=== PATIENT | male | born 1950 | race Caucasian/White ===

== ENCOUNTER → 2019-08-28 | Outpatient (CLI) | payer BC ==
[~2019-08-28] MED LIST: ACET-461 PO; ACHYD1T PO; ALBU2.5V4 IN; ALBU8.5H2 INH; AMOX-355 PO; BACL10TA PO; BCL10T PO; BUDE6HFA IH; CLCX200C PO; DEXL60CA5 PO; DIAZ10TA3 PO; Diazepam PO; FEXO180T84 PO; FLUT16SP22 NS; FURO20TA4 PO; Fentanyl TD; HYDR-2890 PO; IBUP-30 PO; MELA1TAB20 PO; POTA10CA43 PO; PREG75CA PO; ROSU10TA12 PO; SENN1TAB76 PO; SULF1TAB35 PO; TAMS0.4C9 PO; TMSL.4C PO; TRAM50TA2 PO
--- NOTE | 2019-08-28 14:27 | Diagnostic Imaging Report ---
INDICATION: Chest pain, cough, and fever. EXAMINATION: PA and lateral chest. FINDINGS: There are postop changes from a median sternotomy. The heart size and pulmonary vascularity are within normal limits. There are no infiltrates, effusions, or pneumothoraces. IMPRESSION: Post surgical changes in the chest. There are no acute abnormalities seen. Dictated by: Dictated on workstation # [id number]
== END ==
LOC: RAD FS 13:26
PROVIDERS: ATTEND Nurse Practitioner Family
DX: R07.9 Chest pain, unspecified (principal); R50.9 Fever, unspecified; R05 Cough; Z98.890 Other specified postprocedural states
CPT/HCPCS: 71046

== ENCOUNTER 2020-03-28 18:59 | Emergency (ER) | payer BC ==
[~2020-03-28] VITALS: Ht 160 cm; Wt 74.4 kg
[2020-03-28 19:34] LABS: HEMATOCRIT 38 % (40-54); HEMOGLOBIN 12.9 G/DL (13.3-17.7); MEAN CORPUSCULAR HEMOGLOBIN 31 PG (25-34); MEAN CORPUSCULAR HGB CONC 34 G/DL (32-36); MEAN CORPUSCULAR VOLUME 91 FL (80-99); PLATELET COUNT 236 10^3/uL (130-400); RED CELL DISTRIBUTION WIDTH 14.6 % (10.0-14.5); WHITE BLOOD COUNT 4.6 10^3/uL (4.3-11.0)
[2020-03-28 19:35] LABS: BASOPHILS % (AUTO) 0 % (0-10); EOSINOPHILS # (AUTO) 0.2 10^3/uL (0.0-0.3); EOSINOPHILS % (AUTO) 5 % (0-10); LYMPHOCYTES % (AUTO) 21 % (12-44); MEAN PLATELET VOLUME 9.6 FL (7.4-10.4); MONOCYTES # (AUTO) 0.8 X 10^3 (0.0-1.0); MONOCYTES % (AUTO) 17 % (0-12); NEUTROPHILS # (AUTO) 2.6 X 10^3 (1.8-7.8); NEUTROPHILS % (AUTO) 57 % (42-75)
[2020-03-28 19:42] LABS: INR 1.1 (0.8-1.4); PROTHROMBIN TIME PATIENT 14.2 SEC (12.2-14.7)
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
[2020-03-28 19:52] LABS: MAGNESIUM 2.2 MG/DL (1.6-2.4)
[2020-03-28 19:53] LABS: ALANINE AMINOTRANSFERASE 25 U/L (0-55); ALKALINE PHOSPHATASE 65 U/L (40-136); BILIRUBIN,TOTAL 0.3 MG/DL (0.1-1.0); BUN/CREATININE RATIO 24; CALCIUM 9.4 MG/DL (8.5-10.1); CARBON DIOXIDE 24 MMOL/L (21-32); CHLORIDE 106 MMOL/L (98-107); CREATININE SERUM 0.95 MG/DL (0.60-1.30); GFR ESTIMATED > 60; GLUCOSE 93 MG/DL (70-105); POTASSIUM 3.8 MMOL/L (3.6-5.0); SODIUM 139 MMOL/L (135-145)
[2020-03-28 19:54] LABS: ALBUMIN 4.2 GM/DL (3.2-4.5); TOTAL PROTEIN 6.5 GM/DL (6.4-8.2)
[2020-03-28 19:59] LABS: CLARITY,URINE CLEAR; COLOR,URINE YELLOW
[2020-03-28 20:00] LABS: BILIRUBIN,URINE NEGATIVE (NEGATIVE); GLUCOSE, URINE (UA) NEGATIVE (NEGATIVE); KETONES,URINE NEGATIVE (NEGATIVE); LEUKOCYTE ESTERASE ,URINE NEGATIVE (NEGATIVE); NITRITE,URINE NEGATIVE (NEGATIVE); PH,URINE 6.5 (5-9); PROTEIN,URINE NEGATIVE (NEGATIVE)
[2020-03-28 20:02] LABS: BACTERIA,URINE NEGATIVE /HPF; RBC,URINE RARE /HPF; SQUAMOUS EPITHELIAL CELL,UR RARE /HPF; WBC,URINE 0-2 /HPF
--- NOTE | 2020-03-28 20:21 | Diagnostic Imaging Report ---
PROCEDURE: CT head and CT cervical spine without contrast. TECHNIQUE: Multiple contiguous axial images were obtained through the brain and cervical spine without the use of intravenous contrast. Sagittal and coronal reformations through the cervical spine were then performed. Auto Exposure Controls were utilized during the CT exam to meet ALARA standards for radiation dose reduction. INDICATION: Acute altered mental status with confusion and multiple cervical surgeries. CT head: Ventricles and sulci are within normal limits for size. There is no intracranial hemorrhage identified. There is no abnormal mass effect or shift of midline structures. IMPRESSION: Unremarkable CT of the head. CT cervical spine: Extensive posterior fusion and decompression extend from C2 through T2. There is no evidence of an acute fracture or subluxation. No definite orthopedic hardware complication is identified. IMPRESSION: No CT evidence of acute cervical spinal abnormality. Dictated by: Dictated on workstation # [id number]
--- OUTSIDE RECORDS SUMMARY | 2020-03-28 20:33 | XMS REPORT | Encounter Summary ---
Author Author [facility] Organization [facility] Address Unknown Phone Unavailable Care Team Providers Care Senior Training And Development Rep Name Role Phone Jerry Brewer MD Unavailable Faviola Resendiz DO PCP Reason for Visit * Reason Comments Electrocardiogram Persistent atrial fibrillat ion, PVC's Encounter Details Care Team Description Date Type Department December [place] Electrocardiogram (Persistent atrial fib rillation, PVC's) 03/15/2020 Documentation [facility] [address] [place] [address] Social History Date Tobacco Use Types Packs/Day Years Used Never Smoker Smokeless Tobacco: Never Used Drinks/Week oz/Week Comments Alcohol Use No Sex Assigned at Date Recorded Not on file Industry Job Start Date Occupation Not on file Not on file Not on file Travel End Travel History Travel Start No recent travel history available. Date Recorded COVID-19 Exposure Response 03/15/2020 1:32 PM CDT In the last month, have you been in contact with No / Unsure someone who was confirmed or suspected to have Coronavirus / COVID-19? documented as of this encounter Functional Status Date of Assessment Functional Status Response 11/09/2019 Does the patient have a hearing impairment: No 11/09/2019 Does the patient have a visual impairment: Yes 11/09/2019 Does the patient have impaired ambulation: No 11/09/2019 Does the patient have an activity of daily living No (ADL) impairment: 11/09/2019 Does the patient have an instrumental activity of No daily living (IADL) impairment: Date of Assessment Cognitive Status Response 11/09/2019 Does the patient have a cognitive impairment: No documented as of this encounter Plan of Treatment Order Schedule Name Type Priority Associated Diag noses Ordered: 03/15/2020 ECG 12-LEAD ECG Routine Other persisten t atrial fibrillation (HCC) documented as of this encounter Visit Diagnoses Diagnosis Longstanding persistent atrial fibrilla tion (HCC) Other persistent atrial fibrillation (H CC) documented in this encounter
--- OUTSIDE RECORDS SUMMARY | 2020-03-28 20:33 | XMS REPORT | Encounter Summary ---
Author Author [facility] Organization [facility] Address Unknown Phone Unavailable Care Team Providers Care Multimedia Designer Name Role Phone Jerry Brewer MD Unavailable Faviola Resendiz DO PCP Reason for Referral * Test (Routine) Referred By Contact Referred To Contact Status Reason Specialty Diagnoses / Procedures Smita Soria APRN-NP [address] [place] [address] Cvm Cmpc3 Echo/Pv [address] [place] [address] Authorized Cardiology Diagnoses Cardiomyopathy, unspecified type (HCC) P rocedures 2D + DOPPLER ECHO VT ECHO TTHRC R-T 2D W/WOM-MODE COMPL SPEC&COLR D VT MYOCRD STRAIN IMG SPECKLE TRCK [facility]MT [facility] REND[facility] W/INTERP & POSTPROCESS SUPERVISION Reason for Visit * Test (Routine) Referred By Contact Referred To Contact Status Reason Specialty Diagnoses / Procedures Smita Soria APRN-NP [address] [place] [address] Cvm Cmpc3 Echo/Pv [address] [place] [address] Authorized Cardiology Diagnoses Cardiomyopathy, unspecified type (HCC) P rocedures 2D + DOPPLER ECHO VT ECHO TTHRC R-T 2D W/WOM-MODE COMPL SPEC&COLR D VT MYOCRD STRAIN IMG SPECKLE TRCK ASSMT MYOCRD MECH VT 3D RENDERING W/INTERP & POSTPROCESS SUPERVISION Encounter Details Care Team Description Date Type Department Smita Soria APRN-JAVA SYSTEMS ANALYST [address] [place] [address] [phone] 03/15/2020 [facility] [address] [place] [address] Social History Date Tobacco Use Types Packs/Day [...] / COVID-19? documented as of this encounter Last Filed Vital Signs Reading Time Taken Comments Vital Sign 116/70 03/15/2020 2:18 PM CDT Blood Pressure - - Pulse - - Temperature - - Respiratory Rate - - Oxygen Saturation - - Inhaled Oxygen Concentration 74.4 kg (164 lb) 03/15/2020 2:18 PM CDT Weight 160 cm (5' 3") 03/15/2020 2:18 PM CDT Height 29.05 03/15/2020 2:18 PM CDT Body Mass Index documented in this encounter Functional Status Date of Assessment [...] impairment: No documented as of this encounter Medications at Time of Discharge Start Date End Date Medication Sig Dispensed Refills acetaminophen (TYLENOL) Take 1,000 mg 0 500 mg tablet by mouth every 8 hours. Max of 4,000 mg of acetaminophen in 24 hours. albuterol 0.083% Inhale 2.5 mg 0 (PROVENTIL; VENTOLIN) 2.5 solution as mg /3 mL (0.083 %) directed nebulizer solution every 4 hours as needed for Wheezing. 11/06/2019 apixaban (ELIQUIS) 5 mg Take one 60 tablet 11 tablet tablet by mouth twice daily. May crush 5 mg or 2.5 mg tablets and suspend in 60 mL of D5W followed by immediate delivery through a nasogastric tube. No information regarding administratio n of suspension by mouth is available. budesonide/formoterol Inhale by 0 fumarate (SYMBICORT IN) mouth into the lungs as Needed. 04/25/2019 diclofenac (VOLTAREN) 1 % Apply two g 300 g 3 topical gel topically to affected area four times daily. fenofibrate(+) (TRIGLIDE) Take 160 mg 0 160 mg tablet by mouth at bedtime daily. Take with food. 11/09/2019 folic acid (FOLVITE) 1 mg Take one 90 tablet 3 tablet tablet by mouth daily. 05/16/2019 hydroxychloroquine Take one 180 tablet 3 (PLAQUENIL) 200 mg tablet tablet by mouth twice daily. Take with food. loratadine (CLARITIN) 10 Take 10 mg by 0 mg tablet mouth every morning. 11/09/2019 methotrexate sodium Take four 48 tablet 0 (RHEUMATREX) 2.5 mg tablets by tablet mouth every 7 days. 01/25/2020 metoprolol XL (TOPROL XL) Take one-half 90 tablet 3 25 mg extended release tablet by tablet mouth at bedtime daily. montelukast (SINGULAIR) Take 10 mg by 0 10 mg tablet mouth at bedtime daily. pantoprazole DR Take 40 mg by 0 (PROTONIX) 40 mg tablet mouth daily. polyethylene glycol 3350 Take 17 g by 0 (MIRALAX) 17 g packet mouth daily. 07/20/2019 traMADol (ULTRAM) 50 mg Take one 60 tablet 0 tablet tablet by mouth every 12 hours. zolpidem (AMBIEN) 5 mg Take 5 mg by 0 tablet mouth at bedtime as needed for Sleep. documented as of this encounter Plan of Treatment Not on filedocumented as of this encounter Procedures Comments Procedure Name Priority Date/Time Associated Diag nosis 2D + DOPPLER ECHO NO Routine 03/15/2020 Cardiomyo manish, CONTRAST 2:18 PM CDT unspecified type (H CC) ECG-SCAN 03/15/2020 12:00 AM CDT documented in this encounter Results * 2D + DOPPLER ECHO (03/15/2020 2:18 PM CDT) [facility] Signature BSA 1.82 m2 OTHER OUTSIDE LAB Referring Faviola Resendiz, OTHER OUTSIDE Provider LAB Cardiology Siemens [id number] OTHER OUTSIDE Ultrasound LAB Machine IVS 0.77 0.6 - 1.0 cm OTHER OUTSIDE LAB LVIDD 5.30 4.2 - 5.8 cm OTHER OUTSIDE LAB LVIDS 4.10 2.5 - 4.0 cm OTHER OUTSIDE LAB PW 0.88 0.6 - 1.0 cm OTHER OUTSIDE LAB Left Ventricle 101.50 62 - 150 mL OTHER OUTSIDE Diastolic LAB Volume Left Ventricle 55.77 34 - 74 mL OTHER OUTSIDE Diastolic LAB Volume Index Left Ventricle 50.63 21 - 61 mL OTHER OUTSIDE Systolic Volume LAB Left Ventricle 27.82 11 - 31 mL OTHER OUTSIDE Systolic Volume LAB Index TDI lateral e' 0.12 m/s OTHER OUTSIDE LAB Right 2.78 1.9 - 3.5 cm OTHER OUTSIDE Ventricular Mid LAB Diameter LA size 4.46 3.0 - 4.0 cm OTHER OUTSIDE LAB LA volume 79.08 18 - 58 mL OTHER OUTSIDE LAB Right Atrial 16.69 <18 cm2 OTHER OUTSIDE Area LAB Right Atrial 4.44 2.1 - 2.7 cm OTHER OUTSIDE Major Dimension LAB AV peak 0.97 m/s OTHER OUTSIDE velocity LAB AV 517.23 ms OTHER OUTSIDE regurgitation LAB pressure 1/2 time MV Peak A Adelfo 0.29 m/s OTHER OUTSIDE LAB MV Peak E Adelfo 0.70 m/s OTHER OUTSIDE PW LAB Right 3.85 2.5 - 4.1 cm OTHER OUTSIDE Ventricular LAB Basal Diameter Right Heart 0.07 m/s OTHER OUTSIDE Systolic TDI S' LAB Right Heart 1.44 >1.7 cm OTHER OUTSIDE Systolic Mmode LAB TAPSE Sinus 3.09 2.8 - 4.0 cm OTHER OUTSIDE LAB Ascending aorta 3.04 cm OTHER OUTSIDE LAB FS 22.64 28 - 44 % OTHER OUTSIDE LAB EF 38.49 % OTHER OUTSIDE LAB LV mass 156.04 88 - 224 g OTHER OUTSIDE LAB RWT 0.33 <=0.42 OTHER OUTSIDE LAB E/A ratio 2.41 OTHER OUTSIDE LAB Lateral E/E' 5.83 OTHER OUTSIDE ratio LAB Left Atrium 43.45 16 - 34 OTHER OUTSIDE Index LAB Left Ventricle 85.74 49 - 115 g/m2 OTHER OUTSIDE Mass Index LAB ECHO EF 45 % OTHER OUTSIDE LAB TDI Medial e' 7.400 m/s OTHER OUTSIDE LAB Medial E/E' 0.09 OTHER OUTSIDE ratio LAB Specimen Narrative Performed At OTHER OUTSIDE LAB Mildly decreased global LV contractilit y: Estimate of EF 45%. Normal left ventricular parasternal rhys g axis end-diastolic dimension and biplane volume index. Normal left ventricular mass index and relative wall thickness. Borderline right ventricular contractil ity. Moderate left atrial dilatation. Normal central venous pressure. Mild mitral regurgitation. Normal tricuspid valve motion. Trace tricuspid regurgitation. PA pressure could not be estimated on this study. Focal aortic valve thickening without a ortic stenosis. Mild aortic regurgitation. Normal pulmonic valve motion. Trace p ulmonic regurgitation. The pulmonary artery and the transverse aorta are not well visualized Performing Organization Address City/State[facility] one Number OTHER OUTSIDE LAB * ECG-SCAN (03/15/2020 12:00 AM CDT) Narrative Performed At This result has an attachment that is n ot available. Ordered by an unspecified provider. documented in this encounter Visit Diagnoses Diagnosis Cardiomyopathy, unspecified type (HCC) documented in this encounter
--- OUTSIDE RECORDS SUMMARY | 2020-03-28 20:33 | XMS REPORT | Encounter Summary ---
Author Author [facility] Organization [facility] Address Unknown Phone Unavailable Care Team Providers Care Stamp Maker Name Role Phone Jerry Brewer MD Unavailable Faviola Resendiz DO PCP Encounter Details Care Team Description Date Type Department Cornelius Russo BSN Persistent atrial fibrillation (HCC) (Pr imary Dx); PVC (premature ventricular contraction) 03/13/2020 Orders Only [facility] [address] [facility] [place], [place] [id number] Social History Date Tobacco Use Types Packs/Day Years Used Never Smoker Smokeless Tobacco: Never Used Drinks/Week oz/Week Comments Alcohol Use No Sex Assigned at Date Recorded Not on file Industry Job Start Date Occupation Not on file Not on file Not on file Travel End Travel History Travel Start No recent travel history available. documented as of this encounter Functional Status [...] Schedule Name Type Priority Associated Diag noses Expected: 03/13/2020 (Approximate), Expi res: 03/13/2021 ECG 12-LEAD ECG Routine Persistent atri al fibrillation (HCC) PVC (premature ventricular contraction) documented as of this encounter Visit Diagnoses Diagnosis Persistent atrial fibrillation (HCC) Atrial fibrillation PVC (premature ventricular contraction) Other premature beats documented in this encounter
--- OUTSIDE RECORDS SUMMARY | 2020-03-28 20:33 | XMS REPORT | Clinical Summary ---
Author Author [facility] Organization [facility] Address Unknown Phone Unavailable Care Team Providers Care Generating Plant Superintendent Name Role Phone Jerry Brewer MD Unavailable Faviola Resendiz DO PCP Source Comments Some departments are not documenting in the electronic medical record. If you d o not see the information that you expected, contact Release of Information in Critical access hospital Information Management department at [phone] for further assistan ce in locating additional records.[facility] Allergies Comments Active Allergy Reactions Severity Noted Date Allergy recorded in SMS: Morphine Has tolerated. Morphine RASH Medium 01/29/2006 Allergy recorded in SMS: OXYCONTIN Oxycodone UNKNOWN Low 01/29/2006 Allergy recorded in SMS: Percocet unknown Oxycodone-Acetaminophen SEE COMMENTS Low 2005 Medications End Date Status Medication Sig Dispensed Refills Start Date Active albuterol 0.083% Inhale 2.5 mg 0 (PROVENTIL; VENTOLIN) 2.5 solution as mg /3 mL (0.083 %) directed nebulizer solution every 4 hours as needed for Wheezing. Active montelukast (SINGULAIR) Take 10 mg by 0 10 mg tablet mouth at bedtime daily. Active loratadine (CLARITIN) 10 Take 10 mg by 0 mg tablet mouth every morning. Active fenofibrate(+) (TRIGLIDE) Take 160 mg 0 160 mg tablet by mouth at bedtime daily. Take with food. Active acetaminophen (TYLENOL) Take 1,000 mg 0 500 mg tablet by mouth every 8 hours. Max of 4,000 mg of acetaminophen in 24 hours. Active zolpidem (AMBIEN) 5 mg Take 5 mg by 0 tablet mouth at bedtime as needed for Sleep. Active budesonide/formoterol Inhale by 0 fumarate (SYMBICORT IN) mouth into the lungs as Needed. Active diclofenac (VOLTAREN) 1 % Apply two g 300 g 3 topical gel topically to 9 affected area four times daily. Additional Information Patient taking differently: 2 g Topical NEEDED, Reported on 10/13/2019 9:25 AM Active hydroxychloroquine Take one 180 tablet 3 05/16/ 01 (PLAQUENIL) 200 mg tablet tablet by 9 mouth twice daily. Take with food. Active traMADol (ULTRAM) 50 mg Take one 60 tablet 0 tablet tablet by 9 mouth every 12 hours. Active polyethylene glycol 3350 Take 17 g by 0 (MIRALAX) 17 g packet mouth daily. Active pantoprazole DR Take 40 mg by 0 (PROTONIX) 40 mg tablet mouth daily. Active apixaban (ELIQUIS) 5 mg Take one 60 tablet 11 tablet tablet by 0 mouth twice daily. May crush 5 mg or 2.5 mg tablets and suspend in 60 mL of D5W followed by immediate delivery through a nasogastric tube. No information regarding administratio n of suspension by mouth is available. Active folic acid (FOLVITE) 1 mg Take one 90 tablet 3 tablet tablet by 0 mouth daily. Active methotrexate sodium Take four 48 tablet 0 (RHEUMATREX) 2.5 mg tablets by 0 tablet mouth every 7 days. Active metoprolol XL (TOPROL XL) Take one-half 90 tablet 3 25 mg extended release tablet by 0 tablet mouth at bedtime daily. Active Problems Problem Noted Date NICM (nonischemic cardiomyopathy) 01/25/2020 PVC (premature ventricular contraction) 01/21/2020 Overview: 10/13/2019 - Zio Patch: ZIO patch ran 3 days 4 hours. 1 hour was lost to artifact. The rhythm is sinus at 54-10 6 bpm with a mean of 78 bpm. 6.8% of all beats are isolated APCs, just ov er 24,000 beats. There are 815 couplets and 60 triplets. There are 4 longer runs of atrial tachycardia. The fastest is also the longest, 8 beat s at a maximum rate of 158 bpm. The second longest run is 6 beats at 112 bp m. There is no A. fib or a flutter. 3.2% of all beats are isolated PVCs. T here are 298 couplets and 7 triplets. There are no runs longer milli n 3 beats. There is bigeminy up to 59 seconds in duration and trigeminy up to 8 seconds in duration. There is more than one PVC morphology. I am unc ertain as to whether there is a dominant morphology. AV conduction is 1:1. There is an IVCD. There are no diary entries but there are 2 patient t riggers. The first is sinus with relatively frequent isolated PVCs inclu ding quadrigeminy. The second strip is sinus with predominant ventricular q uadrigeminy. There are no pauses. Chronic diastolic heart failure, NYHA class 2 2016 Overview: 09/27/2019 - ECHO: Slightly dilated le ft ventricle. Diffuse hypokinesis. Moderately depressed function with ejec tion fraction=40-45%. Severe diastolic dysfunction with elevated felipe ling pressure. No mitral regurgitation. Unable to measure pulmo nary artery pressure. Normal right ventricular ejection fraction. Normal central venous pressure. History of repair of atrial septal defect 03/22/2017 Persistent atrial fibrillation 03/10/2017 Overview: 10/01/16-[facility]- Echo -EF 55%- LA 4.5 cm; unable to comment on diastolic funciton due to PA F; mild LA dilatation; mild MR; mild TR 11/04/16-[facility]- Successful DCCV to R wit h 200 joules 02/12/17-[facility]- successful DCCV to NSR 06/23 admit for Tikosyn with successful DCCV to NSR/SB 08/16/17 Successful Pulmonary vein isol ation with the WACA approach. Cavo-Tricuspid Isthmus Ablation with Bi directional Block. Esosure used. No inducible arrhythmias post ablation. 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 S/P cervical spinal fusion 01/07/2015 Asthma 01/07/2015 Resolved Problems Problem Noted Date Resolved Date Atrial fibrillation 06/23/2017 06/24/2017 Encounters Care Team Description Date Type Specialty Smita Soria APRN-NP 03/15/2020 Hospital Cardiology Encounter [facility] Electrocardiogram (Persistent atrial fib rillation, PVC's) 03/15/2020 Documentation Cardiology 03/15/2020 Travel Smita Soria APRN-NP PVC's (3 month follow up) 03/13/2020 Office Visit Cardiology Telehealth Cornelius Russo BSN Persistent atrial fibrillation (HCC) (Pr imary Dx); PVC (premature ventricular contraction) 03/13/2020 Orders Only Cardiology Karin Yates MA Appointment (left message re: 01/24 appt) 01/24/2020 Telephone Cardiology from Last 3 Months Family History Medical History Relation Name Comments Arthritis-rheumatoid Brother Coronary Artery Disease Brother Heart Failure Brother Arthritis-rheumatoid Brother Heart Attack Brother Pulmonary Embolism Father Cancer Maternal Aunt leukemia Heart Attack Maternal possible Grandfather Stroke Maternal possible Grandfather Sudden Cardiac Maternal Grandfather Dementia Maternal Grandmother Heart Attack Maternal Uncle Heart Attack Maternal Uncle Heart Attack Maternal Uncle Unknown to Patient Maternal Uncle Atrial Fibrillation Mother Heart Failure Mother Unknown to Patient Paternal Grandmother Heart Attack Paternal Uncle Scleroderma Sister Multiple sclerosis Neg Hx SLE Neg Hx Relation Name Status Comments Brother (Age 80) Brother (Age 80) Father (Age 62) Maternal Aunt (Age 45) Maternal Grandfather (Age 79) Maternal Grandmother (Age 92) Maternal Uncle (Age 62) Maternal Uncle (Age 42) Maternal Uncle (Age 68) Maternal Uncle (Age 88) Mother (Age 88) Paternal Aunt (Age mid 80) Paternal Grandfather from unknow n causes (Age 80s) Paternal Grandmother Paternal Uncle (Age 50s) Paternal Uncle (Age early 80s) Sister Alive fluoroderma Social History Date Tobacco Use Types Packs/Day [...] or suspected to have Coronavirus / COVID-19? Last Filed Vital Signs Reading Time Taken Comments Vital Sign 116/70 03/15/2020 2:18 PM CDT Blood Pressure 72 01/25/2020 9:50 AM CDT Pulse 36.9 C (98.4 F) 11/09/2019 4:11 PM CDT Temperature 16 11/09/2019 4:11 PM CDT Respiratory Rate 97% 11/09/2019 4:11 PM CDT Oxygen Saturation - - Inhaled Oxygen Concentration 74.4 kg (164 lb) 03/15/2020 2:18 PM CDT Weight 160 cm (5' 3") 03/15/2020 2:18 PM CDT Height 29.05 03/15/2020 2:18 PM CDT Body Mass Index Plan of Treatment Health Maintenance Due Date Last Done Comments DTAP/TDAP VACCINES (1 - 1969 Tdap) PHYSICAL (COMPREHENSIVE) 1969 EXAM SHINGLES RECOMBINANT 2001 VACCINE (1 of 2) PNEUMONIA (PPSV23) 2016 VACCINE (1 of 1 - PPSV23) INFLUENZA VACCINE 05/30/2020 COLORECTAL CANCER 10/05/2024 10/05/2019 SCREENING HEPATITIS C SCREENING Completed 03/21/2019 Procedures Comments Procedure Name Priority Date/Time Associated Diag nosis 2D + DOPPLER ECHO NO Routine 03/15/2020 Cardiomyo manish, CONTRAST 2:18 PM CDT unspecified type (H CC) ECG-SCAN 03/15/2020 12:00 AM CDT from Last 3 Months Results * 2D + DOPPLER ECHO (03/15/2020 2:18 PM CDT) BSA 1.82 m2 OTHER OUTSIDE LAB Referring Faviola Resendiz, OTHER OUTSIDE Provider LAB Cardiology Siemens [id number] OTHER OUTSIDE Ultrasound LAB Machine IVS 0.77 [...] are not well visualized Performing Organization Address City/State/Zipcode Ph one Number OTHER OUTSIDE LAB * ECG-SCAN (03/15/2020 12:00 AM CDT) Narrative Performed At This result has an attachment that is n ot available. Ordered by an unspecified provider. from Last 3 Months Insurance Type Payer Benefit Subscriber ID Effective Phone Address Plan / Dates Group PPO BCBS GAIL BCBS GAIL xxxxxxxxxxxx 2014- PREF CARE Present BLUE [phone] (Home) [place] [address] Advance Directives Patient Documentation Coordinator Explanation Type Date Recorded Advance Directive/DPOA Date Inactivated Comments Code Status Date Activated 08/17/2017 11:59 AM Full Code 08/16/2017 6:26 AM Provider has discussed Code Status Yes w/Patient or Family? 06/25/2017 1:03 PM Full Code 06/23/2017 12:56 PM Provider has discussed Code Status No, more discussi on w/Patient or Family? needed
--- OUTSIDE RECORDS SUMMARY | 2020-03-28 20:33 | XMS REPORT | Encounter Summary ---
Author Author [facility] Organization [facility] Address Unknown Phone Unavailable Care Team Providers Care Manager Of Quality Name Role Phone Jerry Brewer MD Unavailable Faviola Resendiz DO PCP Encounter Details Care Team Description Date Type Department 03/15/2020 Travel Social History Date Tobacco Use Types Packs/Day [...] Not on filedocumented as of this encounter Visit Diagnoses Not on filedocumented in this encounter
--- OUTSIDE RECORDS SUMMARY | 2020-03-28 20:34 | XMS REPORT | Encounter Summary ---
Author Author [facility] Organization [facility] Address Unknown Phone Unavailable Care Team Providers Care Pilates Instructor Name Role Phone Jerry Brewer MD Unavailable Faviola Resendiz DO PCP Reason for Visit * Reason Comments Medication Refill Encounter Details Care Team Description Date Type Department Bassam Mckinnon MD [address] [place] [address] 11/13/2019 Refill [facility] [address] [place] [address] Social History Date Tobacco Use Types Packs/Day [...]
--- OUTSIDE RECORDS SUMMARY | 2020-03-28 20:34 | XMS REPORT | Encounter Summary ---
Author Author [facility] Organization [facility] Address Unknown Phone Unavailable Care Team Providers Care Psych Therapist Name Role Phone Jerry Brewer MD Unavailable Faviola Resendiz DO PCP Reason for Visit * Reason Comments Care Coordination Encounter Details Care Team Description Date Type Department Bassam Mckinnon MD [address] [place], [place] [id number] Care Coordination 10/18/[address] [facility] [address] [place] [address] Social History Date Tobacco Use Types Packs/Day [...] Status Date of Assessment Functional Status Response 08/15/2019 Does the patient have a hearing impairment: No 08/15/2019 Does the patient have a visual impairment: Yes 08/15/2019 Does the patient have impaired ambulation: No 08/15/2019 Does the patient have an activity of daily living No (ADL) impairment: 08/15/2019 Does the patient have an instrumental activity of No daily living (IADL) impairment: Date of Assessment Cognitive Status Response 08/15/2019 Does the patient have a cognitive impairment: No documented as of this encounter Miscellaneous Notes * Telephone Encounter - eKren Leos RN - 10/18/2019 8:40 AM DIDACTIC PROGRAM IN DIETETICS DIRECTOR Faxed [facility] Path results and recommendations for repeat colonoscopy to pt's Danny Resendiz. Fax Result: Success. CTIC PROGRAM IN DIETETICS DIRECTOR * Telephone Encounter - Keren Leos RN - 10/18/2019 8:40 AM DIDACTIC PROGRAM IN DIETETICS DIRECTOR ----- Message from Bassam Mckinnon MD sent at 10/17/2019 2:38 PM DIDACTIC PROGRAM IN DIETETICS DIRECTOR ----- Can we send a letter to the PCP with this bx And recommendations to repeat colonoscopy in 5 yrs. Thx CTIC PROGRAM IN DIETETICS DIRECTOR documented in this encounter Plan of Treatment Not on filedocumented as of this encounter Visit Diagnoses Not on filedocumented in this encounter
--- OUTSIDE RECORDS SUMMARY | 2020-03-28 20:34 | XMS REPORT | Encounter Summary ---
Author Author [facility] Organization [facility] Address Unknown Phone Unavailable Care Team Providers Care Product Safety Expert Name Role Phone Jerry Brewer MD Unavailable Faviola Resendiz DO PCP Reason for Visit * Reason Comments Other Zio Cardiac Device Remote Online enrollment with iRhy thm Enrollment Encounter Details Care Team Description Date Type Department Keren Carrizales Other (Zio); Cardiac Device Remote Enrol lment (Online enrollment with iRhythm) 10/13/2019 Documentation The [address] [place] [address] Social History Date Tobacco Use Types Packs/Day [...] impairment: No documented as of this encounter Progress Notes * Chapin Syed - 10/13/2019 11:18 AM WIRE COMMUNICATIONS ENGINEER Online enrollment with iRhythm. COMMUNICATIONS ENGINEER * Keren Carrizales - 10/13/2019 11:18 AM WIRE COMMUNICATIONS ENGINEER Group Home Monitor Placement Record Ordering Physician: Albert Amanda Diagnosis: PVCs Length: 3 days Serial Number: [id number] Start Time: 1016 [place] COMMUNICATIONS ENGINEER documented in this encounter Plan of Treatment Not on filedocumented as of this encounter Visit Diagnoses Not on filedocumented in this encounter
--- OUTSIDE RECORDS SUMMARY | 2020-03-28 20:34 | XMS REPORT | Encounter Summary ---
Author Author [facility] Organization [facility] Address Unknown Phone Unavailable Care Team Providers Care Ammunition Officer Name Role Phone Jerry Brewer MD Unavailable Faviola Resendiz DO PCP Encounter Details Care Team Description Date Type Department 11/09/2019 Travel Social History Date Tobacco Use Types [...]
--- OUTSIDE RECORDS SUMMARY | 2020-03-28 20:34 | XMS REPORT | Encounter Summary ---
Author Author [facility] Organization [facility] Address Unknown Phone Unavailable Care Team Providers Care Nodulizer Name Role Phone Jerry Brewer MD Unavailable Faviola Resendiz DO PCP Reason for Visit * Reason Comments Results Ziopatch results Encounter Details Care Team Description Date Type Department Lorena Ellis RN Results (Ziopatch results) 11/06/2019 Telephone The [address] [place], [place] [id number] Social History Date Tobacco Use Types Packs/Day [...] encounter Miscellaneous Notes * Telephone Encounter - Cornelius Russo BSN - 11/06/2019 2:46 PM CDT Sent a message via [employer] to patient. * Telephone Encounter - Lorena Ellis RN - 11/06/2019 1:49 PM CDT Attempted to contact patient regarding Ziopatch results, but no answer. LMCB. Per YMR hold off on PVC ablation, and do not start AAD at this time. * Telephone Encounter - Lorena Ellis RN - 11/06/2019 1:47 PM CDT ----- Message from Gómez Amanda MD sent at 11/03/2019 1:48 PM FILLING MACHINE TENDER ----- Fortunately the PVC burden is lower than what we anticipated. There were ~7% PAC s and ~3% PVCs. We should hold off on the PVC ablation for now. documented in this encounter Plan of Treatment Not on filedocumented as of this encounter Visit Diagnoses Not on filedocumented in this encounter
--- OUTSIDE RECORDS SUMMARY | 2020-03-28 20:34 | XMS REPORT | Encounter Summary ---
Author Author [facility] Organization [facility] Address Unknown Phone Unavailable Care Team Providers Care Core Layer Machine Operator Name Role Phone Jerry Brewer MD Unavailable Faviola Resendiz DO PCP Encounter Details Care Team Description Date Type Department Bassam Mckinnon MD [address] [place], [place] [phone] 11/01/2019 Orders Only [facility] [address] [place] [address] Social History Date Tobacco Use Types Packs/Day [...] as of this encounter Progress Notes * Keren Leos RN - 11/01/2019 9:57 AM WINDOW DISPLAY DESIGNER Contacted Radiology Scheduling to cancel MRE per Dr. Mckinnon. OW DISPLAY DESIGNER documented in this encounter Plan of Treatment Not on filedocumented as of this encounter Visit Diagnoses Not on filedocumented in this encounter
--- OUTSIDE RECORDS SUMMARY | 2020-03-28 20:34 | XMS REPORT | Encounter Summary ---
Author Author [facility] Organization [facility] Address Unknown Phone Unavailable Care Team Providers Care District Administrative Assistant Name Role Phone Jerry Brewer MD Unavailable Faviola Resendiz DO PCP Encounter Details Care Team Description Date Type Department Gómez Amanda MD [address] [address] [phone] 10/13/2019 [facility] [address] [id number] Social History Date Tobacco Use Types Packs/Day [...] every 4 hours as needed for Wheezing. budesonide/formoterol Inhale by 0 fumarate (SYMBICORT IN) mouth into the lungs as Needed. 04/25/2019 diclofenac (VOLTAREN) 1 % Apply two g 300 g 3 topical gel topically to affected area four times daily. fenofibrate(+) (TRIGLIDE) Take 160 mg 0 160 mg tablet by mouth at bedtime daily. Take with food. 05/16/2019 hydroxychloroquine Take one 180 tablet 3 (PLAQUENIL) 200 mg tablet tablet by mouth twice daily. Take with food. loratadine (CLARITIN) 10 Take 10 mg by 0 mg tablet mouth every morning. montelukast (SINGULAIR) Take 10 mg by 0 [...] mouth at bedtime as needed for Sleep. 03/09/2019 11/06/2019 apixaban (ELIQUIS) 5 mg Take one 180 tablet 3 tablet tablet by mouth twice daily. 08/03/2019 01/25/2020 ergocalciferol (VITAMIN Take one 12 capsule 0 D) 50,000 unit capsule capsule by mouth every 7 days. documented as of this encounter Plan of Treatment Not on filedocumented as of this encounter Procedures Comments Procedure Name Priority Date/Time Associated Diag nosis PATIENT FROM CLINIC - Routine 10/20/2019 Frequent PVCs LONG-TERM HUMAN RESOURCES PROJECT MANAGER 2:33 PM FACTORY SUPERVISOR documented in this encounter Results * LONG-TERM HUMAN RESOURCES PROJECT MANAGER (10/20/2019 2:33 PM FACTORY SUPERVISOR) Specimen Narrative Performed At OTHER OUTSIDE LAB A DANAO patch ran 3 days 4 hours. 1 justine pham was lost to artifact. The rhythm is sinus at 54-106 bpm with a mean of 78 bpm 6.8% of all beats are isolated APCs, ju st over 24,000 beats. There are 815 couplets and 60 triplets. There a re 4 longer runs of atrial tachycardia. The fastest is also the longest, 8 beats at a maximum rate of 158 bpm. The second longest run is 6 beats at 112 bpm. There is no A. fib or a flutter 3.2% of all beats are isolated PVCs. There are 298 couplets and 7 triplets. There are no runs longer th an 3 beats. There is bigeminy up to 59 seconds in duration and trigeminy up to 8 seconds in duration. There is more than one PVC morphology. I am uncertain as to whether there is a dominant morphology AV conduction is 1:1. There is an IVCD. There are no diary entries but there ar e 2 patient triggers. The first is sinus with relatively frequent isolated PVCs including quadrigeminy. The second strip is sinus with predomin ant ventricular quadrigeminy. There are no pauses Performing Organization Address City/State/Zipcode Ph one Number OTHER OUTSIDE LAB documented in this encounter Visit Diagnoses Diagnosis Frequent PVCs Other premature beats documented in this encounter
--- OUTSIDE RECORDS SUMMARY | 2020-03-28 20:34 | XMS REPORT | Encounter Summary ---
Author Author [facility] Organization [facility] Address Unknown Phone Unavailable Care Team Providers Care Cell Room Operator Name Role Phone Jerry Brewer MD Unavailable Faviola Resendiz DO PCP Reason for Visit * Auth/Cert Referred By Contact Referred To Contact Status Reason Specialty Diagnoses / Procedures Diagnoses Change in bowel habits Change in bowel habits [R19.4] P rocedures TN COLONOSCOPY FLX DX W/COLLJ SPEC WHEN PFRMD TN EGD TRANSORAL BIOPSY SINGLE/MULTIPLE Colonoscopy ESOPHAGOGASTRODUOD ENOSCOPY WITH BIOPSY - FLEXIBLE Encounter Details Care Team Description Date Type Department Merissa Trejo MD [address] [place], [place] [phone] 10/05/2019 Anesthesia The [facility] [address] [place], [place] [phone] Anesthesia Record Responsible Anesthesiologist Anesthesia Start Time Anesthesi a Stop Time Procedure Name Merissa Trejo MD 10/05/19 1305 10/05/19 1405 Colonoscopy (N/A ) Date Time Event Comment 1241 1254 AN Equip Check 1305 Anes Start 1306 Out of Pre Procedure 1307 In Room 1308 An Start Data 1310 Start Supplemental O2 1311 Anesthesia Ready 1315 Proc Start 1320 Quick Note Rotating the bed fo r lower scope 1402 an stop data To PACU with O2 and monitor. Report to RN. VSS. 1403 Handoff to RN I completed my SBAR handoff to the receiving nurse. 1405 An Stop Meds Name Total lidocaine (2%) 200 mg/10mL Injection 120 mg syringe propofol (DIPRIVAN) 200 mg/ 20 mL 220 mg injection (VIAL) propofol (DIPRIVAN) infusion 309.26 mg phenylephrine (NAIN-SYNEPHRINE) 0.1 mg/mL 100 mcg injection (SYRINGE) lactated ringers infusion 600 mL * Name O2 N2O Inspired N2O * No blood administrations on file. Removal Type Details Placement 10/05/19 1409 by Adenike Aldana RN Peripheral 10/05/19; 1222; RN; R; Hand; 20 G; No; 10/05/19 1222 by ROSA Aldana 1; 10/05/19; 1409 NATANAEL Jeong documented in this encounter Social History Date Tobacco Use Types Packs/Day [...] impairment: No documented as of this encounter OR Notes * Anesthesia Postprocedure Evaluation - Merissa Trejo MD - 10/05/2019 2:34 PM SCHEDULING ADMINISTRATOR Post-Anesthesia Evaluation Name: Matt Fields Dr. : 1950 Age: 69 y.o. Sex: male Procedure Date: 10/05/2019 Procedure(s) (LRB): Colonoscopy ESOPHAGOGASTRODUODENOSCOPY WITH SPECIMEN COLLECTION BY BRUSHING/ WASHING COLONOSCOPY WITH BIOPSY - FLEXIBLE Surgeon: Surgeon(s): Bassam Mckinnon MD Post-Anesthesia Vitals BP: 126/85 (10/05 1420) Temp: 36.4 C (97.5 F) (10/05 1403) Pulse: 73 (10/05 1420) Respirations: 14 PER MINUTE (10/05 1420) SpO2: 99 % (10/05 1420) SpO2 Pulse: 71 (10/05 1420) Vitals Value Taken Time BP 126/85 10/05/2019 2:20 PM Temp Pulse 73 10/05/2019 2:20 PM Respirations 14 PER MINUTE 10/05/2019 2:20 PM SpO2 99 % 10/05/2019 2:20 PM Post Anesthesia Evaluation Note Evaluation location: Pre/Post Patient participation: recovered; patient participated in evaluation Level of consciousness: alert Pain score: 0 Pain management: adequate Hydration: normovolemia Temperature: 36.0C - 38.4C Airway patency: adequate Perioperative Events Post-op nausea and vomiting: no PONV Postoperative Status Cardiovascular status: hemodynamically stable Respiratory status: spontaneous ventilation Follow-up needed: none Perioperative Events Perioperative Event: No Emergency Case Activation: No DULING ADMINISTRATOR * Anesthesia Preprocedure Evaluation - Aimee Ybarra CRNA - 10/05/2019 12:06 PM SCHEDULING ADMINISTRATOR Anesthesia Pre-Procedure Evaluation Name: Matt Fields Dr. : 1950 Age: 69 y.o. Sex: male Procedure Info: Procedure Information Date/Time: 10/05/19 1300 Procedures: Colonoscopy (N/A ) ESOPHAGOGASTRODUODENOSCOPY WITH BIOPSY - FLEXIBLE (N/A ) Location: ENDO 1 / ENDO/GI Surgeon: Bassam Mckinnon MD Physical Assessment Vital Signs (last filed in past 24 hours): Height: 160 cm (63") (10/05 1157) Weight: 75.8 kg (167 lb) (10/05 1157) Patient History Allergies Allergen Reactions Morphine RASH Allergy recorded in SMS: Morphine Has tolerated. Oxycodone UNKNOWN Allergy recorded in SMS: OXYCONTIN Oxycodone-Acetaminophen SEE COMMENTS Allergy recorded in SMS: Percocet unknown Current Medications Medication Directions acetaminophen (TYLENOL) 500 mg tablet Take 1,000 mg by mouth every 8 hours. Max of 4,000 mg of acetaminophen in 24 hours. albuterol 0.083% (PROVENTIL; VENTOLIN) 2.5 mg /3 mL (0.083 %) nebulizer solution Inhale 2.5 mg solution as directed every 4 hours as needed for Wheezing. apixaban (ELIQUIS) 5 mg tablet Take one tablet by mouth twice daily. budesonide/formoterol fumarate (SYMBICORT IN) Inhale by mouth into the lungs. diclofenac (VOLTAREN) 1 % topical gel Apply two g topically to affected area fou r times daily. electrolyte GUT PEG (NULYTELY) 420 gram oral solution Mix as directed on package . Drink 240ml (8oz) every 10 minutes until gone. Refrigerate once mixed. ergocalciferol (VITAMIN D) 50,000 unit capsule Take one capsule by mouth every 7 days. fenofibrate(+) (TRIGLIDE) 160 mg tablet Take 160 mg by mouth at bedtime daily. [place] with food. fluticasone (FLONASE) 50 mcg/actuation nasal spray Apply 2 sprays to each nostri l as directed twice daily. hydroxychloroquine (PLAQUENIL) 200 mg tablet Take one tablet by mouth twice alonso y. Take with food. ibuprofen (MOTRIN) 800 mg tablet Take 800 mg by mouth every 6 hours as needed fo r Pain. Take with food. loratadine (CLARITIN) 10 mg tablet Take 10 mg by mouth every morning. MOMETASONE/FORMOTEROL (DULERA IN) Inhale 1 puff by mouth into the lungs twice da jose. montelukast (SINGULAIR) 10 mg tablet Take 10 mg by mouth at bedtime daily. polyethylene glycol 3350 (MIRALAX) 17 g packet Take 17 g by mouth daily. prednisone (DELTASONE) 5 mg tablet Take three tablets by mouth daily with breakf ast. Tapere by 2.5 mg per week down to 5 mg daily. traMADol (ULTRAM) 50 mg tablet Take one tablet by mouth every 12 hours. zolpidem (AMBIEN) 5 mg tablet Take 5 mg by mouth at bedtime as needed for Sleep. Review of Systems/Medical History Patient summary reviewed Pertinent labs reviewed PONV Screening: Non-smoker No history of anesthetic complications No family history of anesthetic complications Pulmonary Asthma (last inhaler use 2 weeks ago) Pulmonary HTN Cardiovascular Recent diagnostic studies: echocardiogram 09/27/19 ECHO 1. Slightly dilated left ventricle. Diffuse hypokinesis. Moderately depressed function with ejection fraction=40-45%. Severe diastolic dysfunction with elev ated filling pressure. 2. No mitral regurgitation. 3. Unable to measure pulmonary artery pressure. 4. Normal right ventricular ejection fraction. 5. Normal central venous pressure. 6. No recent echocardiogram for comparison. Exercise tolerance: >4 METS Dysrhythmias (took eliquis 2 days ago, s/p ablation 1 year ago); atrial fibr illation CHF; NYHA Classification: II Hyperlipidemia H/o repair PDA ASD repair GI/Hepatic/Renal GERD, well controlled Bowel prep Neuro/Psych Hx TIA (no residual) Headaches Neuropathy Musculoskeletal Cervical spinal fusion limited neck motion DJD Endocrine/Other - negative Constitution - negative Physical Exam Airway Findings Mallampati: IV TM distance: >3 FB Neck ROM: limited Mouth opening: limited Dental Findings: Negative Cardiovascular Findings: Rhythm: irregular Rate: normal Pulmonary Findings: Breath sounds clear to auscultation. Abdominal Findings: Abdominal exam deferred Neurological Findings: Alert and oriented x 3 Constitutional findings: Negative Diagnostic Tests Hematology: Lab Results Component Value Date HGB 13.9 08/15/2019 HCT 41.9 08/15/2019 PLTCT 238 08/15/2019 WBC 5.0 08/15/2019 NEUT 53 08/15/2019 ANC 2.60 08/15/2019 ALC 1.60 08/15/2019 JOSUÉ 12 08/15/2019 AMC 0.60 08/15/2019 EOSA 4 08/15/2019 ABC 0.00 08/15/2019 MCV 90.0 08/15/2019 MCH 29.8 08/15/2019 MCHC 33.1 08/15/2019 MPV 8.1 08/15/2019 RDW 13.7 08/15/2019 General Chemistry: Lab Results Component Value Date NA 141 08/15/2019 K 3.8 08/15/2019 CL 105 08/15/2019 CO2 28 08/15/2019 GAP 8 08/15/2019 BUN 17 08/15/2019 CR 1.04 08/15/2019 GLU 85 08/15/2019 GLU 92 07/31/2019 CA 9.3 08/15/2019 ALBUMIN 4.3 08/15/2019 MG 2.3 06/20/2018 TOTBILI 0.5 08/15/2019 Coagulation: Lab Results Component Value Date PT 13.6 01/28/2006 PTT 26.8 01/20/2006 INR 1.2 08/16/2017 INR 1.3 01/28/2006 Anesthesia Plan ASA score: 3 Plan: MAC Induction method: intravenous NPO status: acceptable Informed Consent Anesthetic plan and risks discussed with patient. Use of blood products discussed with patient Plan discussed with: anesthesiologist and OCEAN EXPORT COORDINATOR. DULING ADMINISTRATOR documented in this encounter Plan of Treatment Not on filedocumented as of this encounter Visit Diagnoses Not on filedocumented in this encounter Administered Medications Action Date Dose Rate Site Medication Order MAR Action 10/05/2019 1:11 PM SCHEDULING ADMINISTRATOR 120 mg lidocaine (PF) injection Given INTRA-PROCEDURE MED, Starting Joyce 2/6/2 0 at 1311, Until Joyce 2//20 at 1409, Anesthesia Intra-op 10/05/2019 1:58 PM SCHEDULING ADMINISTRATOR 50 mcg phenylephrine in NS injection syringe Given INTRA-PROCEDURE MED, Starting Joyce 2/6/2 0 at 1325, Until Joyce 2/6/20 at 1409, Anesthesia Intra-op 50 mcg Given 10/05/2019 1:25 PM SCHEDULING ADMINISTRATOR 10/05/2019 1:43 PM SCHEDULING ADMINISTRATOR propofol (DIPRIVAN) infusion Given - New 20 mL, Intravenous, INTRA-PROCEDURE Bag MED(CONT), Starting Joyce 2/6/20 at 1312, Until Joyce 2//20 at 1409, Anesthesia Intra-op 100 mcg/kg/min 45.5 mL/hr Infusion Restarted 10/05/2019 1:25 PM SCHEDULING ADMINISTRATOR 100 mcg/kg/min 45.5 mL/hr Dose/Rate Change 10/05/2019 1:17 PM SCHEDULING ADMINISTRATOR 10/05/2019 1:43 PM SCHEDULING ADMINISTRATOR 30 mg propofol (DIPRIVAN) injection Given INTRA-PROCEDURE MED, Starting Joyce 0 at 1311, Until Joyce 10/05/19 at 1409, Anesthesia Intra-op 20 mg Given 10/05/2019 1:40 PM SCHEDULING ADMINISTRATOR 20 mg Given 10/05/2019 1:29 PM SCHEDULING ADMINISTRATOR documented in this encounter
--- OUTSIDE RECORDS SUMMARY | 2020-03-28 20:34 | XMS REPORT | Encounter Summary ---
Author Author [facility] Organization [facility] Address Unknown Phone Unavailable Care Team Providers Care Risk Management Professional Name Role Phone Jerry Brewer MD Unavailable Faviola Resendiz DO PCP Encounter Details Care Team Description Date Type Department Gómez Amanda MD 4000 [facility] [place] [address] [phone] Frequent PVCs (Primary Dx) 10/13/2019 Prep for Case The [facility] 4000 [facility] [place] [address] Social History Date Tobacco Use Types Packs/Day [...] filedocumented as of this encounter Visit Diagnoses Diagnosis Frequent PVCs Other premature beats documented in this encounter
--- OUTSIDE RECORDS SUMMARY | 2020-03-28 20:34 | XMS REPORT | Encounter Summary ---
Author Author [facility] Organization [facility] Address Unknown Phone Unavailable Care Team Providers Care Incendiaries Supervisor Name Role Phone Jerry Brewer MD Unavailable Faviola Resendiz DO PCP Reason for Visit * Reason Comments Follow Up Cancel form sent to lab Encounter Details Care Team Description Date Type Department Cornelius Russo BSN Follow Up (Cancel form sent to lab) 11/07/2019 Documentation The [address] [place], [place] [phone] Social History Date Tobacco Use Types Packs/Day [...] as of this encounter Progress Notes * Cornelius Russo BSN - 11/07/2019 1:07 PM CDT Sent cancel request form to EP lab documented in this encounter Plan of Treatment Not on filedocumented as of this encounter Visit Diagnoses Not on filedocumented in this encounter
--- OUTSIDE RECORDS SUMMARY | 2020-03-28 20:34 | XMS REPORT | Encounter Summary ---
Author Author [facility] Address Unknown Phone Unavailable Care Team Providers Care Medical Assistant Instructor Name Role Phone Jerry Brewer MD Unavailable Faviola Resendiz DO PCP Reason for Referral * Test (Routine) Referred By Contact Referred To Contact Status Reason Specialty Diagnoses / Procedures Smita Soria APRN-NP [id number] [facility] [place] [address] [place] [address] Cvm [id number] Echo/Pv [address] [place] [address] Authorized Cardiology Diagnoses Cardiomyopathy, unspecified type (HCC) P rocedures 2D + DOPPLER ECHO [place] ECHO TTHRC R-T 2D W/WOM-MODE COMPL SPEC&COLR D [place] MYOCRD STRAIN IMG SPECKLE TRCK [facility]MT [facility] [place] [facility] REND[facility] W/INTERP & POSTPROCESS SUPERVISION * Consult, Test & Treat (Routine) Referred By Contact Referred To Contact Status Reason Specialty Diagnoses / Procedures Smita Soria APRN-NP [id number] [facility] [place] [address] [place] [address] New Request Procedures REQUEST FOR CARDIOLOGY APPOINTMENT Reason for Visit * Reason Comments PVC's 3 month follow up Encounter Details Care Team Description Date Type Department Smita Soria APRN-NP [address] [facility] [place] [address] [place] [address] [phone] PVC's (3 month follow up) 03/13/2020 Office Visit [facility] [address] [place] [address] Social History Date Tobacco Use Types Packs/Day Years Used Never Smoker Smokeless Tobacco: Never Used Drinks/Week oz/Week Comments Alcohol Use No Sex Assigned at Date Recorded Not on file Industry Job Start Date Occupation Not on file Not on file Not on file Travel End Travel History Travel Start No recent travel history available. documented as of this encounter Last Filed Vital Signs Reading Time Taken Comments Vital Sign 126/80 01/25/2020 9:50 AM CDT patient reported Blood Pressure 72 01/25/2020 9:50 AM CDT Pulse - - Temperature - - Respiratory Rate - - Oxygen Saturation - - Inhaled Oxygen Concentration 74.4 kg (164 lb) 01/25/2020 9:50 AM CDT patient reported Weight 160 cm (5' 3") 01/25/2020 9:50 AM CDT Height 29.05 01/25/2020 9:50 AM CDT Body Mass Index documented in this [...] impairment: No documented as of this encounter Patient Instructions * Patient Instructions* Paulette Soria APRN-NP - 01/25/2020 10:00 AM CDT Things sound like they are going well. I am going to add Toprol XL 12.5 mg daily for some added cardioprotection and PV C reduction. We will call you to arrange an echocardiogram in 1 month and follow up with Dr. Amanda. Call us sooner for new or worsening symptoms documented in this encounter Progress Notes * Paulette Soria APRN-NP - 01/25/2020 10:00 AM CDT Obtained patient's verbal consent to treat them and their agreement to [facility] policy and NPP via this telehealth visit during the Coronavirus Public He alth Emergency Date of Service: 01/25/2020 Matt Fields is a 69 y.o. male. HPI Matt Fields Dr. was seen with a remote telehealth visit as part or e lectrophysiology follow up. As you may know, he is a 69 y.o. 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 He underwent pulmonary vein isolation in July 2017 that was slightly difficu lt due to atypical anatomy and severe LA scarring. He did fairly well from a [facility] standpoint for several years, however did begin to experience an irregular heartbeat last fall and was found to be in atrial fibrillation during a GI proce dure. He follows with Dr. Martha Amanda was last evaluated in September of this yea r. At that time his ejection fraction was found to be mildly reduced, near 45%. There was a concern that this may be PVC induced. He was set up for ZIO Patch monitor to assess PVC burden and to determine whether restating with PVC ablati on would be the best course of action. He did undergo Holter monitor showing lo w PVC burden (near 3%). PVC ablation was put on hold. His visit today as part of routine follow-up. Dr. Fields reports feeling well since his last visit. He has not experien billy any symptoms of PVCs or palpitations. He denies any dyspnea on exertion wit h his routine physical activities and denies any exertional chest discomfort. H e reports some very slight bipedal edema at the end of the day with a "sock line " that is chronic and unchanged for him. He denies any dizziness or lightheaded ness. __ DISEASE PREVENTION: Lipids/Statin treatment: yes. Currently on fenofibrate for Goal LDL < 70, Triglycerides < 135 mg/dl. HTN: yes. Optimally controlled on current medical therapy. Goal Systolic < 130, diastolic < 90. Diabetes: Denies Tobacco: Denies Obesity/Nutrition/Physical Activity: BMI 29.05 __ Total time 18 minutes. Estimated counseling time 8 minutes. Additional time for documentation and coordination of care. Vitals: 01/25/20 0950 BP: 126/80 BP Source: Arm, Left Upper Pulse: 72 Weight: 74.4 kg (164 lb) Height: 1.6 m (5' 3") PainSc: Zero Body mass index is 29.05 kg/m. Past Medical History Patient Active Problem List Diagnosis Date Noted NICM (nonischemic cardiomyopathy) (HCC) 01/25/2020 PVC (premature ventricular contraction) 01/21/2020 10/13/2019 - Zio Patch: ZIO patch ran 3 days 4 hours. 1 hour was lost to ar tifact. The rhythm is sinus at 54-106 bpm with a mean of 78 bpm. 6.8% of all b eats are isolated APCs, just over 24,000 beats. There are 815 couplets and 60 t riplets. There are 4 longer runs of atrial tachycardia. The fastest is also th e longest, 8 beats at a maximum rate of 158 bpm. The second longest run is 6 be ats at 112 bpm. There is no A. fib or a flutter. 3.2% of all beats are isolated PVCs. There are 298 couplets and 7 triplets. Th ere are no runs longer than 3 beats. There is bigeminy up to 59 seconds in dura tion and trigeminy up to 8 seconds in duration. There is more than one PVC morp hology. I am uncertain as to whether there is a dominant morphology. AV conduc tion is 1:1. There is an IVCD. There are no diary entries but there are 2 patie nt triggers. The first is sinus with relatively frequent isolated PVCs includin g quadrigeminy. The second strip is sinus with predominant ventricular quadrige ángela. There are no pauses. Chronic diastolic heart failure, NYHA class 2 ([facility]) 07/08/2017 09/27/2019 - ECHO: Slightly dilated left ventricle. Diffuse hypokinesis. Mo derately depressed function with ejection fraction=40-45%. Severe diastolic dys function with elevated filling pressure. No mitral regurgitation. Unable to me asure pulmonary artery pressure. Normal right ventricular ejection fraction. N ormal central venous pressure. History of repair of atrial septal defect 03/22/2017 Persistent atrial fibrillation ([facility]) 03/10/2017 10/01/16-[facility]- Echo-EF 55%- LA 4.5 cm; unable to comment o n diastolic funciton due to PAF; mild LA dilatation; mild MR; mild TR 11/04/16-[facility]- Successful DCCV to NSR with 200 joules 02/12/17-[facility]- successful DCCV to NSR 06/23 admit for Tikosyn with successful DCCV to NSR/SB 08/16/17 Successful Pulmonary vein isolation with the [facility] approach. Cavo-Tricus pid Isthmus Ablation with Bidirectional Block. Esosure used. No inducible arrhyt hmias post ablation. (Dr. Amanda) S/P repair of patent ductus arteriosus 03/10/2017 Hyperlipidemia 03/10/2017 Pulmonary hypertension 03/10/2017 h/o Unroofed coronary sinus 03/10/2017 S/P cervical spinal fusion 01/07/2015 Asthma 01/07/2015 Review of Systems Constitution: Negative. HENT: Negative. Eyes: Negative. Cardiovascular: Negative. Respiratory: Negative. Endocrine: Negative. Hematologic/Lymphatic: Negative. Skin: Negative. Musculoskeletal: Negative. Gastrointestinal: Negative. Genitourinary: Negative. Neurological: Negative. Psychiatric/Behavioral: Negative. Allergic/Immunologic: Negative. Physical Exam Constitutional: He appears well-developed and well-nourished. HENT: Head: Normocephalic and atraumatic. Eyes: Conjunctivae are normal. Pulmonary/Chest: Effort normal. Neurological: He is alert and oriented to person, place, and time. Skin: Skin is dry. Psychiatric: He has a normal mood and affect. His behavior is normal. Cardiovascular Studies Problems Addressed Today Encounter Diagnoses Name Primary? Cardiomyopathy, unspecified type (HCC) Yes Persistent atrial fibrillation (HCC) S/P repair of patent ductus arteriosus Mixed hyperlipidemia Pulmonary hypertension h/o Unroofed coronary sinus History of repair of atrial septal defect Chronic diastolic heart failure, NYHA class 2 (HCC) PVC (premature ventricular contraction) NICM (nonischemic cardiomyopathy) (HCC) Assessment and Plan Dr. Fields appears to be doing well since his last visit. Fortunately, hi s Zio patch monitor showed a low PVC burden (near 3%) and PVC ablation was place d on hold. Dr. Amanda did have a chance to personally review his echocardiogram and believe that LV function was actually higher than what was reported. He safia pects that ejection fraction near 45% was during a PVC with reduced cardiac outp ut. Patient is scheduled to undergo repeat echocardiogram next month. I have a sked that he begin Toprol XL 12.5 mg daily at bedtime in the meantime for suppre ssion of PVCs as well as goal-directed medical therapy. He will return to see Gilmar Amanda next month after repeat echocardiogram. I have asked that he contact u s sooner for worsening of symptoms or new complaints, he verbalized good underst anding and agreement with this plan. Paulette Soria, DIRECTOR VIDEO-C Current Medications (including today's revisions) acetaminophen (TYLENOL) 500 mg tablet Take 1,000 mg by mouth every 8 hours. Max of 4,000 mg of acetaminophen in 24 hours. albuterol 0.083% (PROVENTIL; VENTOLIN) 2.5 mg /3 mL (0.083 %) nebulizer solu tion Inhale 2.5 mg solution as directed every 4 hours as needed for Wheezing. apixaban (ELIQUIS) 5 mg tablet Take one tablet by mouth twice daily. May cru sh 5 mg or 2.5 mg tablets and suspend in 60 mL of D5W followed by immediate deli very through a nasogastric tube. No information regarding administration of susp ension by mouth is available. budesonide/formoterol fumarate (SYMBICORT IN) Inhale by mouth into the lung s as Needed. diclofenac (VOLTAREN) 1 % topical gel Apply two g topically to affected area four times daily. (Patient taking differently: Apply 2 g topically to affected area as Needed.) fenofibrate(+) (TRIGLIDE) 160 mg tablet Take 160 mg by mouth at bedtime alonso y. Take with food. folic acid (FOLVITE) 1 mg tablet Take one tablet by mouth daily. hydroxychloroquine (PLAQUENIL) 200 mg tablet Take one tablet by mouth twice daily. Take with food. loratadine (CLARITIN) 10 mg tablet Take 10 mg by mouth every morning. methotrexate sodium (RHEUMATREX) 2.5 mg tablet Take four tablets by mouth ev pillo 7 days. metoprolol XL (TOPROL XL) 25 mg extended release tablet Take one-half tablet by mouth at bedtime daily. montelukast (SINGULAIR) 10 mg tablet Take 10 mg by mouth at bedtime daily. pantoprazole DR (PROTONIX) 40 mg tablet Take 40 mg by mouth daily. polyethylene glycol 3350 (MIRALAX) 17 g packet Take 17 g by mouth daily. traMADol (ULTRAM) 50 mg tablet Take one tablet by mouth every 12 hours. zolpidem (AMBIEN) 5 mg tablet Take 5 mg by mouth at bedtime as needed for Sl eep. documented in this encounter Plan of Treatment Not on filedocumented as of this encounter Results * 2D + DOPPLER ECHO (03/15/2020 2:18 PM CDT) BSA 1.82 m2 OTHER OUTSIDE LAB Referring Faviola Resendiz, OTHER OUTSIDE Provider LAB Cardiology Siemens [id number] OTHER OUTSIDE Ultrasound LAB Machine IVS 0.77 [...] Visit Diagnoses Diagnosis Cardiomyopathy, unspecified type (HCC) Persistent atrial fibrillation (HCC) Atrial fibrillation S/P repair of patent ductus arteriosus Other postprocedural status Mixed hyperlipidemia Pulmonary hypertension Other chronic pulmonary heart diseases h/o Unroofed coronary sinus Other specified congenital anomaly of h eart History of repair of atrial septal defe ct Personal history of surgery to heart an d great vessels, presenting hazards to health Chronic diastolic heart failure, NYHA c lass 2 ([facility]) Chronic diastolic heart failure PVC (premature ventricular contraction) Other premature beats documented in this encounter
--- OUTSIDE RECORDS SUMMARY | 2020-03-28 20:34 | XMS REPORT | Encounter Summary ---
Author Author [facility] Address Unknown Phone Unavailable Care Team Providers Care Optoelectronics Engineer Name Role Phone Jerry Brewer MD Unavailable Faviola Resendiz DO PCP Reason for Visit * Reason Comments Atrial fibrillation 6 month f/u; h/o ASD repair , TIA * Consult, Test & Treat (Routine) Referred By Contact Referred To Contact Status Reason Specialty Diagnoses / Procedures Gómez Amanda MD [address] [facility] [place] [address] Closed Procedures REQUEST FOR CARDIOLOGY APPOINTMENT Encounter Details Care Team Description Date Type Department Gómez Amanda MD [address] [facility] [place] [address] [phone] Atrial fibrillation (6 month f/u; h/o D repair, TIA) 10/13/2019 Office Visit The [place] [address] [facility] [place] [address] Social History Date Tobacco Use Types Packs/Day [...] Signs Reading Time Taken Comments Vital Sign 126/74 10/13/2019 9:22 AM TUBE ROOM SUPERVISOR Blood Pressure 80 10/13/2019 9:22 AM TUBE ROOM SUPERVISOR Pulse - - Temperature - - Respiratory Rate 97% 10/13/2019 9:22 AM TUBE ROOM SUPERVISOR Oxygen Saturation - - Inhaled Oxygen Concentration 79.8 kg (176 lb) 10/13/2019 9:22 AM TUBE ROOM SUPERVISOR Weight 160 cm (5' 3") 10/13/2019 9:22 AM TUBE ROOM SUPERVISOR Height 31.18 10/13/2019 9:22 AM TUBE ROOM SUPERVISOR Body Mass Index documented in this encounter [...] as of this encounter Progress Notes * Gómez Amanda MD - 10/13/2019 9:00 AM TUBE ROOM SUPERVISOR HPI I had the pleasure of seeing Dr. Matt Fields at the [facility] cardiolog y heart rhythm clinic for f/u evaluation of his electrophysiology issues. Dr. Fields has seen Dr. Renteria in the past. He has a significant past med ical history of recurrent persistent atrial fibrillation with cardioversions and prior therapy with amiodarone with recurrences, history of ASD with unroofed co ronary sinus status post ASD [facility], family history of premature coronary artery disease, heart failure w ith preserved left ventricular ejection fraction baseline right bundle branch bl ock and possible obstructive sleep apnea who has been having increasing issues w ith his atrial fibrillation. 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 He eventually underwent Afib ablation on the July2017. The procedure was slightly difficult due to atypical anatomy. He also had moderate to severe LA scarring. He did have an occluded CS OS. He underwent bilateral PVAI with WAC A approach. He also underwent CV isthmus ablation. He needed EsoSure for esophag eal deviation. He actually has done remarkably well from the AFib ablation standpoint of view. He has not had any recurrent episodes of atrial fibrillation despite being off antiarrhythmics. His ablation was in July of 2017, so it has been more than 2 years. He, however, has been mentioning that over the last 6 months he has been noting that he is having irregular rhythm and was wondering if he went back into atrial fibrillation. He also underwent GI evaluations and was told that he was in AFib because his rh ythm was irregular. EKG obtained here in the clinic shows normal sinus rhythm with frequent PVCs wit h a rate of 80 beats per minute, with a CO interval of around 160 msec, with the intrinsic QRS of right bundle branch block morphology of 170 msec, and a correc svetlana QT interval of 503 msec. The PVC morphologies are left bundle branch block, positive in 1 and aVL, negati ve in 3 and AVF and biphasic in 2 sets suggesting right-sided septal inferosepta l location. 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 Frequent monomorphic PVCs. 2. History of persistent atrial fibrillation status post AFib ablation. 3. ASD with unroofed CS, status post PFO closure and coronary ostium closure. 4. History of TIA. 5. Patent ductus arteriosus status post repair. 6. Heart failure with impaired LV ejection fraction. 7. Family history of premature coronary artery disease. I discussed with Dr. Fields in detail regarding his overall cardiovascular status. I discussed with him regarding his EKG and the likelihood of he not ji ving AFib. On the other hand, he underwent an echocardiogram as a pre-evaluation before sta rting his disease-modifying agents for his arthritis. Unfortunately, he was not ed to have an EF of about 45%. This is new to him. In the past, his ejection f raction was 60%. It is likely that his PVCs may be frequent and might have prec ipitated this. I recommended him to wear a ZIO Patch monitor for the next 3 days, and we will e valuate the burden of his PVCs. I believe he would benefit from undergoing rhythm control from the PVC standpoin t. I have discussed with him regarding rate and rhythm control. I believe he w ould benefit from undergoing the PVC ablation. I went over the indications, risks, and benefits of PVC ablation. I went over t he potential complications of the procedure including groin bleeding, pericardia l effusion, myocardial infarction, among others. We are going to await the results of the ZIO Patch monitor to confirm the plan, but for now, we will go ahead and tentatively scheduled him for a PVC ablation. Dr. Fields did express understanding of the management plan. Thank you for allowing us to participate in the care of Dr. Fields. If yo u have any questions regarding his management, please feel free to call us. (DOC:[id number]) Vitals: 10/13/19 0922 BP: 126/74 BP Source: Arm, Left Upper Pulse: 80 SpO2: 97% Weight: 79.8 kg (176 lb) Height: 1.6 m (5' 3") PainSc: Zero Body mass index is 31.18 kg/m. Past Medical History Patient Active Problem List Diagnosis Date Noted Chronic diastolic heart failure, NYHA class 2 (HCC) 07/08/2017 09/27/2019 - ECHO: Slightly dilated left ventricle. Diffuse hypokinesis. Mo derately depressed function with ejection fraction=40-45%. Severe diastolic dys function with elevated filling pressure. No mitral regurgitation. Unable to me asure pulmonary artery pressure. Normal right ventricular ejection fraction. N ormal central venous pressure. History of repair of atrial septal defect 03/22/2017 Persistent atrial fibrillation (HCC) 03/10/2017 10/01/16-[facility]- Echo-EF 55%- LA 4.5 cm; unable to comment o n diastolic funciton due to PAF; mild LA dilatation; mild MR; mild TR 11/04/16-[facility]- Successful DCCV to NSR with 200 joules 02/12/17-[facility]- successful DCCV to NSR 06/23 [...] well-nourished. HENT: Head: Normocephalic and atraumatic. Eyes: Left eye exhibits no discharge. No scleral icterus. Neck: No JVD present. Cardiovascular: Exam reveals no friction rub. S1 , S2 Normal, Regular Rhythm Pulmonary/Chest: Effort normal. No respiratory distress. He has no wheezes. He h as no rales. He exhibits no tenderness. Abdominal: Soft. Bowel sounds are normal. He exhibits no distension and no mass. There is no abdominal tenderness. There is no rebound and no guarding. Musculoskeletal: General: No tenderness or edema. Lymphadenopathy: He has no cervical adenopathy. Neurological: He is alert and oriented to person, place, and time. Skin: Skin is warm and dry. Psychiatric: He has a normal mood and affect. Current Medications (including today's revisions) acetaminophen (TYLENOL) [...] g topically to affected area as Needed.) ergocalciferol (VITAMIN D) 50,000 unit capsule Take one capsule by mouth arcelia ry 7 days. fenofibrate(+) (TRIGLIDE) 160 mg tablet Take 160 mg by mouth at bedtime alonso y. Take with food. hydroxychloroquine (PLAQUENIL) 200 mg tablet Take one tablet by mouth twice daily. Take with food. loratadine (CLARITIN) 10 mg tablet Take 10 mg by mouth every morning. montelukast (SINGULAIR) 10 mg tablet Take 10 mg by mouth at bedtime daily. pantoprazole DR (PROTONIX) 40 mg tablet Take 40 mg by mouth twice daily. polyethylene glycol 3350 (MIRALAX) 17 g packet Take 17 g by mouth daily. traMADol (ULTRAM) 50 mg tablet Take one tablet by mouth every 12 hours. zolpidem (AMBIEN) 5 mg tablet Take 5 mg by mouth at bedtime as needed for Sl eep. ROOM SUPERVISOR documented in this encounter Plan of Treatment Order Schedule Name Type Priority Associated Diag noses Ordered: 10/13/2019 ECG 12-LEAD ECG Routine Persistent atri al fibrillation (HCC) documented as of this encounter Procedures Comments Procedure Name Priority Date/Time Associated Diag nosis ECG-SCAN 10/13/2019 12:00 AM TUBE ROOM SUPERVISOR documented in this encounter Results * LONG-TERM DRIVER (10/20/2019 2:33 PM TUBE ROOM SUPERVISOR) Specimen Narrative Performed At OTHER OUTSIDE LAB A ZIO patch ran 3 days 4 hours. [...] one Number OTHER OUTSIDE LAB * ECG-SCAN (10/13/2019 12:00 AM TUBE ROOM SUPERVISOR) Narrative Performed At This result has an attachment that is n ot available. Ordered by an unspecified provider. documented in this encounter Visit Diagnoses Diagnosis Persistent atrial fibrillation (HCC) Atrial fibrillation Frequent PVCs Other premature beats Mixed hyperlipidemia Pulmonary hypertension Other chronic pulmonary heart diseases h/o Unroofed coronary sinus Other specified congenital anomaly of h eart Chronic diastolic heart failure, NYHA c lass 2 (HCC) Chronic diastolic heart failure History of repair of atrial septal defe ct Personal history of surgery to heart an d great vessels, presenting hazards to health documented in this encounter
--- OUTSIDE RECORDS SUMMARY | 2020-03-28 20:34 | XMS REPORT | Encounter Summary ---
Author Author [facility] Organization [facility] Address Unknown Phone Unavailable Care Team Providers Care Packaging Clerk Name Role Phone Jerry Brewer MD Unavailable Faviola Resendiz DO PCP Reason for Visit * Reason Comments Follow Up Encounter Details Care Team Description Date Type Department Jose Cruz Flynn MD [address] [place], [place] [id number] [place] [address] HLA-B27 spondyloarthropathy (Primary Dx) ; HLA B27 (HLA B27 positive); Inflammatory arthritis; Polyarthralgia; Chronic back pain, unspecified back location, unspecified back pain laterality; S/P cervical spinal fusion; Disorder of rotator cuff of both shoulders; Vitamin D deficiency; Elevated antinuclear antibody (RENUKA) level; Raynaud's phenomenon without gangrene; Therapeutic drug monitoring; Diarrhea, unspecified type; Chronic fatigue; PVC (premature ventricular contraction); History of repair of atrial septal defect; S/P repair of patent ductus arteriosus; Mixed hyperlipidemia; Mild asthma without complication, unspecified whether persistent; Osteopenia, unspecified location; alf current use of systemic steroids 11/09/2019 Office Visit [facility] [address] [place] [address] Social History Date Tobacco Use Types Packs/Day [...] Signs Reading Time Taken Comments Vital Sign 91/56 11/09/2019 4:11 PM CDT Blood Pressure 82 11/09/2019 4:11 PM CDT Pulse 36.9 C (98.4 F) 11/09/2019 4:11 PM CDT Temperature 16 11/09/2019 4:11 PM CDT Respiratory Rate 97% 11/09/2019 4:11 PM CDT Oxygen Saturation - - Inhaled Oxygen Concentration 79 kg (174 lb 3.2 oz) 11/09/2019 4:11 PM CDT Weight 160 cm (5' 3") 11/09/2019 4:11 PM CDT Height 30.86 11/09/2019 4:11 PM CDT Body Mass Index documented in [...] this encounter Patient Instructions * Patient Instructions* Jose Cruz Flynn MD - 11/09/2019 4:00 PM CDT Please proceed with labs and call us or contact us through [email or web address] for results. Labs July 2019 where satisfactory with normal or negative CBC, inflammatory markers ESR and CRP, CMP, double-stranded DNA, complements and RNA polymerase II I and urinalysis without proteinuria. Negative T spot TB. Normal BNP at 63 obt ained to look for any evidence of CHF in case we decide on initiating a TNF inhi bitor. MRI with STIR technique on 09/14/2019 did not show evidence of active sacroiliiti s or spondyloarthropathy but unchanged degenerative changes: 1. Degenerative changes in the thoracic and lumbar spine as above, with unchan ged moderate central spinal stenosis at L2-L3 and within the mid/lower thoracic spine. 2. Unchanged 1.7 x 1.7 x 2.0 focus of STIR hyperintense signal along the infer ior lateral aspect of the left anterior sacrum, most likely degenerative. No ero sions or sacroiliac joint effusion. 3. No evidence of active sacroiliitis or spondyloarthropathy. Bone density on 09/14/2019 was consistent with osteopenia with the lowest T score of left femur at -2.2. Based on FRAX measurement, the 10-year risk of hip fractures 3.5% Based on the FRAX measurement this indicates the ten year probability of fractur e to be 12.3% for major osteoporotic and 3.5% for hip fracture which suggests th e patient may benefit from treatment with a bisphosphonate. a) Consider FDA-approved medical therapies in the setting of 1) Hip or vertebral fracture, 2) Osteoporosis, and 3) low bone mass, referred to as osteopenia, with FRAX score of greater than or equal to 3% for hip fracture or greater than or equal to 20% for major osteoporotic fracture. Treatment may also be indicated ba sed on clinical judgement and/or patient preference. b) Interval between BMD testing should be determined according to each patient's clinical status: typically, one year after initiation or change of therapy is a ppropriate, with longer intervals once therapeutic effect is established. In con ditions with rapid bone loss, such as glucocorticoid therapy, testing more frequ ently is appropriate. The echocardiogram showed: 1. Slightly dilated left ventricle. Diffuse hypokinesis. Moderately depres sed function with ejection fraction=40-45%. Severe diastolic dysfunction with elevated filling pressure. 2. No mitral regurgitation. 3. Unable to measure pulmonary artery pressure. 4. Normal right ventricular ejection fraction. 5. Normal central venous pressure. 6. No recent echocardiogram for comparison. The echocardiogram was obtained due to a history of CHF although this may not ji ve been a persistent problem. However, he has severe diastolic dysfunction and a decreased ejection fraction of 40 to 45% with diffuse hypokinesis. He had previously seen by Dr. Amanda in cardiology clinic for history of atrial f ibrillation. He follow-up with Dr. Amanda in this regards in 09/2019 and was advis ed to wear a patch monitor and that he may benefit from undergoing PVC ablation that could have been the cause of his low ejection fraction and diffuse hypokine sis. Ever, per Dr. Amanda, the PVC burden was lower than what anticipated. There were ~7% PACs and ~3% PVCs. He is planning to hold off on the PVC ablation for now. He was seen by Dr. Mckinnon in GI clinic and he underwent EGD and colonoscopy and r andom biopsies for constipation alternating with diarrhea in 09/2019. Colonoscopy revealed diverticulosis in the sigmoid colon. One 3 mm polyp in the transverse colon, removed and pathology was consistent with tubular adenoma. Non -bleeding external and internal hemorrhoids. He was recommended to repeat the c olonoscopy in 5 years. The EGD showed non-obstructing Schatzki ring. LA Grade A reflux esophagitis. I have made a referral to physical medicine and rehabilitation clinic to see a p hysiatristfor a comprehensive physical therapy program including for his shoul ders and back.However, he was seen in spine neurosurgery clinic per his own request separately. He still would like to be seen in PM&R clinic. We can continue with plan as before including continued hydroxychloroquine thera py and additional therapy such as methotrexate and/or TNF inhibitors depending o n his response and his other comorbidities. He has tapered theprednisone from 10mg daily down to 5 mg daily. Please start tapering the prednisone by 1 mg every 3 to 4 weeks until off if loren erated. Continue with the hydroxychloroquine 200 mg 1 tablet twice daily was started in April 2019. Please see your business systems manager initially and thereafter every 12 months while o n hydroxychloroquine. We discussed therapeutic options including methotrexate and TNF inhibitors. For now we mutually agreed to start methotrexate while tapering the prednisone and if needed in the future we can consider adding a TNF inhibitor or Biologics. Start methotrexate 10 mg once weekly (4 tablets of 2.5 mg each). Check monitori ng labs in about 2 to 4 weeks and if satisfactory to increase the dose to 12.5 m g (5 tablets) once weekly and after another week or 2 if tolerated to 15 mg (6 t ablets) once weekly. Continue with methotrexate monitoring labs every 4 weeks o r so for couple times and then will this extended to 6 to 8 weeks and later on p erhaps to every 12 weeks. Avoid Bactrim while on Methotrexate. Hold Methotrexate if labs show cytopenia or abnormal liver enzymes. Recheck labs before restarting and monitoring closely. Start folic acid 1 mg daily. Continue to avoid NSAIDs (ibuprofen) due to potential side effects. You maystart diclofenac gel 1% applied to the hands up to 3-4 times daily as n eeded. Acetaminophen (Tylenol) up to 1000 mg three times daily as needed. He was found to have low vitamin D at 15 and was started on ergocalciferol 50,00 0 international units once weekly for 12 weeks and will continue thereafter with nvnx-bic-ldkyjwn vitamin D3 2000 international units daily. We also discussed initiating Actonel once monthly but he prefers to hold off on that for now and decide on that later. I advised him to check on his immunization status including Prevnar 13, Pneumova x 23 and consider Shingrix vaccines. He had his influenza vaccination in May 2019. Follow-up in3-4months with labs to be obtained prior to the office visitor sooner as needed. Methotrexate tablets Brand Names: Rheumatrex, Trexall What is this medicine? METHOTREXATE (METH oh TREX ate) is a chemotherapy drug used to treat cancer incl uding breast cancer, leukemia, and lymphoma. This medicine can also be used to t reat psoriasis and certain kinds of arthritis. How should I use this medicine? Take this medicine by mouth with a glass of water. Follow the directions on the prescription label. Take your medicine at regular intervals. Do not take it more often than directed. Do not stop taking except on your doctor's advice. Make sure you know why you are taking this medicine and how often you should keerthi e it. If this medicine is used for a condition that is not cancer, like arthriti s or psoriasis, it should be taken weekly, NOT daily. Taking this medicine more often than directed can cause serious side effects, even . Talk to your healthcare provider about safe handling and disposal of this medici ne. You may need to take special precautions. Talk to your hand candle molder regarding the use of this medicine in children. While this drug may be prescribed for selected conditions, precautions do apply. What side effects may I notice from receiving this medicine? Side effects that you should report to your doctor or health insurance healthcare consultant a s soon as possible: allergic reactions like skin rash, itching or hives, swelling of the face, li ps, or tongue breathing problems or shortness of breath diarrhea dry, nonproductive cough low blood counts - this medicine may decrease the number of white blood cells , red blood cells and platelets. You may be at increased risk for infections and bleeding. mouth sores redness, blistering, peeling or loosening of the skin, including inside the m outh signs of infection - fever or chills, cough, sore throat, pain or trouble pas sing urine signs and symptoms of bleeding such as bloody or black, tarry stools; red or dark-brown urine; spitting up blood or brown material that looks like coffee cinthia unds; red spots on the skin; unusual bruising or bleeding from the eye, gums, or nose signs and symptoms of kidney injury like trouble passing urine or change in t he amount of urine signs and symptoms of liver injury like dark yellow or brown urine; general i ll feeling or flu-like symptoms; light-colored stools; loss of appetite; nausea; right upper belly pain; unusually weak or tired; yellowing of the eyes or skin Side effects that usually do not require medical attention (report to your docto r or health insurance healthcare consultant if they continue or are bothersome): dizziness hair loss tiredness upset stomach vomiting What may interact with this medicine? This medicine may interact with the following medication: acitretin aspirin and aspirin-like medicines including salicylates azathioprine certain antibiotics like penicillins, tetracycline, and chloramphenicol cyclosporine gold hydroxychloroquine live virus vaccines NSAIDs, medicines for pain and inflammation, like ibuprofen or naproxen other cytotoxic agents penicillamine phenylbutazone phenytoin probenecid retinoids such as isotretinoin and tretinoin steroid medicines like prednisone or cortisone sulfonamides like sulfasalazine and trimethoprim/sulfamethoxazole theophylline What if I miss a dose? If you miss a dose, talk with your doctor or health insurance healthcare consultant. Do not ta ke double or extra doses. Where should I keep my medicine? Keep out of the reach of children. Store at room temperature between 20 and 25 degrees C (68 and 77 degrees F). Pro tect from light. Throw away any unused medicine after the expiration date. What should I tell my health care provider before I take this medicine? They need to know if you have any of these conditions: fluid in the stomach area or lungs if you often drink alcohol infection or immune system problems kidney disease or on hemodialysis liver disease low blood counts, like low white cell, platelet, or red cell counts lung disease radiation therapy stomach ulcers ulcerative colitis an unusual or allergic reaction to methotrexate, other medicines, foods, dyes , or preservatives or trying to get breast-feeding What should I watch for while using this medicine? Avoid alcoholic drinks. This medicine can make you more sensitive to the sun. Keep out of the sun. If yo u cannot avoid being in the sun, wear protective clothing and use sunscreen. Do not use sun lamps or tanning beds/booths. You may need blood work done while you are taking this medicine. Call your doctor or health insurance healthcare consultant for advice if you get a fever, chil ls or sore throat, or other symptoms of a cold or flu. Do not treat yourself. Th is drug decreases your body's ability to fight infections. Try to avoid being ar ound people who are sick. This medicine may increase your risk to bruise or bleed. Call your doctor or a [facility] insurance healthcare consultant if you notice any unusual bleeding. Check with your doctor or health insurance healthcare consultant if you get an attack of sever e diarrhea, nausea and vomiting, or if you sweat a lot. The loss of too much bod y fluid can make it dangerous for you to take this medicine. Talk to your doctor about your risk of cancer. You may be more at risk for certa in types of cancers if you take this medicine. Both men and women must use effective control with this medicine. Do not b ecome while taking this medicine or until at least 1 normal menstrual c ycle has occurred after stopping it. Women should inform their doctor if they wi sh to become or think they might be . Men should not father a c hild while taking this medicine and for 3 months after stopping it. There is a p otential for serious side effects to an unborn child. Talk to your health care p rofessional or pharmacist for more information. Do not breast-feed an whi le taking this medicine. NOTE:This sheet is a summary. It may not cover all possible information. If you have questions about this medicine, talk to your doctor, pharmacist, or health c are provider. Copyright 2019 Else[employer] documented in this encounter Progress Notes * Sarahi Best MA - 11/09/2019 4:00 PM CDT Orthostatic BP's Laying : 96/62 Pulse: 76 Sittin/70 Pulse: 80 Standin/62 Pulse: 81 * Jose Cruz Flynn MD - 11/09/2019 4:00 PM CDT Date of Service: 11/09/2019 Subjective: Matt Fields is a 69 y.o. male. History of Present Illness Dr. 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 His initial history is outlined in consultation note of 03/21/2019 when he was se en at the request ofDr. Amanda for chronic history of arthralgia and back pain. As per initial consultation note: "Per notes of Dr. Amanda, his cardiacpast medical historyis also significant for"recurrent persistent atrial fibrillation with cardioversions and prior the rapy with amiodarone with recurrences, history of ASD with unroofed coronary sin us status post ASD [facility] , family history of premature coronary artery disease, heart failure with preser arnel left ventricular ejection fraction baseline right bundle branch block and po ssible obstructive sleep apnea."He has associated pulmonary hypertension. He also has a history of allergies and reactive airway disease or asthma for man y years for which she remains on therapy. He has had gastroesophageal reflux d isease. He has hyperlipidemia and has remained on statins and he himself held the statins to see if it makes a difference regards to his arthralgia pain and i t did not. And thoracotomy for MRSA pneumonia. He has history of sinus disea se and deviated septum requiring surgery. He has had migraine headaches. He stated that he has had chronic low back pain and SI pain since teenage years possibly around the order. 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 He has had football injuries of the cervical spine but not lumbar spine. He continued to have chronic significant C-spine pain eventually requiring 5 different surgeries including C6-7, then C5-6 fusions and finding of C4-C5 spinal stenosis requiring surgical intervention through dorsal laminectomy and eventually 2 additional s urgeries to stabilize the cervical spine about 3 to 4 years ago. He has had li mited cervical spine range of motion due to this. He has had radicular type sy mptoms in the left upper extremity as well as left lower extremity. No report of bowel or bladder incontinence. He has had carpal tunnel syndrome and releas e including right followed by left and then another release of the left when sub sequently was diagnosed with cervical spine radiculopathy. He also had a trans position of medial nerve of the left wrist years ago. 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 He saw an orthopedist about 6 months ago and had MRI of the cervical, lumbar and thoracic spine which per patient showed severe degenerative arthritis and was told that he is not a candidate for surgery. He has had chronic discomfort in his hands and recurrent trigger fingers for ove r 20 years needing periodic injections. He had an episode of acute iritis in a bout 16 years ago which was treated with prednisone eyedrops without recurrence. He subsequently underwent bilateral cataracts surgery. He had an episode of acute abdominal pain about 3 years ago requiring different evaluations and hosp italizations including at [facility] in [place] following a fishing trip without a ny clear diagnosis. About 1 month ago while he was in [place] fishing he developed left third and fou rth digit sausage like swelling with pain which has subsided to some extent. O nce he returned home, his nurse practitioner obtain labs which showed an mildly elevated CCP antibody. He has had bilateral hand stiffness that lasts at least 30 minutes in the morning. He has general gelling phenomenon that would last about 5 to 10 minutes. He feels stiff in his back and buttock area which also painful at night. He wakes up at night frequently does not sleep well. There may be a component of alternating SI joint pain. He has been taking ibuprofen 800 mg 3 times daily which helps with his symptoms but he developed some GI side effects associated with this. He has had chronic limitation of range of motion of the shoulder especially upon abduction without any preceding trauma. Patient denies any history of seizuresor PE but had an and one episode of TIA. No history of idiopathic hearing loss. No sicca or mucositis or dysphagia, or currentabdominal pain, hematochezia, melena or diarrhea. No known sero sitis. No history of nephritis but he reports pallor and purplish discoloration of the fingers upon cold exposure. No associated rash or photosensitivity. No history of psoriasis or inflammatory bowel disease. No history of gout or kidn ey stones. No harry weaknessbut he has had a history of left-sided radiculopat hy. No history of fevers, night sweats or unintentional weight loss.He has been fatigued. He denies any tobacco or alcohol use. 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 He has tapered to prednisone from 10 mg down to 5 mg daily. The above 2 medications have helped his symptoms significantly. His arthralgia has improved significantly including of his hands as well as disc omfort in his neck and back and his stiffness has been reduced down to 5 or 10 m inutes compared to a few hours before initiating treatment. He does not take any ibuprofen or much acetaminophen anymore. The Raynaud's phenomena has remained stable without digital ulcerations No current dyspnea or chest pain or cough.No current diagnosis of CHF. N o dizziness or lightheadedness or orthostatic symptoms. He has hadchronic diarrhea and loose bowels and irregular bowel movements with constipation. He was seen in GI clinic and had studies but the MR enterography was not approved by his insurance. He was also seen in cardiology clinic by Dr. Amanda. He stated that Dr. Amanda no tified him later that the echocardiogram was not accurate and stating low ejecti on fraction of 42% but that it is above 50%. Patient denies any constitutional symptoms such as fevers, night sweats or unint entional weight loss. Review of Systems All other systems reviewed and are negative. 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 Persistent atrial fibrillation (HCC) 03/10/2017 10/01/16-[facility]- Echo-EF 55%- LA 4.5 cm; unable to comment on diastolic funciton due to PAF; mild LA dilatation; mild MR; mild TR 11/04/16-[facility]- Successful DCCV to NSR with 200 joules 02/12/17-[facility]- successful DCCV to NSR Pulmonary hypertension (HCC) 03/10/2017 S/P cervical spinal fusion 01/07/2015 S/P repair of patent ductus arteriosus 03/10/2017 TIA (transient ischemic attack) 1996 Surgical History: Procedure Laterality Date THORACOTOMY Left 2005 for MRSA pneumonia Left Atrial Antral Radiofrequency Ablation Left 08/16/2017 Performed by Gómez Amanda MD at [facility] Comprehensive EP Study N/A 08/16/2017 Performed by Gómez Amanda MD at [facility] Colonoscopy N/A 10/05/2019 Performed by Bassam Mckinnon MD at [facility] ESOPHAGOGASTRODUODENOSCOPY WITH SPECIMEN COLLECTION BY BRUSHING/ WASHING 10/05/2019 Performed by Bassam Mckinnon MD at [facility] COLONOSCOPY WITH BIOPSY - FLEXIBLE 10/05/2019 Performed by Bassam Mckinnon MD at [facility] END[facility] ASD REPAIR 1998 CARPAL TUNNEL RELEASE Bilateral CERVICAL SPINE SURGERY x5 surgeries total HX SEPTOPLASTY HX TONSILLECTOMY SINUS SURGERY multiple with revisions SURGERY medial nerve transposition Family History Problem Relation Age of Onset Atrial Fibrillation Mother Heart Failure Mother Pulmonary Embolism Father Coronary Artery Disease Brother Heart Failure Brother Arthritis-rheumatoid Brother Cancer Maternal Aunt leukemia Heart Attack Maternal Uncle Dementia Maternal Grandmother Sudden Cardiac Maternal Grandfather Stroke Maternal Grandfather possible Heart Attack Maternal Grandfather possible Unknown to Patient Paternal Grandmother Heart Attack Brother Arthritis-rheumatoid Brother Heart Attack Maternal Uncle Heart Attack Maternal Uncle Unknown to Patient Maternal Uncle Heart Attack Paternal Uncle Scleroderma Sister SLE Neg Hx Multiple sclerosis Neg Hx Social History Socioeconomic History Marital status: Spouse name: Not on file Number of children: Not on file Years of education: Not on file Highest education level: Not on file Occupational History Not on file Tobacco Use Smoking status: Never Smoker Smokeless tobacco: Never Used Substance and Sexual Activity Alcohol use: No Drug use: No Sexual activity: Not on file Other Topics Concern Not on file Social History Narrative Not on file Objective: acetaminophen (TYLENOL) 500 mg tablet Take 1,000 [...] packet Take 17 g by mouth daily. Prednisolone 5 mg tab Take by mouth. traMADol (ULTRAM) 50 mg tablet Take one tablet by mouth every 12 hours. zolpidem (AMBIEN) 5 mg tablet Take 5 mg by mouth at bedtime as needed for Sl eep. Vitals: 11/09/19 1611 BP: 91/56 BP Source: Arm, Right Upper Patient Position: Sitting Pulse: 82 Resp: 16 Temp: 36.9 C (98.4 F) TempSrc: Oral SpO2: 97% Weight: 79 kg (174 lb 3.2 oz) Height: 160 cm (63") PainSc: Zero Body mass index is 30.86 kg/m. Physical Exam Constitutional: General: He is not in acute distress. Appearance: He is not ill-appearing. HENT: Mouth/Throat: Mouth: Mucous membranes are moist. No oral lesions. Comments: No parotid enlargement or tenderness. Eyes: Conjunctiva/sclera: Conjunctivae normal. Neck: Comments: Old surgical scar cervical spine with limitation of flexion and ext ension of cervical spine. Cardiovascular: Rate and Rhythm: Normal rate and regular rhythm. Heart sounds: Normal heart sounds. Pulmonary: Effort: Pulmonary effort is normal. Breath sounds: Normal breath sounds. No wheezing, rhonchi or rales. Musculoskeletal: Comments: Resolution of the fullness/synovitis of left third and fourth PIPs withoutl tenderness or current fusiform swelling. He makes almost full fist miguel aterally. No swollen Achilles tendon. Range of motion of the shoulders are bet ter compared to last visit with intact rotator cuff muscles. Limited internal r otation of the left hip compared to right. No effusion of the knees. Lymphadenopathy: Cervical: No cervical adenopathy. Skin: Findings: No rash. Comments: No malar rash. No sclerodactyly or sclerosis elsewhere or any Nuris gisel's papules or heliotrope rash. No rheumatoid nodules or tophi or psoriatic p laques. Neurological: Mental Status: He is alert. Comments: No weakness of the proximal and distal upper and lower extremities and the cervical muscles. Psychiatric: Mood and Affect: Mood normal. Speech: Speech normal. Behavior: Behavior normal. Assessment and Plan: 1. HLA-B27 spondyloarthropathy 2. HLA B27 (HLA B27 positive) 3. Inflammatory arthritis 4. Polyarthralgia 5. Chronic back pain, unspecified back location, unspecified back pain lateralit y 6. S/P cervical spinal fusion 7. Disorder of rotator cuff of both shoulders 8. Vitamin D deficiency 9. Elevated antinuclear antibody (RENUKA) level 10. Raynaud's phenomenon without gangrene 11. Therapeutic drug monitoring 12. Diarrhea, unspecified type 13. Chronic fatigue 14. PVC (premature ventricular contraction) 15. History of repair of atrial septal defect 16. S/P repair of patent ductus arteriosus 17. Mixed hyperlipidemia 18. Mild asthma without complication, unspecified whether persistent 19. 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 In addition, he has had an elevated RENUKA and Raynaud's phenomena without other fe atures of a connective tissue disease at this time, although I wonder about poss ibility of an undifferentiated connective tissue disease, granted unusual to be present along with spondyloarthropathy. He has generalized osteoarthritis. We discussed initiating methotrexate and if needed a biologic agent such as TNF inhibitors as the prednisone is tapered. He has had GI symptoms including chronic diarrhea and elevated inflammatory rossi l disease serology for which he was evaluated in GI clinic without any clear leslie gnosis of inflammatory bowel disease. He had a prior history of possible congestive heart failure but upon further kati luation he was noted to have ejection fraction of 42% and hypokinesis and was se en in cardiology clinic by Dr. Amanda and the findings were thought to be related to PVC although the Holter monitor did not suggest significant PVCs and Dr. Santos asencio's impression was that the echocardiogram was suggestive of ejection fraction of over 50% otherwise. He has developed osteopenia. Dr. Fields has hadachronic history of lumbarspinepain and stiffnes s and possible SI joint involvement, chronic cervical spine pain and spinal sten osis and degenerative changes requiring 5 cervical spine surgeriesand fusion w ith instrumentation as well as cadaver bone fusion of the anterior cervical spin e, bilateral carpal tunnel release, chronic shoulder discomfort and diminished r teresa of motion, and by exam diminished internal rotation of the left hip. He h as hadmild synovitis of the left third and fourth PIPs and possibly dactylitis of these. He has had chronic triggering of the fingers. Symptoms have been present since age 17 andat theage 26 he was found to have apositive HLA-B2 7. He had one episode of abdominal pain 3 years priorshe will consultation t o urologyand more recently some diarrhea which resolved as well as one episode of acute iritis without recurrence 16 years ago. He may have inflammatory art hropathy and more specifically spondyloarthropathy.However, the imaging stud ies did not point to characteristics and findings of spondyloarthropathy granted a positive HLA B 27. However, the x-rays in February 2019 did not reveal evidence of syndesmophytes or sa croiliitis or erosions. HLA-B27 was positive with interestingly normal inflamm atory markers, and an RENUKA of 160. He reported history suggestive oftriphasic changes ofRaynaud's phenomena of the hands chronically without digital ulcerations. He is aware of conservative management of this. We had discussed that, he may have anHLA-B27 associated seronegative spondyloa rthropathy without axial involvement by imaging studies but symptomatic versus a connective tissue disease with features of Raynaud's phenomena and elevated RENUKA and inflammatory arthritis. It is unusual to have a connective tissue disease overlapping with a spondyloarthropathy. He has had heart disease including diastolic heart failure, and associated pulmo nary hypertension, and surgeries.He has had triphasic changes of Raynaud's phe nomena. Hehad one episode of TIA. He has had a history of reactive airway disease or asthma in the setting of ayden rgies and previous sinus history and surgery.Has a history of MRSA of th e lung requiring decortication. He has had gastroesophageal reflux disease. I advised him against taking NSAIDs chronically as he is aware of potential side effects including the setting of gastroesophageal reflux disease. Labswere significant for mild leukopenia mostly lymphopenia with mild normocyt ic anemia. Normal inflammatory markers ESR and CRP. Normal comprehensive met abolic panel. Negative hepatitis B and C serologies with immunity to hepatitis B. Normal TSH. Normal rheumatoid factor and CCP antibody. Negative MPO and IN-3. Normal serum protein electrophoresis. Positive HLA-B27 confirming the previously reported positivity. Mildlyelevated inflammatory bowel disease serologies which are not diagnostic. A mildly elevated RENUKA at160 in a speckl ed pattern. Borderline T spot TB which is not diagnostic and would wasrepeated. X-rays overall did not reveal any erosive changes of inflammatory arthritis or f indings of spondyloarthropathy or sacroiliitis. There were degenerative change s. The chest x-ray showed: Left lower lung scarring and midlung granuloma. No acu te cardiopulmonary abnormality. The joint survey x-rays showed: 1. Postoperative changes within the cervical spine. 2. Osteoarthritic degenerati ve change of the hands bilaterally. 3. Small subchondral lucencies in the medial first metatarsal head bilaterally w hich reflect subchondral cysts though erosions as seen in gout could have a hayden lar appearance. The SI joint, lumbar and thoracic spine x-rays showed: 1. SI joints: Normal bi lateral SI joints. The bilateral SI joints are well corticated without erosions changes. The sacrum and coccyx are grossly intact and unremarkable but are incom pletely evaluated. 2. Lumbar spine: Moderate L5-S1 and mild to moderate L4-L5 facet osteoarthriti s. Normal alignment. Preservation of disc spaces. No fractures or bone lesions. 3. Thoracic spine: Cannot evaluate the upper thoracicspineon lateral view due t o overlying shoulders. There is posterior instrumentation extending caudally fro m the cervical spine to the T2 level incompletely evaluated. Normal alignment of the visible thoracic spine. No fractures or bone lesions. Multilevel estimated moderate disc degeneration of the mid thoracic level. When seen 05/16/2019, we discussed at length different therapeutic options depend ing on the underlying diagnosis. Although he may have had a seronegative infla mmatory arthritis, and actually a spondyloarthropathy could not be confirmed by imaging studies despite years of symptoms although this was high on the list of differential diagnosis. We mutually decided to start on current medication for the inflammatory arthritis and to see how he responds and subsequently consider addition of medication such as methotrexate or a TNF inhibitor. We decided to not start stronger medications while plan to undergo further GI work-up to avoid masking or improving the potential findings. The labs from 04/25/2019 showed improved WBC of 4.4 which is likely lymphopenic w ithout any neutropenia. No anemia with hemoglobin of 13.8 compared to previous CBC. Normal complements. Uric acid is low and not elevated. Although the RENUKA remains mildly elevated at 160 in speckled pattern, the remaind er of the autoimmune serologies were normal or negative including thyroperoxidas e antibody, SSA and SSB, Lehman and AUTOMATIC EQUIPMENT TECHNICIAN, SCL 70, centromere, Milka 1, double-strande d DNA, histone, and anticardiolipin antibodies. Negative T spot TB and histoplasma antigen. Negative celiac serologies including tissue transglutaminase and gliadin antibod y. Negative Endomysial antibody, another celiac serology. Positive atypical p-ANCA and equivocal elevation in IgA ASCA which alone are not diagnostic of aninflammatorybowel disease. He has responded to a tapering course of prednisone and initiation of hydroxychl oroquine with significant improvement arthralgia and stiffness resolution of syn ovitis by July 2019. Although, he has had outside MRI of the pelvis and lum bar spine, these were not verticalized to look for evidence of spondyloarthropat hy or sacroiliitis. After, further discussion, he was interested in pursuing MR Jo Ann with STIR technique. In addition, it appears that he may not have had any per sistence of CHF but I proceeded to further evaluate this with a BMP and an echoc ardiogram. We also proceeded with bone density for osteoporosis screening since he had vitamin D deficiency and was on prednisone. Results and Plan: Please proceed with labs and call us or contact us through [email or web address] for results. Is planning to obtain these at his office through [facility] and I had p rinted out the orders for him. Labs July 2019 where satisfactory with normal or negative CBC, inflammatory markers ESR and CRP, CMP, double-stranded DNA, complements and RNA polymerase II I and urinalysis without proteinuria. Negative T spot TB. Normal BNP at 62 obt ained to look for any evidence of CHF in case we decide on initiating a TNF inhi bitor. MRI with STIR technique on 09/14/2019 did not show evidence of active sacroiliiti s or spondyloarthropathy but unchanged degenerative changes: 1. Degenerative changes in the thoracic and lumbar spine as above, with unchan ged moderate central spinal stenosis at L2-L3 and within the mid/lower thoracic spine. 2. Unchanged 1.7 x 1.7 x 2.0 focus of STIR hyperintense signal along the infer ior lateral aspect of the left anterior sacrum, most likely degenerative. No ero sions or sacroiliac joint effusion. 3. No evidence of active sacroiliitis or spondyloarthropathy. Bone density on 09/14/2019 was consistent with osteopenia with the lowest T score of left femur at -2.2. Based on FRAX measurement, the 10-year risk of hip fractures 3.5% Based on the FRAX measurement this indicates the ten year probability of fractur e to be 12.3% for major osteoporotic and 3.5% for hip fracture which suggests th e patient may benefit from treatment with a bisphosphonate. a) Consider FDA-approved medical therapies in the setting of 1) Hip or vertebral fracture, 2) Osteoporosis, and 3) low bone mass, referred to as osteopenia, with FRAX score of greater than or equal to 3% for hip fracture or greater than or equal to 20% for major osteoporotic fracture. Treatment may also be indicated ba sed on clinical judgement and/or patient preference. b) Interval between BMD testing should be determined according to each patient's clinical status: typically, one year after initiation or change of therapy is a ppropriate, with longer intervals once therapeutic effect is established. In con ditions with rapid bone loss, such as glucocorticoid therapy, testing more frequ ently is appropriate. The echocardiogram showed: 1. Slightly dilated left ventricle. Diffuse hypokinesis. Moderately depres sed function with ejection fraction=40-45%. Severe diastolic dysfunction with elevated filling pressure. 2. No mitral regurgitation. 3. Unable to measure pulmonary artery pressure. 4. Normal right ventricular ejection fraction. 5. Normal central venous pressure. 6. No recent echocardiogram for comparison. The echocardiogram was obtained due to a history of CHF although this may not ji ve been a persistent problem. However, he has severe diastolic dysfunction and a decreased ejection fraction of 40 to 45% with diffuse hypokinesis. He had previously seen by Dr. Amanda in cardiology clinic for history of atrial f ibrillation. He follow-up with Dr. Amanda in this regards in 09/2019 and was advis ed to wear a patch monitor and that he may benefit from undergoing PVC ablation that could have been the cause of his low ejection fraction and diffuse hypokine sis. Ever, per Dr. Amanda, the PVC burden was lower than what anticipated. There were ~7% PACs and ~3% PVCs. He is planning to hold off on the PVC ablation for now. I advised him to consider rechecking the echocardiogram through cardiology clini c within the next few months when he follows with him. He stated that he will c ommunicate with cardiology clinic. We checked orthostatics remains on him and he was not orthostatic by blood press ure and pulse or symptoms. He was seen by Dr. Mckinnon in GI clinic and he underwent EGD and colonoscopy and r andom biopsies for constipation alternating with diarrhea in 09/2019. Colonoscopy revealed diverticulosis in the sigmoid colon. One 3 mm polyp in the transverse colon, removed and pathology was consistent with tubular adenoma. Non -bleeding external and internal hemorrhoids. He was recommended to repeat the c olonoscopy in 5 years. The EGD showed non-obstructing Schatzki ring. LA Grade A reflux esophagitis. I have made a referral to physical medicine and rehabilitation clinic to see a jose hysiatristfor a comprehensive physical therapy program including for his shoul ders and back.However, he was seen in spine neurosurgery clinic per his own request separately. He still would like to be seen in PM&R clinic. He has tapered theprednisone from 10mg daily down to 5 mg daily. Please start tapering the prednisone by 1 mg every 3 to 4 weeks until off if loren erated. Continue with the hydroxychloroquine 200 mg 1 tablet twice daily was started in April 2019. Please see your business systems manager initially and thereafter every 12 months while o n hydroxychloroquine. We discussed therapeutic options including methotrexate and TNF inhibitors. For now we mutually agreed to start methotrexate while tapering the prednisone and if needed in the future we can consider adding a TNF inhibitor or Biologics. Start methotrexate 10 mg once weekly (4 tablets of 2.5 mg each). Check monitori ng labs in about 2 to 4 weeks and if satisfactory to increase the dose to 12.5 m g (5 tablets) once weekly and after another week or 2 if tolerated to 15 mg (6 t ablets) once weekly. Continue with methotrexate monitoring labs every 4 weeks o r so for couple times and then will this extended to 6 to 8 weeks and later on p erhaps to every 12 weeks. Avoid Bactrim while on Methotrexate. Hold Methotrexate if labs show cytopenia or abnormal liver enzymes. Recheck labs before restarting and monitoring closely. Start folic acid 1 mg daily. Continue to avoid NSAIDs (ibuprofen) due to potential side effects. He may use diclofenac gel 1% applied to the hands up to 3-4 times daily as neede d. Acetaminophen (Tylenol) up to 1000 mg three times daily as needed. I noted that he is not on any PPI and this is something that can be considered t o start such as omeprazole or pantoprazole once daily. He was found to have low vitamin D at 15 and was started on ergocalciferol 50,00 0 international units once weekly for 12 weeks and will continue thereafter with [id number] vitamin D3 2000 international units daily. We also discussed initiating Actonel once monthly but he prefers to hold off on that for now and decide on that later. I advised him to check on his immunization status including Prevnar 13, Pneumova x 23 and consider Shingrix vaccines. He had his influenza vaccination in May 2019. Follow-up [id number] with labs to be obtained prior to the office visitor s ooner as needed. I answered questions. Patient voiced understanding of the above discussion and a greement with plans. This is a complex case with associated complex decision making. Several issues a ddressed. Starting new DMARD. I spent over 50 minutes with patient; greater th an 30 minutes counseling and coordination of care. Jose Cruz Flynn MD documented in this encounter Plan of Treatment Order Schedule Name Type Priority Associated Diag noses Expected: 11/11/2019 (Approximate), Expi res: 08/10/2020 CBC AND DIFF Lab Routine HLA B27 (HLA B2 7 positive) Inflammatory arthritis Elevated antinuclear antibody (RENUKA) level Expected: 11/11/2019 (Approximate), Expi res: 08/10/2020 C REACTIVE PROTEIN (CRP) Lab Routine HLA B 27 (HLA B27 positive) Inflammatory arthritis Elevated antinuclear antibody (RENUKA) level Expected: 11/11/2019 (Approximate), Expi res: 08/10/2020 COMPREHENSIVE METABOLIC Lab Routine HLA B2 7 (HLA B27 PANEL positive) Inflammatory arthritis Elevated antinuclear antibody (RENUKA) level Expected: 11/11/2019 (Approximate), Expi res: 08/10/2020 SED RATE Lab Routine HLA B27 (HLA B2 7 positive) Inflammatory arthritis Elevated antinuclear antibody (RENUKA) level Expected: 11/11/2019 (Approximate), Expi res: 08/10/2020 URINALYSIS DIPSTICK Lab Routine HLA B27 (H LA B27 positive) Inflammatory arthritis Elevated antinuclear antibody (RENUKA) level Expected: 11/11/2019 (Approximate), Expi res: 08/10/2020 URINALYSIS, MICROSCOPIC Lab Routine HLA B2 7 (HLA B27 positive) Inflammatory arthritis Elevated antinuclear antibody (RENUKA) level Expected: 11/11/2019 (Approximate), Expi res: 08/10/2020 PROTEIN/CR RATIO,UR RAN Lab Routine HLA B2 7 (HLA B27 positive) Inflammatory arthritis Elevated antinuclear antibody (RENUKA) level Expected: 11/11/2019 (Approximate), Expi res: 08/10/2020 25-OH VITAMIN D (D2 + D3) Lab Routine Sheryl min D deficiency Expected: 11/11/2019 (Approximate), Expi res: 08/10/2020 C3 COMPLEMENT 3 Lab Routine HLA B27 (HLA B 27 positive) Inflammatory arthritis Elevated antinuclear antibody (RENUKA) level Expected: 11/11/2019 (Approximate), Expi res: 08/10/2020 C4 COMPLEMENT 4 Lab Routine HLA B27 (HLA B 27 positive) Inflammatory arthritis Elevated antinuclear antibody (RENUKA) level Expected: 11/11/2019 (Approximate), Expi res: 08/10/2020 ANTI-DNA DOUBLE STRAND Lab Routine HLA B27 (HLA B27 positive) Inflammatory arthritis Elevated antinuclear antibody (RENUKA) level Expected: 11/11/2019 (Approximate), Expi res: 08/10/2020 MAGNESIUM Lab Routine PVC (premature ventricular contraction) Every 4 Weeks Auto for [address] ar[address] 11/09/2019 until 08/10/2021 CBC AND DIFF Lab Routine HLA B27 (HLA B2 7 positive) Inflammatory arthritis Therapeutic drug monitoring Every 4 Weeks Auto for [address] ar[address] 11/09/2019 until 08/10/2021 ALT (SGPT) Lab Routine HLA B27 (HLA B2 7 positive) Inflammatory arthritis Therapeutic drug monitoring Every 4 Weeks Auto for [address] ar[address] 11/09/2019 until 08/10/2021 CREATININE Lab Routine HLA B27 (HLA B2 7 positive) Inflammatory arthritis Therapeutic drug monitoring Expected: 11/11/2019 (Approximate), Expi res: 08/10/2020 IMMUNOGLOBULINS-IGA,IGG,I Lab Routine Infl ammatory arthritis GM Expected: 11/11/2019 (Approximate), Expi res: 08/10/2020 ANTI-DNA DOUBLE STRAND Lab Routine HLA B27 (HLA B27 positive) Inflammatory arthritis Elevated antinuclear antibody (RENUKA) level Therapeutic drug monitoring Expected: 11/11/2019 (Approximate), Expi res: 08/10/2020 C3 COMPLEMENT 3 Lab Routine HLA B27 (HLA B 27 positive) Inflammatory arthritis Elevated antinuclear antibody (RENUKA) level Therapeutic drug monitoring Expected: 11/11/2019 (Approximate), Expi res: 08/10/2020 C4 COMPLEMENT 4 Lab Routine HLA B27 (HLA B 27 positive) Inflammatory arthritis Elevated antinuclear antibody (RENUKA) level Therapeutic drug monitoring Expected: 11/11/2019 (Approximate), Expi res: 08/10/2020 25-OH VITAMIN D (D2 + D3) Lab Routine Sheryl min D deficiency Expected: 11/11/2019 (Approximate), Expi res: 08/10/2020 C REACTIVE PROTEIN (CRP) Lab Routine HLA B 27 (HLA B27 positive) Inflammatory arthritis Elevated antinuclear antibody (RENUKA) level Therapeutic drug monitoring Expected: 11/11/2019 (Approximate), Expi res: 08/10/2020 SED RATE Lab Routine HLA B27 (HLA B2 7 positive) Inflammatory arthritis Elevated antinuclear antibody (RENUKA) level Therapeutic drug monitoring Expected: 11/11/2019 (Approximate), Expi res: 08/10/2020 COMPREHENSIVE METABOLIC Lab Routine HLA B2 7 (HLA B27 PANEL positive) Inflammatory arthritis Elevated antinuclear antibody (RENUKA) level Therapeutic drug monitoring Expected: 11/11/2019 (Approximate), Expi res: 08/10/2020 URINALYSIS DIPSTICK Lab Routine HLA B27 (H LA B27 positive) Inflammatory arthritis Elevated antinuclear antibody (RENUKA) level Therapeutic drug monitoring Expected: 11/11/2019 (Approximate), Expi res: 08/10/2020 URINALYSIS, MICROSCOPIC Lab Routine HLA B2 7 (HLA B27 positive) Inflammatory arthritis Elevated antinuclear antibody (RENUKA) level Therapeutic drug monitoring Expected: 11/11/2019 (Approximate), Expi res: 08/10/2020 PROTEIN/CR RATIO,UR RAN Lab Routine HLA B2 7 (HLA B27 positive) Inflammatory arthritis Elevated antinuclear antibody (RENUKA) level Therapeutic drug monitoring Expected: 11/11/2019 (Approximate), Expi res: 08/10/2020 CBC AND DIFF Lab Routine HLA B27 (HLA B2 7 positive) Inflammatory arthritis Elevated antinuclear antibody (RENUKA) level Therapeutic drug monitoring Expected: 11/11/2019 (Approximate), Expi res: 08/10/2020 MAGNESIUM Lab Routine PVC (premature ventricular contraction) Every 4 Weeks Auto for [address] 11/09/2019 until 12/09/2020 CBC AND DIFF Lab Routine Inflammatory ar thritis Therapeutic drug monitoring Every 4 Weeks Auto for [address] 11/09/2019 until 12/09/2020 ALT (SGPT) Lab Routine Inflammatory ar thritis Therapeutic drug monitoring Every 4 Weeks Auto for [address] 11/09/2019 until 12/09/2020 CREATININE Lab Routine Inflammatory ar thritis Therapeutic drug monitoring Expected: 03/14/2020 (Approximate), Expi res: 08/10/2020 CBC AND DIFF Lab Routine HLA-B27 spondyloarthropathy Inflammatory arthritis Elevated antinuclear antibody (RENUKA) level Therapeutic drug monitoring Expected: 03/14/2020 (Approximate), Expi res: 08/10/2020 C REACTIVE PROTEIN (CRP) Lab Routine HLA-B 27 spondyloarthropathy Inflammatory arthritis Elevated antinuclear antibody (RENUKA) level Therapeutic drug monitoring Expected: 03/14/2020 (Approximate), Expi res: 08/10/2020 SED RATE Lab Routine HLA-B27 spondyloarthropathy Inflammatory arthritis Elevated antinuclear antibody (RENUKA) level Therapeutic drug monitoring Expected: 03/14/2020 (Approximate), Expi res: 08/10/2020 COMPREHENSIVE METABOLIC Lab Routine HLA-B2 7 PANEL spondyloarthropathy Inflammatory arthritis Elevated antinuclear antibody (RENUKA) level Therapeutic drug monitoring Expected: 03/14/2020 (Approximate), Expi res: 08/10/2020 URINALYSIS DIPSTICK Lab Routine HLA-B27 spondyloarthropathy Inflammatory arthritis Elevated antinuclear antibody (RENUKA) level Therapeutic drug monitoring Expected: 03/14/2020 (Approximate), Expi res: 08/10/2020 URINALYSIS, MICROSCOPIC Lab Routine HLA-B2 7 spondyloarthropathy Inflammatory arthritis Elevated antinuclear antibody (RENUKA) level Therapeutic drug monitoring Expected: 03/14/2020 (Approximate), Expi res: 08/10/2020 PROTEIN/CR RATIO,UR RAN Lab Routine HLA-B2 7 spondyloarthropathy Inflammatory arthritis Elevated antinuclear antibody (RENUKA) level Therapeutic drug monitoring Expected: 03/14/2020 (Approximate), Expi res: 08/10/2020 C3 COMPLEMENT 3 Lab Routine HLA-B27 spondyloarthropathy Inflammatory arthritis Elevated antinuclear antibody (RENUKA) level Therapeutic drug monitoring Expected: 03/14/2020 (Approximate), Expi res: 08/10/2020 C4 COMPLEMENT 4 Lab Routine HLA-B27 spondyloarthropathy Inflammatory arthritis Elevated antinuclear antibody (RENUKA) level Therapeutic drug monitoring Expected: 03/14/2020 (Approximate), Expi res: 08/10/2020 ANTI-DNA DOUBLE STRAND Lab Routine HLA-B27 spondyloarthropathy Inflammatory arthritis Elevated antinuclear antibody (RENUKA) level Therapeutic drug monitoring Expected: 03/14/2020 (Approximate), Expi res: 08/10/2020 25-OH VITAMIN D (D2 + D3) Lab Routine Sheryl min D deficiency Therapeutic drug monitoring documented as of this encounter Visit Diagnoses Diagnosis HLA-B27 spondyloarthropathy Spondylosis of unspecified site without mention of myelopathy HLA B27 (HLA B27 positive) Genetic susceptibility to other disease Inflammatory arthritis Unspecified inflammatory polyarthropath y Polyarthralgia Pain in joint, multiple sites Chronic back pain, unspecified back loc ation, unspecified back pain laterality S/P cervical spinal fusion Arthrodesis status Disorder of rotator cuff of both should ers Disorders of bursae and tendons in shou lder region, unspecified Vitamin D deficiency Unspecified vitamin D deficiency Elevated antinuclear antibody (RENUKA) lev el Other and unspecified nonspecific immun ological findings Raynaud's phenomenon without gangrene Therapeutic drug monitoring Encounter for therapeutic drug monitori ng Diarrhea, unspecified type Chronic fatigue Other malaise and fatigue PVC (premature ventricular contraction) Other premature beats History of repair of atrial septal defe ct Personal history of surgery to heart an d great vessels, presenting hazards to health S/P repair of patent ductus arteriosus Other postprocedural status Mixed hyperlipidemia Mild asthma without complication, unspe cified whether persistent 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
--- OUTSIDE RECORDS SUMMARY | 2020-03-28 20:34 | XMS REPORT | Encounter Summary ---
Author Author [facility] Organization [facility] Address Unknown Phone Unavailable Care Team Providers Care Pet Trainer Name Role Phone Jerry Brewer MD Unavailable Faviola Resendiz DO PCP Reason for Visit * Reason Comments Medication Refill Encounter Details Care Team Description Date Type Department Gómez Amanda MD [address] [id number] Medication Refill 11/04/2019 Refill [facility] [address] [id number] Social History Date Tobacco Use Types Packs/Day [...]
--- OUTSIDE RECORDS SUMMARY | 2020-03-28 20:34 | XMS REPORT | Encounter Summary ---
Author Author [facility] Organization [facility] Address Unknown Phone Unavailable Care Team Providers Care Handicapped Teacher Name Role Phone Jerry Brewer MD Unavailable Faviola Resendiz DO PCP Reason for Visit * Reason Comments Pre-Procedure Instructions Encounter Details Care Team Description Date Type Department Bassam Mckinnon MD [address] [place] [address] Pre-Procedure Instructions 10/05/2019 Telephone [facility] [address] [place] [address] Social History Date Tobacco Use [...] encounter Miscellaneous Notes * Telephone Encounter - Keren Leos RN - 10/05/2019 1:39 PM PULP OPERATOR Received VM from pt stating he had a procedure at [address] Mckinnon and was reque sting instructions on where to go. Received VM after 1pm, as it had been left on another nurse's voicemail. Pt already in Endo at this time. Sent pt message via [employer]. OPERATOR documented in this encounter Plan of Treatment Not on filedocumented as of this encounter Visit Diagnoses Not on filedocumented in this encounter
--- OUTSIDE RECORDS SUMMARY | 2020-03-28 20:34 | XMS REPORT | Encounter Summary ---
Author Author [facility] Organization [facility] Address Unknown Phone Unavailable Care Team Providers Care Clinical Appeals Reviewer Name Role Phone Jerry Brewer MD Unavailable Faviola Resendiz DO PCP Reason for Referral * Radiology Services (Routine) Referred By Contact Referred To Contact Status Reason Specialty Diagnoses / Procedures Bassam Mckinnon MD [address] [place] [address] Mob [facility] [address] [address] Denied Needs Radiology Diagnoses Review Change in bowel habits P rocedures MRI ENTEROGRAPHY OK MRI ABDOMEN W/O & W/CONTRAST MATERIAL OK MRI PELVIS W/O & W/CONTRAST MATERIAL Reason for Visit * Reason Comments Constipation Encounter Details Care Team Description Date Type Department Bassam Mckinnon MD [address] [place] [address] [phone] Change in bowel habits (Primary Dx); Gastroesophageal reflux disease with esophagitis 10/19/2019 Office Visit [facility] [address] [place] [address] Social History Date Tobacco Use [...] Signs Reading Time Taken Comments Vital Sign - - Blood Pressure - - Pulse - - Temperature 16 10/19/2019 10:38 AM LADLE PATCHER Respiratory Rate - - Oxygen Saturation - - Inhaled Oxygen Concentration 78.5 kg (173 lb) 10/19/2019 10:38 AM LADLE PATCHER Weight 160 cm (5' 3") 10/19/2019 10:38 AM LADLE PATCHER Height 30.65 10/19/2019 10:38 AM LADLE PATCHER Body Mass Index documented in this encounter [...] this encounter Patient Instructions * Patient Instructions* Keren Leos RN - 10/19/2019 10:15 AM LADLE PATCHER 1. MRI Enterography. 2. Follow up in Gi clinic in 6 months as needed. If you have any questions or concerns please contact Dr. Mckinnon's nurse, Keren, at [phone]. If you have internet access/smart phone please contact us through [employer]. This is the most efficient way to contact your healthcare team. E PATCHER documented in this encounter Progress Notes * Bassam Mckinnon MD - 10/19/2019 10:15 AM LADLE PATCHER IMPRESSION: 69yr old f with PMHx as below has been referred to us for management of his comp lains. I again had a detailed discussion with the patient based on his recent endoscopy there is no evidence of underlying Crohn's disease/IBD. Though we can evaluate the upper small bowel with an MRE. Patient agrees with the plan RECOMMENDATIONS: #Constipation / change in bowel habits --Trial of MiraLAX. -We will do an MRE to evaluate the small bowel. -Surveillance colonoscopy in 5 years GERD - LA grade a esophagitis . No evidence of goetz's -PPI twice daily for 6 weeks and then once daily, further titrate it to symptoms . - Weight loss and life style modification. RTC in 6 months prn Reason for Visit: Follow up HPI: Patient comes back for a follow-up visit today, he is status post recent EG D and a colonoscopy. The EGD showed mild LA grade a esophagitis and a colonosco py showed normal TI, normal colonic mucosa and a small TA. The random biopsies from the colon showed no evidence of inflammation. He today reports he continue s to have irregular bowel habits, he is yet to start the MiraLAX as was recommen ded previously. He is taking PPI twice daily for the esophagitis. History of the disease: Referred here because of change in his bowel habits, he states he was regular most of his life moving his bowel every day but now approximately 6 months ago h is bowel habits changed. He now would not move his bowel for 2 days followed by a day of diarrhea and then the cycle would start again. He denies any blood in the stools, any nocturnal symptoms and there is no intentional weight loss. He states his most pressing issue is joint pains including his lower back pain / fi nger pain for which he follows with Dr Flynn and now with Dr Cruz(Neurosurgery) . Off note is the patient is HLA B27 +ve and there was a concern about though the xray shows normal SI joint. Also off note is he was started on Plaquenil and steroid taper by . 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 Persistent atrial fibrillation (HCC) 03/10/2017 10/01/16-[facility]- Echo-EF 55%- LA 4.5 cm; unable to comment on diastolic funciton due to PAF; mild LA dilatation; mild MR; mild TR 11/04/16-[facility]- Successful DCCV to NSR with 200 joules 02/12/17-[facility]- successful DCCV to NSR Pulmonary hypertension (HCC) 03/10/2017 S/P cervical spinal fusion 01/07/2015 S/P repair of patent ductus arteriosus 03/10/2017 TIA (transient ischemic attack) 1996 PSH: Surgical History: Procedure Laterality Date THORACOTOMY Left 2005 for MRSA pneumonia Left Atrial Antral Radiofrequency Ablation Left 08/16/2017 Performed by Gómez Amanda MD at [facility] Comprehensive EP Study N/A 08/16/2017 Performed by Gómez Amanda MD at [facility] Colonoscopy N/A 10/05/2019 Performed by Bassam Mckinnon MD at ENDO/GI ESOPHAGOGASTRODUODENOSCOPY WITH SPECIMEN COLLECTION BY BRUSHING/ WASHING 10/05/2019 Performed by Bassam Mckinnon MD at ENDO/GI COLONOSCOPY WITH BIOPSY - FLEXIBLE 10/05/2019 Performed by Bassam Mckinnon MD at ENDO/GI ASD REPAIR 1998 CARPAL TUNNEL RELEASE Bilateral CERVICAL SPINE SURGERY x5 surgeries total HX SEPTOPLASTY HX TONSILLECTOMY SINUS SURGERY multiple with revisions SURGERY medial nerve transposition Current Medications: Current Outpatient Medications: acetaminophen (TYLENOL) 500 mg tablet, Take 1,000 mg by mouth every 8 hours . Max of 4,000 mg of acetaminophen in 24 hours., Disp: , Rfl: albuterol 0.083% (PROVENTIL; VENTOLIN) 2.5 mg /3 mL (0.083 %) nebulizer nat ution, Inhale 2.5 mg solution as directed every 4 hours as needed for Wheezing., Disp: , Rfl: apixaban (ELIQUIS) 5 mg tablet, Take one tablet by mouth twice daily., Disp : 180 tablet, Rfl: 3 budesonide/formoterol fumarate (SYMBICORT IN), Inhale by mouth into the evda ngs as Needed., Disp: , Rfl: diclofenac (VOLTAREN) 1 % topical gel, Apply two g topically to affected ar ea four times daily. (Patient taking differently: Apply 2 g topically to affecte d area as Needed.), Disp: 300 g, Rfl: 3 ergocalciferol (VITAMIN D) 50,000 unit capsule, Take one capsule by mouth e very 7 days., Disp: 12 capsule, Rfl: 0 fenofibrate(+) (TRIGLIDE) 160 mg tablet, Take 160 mg by mouth at bedtime da jose. Take with food., Disp: , Rfl: hydroxychloroquine (PLAQUENIL) 200 mg tablet, Take one tablet by mouth twic e daily. Take with food., Disp: 180 tablet, Rfl: 3 loratadine (CLARITIN) 10 mg tablet, Take 10 mg by mouth every morning., Dis p: , Rfl: montelukast (SINGULAIR) 10 mg tablet, Take 10 mg by mouth at bedtime daily. , Disp: , Rfl: pantoprazole DR (PROTONIX) 40 mg tablet, Take 40 mg by mouth twice daily., Disp: , Rfl: polyethylene glycol 3350 (MIRALAX) 17 g packet, Take 17 g by mouth daily., Disp: , Rfl: Prednisolone 5 mg tab, Take by mouth., Disp: , Rfl: traMADol (ULTRAM) 50 mg tablet, Take one tablet by mouth every 12 hours., D isp: 60 tablet, Rfl: 0 zolpidem (AMBIEN) 5 mg tablet, Take 5 mg by mouth at bedtime as needed for Sleep., Disp: , Rfl: Allergies: Allergies Allergen Reactions Morphine RASH Allergy recorded in SMS: Morphine Has tolerated. Oxycodone UNKNOWN Allergy recorded in SMS: OXYCONTIN Oxycodone-Acetaminophen SEE COMMENTS Allergy recorded in SMS: Percocet unknown SHx: Social History Tobacco Use Smoking status: Never Smoker Smokeless tobacco: Never Used Substance Use Topics Alcohol use: No Drug use: No FHx: Family History Problem Relation Age of Onset [...] SLE Neg Hx Multiple sclerosis Neg Hx Depression Screening: Patient Scores: PHQ-2: PHQ-2 Score: 0 (08/15/2019 8:00 AM) PHQ-9: No data recorded Interventions: PHQ-2: No data recorded Depression Interventions PHQ-2/9: No data recorded ROS: Review of Systems Constitutional: Negative. HENT: Negative. Eyes: Negative. Respiratory: Negative. Cardiovascular: Negative. Gastrointestinal: Positive for constipation and diarrhea. Endocrine: Negative. Genitourinary: Negative. Musculoskeletal: Positive for arthralgias, back pain, joint swelling, myalgias, neck pain and neck stiffness. Skin: Negative. Allergic/Immunologic: Negative. Neurological: Negative. Hematological: Negative. Psychiatric/Behavioral: Negative. PE: Vitals: 10/19/19 1038 Resp: 16 78.5 kg (173 lb) Body mass index is 30.65 kg/m. Physical Exam Constitutional: Pt. is oriented to person, place, and time and in no distress. HENT: Head: Normocephalic and atraumatic. Eyes: Conjunctivae and EOM are normal. Pupils are equal, round, and reactive to light. Neck: Normal range of motion. Neck supple. Cardiovascular: Normal rate, regular rhythm and normal heart sounds. Pulmonary/Chest: Effort normal and breath sounds normal. No respiratory distress . Pt. has no wheezes. Pt. has no rales. Abdominal: Soft. Bowel sounds are normal. Pt. exhibits no distension and no mass . There is no tenderness. There is no rebound and no guarding. Musculoskeletal: Normal range of motion. There is no edema, tenderness or deform ity. Neurological: Pt. is alert and oriented to person, place, and time. Gait normal. Skin: Skin is warm and dry. No rash noted. No erythema. Psychiatric: Affect and judgment normal. Bassam Mckinnon MD [facility] E PATCHER documented in this encounter Plan of Treatment Order Schedule Name Type Priority Associated Diag noses Expected: 10/19/2019 (Approximate), Expi res: 10/19/2020 MRI ENTEROGRAPHY Imaging Routine Change in bow el habits documented as of this encounter Visit Diagnoses Diagnosis Change in bowel habits Other symptoms involving digestive syst em Gastroesophageal reflux disease with es ophagitis documented in this encounter
--- OUTSIDE RECORDS SUMMARY | 2020-03-28 20:34 | XMS REPORT | Encounter Summary ---
Author Author [facility] Organization [facility] Address Unknown Phone Unavailable Care Team Providers Care Desk Sergeant Name Role Phone Jerry Brewer MD Unavailable Faviola Resendiz DO PCP Reason for Visit * Reason Comments Appointment left message re: 01/24 appt Encounter Details Care Team Description Date Type Department Karin Yates MA Appointment (left message re: 01/24 appt) 01/24/2020 Telephone [facility] [address] [place] [address] Social History Date Tobacco Use Types Packs/Day [...] encounter Miscellaneous Notes * Telephone Encounter - Karin Yates MA - 01/24/2020 9:19 AM CDT Left a message for Matt re: follow up with Paulette. He is scheduled for a tele he alth visit on 01/24. Asked that he have his username and password available for his Archiver's account. Instructed to check blood pressure and weight prior to office visit. Karin Yates MA documented in this encounter Plan of Treatment Not on filedocumented as of this encounter Visit Diagnoses Not on filedocumented in this encounter
--- OUTSIDE RECORDS SUMMARY | 2020-03-28 20:35 | XMS REPORT ---
Author Author [employer] legal nurse consultant [employer] [facility] [employer] [facility] [place]li Address [address] [place] [address] Care Team Providers Care Glass Handler Name Role Phone MAGEN OH, CORAZON Unavailable Unavailable MAGEN DO, CORAZON Unavailable Unavailable AMBIKA MANNING DO Unavailable Unavailable BIN GARCIA, PHAM Darden Unavailable Unavailable PHAM STEWARD MD Unavailable Unavailable PATRICK MA, WILIAM Walters Unavailable Unavailable MAGEN OH, CORAZON S Unavailable Unavailable FREDDY GARCIA, HEBER Gomez Unavailable Unavailable Unavailable Unavailable Unavailable Unavailable Allergies The data below is from unstructured sources Allergy Name Reaction Description Start Date Severity Status Provider Allergies Unknown Encounters Encounter Date Encounter Type Encounter Diagnosis Care Provider Facility Start: Emergency department HEBER HAYES MD [facility] Vi a [facility] 03-28-[address] [facility] Start: Patient encounter WILIAM NGUYEN APRN [facility] Via [facility] 08-28-[address] [facility] ([id number]) Start: Patient encounter 01-03-2015 procedure Start: Patient encounter AMBIKA MANNING DO [facility] Via risti 01-03-[address] [facility] ([id number]) Start: Patient encounter 11-29-2014 procedure Start: Patient encounter CORAZON US DO [facility] 11-29-[address] [facility] ([id number]) Start: Evaluation and 11-22-2014 management of inpatient End: 11-28-2014 Start: Evaluation and CORAZON US DO [facility] 11-22-[address] [facility] inpatient ([id number]) End: 11-28-2014 Start: Evaluation and PHAM STEWARD MD [facility] Via Dane i 11-19-[address] [facility] inpatient ([id number]) End: 11-21-2014 Start: Patient encounter 11-15-2014 procedure Start: Patient encounter PHAM STEWARD MD [facility] Via [place] [facility] is 03-19-[address] [facility] ([id number]) EXAM PRE-OPERATIVE Other specified PHAM BIN GARCIA [facility] Via risall NEC pre-operative [facility] examination ([id number]) Medical Equipment No Information Goals No Information Immunizations No Information Interventions No Information Medications No Information Payers No Information Plan of Treatment No Information Problems Active Problems Problem Problem Date Last Documented Episodic/Chr Provider Classificati Recorded Date onic on Allergic Other allergy, other than to Episodic PHAM IPSEN reactions medicinal agents (5 sources) Asthma Asthma, unspecified type, Chronic BR BHARGAV IPSEN unspecified ; Translations: (15 [Extrinsic asthma, unspecif ied] sources) Diabetes Other abnormal glucose Episodic PHAM IPSEN mellitus MD without complication (5 sources) Diseases of Disturbance of salivary secretion Episodic CORAZON US mouth; DO excluding dental (5 sources) Fluid and Hypopotassemia Episodic CORAZON US electrolyte DO disorders (5 sources) Hyperplasia Hypertrophy (benign) of prostate Chronic CORAZON US of prostate without urinary obstruction and DO (5 sources) other lower urinary tract s ymptom (LUTS) Other Kyphosis, postlaminectomy Chronic BR BHARGAV IPSEN acquired MD deformities (5 sources) Other Kyphosis (acquired) (postural) Chronic CORAZON US acquired DO deformities (5 sources) Other Spasm of muscle Episodic CORAZON US connective DO tissue disease (5 sources) Other Constipation, unspecified Episodic BR BHARGAV IPSEN gastrointest MD inal disorders (5 sources) Other Dysphagia, unspecified Episodic AMBIKA KERRI gastrointest DO inal disorders (5 sources) Other lower Other respiratory abnormalities Episodic AMBIKAJARRED MANNING respiratory DO disease (5 sources) Other upper Unspecified sinusitis (chronic) Chronic PHAM IPSADELA respiratory MD infections (10 sources) Pleurisy; Pulmonary collapse Episodic AMBIKA MEHNAZ ARISTEO pneumothorax DO ; pulmonary collapse (5 sources) Residual Other postprocedural status Episodic CORAZON US codes; DO unclassified (5 sources) Spondylosis; Postlaminectomy syndrome, cervical Chronic PHAM IPSEN intervertebr region ; Translations: [Cervical al disc spondylosis with myelopathy ] disorders; other back problems (12 sources) Past or Other Problems Problem Problem Date Last Documented Episodic/Chr Provider Classificati Recorded Date onic on Fever of Fever, unspecified Episodic WILIAM LEWI S unknown [employer] origin (2 sources) Nonspecific Chest pain, unspecified Episodic WILIAM PATRICK chest pain [employer] (2 sources) Other lower Cough Episodic WILIAM PATRICK respiratory [employer] disease (2 sources) Residual Other specified postprocedural Episodic WILIAM PATRICK codes; states [employer] unclassified (2 sources) Procedures Date Procedure Procedure Detail Performing Cl inician Start: Excision of bone CORAZON MILANETIENNE OH 11-26-2014 for graft, other bones Start: FUSION/REFUS OF CORAZON US 11-26-2014 4-8 VERTEBRAE Start: OTH CERVICAL CORAZON MAGEN OH 11-26-2014 FUSION OF POSTERIOR COLUMN, Start: Other exploration CORAZON US DO 11-26-2014 and decompression of spinal canal Start: Excision of bone PHAM STEWARD MD 11-19-2014 for graft, other bones Start: Excision of PHAM STEWARD MD 11-19-2014 intervertebral disc Start: FUSION/REFUS OF PHAM STEWARD MD 11-19-2014 2-3 VERTEBRAE Start: INSERTION OF PHAM STEWARD MD 11-19-2014 INTERBODY SPINAL FUSION DEV Start: OTH CERVICAL PHAM STEWARD MD 11-19-2014 FUSION OF ANTERIOR COLUMN, Start: Other excision of PHAM STEWARD MD 11-19-2014 joint, other specified sites Excision of bone for graft, other bones Excision of intervertebral disc FUSION/REFUS OF 2-3 VERTEBRAE FUSION/REFUS OF 4-8 VERTEBRAE INSERTION OF INTERBODY SPINAL FUSION DEV OTH CERVICAL FUSION OF ANTERIOR COLUMN, OTH CERVICAL FUSION OF POSTERIOR COLUMN, Other excision of joint, other specified sites Results Test Name Value Interpreta Reference Facilit Date tion Range y Time laboratory on 2020-03-28 Albumin [Mass/Vol] 4.2 g/dL Negative 3.2-4.5 PENDING 03-01 0-2 g/dL [facility] 15:08-0 ([id number]) 400 ALP [Catalytic 65 U/L Negative 40-136 U/L PENDING 2 activity/Vol] [facility] 15:08-0 ([id number]) 400 ALT [Catalytic 25 U/L Negative 0-55 U/L PENDING 2 activity/Vol] [facility] 15:08-0 ([id number]) 400 Anion gap 9 mmol/L Negative 5-14 PENDING [Moles/Vol] mmol/L [facility] 15:08-0 ([id number]) 400 aPTT Coag (PPP) 35 s Negative 24-35 s PENDING [Time] [facility] 020 N [facility] 15:08-0 ([id number]) 400 AST [Catalytic 30 U/L Negative 5-34 U/L PENDING activity/Vol] [facility] 020 N [facility] 15:08-0 ([id number]) 400 Bacteria LM Ql Negative Invalid PENDING (Urine sed) Interpreta [facility] 020 tion Code N [facility] 15:55-0 ([id number]) 400 Basophils (Bld) 0.0 10*3/uL Negative 0.0-0.1 PENDING 03-28 [#/Vol] 10*3/uL [facility] 020 N [facility] 15:08-0 ([id number]) 400 Basophils/100 WBC 0 % Negative 0-10 % PENDING 03-28 (Bld) [facility] 020 N [facility] 15:08-0 ([id number]) 400 Bilirubin [Mass/Vol] 0.3 mg/dL Negative 0.1-1.0 PENDING mg/dL [facility] 020 N [facility] 15:08-0 ([id number]) 400 Bilirubin Ql (U) Negative Invalid NEGATIVE PENDING Interpreta [facility] 020 tion Code N [facility] 15:55-0 ([id number]) 400 Calcium [Mass/Vol] 9.4 mg/dL Negative 8.5-10.1 PENDING 07-3 0-2 mg/dL [facility] 020 N [facility] 15:08-0 ([id number]) 400 Calcium [Mass/Vol] 9.2 mg/dL Negative 8.5-10.1 PENDING 07-3 0-2 mg/dL [facility] 020 N [facility] 15:08-0 ([id number]) 400 Casts LM Ql (Urine NONE Invalid PENDING sed) Interpreta [facility] 020 tion Code N [facility] 15:55-0 ([id number]) 400 Chloride [Moles/Vol] 106 mmol/L Negative 98-107 PENDING 0 7-30-2 mmol/L [facility] 020 N [facility] 15:08-0 ([id number]) 400 Clarity (U) CLEAR Invalid PENDING 07-30-2 Interpreta [facility] 020 tion Code N [facility] 15:55-0 ([id number]) 400 CO2 [Moles/Vol] 24 mmol/L Negative 21-32 PENDING mmol/L [facility] 020 N [facility] 15:08-0 ([id number]) 400 Color (U) YELLOW Invalid PENDING Interpreta [facility] 020 tion Code N [facility] 15:55-0 ([id number]) 400 Creatinine 0.95 mg/dL Negative 0.60-1.30 PENDING [Mass/Vol] mg/dL [facility] 020 N [facility] 15:08-0 ([id number]) 400 Creatinine and > Invalid PENDING Glomerular Interpreta [facility] 020 filtration tion Code N [facility] 15:08-0 rate.predicted panel ([id number]) 400 - Serum, Plasma or Blood Crystals LM Ql NONE Invalid PENDING (Urine sed) Interpreta [facility] 020 tion Code N [facility] 15:55-0 ([id number]) 400 Eosinophils (Bld) 0.2 10*3/uL Negative 0.0-0.3 PENDING [#/Vol] 10*3/uL [facility] 020 N [facility] 15:08-0 ([id number]) 400 Eosinophils/100 WBC 5 % Negative 0-10 % PENDING (Bld) [facility] 020 N [facility] 15:08-0 ([id number]) 400 Epithelial RARE Invalid PENDING cells.squamous LM Ql Interpreta [facility] 020 (Urine sed) tion Code N [facility] 15:55-0 ([id number]) 400 Erythrocyte 14.6 % High 10.0-14.5 PENDING distribution width % [facility] 020 (RBC) [Ratio] N [facility] 15:08-0 ([id number]) 400 Glucose [Mass/Vol] 93 mg/dL Negative 70-105 PENDING 03-01 0-2 mg/dL [facility] 020 N [facility] 15:08-0 ([id number]) 400 Glucose Auto test Negative Invalid NEGATIVE PENDING 03-28 strip Ql (U) Interpreta [facility] 020 tion Code N [facility] 15:55-0 ([id number]) 400 Hematocrit (Bld) 38 % Low 40-54 % PENDING [Volume fraction] LOC[facility]IO 020 [facility] 15:08-0 ([id number]) 400 Hemoglobin (Bld) 12.9 g/dL Low 13.3-17.7 PENDING [Mass/Vol] g/dL [facility] 020 [facility] 15:08-0 ([id number]) 400 INR Coag (Platelet 1.1 Negative 0.8-1.4 PENDING 03-01 0-2 poor plasma or [facility] 020 blood) [Relative N [facility] 15:08-0 time] ([id number]) 400 Ketones Auto test Negative Invalid NEGATIVE PENDING 03-28 strip Ql (U) Interpreta [facility] 020 tion Code [facility] 15:55-0 ([id number]) 400 Leukocyte esterase Negative Invalid NEGATIVE PENDING 03-01 0- Test strip Ql (U) Interpreta [facility] 020 tion Code [facility] 15:55-0 ([id number]) 400 Lymphocytes (Bld) 1.0 10*3/uL Negative 1.0-4.0 PENDING [#/Vol] 10*3 [facility] 020 [facility] 15:08-0 ([id number]) 400 Lymphocytes/100 WBC 21 % Negative 12-44 % PENDING (Bld) [facility] 020 [facility] 15:08-0 ([id number]) 400 Magnesium [Mass/Vol] 2.2 mg/dL Negative 1.6-2.4 PENDING mg/dL [facility] 020 [facility] 15:08-0 ([id number]) 400 MCH (RBC) [Entitic 31 pg Negative 25-34 pg PENDING 03-01 0-2 mass] [facility] 020 [facility] 15:08-0 ([id number]) 400 MCHC (RBC) 34 g/dL Negative 32-36 g/dL PENDING [Mass/Vol] [facility] 020 [facility] 15:08-0 ([id number]) 400 MCV (RBC) [Entitic 91 Negative 80-99 PENDING -3 0-2 vol] [foz_us] [facility] 020 [facility] 15:08-0 ([id number]) 400 Monocytes (Bld) 0.8 10*3/uL Negative 0.0-1.0 PENDING 03-28 [#/Vol] 10*3 [facility] 020 N [facility] 15:08-0 ([id number]) 400 Monocytes/100 WBC 17 % High 0-12 % PENDING 03-28 (Bld) [facility] 020 N [facility] 15:08-0 ([id number]) 400 Mucus Ql (Urine sed) Negative Invalid PENDING 03-28 Interpreta [facility] 020 tion Code N [facility] 15:55-0 ([id number]) 400 Natriuretic peptide 200.2 pg/mL High <75.0 PENDING 0 B (Bld) [Mass/Vol] pg/mL [facility] 020 [facility] 15:08-0 ([id number]) 400 Neutrophils (Bld) 2.6 10*3/uL Negative 1.8-7.8 PENDING [#/Vol] 10*3 [facility] 020 [facility] 15:08-0 ([id number]) 400 Neutrophils/100 WBC 57 % Negative 42-75 % PENDING (Bld) [facility] 020 [facility] 15:08-0 ([id number]) 400 Nitrite Ql (U) Negative Invalid NEGATIVE PENDING Interpreta [facility] 020 tion Code [facility] 15:55-0 ([id number]) 400 pH (U) 6.5 [pH] Invalid 5-9 PENDING Interpreta [facility] 020 tion Code [facility] 15:55-0 ([id number]) 400 Platelet mean volume 9.6 Negative 7.4-10.4 PENDING (Bld) [Entitic vol] [foz_us] [facility] 020 [facility] 15:08-0 ([id number]) 400 Platelets (Bld) 236 10*3/uL Negative 130-400 PENDING 03-28 [#/Vol] 10*3/uL [facility] 020 [facility] 15:08-0 ([id number]) 400 Potassium 3.8 mmol/L Negative 3.6-5.0 PENDING [Moles/Vol] mmol/L [facility] 020 [facility] 15:08-0 ([id number]) 400 Protein [Mass/Vol] 6.5 g/dL Negative 6.4-8.2 PENDING 03-01 0-2 g/dL [facility] 020 N [facility] 15:08-0 ([id number]) 400 Protein Ql (U) Negative Invalid NEGATIVE PENDING Interpreta [facility] 020 tion Code N [facility] 15:55-0 ([id number]) 400 PT Coag (PPP) [Time] 14.2 s Negative 12.2-14.7 PENDING s [facility] 020 N [facility] 15:08-0 ([id number]) 400 RBC (Bld) [#/Vol] 4.19 10*6/uL Low 4.35-5.85 PENDING 10*6/uL [facility] 020 N [facility] 15:08-0 ([id number]) 400 RBC LM.HPF (Urine RARE Invalid PENDING sed) [#/Area] Interpreta [facility] 020 tion Code [facility] 15:55-0 ([id number]) 400 RBC Ql (U) Negative Invalid NEGATIVE PENDING Interpreta [facility] 020 tion Code [facility] 15:55-0 ([id number]) 400 Sodium [Moles/Vol] 139 mmol/L Negative 135-145 PENDING mmol/L [facility] 020 [facility] 15:08-0 ([id number]) 400 Specific gravity (U) 1.010 Low 1.016-1.02 PENDING 0 [Rel density] 2 [facility] 020 [facility] 15:55-0 ([id number]) 400 Troponin I.cardiac ng/mL Negative <0.30 PENDING 03-01 0-2 [Mass/Vol] [facility] 020 [facility] 15:08-0 ([id number]) 400 Urea nitrogen 23 mg/dL High 7-18 mg/dL PENDING [Mass/Vol] LOC[facility]IO 020 [facility] 15:08-0 ([id number]) 400 Urea 24 mg/mg Invalid PENDING nitrogen/Creatinine Interpreta [facility] 020 [Mass ratio] tion Code [facility] 15:08-0 ([id number]) 400 Urinalysis complete NO Invalid PENDING W Reflex Culture Interpreta [facility] 020 panel - Urine tion Code N [facility] 15:55-0 ([id number]) 400 Urobilinogen (U) 0.2 mg/dL Invalid < = 1.0 PENDING [Mass/Vol] Interpreta mg/dL [facility] 020 tion Code N S 15:55-0 ([id number]) 400 WBC (Bld) [#/Vol] 4.6 10*3/uL Negative 4.3-11.0 PENDING 10*3/uL [facility] 020 N [facility] 15:08-0 ([id number]) 400 WBC LM.HPF (Urine Invalid [HPF] PENDING sed) [#/Area] Interpreta [facility] 020 tion Code N S 15:55-0 ([id number]) 400 Social History No Information Vital Signs No Information Functional Status No Information Mental Status No Information Additional Source Comments This clinical document has been generated using [employer] software that has been certified by the Office of the National Coordinator for Health Information Technology (ONC 15.99.04.3023.Diam.31.00.0.896398) and the National Committee for Shop Worker (NCQA, as an eMeasure certified technology). FOR RECORDS PERTAINING TO PATIENTS WHO ARE OR HAVE BEEN ENROLLED IN A CHEMICAL D EPENDENCY/SUBSTANCE ABUSE PROGRAM, SOME INFORMATION MAY BE OMITTED. This clinica l summary was aggregated from multiple sources. Caution should be exercised in using it in the provision of clinical care. This summary normalizes information from multiple sources, and as a consequence, information in this document may ma terially change the coding, format and clinical context of patient data. In leonard tion, data may be omitted in some cases. CLINICAL DECISIONS SHOULD BE BASED ON T HE PRIMARY CLINICAL RECORDS. [employer] provides no warranty or guara ntee of the accuracy or completeness of information in this document.The followi ng information is based on time limited clinical information
--- OUTSIDE RECORDS SUMMARY | 2020-03-28 20:35 | XMS REPORT | Encounter Summary ---
Author Author [facility] Organization [facility] Address Unknown Phone Unavailable Care Team Providers Care Psychotherapist Name Role Phone Jerry Brewer MD Unavailable Faviola Resendiz DO PCP Reason for Visit * Reason Comments Cardiac Clearance hold eliquis Encounter Details Care Team Description Date Type Department Arlen Uribe RN Cardiac Clearance (hold eliquis) 10/03/2019 Telephone [facility] [address] [facility] [place], [place] [id number] Social History Date Tobacco Use Types Packs/Day [...] encounter Miscellaneous Notes * Telephone Encounter - Arlen Uribe RN - 10/03/2019 4:47 PM INJECTION MOLD TOOLING TECHNICIAN YMR- RTC. Call # [phone] and have him paged. Per KA, patient should be bridging if holding Eliquis. Patient states he actually started holding eliquis last night, which technically left him unprotected so he would have to reschedule colonscopy. I called YMR to review new information that patient already started hold. Per YMR, OK for patient to continuing holding at this time. Left VM for patient with this information. CTION MOLD TOOLING TECHNICIAN * Telephone Encounter - Arlen Uribe RN - 10/03/2019 3:41 PM INJECTION MOLD TOOLING TECHNICIAN I called the patient to discuss. Left VM to CB. Patient's CHADS is 3 for TIA, and age. CTION MOLD TOOLING TECHNICIAN * Telephone Encounter - Arlen Uribe RN - 10/03/2019 3:39 PM INJECTION MOLD TOOLING TECHNICIAN ----- Message from Mary Santo LPN sent at 10/03/2019 3:16 PM INJECTION MOLD TOOLING TECHNICIAN ----- Regarding: YMR- hold Eliquis VM from patient on triage line. Said that he is to have colonoscopy on 10-05-19 and GI would like him to hold Eliq uis. He is at # [phone]. CTION MOLD TOOLING TECHNICIAN documented in this encounter Plan of Treatment Not on filedocumented as of this encounter Visit Diagnoses Not on filedocumented in this encounter
--- OUTSIDE RECORDS SUMMARY | 2020-03-28 20:35 | XMS REPORT | Encounter Summary ---
Author Author [facility] Organization [facility] Address Unknown Phone Unavailable Care Team Providers Care Car And Yard Supervisor Name Role Phone Jerry Brewer MD Unavailable Faviola Resendiz DO PCP Reason for Visit * Auth/Cert Referred By Contact Referred To Contact Status Reason Specialty Diagnoses / Procedures Diagnoses Change in bowel habits Change in bowel habits [R19.4] P rocedures MS COLONOSCOPY FLX DX W/COLLJ SPEC WHEN PFRMD MS EGD TRANSORAL BIOPSY SINGLE/MULTIPLE Colonoscopy ESOPHAGOGASTRODUOD ENOSCOPY WITH BIOPSY - FLEXIBLE Encounter Details Care Team Description Date Type Department Verena Mckinnon MD [address] [place], [place] [id number] Change in bowel habits 10/05/2019 [facility] [address], [place] [id number] Social History Date Tobacco Use Types Packs/Day [...] Signs Reading Time Taken Comments Vital Sign 126/85 10/05/2019 2:20 PM POUND KEEPER Blood Pressure 73 10/05/2019 2:20 PM POUND KEEPER Pulse 36.4 C (97.5 F) 10/05/2019 2:03 PM POUND KEEPER Temperature - - Respiratory Rate 99% 10/05/2019 2:20 PM POUND KEEPER Oxygen Saturation - - Inhaled Oxygen Concentration 75.8 kg (167 lb) 10/05/2019 11:58 AM POUND KEEPER Weight 160 cm (5' 3") 10/05/2019 11:58 AM POUND KEEPER Height 29.58 10/05/2019 11:58 AM POUND KEEPER Body Mass Index documented in this encounter Functional Status Date of Assessment Functional Status Response 07/20/2019 Does the patient have a hearing impairment: No 07/20/2019 Does the patient have a visual impairment: Yes 07/20/2019 Does the patient have impaired ambulation: No 07/20/2019 Does the patient have an activity of daily living No (ADL) impairment: 07/20/2019 Does the patient have an instrumental activity of No daily living (IADL) impairment: Date of Assessment Cognitive Status Response 07/20/2019 Does the patient have a cognitive impairment: No documented as of this encounter Discharge Instructions * Discharge Instr - Education* Adenike Aldana RN - 10/05/2019 2:10 PM POUND KEEPER EGD/Upper EUS/ERCP/Antegrade Enteroscopy Post Upper Endoscopy Instructions --You may have a sore throat after the procedure for 2-3 days. Try sucrets or l ozenges to help ease the pain. If it continues please contact us. -If you feel feverish, have a temperature of 101 degrees or higher, persistent n ausea and vomiting, abdominal pain or dark stools; please notify your nurse or G I physician. -You may have abdominal cramping following the procedure this can be relieved by belching or passing air. -If you have redness or swelling at the IV site, place a warm, wet washcloth ove r the affected areas for 15 minutes, 3-4 times a day until the redness subsides. If symptoms continue for 2-3 days, contact your regular physician. - If you have bleeding from your mouth, over 2 tablespoons and increasing, pleas e notify your physician. A small amount of bleeding is normal if a biopsy or po lyps were taken. If you are vomiting blood you need to seek immediate medical a ttention. - You may resume all your routine medications, if medications need to be held yo ur physician and/or nurse will notify you post procedure. SPECIFIC INSTRUCTIONS INPATIENTS: Ask for help when you get up in your room, as you may still be drowsy from your sedation. OUTPATIENTS: A. Because of sedation and lack of coordination, FOR THE NEXT 24 HOURS, DO NOT: 1. Operate any motorized vehicle - this includes driving. 2. Sign any legal documents or conduct important business matters. 3. Use any dangerous machinery (chain saw, lawnmower, etc.). 4. Drink any alcoholic beverages. Should you have any questions or concerns after your procedure please call M-X 8am-5:00 pm. After 5:00 pm, holidays or weekends call [phone] a nd ask for the GI Doctor online merchandiser. Colon/Lower EUS/Retrograde Enteroscopy Post Lower Endoscopy Instructions -If you feel feverish, have a temperature of 101 degrees or higher, persistent n ausea and vomiting, abdominal pain or dark stools; please notify your nurse or G I physician. -You may have abdominal cramping following the procedure this can be relieved by belching or passing air. -If you have redness or swelling at the IV site, place a warm, wet washcloth ove r the affected areas for 15 minutes, 3-4 times a day until the redness subsides. If symptoms continue for 2-3 days, contact your regular physician. - If you have bleeding from your bowels over 2 tablespoons and increasing, pleas e notify your physician. A small amount of bleeding is normal if a biopsy or po lyps were taken. - You may resume all your routine medications, if medications need to be held yo ur physician and/or nurse will notify you post procedure. SPECIFIC INSTRUCTIONS INPATIENTS: Ask for help when you get up in your room, as you may still be drowsy from your sedation. OUTPATIENTS: B. Because of sedation and lack of coordination, FOR THE NEXT 24 HOURS, DO NOT: 5. Operate any motorized vehicle - this includes driving. 6. Sign any legal documents or conduct important business matters. 7. Use any dangerous machinery (chain saw, lawnmower, etc.). 8. Drink any alcoholic beverages. Should you have any questions or concerns after your procedure please call M-G 8am-5:00 pm. After 5:00 pm, holidays or weekends call [phone] a nd ask for the GI Doctor online merchandiser. D KEEPER documented in this encounter Medications at Time of Discharge [...] 10 mg tablet mouth at bedtime daily. polyethylene glycol 3350 Take 17 g [...] 7 days. documented as of this encounter H&P Notes * Verena Mckinnon MD - 10/05/2019 11:25 AM POUND KEEPER Pre Procedure History and Physical/Sedation Plan Name:Matt Vega Dr. :1950 Age: 69 y .o. Date of Service: 10/05/2019 Date of Procedure: 10/05/2019 Planned Procedure(s): GI: Colonoscopy and EGD Sedation/Medication Plan: MAC (Monitored Anesthesia Care) Discussion/Reviews: Physician has discussed risks and alternatives of this type of sedation and above planned procedures with patient Chief Complaint: Newly diagnosed sacroiliitis , now with change in bowel habits. History of Present Illness: Matt Vega Dr. is a 69 y.o. male with P Mhx is here for a colonoscopy to r/o underlying IBD , EGD is for chronic GERD . Off eliquis 3 days back. 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 Persistent atrial fibrillation 03/10/2017 10/01/16-[facility]- Echo-EF 55%- LA 4.5 cm; unable to comment on diastolic funciton due to PAF; mild LA dilatation; mild MR; mild TR 11/04/16-[facility] - Successful DCCV to NSR with 200 joules 02/12/17-[facility]- successful DCCV to NSR Pulmonary hypertension (HCC) 03/10/2017 S/P cervical spinal fusion 01/07/2015 S/P repair of patent ductus arteriosus 03/10/2017 TIA (transient ischemic attack) 1996 Surgical History: Procedure Laterality Date THORACOTOMY Left 2005 for MRSA pneumonia Left Atrial Antral Radiofrequency Ablation Left 08/16/2017 Performed by Gómez Amanda MD at [facility] Comprehensive EP Study N/A 08/16/2017 Performed by Gómez Amanda MD at [facility] ASD REPAIR 1998 CARPAL TUNNEL RELEASE Bilateral CERVICAL SPINE SURGERY x5 surgeries total HX SEPTOPLASTY HX TONSILLECTOMY SINUS SURGERY multiple with revisions SURGERY medial nerve transposition Pertinent medical/surgical history reviewed Pertinent family history reviewed Social History Tobacco Use Smoking status: Never Smoker Smokeless tobacco: Never Used Substance Use Topics Alcohol use: No Drug use: No Social History Substance and Sexual Activity Drug Use No Allergies: Morphine; Oxycodone; and Oxycodone-acetaminophen Medications No current facility-administered medications for this encounter. Current Outpatient Medications Medication Sig acetaminophen (TYLENOL) 500 mg tablet Take 1,000 [...] IN) Inhale by mouth into the lung s. diclofenac (VOLTAREN) 1 % topical gel Apply two g topically to affected area four times daily. electrolyte GUT PEG (NULYTELY) 420 gram oral solution Mix as directed on pac kage. Drink 240ml (8oz) every 10 minutes until gone. Refrigerate once mixed. ergocalciferol (VITAMIN D) 50,000 unit capsule Take one capsule by mouth arcelia ry 7 days. fenofibrate(+) (TRIGLIDE) 160 mg tablet Take 160 mg by mouth at bedtime alonso y. Take with food. fluticasone (FLONASE) 50 mcg/actuation nasal spray Apply 2 sprays to each no stril as directed twice daily. hydroxychloroquine (PLAQUENIL) 200 mg tablet Take one tablet by mouth twice daily. Take with food. ibuprofen (MOTRIN) 800 mg tablet Take 800 mg by mouth every 6 hours as neede d for Pain. Take with food. loratadine (CLARITIN) 10 mg tablet Take 10 mg by mouth every morning. MOMETASONE/FORMOTEROL (DULERA IN) Inhale 1 puff by mouth into the lungs twic e daily. montelukast (SINGULAIR) 10 mg tablet Take 10 mg by mouth at bedtime daily. polyethylene glycol 3350 (MIRALAX) 17 g packet Take 17 g by mouth daily. prednisone (DELTASONE) 5 mg tablet Take three tablets by mouth daily with br eakfast. Tapere by 2.5 mg per week down to 5 mg daily. traMADol (ULTRAM) 50 mg tablet Take one tablet by mouth every 12 hours. zolpidem (AMBIEN) 5 mg tablet Take 5 mg by mouth at bedtime as needed for Sl eep. Review of Systems: All other systems reviewed and are negative. Physical Exam: General appearance: alert Throat: Lips, mucosa, and tongue normal. Teeth and gums normal Lungs: clear to auscultation bilaterally Heart: S1, S2 normal Abdomen: soft, non-tender. Bowel sounds normal. No masses, no organomegaly Extremities: extremities normal, atraumatic, no cyanosis or edema @ Airway: airway assessment performed Mallampati II (soft palate, uvula, fauces visible) Anesthesia Classification: ASA III (A patient with a severe systemic disease th at limits activity, but is not incapacitating) NPO Status: Acceptable Status: N/A Lab/Radiology/Other Diagnostic Tests Labs: Relevant labs reviewed Verena Mckinnon MD Pager D KEEPER documented in this encounter Plan of Treatment Not on filedocumented as of this encounter Procedures Comments Procedure Name Priority Date/Time Associated Diag nosis HC LVL IV SRG PTH, GROSS Routine 10/05/2019 Keith e in bowel habits & MICRO 1:43 PM POUND KEEPER COLONOSCOPY 10/05/2019 1:27 PM POUND KEEPER COLONOSCOPY WITH BIOPSY - 10/05/2019 Change in b owel habits FLEXIBLE 1:07 PM POUND KEEPER Special Needs 4 day reminder call/ talk to pt 10:12 09-29-19 1st Call - Cld pt / Scheduled appt 07/21/19 @ 2:27 pm (TOMA) ESOPHAGOGASTRODUODENOSCOP 10/05/2019 Change in b owel habits Y WITH SPECIMEN 1:07 PM POUND KEEPER COLLECTION BY BRUSHING/ WASHING Special Needs 4 day reminder call/ talk to pt 10:12 09-29-19 1st Call - Cld pt / Scheduled appt 07/21/19 @ 2:27 pm () COLONOSCOPY DIAGNOSTIC 10/05/2019 Change in rossi l habits WITH SPECIMEN COLLECTION 1:07 PM POUND KEEPER BY BRUSHING/ WASHING - FLEXIBLE Special Needs 4 day reminder call/ talk to pt 10:12 09-29-19-se 1st Call - Cld pt / Scheduled appt 07/21/19 @ 2:27 pm () EGD REPORT 10/05/2019 1:03 PM POUND KEEPER EGD REPORT 10/05/2019 1:01 PM POUND KEEPER EGD REPORT 10/05/2019 1:01 PM POUND KEEPER TELEMETRY STRIPS-SCAN 10/05/2019 12:00 AM POUND KEEPER documented in this encounter Results * SURGICAL PATHOLOGY (10/05/2019 1:43 PM POUND KEEPER) PATHOLOGY [email or web address] Department of Pathology and Laboratory Medicine [address] [place] [id number] Surgical Pathology Office: [phone] SURGICAL PATHOLOGY REPORT NAME: MATT VEGA DON SURG PATH #: [id number] MR #: [id number] SPECIMEN CLASS: SR BILLING #: [id number] ALT ID #: LOCATION: [facility] DATE OF PROCEDURE: 10/05/2019 AGE: 69 SEX: M DATE RECEIVED: 10/05/2019 : 1950 TIME RECEIVED: 14:20 PHYSICIAN: VERENA MCKINNON MD DATE OF REPORT: 10/08/2019 COPY TO: DATE OF PRINTIN10/08/2019 ############################## ############################## ############ Final Diagnosis: A. Colonic mucosa, "random colon", biopsy: No diagnostic abnormalities. B. Colonic mucosa, "transverse colon polyp", biopsy: Tubular adenoma. Attestation: By this signature, I attest that I have personally formulated the final interpretation expressed in this report and that the above diagnosis is based upon my examination of the slides and/or other material indicated in this report. +++ +++ bm/10/05/2019 ############################## ############################## ############ Material Received: A: random colon B: transverse colon polyp History: 69-year-old male with the history of change in bowel habits. Gross Description: A. Received in formalin labeled "random colon" is a 0.8 x 0.4 x 0.2 cm aggregate of romo-brown soft tissue fragments. The specimen is entirely submitted in cassette A1. (cg) B. Received in formalin labeled "transverse colon polyp" is a 0.4 x 0.2 x 0.2 cm aggregate of romo-brown soft tissue fragments. The specimen is entirely submitted in cassette B1. (cg) cg/10/05/2019 Specimen Tissue - Colon Tissue - Colon Performing Organization Address [facility]/State/[facility] Ph one Number MAIN LAB [address] [place] [address] * COLONOSCOPY (10/05/2019 1:27 PM POUND KEEPER) Provation Patient Name: Diamond DELGADO OTHER Report Matt RESULTS Procedure Date: 10/05/2019 1:27 PM [facility]: [id number] Date of : 1950 Gender: Male Attending Physician: Verena Mckinnon , Procedure: Colonoscopy Indications: Change in bowel habits. NSAID use in the past r/o underlying IBD Providers: Verena Mckinnon (Doctor), Scarlett Pereira (Nurse), Binta Back Technologist (Management Consulting) Referring Physician: Faviola Resendiz Medications: Monitored Anesthesia Care Complications: No immediate complications. Procedure: Pre-Anesthesia Assessment: - Prior to the procedure, a History and Physical was performed, and patient medications and allergies were reviewed. The patient's tolerance of previous anesthesia was also reviewed. The risks and benefits of the procedure and the sedation options and risks were discussed with the patient. All questions were answered, and informed consent was obtained. Prior Anticoagulants: The patient has taken no previous anticoagulant or antiplatelet agents. ASA Grade Assessment: III - A patient with severe systemic disease. After reviewing the risks and benefits, the patient was deemed in satisfactory condition to undergo the procedure. After I obtained informed consent, the scope was passed under direct vision. Throughout the procedure, the patient's blood pressure, pulse, and oxygen saturations were monitored continuously. The Colonoscope was introduced through the anus and advanced to the terminal ileum. The colonoscopy was performed without difficulty. The patient tolerated the procedure well. The terminal ileum, ileocecal valve, appendiceal orifice, and rectum were photographed. The quality of the bowel preparation was adequate to identify polyps 6 mm and larger in size. Findings: The perianal and digital rectal examinations were normal. The terminal ileum appeared normal. Normal mucosa was found in the entire colon. Biopsies for histology were taken with a cold forceps for evaluation of microscopic colitis. Multiple small and large-mouthed diverticula were found in the sigmoid colon. A 3 mm polyp was found in the transverse colon. The polyp was sessile. The polyp was removed with a cold biopsy forceps. Resection and retrieval were complete. Non-bleeding external and internal hemorrhoids were found during retroflexion. Impression: - The examined portion of the ileum was normal. - Normal mucosa in the entire examined colon. Biopsied. - Diverticulosis in the sigmoid colon. - One 3 mm polyp in the transverse colon, removed with a cold biopsy forceps. Resected and retrieved. - Non-bleeding external and internal hemorrhoids. Estimated Blood Loss: Estimated blood loss was minimal. Recommendation: - Patient has a contact number available for emergencies. The signs and symptoms of potential delayed complications were discussed with the patient. Return to normal activities tomorrow. Written discharge instructions were provided to the patient. - Resume previous diet. - Continue present medications. - Consider doing a MRE to evaluate the small bowel - Repeat colonoscopy in 5 years for surveillance based on pathology results. Scope In: 1:28:26 PM Scope Out: 1:59:21 PM Scope Withdrawal Time 0 hours 21 minutes 49 seconds Total Procedure Duration Time 0 hours 30 minutes 55 seconds Procedure Code(s): --- Professional --- 39377, Colonoscopy, flexible; with biopsy, single or multiple Diagnosis Code(s): --- Professional --- K64.8, Other hemorrhoids D12.3, Benign neoplasm of transverse colon (hepatic flexure or splenic flexure) R19.4, Change in bowel habit K57.30, Diverticulosis of large intestine without perforation or abscess without bleeding CPT copyright 2018 [employer]. All rights reserved. The codes documented in this report are preliminary and upon inpatient coder review may be revised to meet current compliance requirements. Attending Participation: I personally performed the entire procedure. MD Verena Smith, 10/05/2019 2:05:35 PM The attending physician has electronically signed and finalized this document. Number of Addenda: 0 Note Initiated On: 10/05/2019 1:27 PM Specimen Performing Organization Address [facility]/State[facility] Marilee DELGADO OTHER RESULTS * EGD REPORT (10/05/2019 1:03 PM POUND KEEPER) Provation Patient Name: Diamond DELGADO OTHER Report Matt RESULTS Procedure Date: 10/05/2019 1:03 PM [facility]: [id number] Date of : 1950 Gender: Male Attending Physician: Verena Mckinnon , Procedure: Upper GI endoscopy Indications: Suspected esophageal reflux Providers: Verena Mckinnon (Doctor), Scarlett Pereira (Nurse), Nato Rollins (Management Consulting), Technologist Juanito (Management Consulting) Referring Physician: Faviola Resendiz Medications: Monitored Anesthesia Care Complications: No immediate complications. Estimated blood loss: Minimal. Procedure: Pre-Anesthesia Assessment: - Prior to the procedure, a History and Physical was performed, and patient medications and allergies were reviewed. The patient's tolerance of previous anesthesia was also reviewed. The risks and benefits of the procedure and the sedation options and risks were discussed with the patient. All questions were answered, and informed consent was obtained. Prior Anticoagulants: The patient has taken no previous anticoagulant or antiplatelet agents. ASA Grade Assessment: III - A patient with severe systemic disease. After reviewing the risks and benefits, the patient was deemed in satisfactory condition to undergo the procedure. After obtaining informed consent, the endoscope was passed under direct vision. Throughout the procedure, the patient's blood pressure, pulse, and oxygen saturations were monitored continuously. [Completeness]. [Sites Not Well Seen]. After obtaining informed consent, the endoscope was passed under direct vision. Throughout the procedure, the patient's blood pressure, pulse, and oxygen saturations were monitored continuously. The Endoscope [id number] was introduced through the mouth, and advanced to the second part of duodenum. The upper GI endoscopy was accomplished without difficulty. The patient tolerated the procedure well. Findings: The Z-line was regular and was found 39 cm from the incisors. A non-obstructing Schatzki ring was found in the lower third of the esophagus. LA Grade A/B (one or more mucosal breaks less than 5 mm, not extending between tops of 2 mucosal folds) esophagitis with no bleeding was found. The entire examined stomach was normal. The examined duodenum was normal. Biopsies were taken with a cold forceps for histology. Impression: - Z-line regular, 39 cm from the incisors. - Non-obstructing Schatzki ring. - LA Grade A reflux esophagitis. - Normal stomach. - Normal examined duodenum. Biopsied. Estimated Blood Loss: Estimated blood loss: none. Recommendation: - Await pathology results. - PPI BID for 6 weeks and then once daily . Which can titrated down based on the symptoms Scope In: 1:15:29 PM Scope Out: 1:19:26 PM Total Procedure Duration Time 0 hours 3 minutes 57 seconds Procedure Code(s): --- Professional --- 97593, Esophagogastroduodenoscopy, flexible, transoral; with biopsy, single or multiple Diagnosis Code(s): --- Professional --- K22.2, Esophageal obstruction K21.0, Gastro-esophageal reflux disease with esophagitis CPT copyright 2018 [employer]. All rights reserved. The codes documented in this report are preliminary and upon inpatient coder review may be revised to meet current compliance requirements. Attending Participation: I personally performed the entire procedure. MD Verena Smith, 10/05/2019 4:59:53 PM The attending physician has electronically signed and finalized this document. Number of Addenda: 0 Note Initiated On: 10/05/2019 1:03 PM Specimen Performing Organization Address City/State/Zipcode Ph one Number [facility] OTHER RESULTS * EGD REPORT (10/05/2019 1:01 PM POUND KEEPER) Provation Patient Name: Diamond DELGADO OTHER Report Matt RESULTS Procedure Date: 10/05/2019 1:01 PM CSN: [id number] Date of : 1950 Gender: Male Attending Physician: Verena Mckinnon , THIS EXAM WAS SENT IN ERROR Specimen Performing Organization Address City/State/Zipcode Ph one Marilee DELGADO OTHER RESULTS * EGD REPORT (10/05/2019 1:01 PM POUND KEEPER) Provation Patient Name: Diamond DELGADO OTHER Report Matt RESULTS Procedure Date: 10/05/2019 1:01 PM CSN: [id number] Date of : 1950 Gender: Male Attending Physician: Verena Mckinnon , Procedure: Upper GI endoscopy Indications: Exclusion of reflux esophagitis, r/o barrets esophgaus . chronic GERD Providers: Verena Mckinnon (Doctor), Scarlett Pereira (Nurse), Nato Rollins (Management Consulting), Technologist Juanito (Management Consulting) Referring Physician: Faviola Resendiz Medications: Monitored Anesthesia Care Complications: No immediate complications. Procedure: Pre-Anesthesia Assessment: - Prior to the procedure, a History and Physical was performed, and patient medications and allergies were reviewed. The patient's tolerance of previous anesthesia was also reviewed. The risks and benefits of the procedure and the sedation options and risks were discussed with the patient. All questions were answered, and informed consent was obtained. Prior Anticoagulants: The patient has taken no previous anticoagulant or antiplatelet agents. ASA Grade Assessment: III - A patient with severe systemic disease. After reviewing the risks and benefits, the patient was deemed in satisfactory condition to undergo the procedure. After obtaining informed consent, the endoscope was passed under direct vision. Throughout the procedure, the patient's blood pressure, pulse, and oxygen saturations were monitored continuously. The Endoscope [id number] was introduced through the mouth, and advanced to the second part of duodenum. The upper GI endoscopy was accomplished without difficulty. The patient tolerated the procedure well. Findings: The Z-line was regular and was found 39 cm from the incisors. Intermittent non obs- schatzki ring . LA grade A/B esophagitis The entire examined stomach was normal. The examined duodenum was normal. Impression: - As above Estimated Blood Loss: Estimated blood loss: none. Recommendation: - Patient has a contact number available for emergencies. The signs and symptoms of potential delayed complications were discussed with the patient. Return to normal activities tomorrow. Written discharge instructions were provided to the patient. - Resume previous diet. - Do PPI BID for 6 weeks and then once daily and titrate it to symptoms. - Continue present medications. Procedure Code(s): --- Professional --- 74708, Esophagogastroduodenoscopy, flexible, transoral; diagnostic, including collection of specimen(s) by brushing or washing, when performed (separate procedure) CPT copyright 2018 [employer]. All rights reserved. The codes documented in this report are preliminary and upon inpatient coder review may be revised to meet current compliance requirements. Attending Participation: I personally performed the entire procedure. MD Verena Smith, 10/05/2019 2:07:07 PM The attending physician has electronically signed and finalized this document. Number of Addenda: 0 Note Initiated On: 10/05/2019 1:01 PM Specimen Performing Organization Address City/State[facility] Ph [facility] Number [facility] OTHER RESULTS * TELEMETRY STRIPS-SCAN (10/05/2019 12:00 AM POUND KEEPER) Narrative Performed At This result has an attachment that is n ot available. Ordered by an unspecified provider. documented in this encounter Visit Diagnoses Diagnosis Change in bowel habits Other symptoms involving digestive syst em documented in this encounter Administered Medications Action Date Dose Rate Site Medication Order MAR Action 10/05/2019 12:24 PM POUND KEEPER 1,000 mL 150 mL/hr lactated ringers infusion Given - New 1,000 mL, 1,000 mL, Intravenous, at 150 Bag mL/hr, CONTINUOUS, Starting Joyce 10/05/19 at 1230, Until Joyce 10/05/19 at 1656 documented in this encounter
--- OUTSIDE RECORDS SUMMARY | 2020-03-28 20:35 | XMS REPORT | Encounter Summary ---
Author Author [facility] Organization [facility] Address Unknown Phone Unavailable Care Team Providers Care Sr. Operations Manager Name Role Phone Jerry Brewer MD Unavailable Faviola Resendiz DO PCP Reason for Visit * Auth/Cert Referred By Contact Referred To Contact Status Reason Specialty Diagnoses / Procedures Diagnoses Change in bowel habits Change in bowel habits [R19.4] P rocedures SC COLONOSCOPY FLX DX W/COLLJ SPEC WHEN PFRMD SC EGD TRANSORAL BIOPSY SINGLE/MULTIPLE Colonoscopy ESOPHAGOGASTRODUOD ENOSCOPY WITH BIOPSY - FLEXIBLE Encounter Details Care Team Description Date Type Department Verena Mckinnon MD [address] [place], [place] [id number] Colonoscopy 10/05/2019 Surgery [facility] [address] [place] [address] Social History Date Tobacco Use [...] Comments Vital Sign 126/85 10/05/2019 2:20 PM MANUFACTURING ELECTRICIAN Blood Pressure 73 10/05/2019 2:20 PM MANUFACTURING ELECTRICIAN Pulse 36.4 C (97.5 F) 10/05/2019 2:03 PM MANUFACTURING ELECTRICIAN Temperature - - Respiratory Rate 99% 10/05/2019 2:20 PM MANUFACTURING ELECTRICIAN Oxygen Saturation - - Inhaled Oxygen Concentration 75.8 kg (167 lb) 10/05/2019 11:58 AM MANUFACTURING ELECTRICIAN Weight 160 cm (5' 3") 10/05/2019 11:58 AM MANUFACTURING ELECTRICIAN Height 29.58 10/05/2019 11:58 AM MANUFACTURING ELECTRICIAN Body Mass Index documented in this encounter [...] Adenike Aldana RN - 10/05/2019 2:10 PM MANUFACTURING ELECTRICIAN EGD/Upper EUS/ERCP/Antegrade Enteroscopy Post Upper Endoscopy Instructions [...] or concerns after your procedure please call [phone] M-X 8am-5:00 pm. After 5:00 pm, holidays or weekends call [phone] a nd ask for the GI Doctor conversion developer. Colon/Lower EUS/Retrograde Enteroscopy Post Lower Endoscopy Instructions [...] or concerns after your procedure please call M-E 8am-5:00 pm. After 5:00 pm, holidays or weekends call [phone] a nd ask for the GI Doctor conversion developer. FACTURING ELECTRICIAN documented in this encounter Medications at Time [...] Verena Mckinnon MD - 10/05/2019 11:25 AM MANUFACTURING ELECTRICIAN Pre Procedure History and Physical/Sedation Plan Name:Matt [...] due to DDD Persistent atrial fibrillation 03/10/2017 10/01/16-[facility]- Echo-EF 55%- LA 4.5 cm; unable to comment on diastolic funciton due to PAF; mild LA dilatation; mild MR; mild TR 11/04/16-[facility] - Successful DCCV to NSR with 200 joules 02/12/17-[facility]- successful DCCV to NSR Pulmonary hypertension (HCC) 03/10/2017 S/P cervical spinal fusion 01/07/2015 S/P repair of patent ductus arteriosus 03/10/2017 TIA (transient ischemic attack) 1996 Surgical History: Procedure Laterality Date THORACOTOMY Left 2005 for MRSA pneumonia Left Atrial Antral Radiofrequency Ablation Left 08/16/2017 Performed by Gómez Amanda MD at NETWORK SYSTEMS ANALYST Comprehensive EP Study N/A 08/16/2017 Performed by Gómez Amanda MD at NETWORK SYSTEMS ANALYST ASD REPAIR 1998 CARPAL TUNNEL RELEASE Bilateral [...] Relevant labs reviewed Verena Mckinnon MD Pager FACTURING ELECTRICIAN documented in this encounter Plan of Treatment Not on filedocumented as of this encounter Procedures Comments Procedure Name Priority Date/Time Associated Diag nosis HC LVL IV SRG PTH, GROSS Routine 10/05/2019 Keith e in bowel habits & MICRO 1:43 PM MANUFACTURING ELECTRICIAN COLONOSCOPY 10/05/2019 1:27 PM MANUFACTURING ELECTRICIAN COLONOSCOPY WITH BIOPSY - 10/05/2019 Change in b owel habits FLEXIBLE 1:07 PM MANUFACTURING ELECTRICIAN Special Needs 4 day reminder call/ talk to pt 10:12 09-29-19 1st Call - Cld pt / Scheduled appt 07/21/19 @ 2:27 pm (KP) ESOPHAGOGASTRODUODENOSCOP 10/05/2019 Change in b owel habits Y WITH SPECIMEN 1:07 PM MANUFACTURING ELECTRICIAN COLLECTION BY BRUSHING/ WASHING Special Needs 4 day reminder call/ talk to pt 10:12 09-29-19 1st Call - Cld pt / Scheduled appt 07/21/19 @ 2:27 pm () COLONOSCOPY DIAGNOSTIC 10/05/2019 Change in rossi l habits WITH SPECIMEN COLLECTION 1:07 PM MANUFACTURING ELECTRICIAN BY BRUSHING/ WASHING - FLEXIBLE Special Needs 4 day reminder call/ talk to pt 10:12 09-29-19 1st Call - Cld pt / Scheduled appt 07/21/19 @ 2:27 pm () EGD REPORT 10/05/2019 1:03 PM MANUFACTURING ELECTRICIAN EGD REPORT 10/05/2019 1:01 PM MANUFACTURING ELECTRICIAN EGD REPORT 10/05/2019 1:01 PM MANUFACTURING ELECTRICIAN TELEMETRY STRIPS-SCAN 10/05/2019 12:00 AM MANUFACTURING ELECTRICIAN documented in this encounter Results * SURGICAL PATHOLOGY (10/05/2019 1:43 PM MANUFACTURING ELECTRICIAN) PATHOLOGY [email or web address] Department of Pathology and Laboratory Medicine [address] [place] [id number] Surgical Pathology Office: [phone] SURGICAL PATHOLOGY REPORT NAME: MATT VEGA DON SURG PATH #: [id number] MR #: [id number] SPECIMEN CLASS: SR BILLING #: [id number] ALT ID #: LOCATION: [facility] DATE OF PROCEDURE: 10/05/2019 AGE: 69 [...] Colon Tissue - Colon Performing Organization Address City/State/Zipcode Ph one Number MAIN LAB [address] [place] [address] * COLONOSCOPY (10/05/2019 1:27 PM MANUFACTURING ELECTRICIAN) Provation Patient Name: Diamond DELGADO OTHER Report Matt RESULTS Procedure Date: 10/05/2019 1:27 PM CSN: [id number] Date of : 1950 Gender: Male Attending Physician: Verena Mckinnon , Procedure: Colonoscopy Indications: Change in bowel habits. NSAID use in the past r/o underlying IBD Providers: Verena Mckinnon (Doctor), Scarlett Pereira (Nurse), Binta Back Technologist (Copywriter) Referring Physician: Faviola Resendiz Medications: Monitored Anesthesia [...] 55 seconds Procedure Code(s): --- Professional --- 98562, Colonoscopy, flexible; with biopsy, single or multiple Diagnosis Code(s): --- Professional --- K64.8, Other hemorrhoids D12.3, Benign neoplasm of transverse colon (hepatic flexure or splenic flexure) R19.4, Change in bowel habit K57.30, Diverticulosis of large intestine without perforation or abscess without bleeding CPT copyright 2018 [employer]. All rights reserved. The codes documented in this report are preliminary and upon geothermal technician review may be revised to meet current compliance requirements. Attending Participation: I personally performed the entire procedure. MD Verena Smith, 10/05/2019 2:05:35 PM The attending physician has electronically signed and finalized this document. Number of Addenda: 0 Note Initiated On: 10/05/2019 1:27 PM Specimen Performing Organization Address City/State/Zipcode one Marilee DEGLADO OTHER RESULTS * EGD REPORT (10/05/2019 1:03 PM MANUFACTURING ELECTRICIAN) Provation Patient Name: Diamond DELGADO OTHER Report Matt RESULTS Procedure Date: 10/05/2019 1:03 PM [facility]: [id number] Date of : 1950 Gender: Male Attending Physician: Verena Mckinnon , Procedure: Upper GI endoscopy Indications: Suspected esophageal reflux Providers: Verena Mckinnon (Doctor), Scarlett Pereira (Nurse), Nato Rollins (Copywriter), Technologist Juanito (Copywriter) Referring Physician: Faviola Resendiz Medications: Monitored Anesthesia [...] 57 seconds Procedure Code(s): --- Professional --- 51219, Esophagogastroduodenoscopy, flexible, transoral; with biopsy, single or multiple Diagnosis Code(s): --- Professional --- K22.2, Esophageal obstruction K21.0, Gastro-esophageal reflux disease with esophagitis CPT copyright 2018 [employer]. All rights reserved. The codes documented in this report are preliminary and upon geothermal technician review may be revised to meet current compliance requirements. Attending Participation: I personally performed the entire procedure. MD Verena Smith, 10/05/2019 4:59:53 PM The attending physician has electronically signed and finalized this document. Number of Addenda: 0 Note Initiated On: 10/05/2019 1:03 PM Specimen Performing Organization Address City/State/Zipcode Ph one Number [facility] OTHER RESULTS * EGD REPORT (10/05/2019 1:01 PM MANUFACTURING ELECTRICIAN) Provation Patient Name: Diamond DELGADO OTHER Report Matt RESULTS Procedure Date: 10/05/2019 1:01 PM CSN: [id number] Date of : 1950 Gender: Male Attending Physician: Verena Mckinnon , THIS EXAM WAS SENT IN ERROR Specimen Performing Organization Address City/State/Zipcode Ph [place] OTHER RESULTS * EGD REPORT (10/05/2019 1:01 PM MANUFACTURING ELECTRICIAN) Provation Patient Name: Diamond DELGADO OTHER Report Matt RESULTS Procedure Date: 10/05/2019 1:01 PM CSN: [id number] Date of : 1950 Gender: Male Attending Physician: Verena Mckinnon , Procedure: Upper GI endoscopy Indications: Exclusion of reflux esophagitis, r/o barrets esophgaus . chronic GERD Providers: Verena Mckinnon (Doctor), Scarlett Pereira (Nurse), Nato Rollins (Copywriter), Technologist Juanito (Copywriter) Referring Physician: Faviola Resendiz Medications: Monitored Anesthesia [...] present medications. Procedure Code(s): --- Professional --- 74426, Esophagogastroduodenoscopy, flexible, transoral; diagnostic, including collection of specimen(s) by brushing or washing, when performed (separate procedure) CPT copyright 2018 [employer]. All rights reserved. The codes documented in this report are preliminary and upon geothermal technician review may be revised to meet current compliance requirements. Attending Participation: I personally performed the entire procedure. MD Verena Smith, 10/05/2019 2:07:07 PM The attending physician has electronically signed and finalized this document. Number of Addenda: 0 Note Initiated On: 10/05/2019 1:01 PM Specimen Performing Organization Address [facility] Ph one Number [facility] OTHER RESULTS * TELEMETRY STRIPS-SCAN (10/05/2019 12:00 AM MANUFACTURING ELECTRICIAN) Narrative Performed At This result has an attachment that is n ot available. Ordered by an unspecified provider. documented in this encounter Visit Diagnoses Diagnosis Change in bowel habits Other symptoms involving digestive syst em documented in this encounter Administered Medications Action Date Dose Rate Site Medication Order MAR Action 10/05/2019 12:24 PM MANUFACTURING ELECTRICIAN 1,000 mL 150 mL/hr lactated ringers infusion Given - New 1,000 mL, 1,000 mL, Intravenous, at 150 Bag mL/hr, CONTINUOUS, Starting Joyce 10/05/19 at 1230, Until Joyce 10/05/19 at 1656 documented in this encounter
--- OUTSIDE RECORDS SUMMARY | 2020-03-28 20:35 | XMS REPORT | Encounter Summary ---
Author Author [facility] Organization [facility] Address Unknown Phone Unavailable Care Team Providers Care Train Operator Name Role Phone Jerry Brewer MD Unavailable Faviola Resendiz DO PCP Reason for Visit * Reason Comments Pre-Procedure Instructions Encounter Details Care Team Description Date Type Department Bassam Mckinnon MD [address] [place] [address] Pre-Procedure Instructions 10/03/2019 Telephone [facility] [address] [place] [address] Social History Date Tobacco Use [...] Telephone Encounter - Keren Leos RN - 10/03/2019 1:55 PM LAMP SHADE MAKER Received VM of pt again asking about Eliqius instructions for procedure, etc. Returned call and spoke to pt directly. Pt stated he had not gotten previous voi cemail. Pt instructed to reach out to Dr. Amanda to see if he is okay with him ho lding the Eliqius. Pt states he has been holding it since yesterday. Pt stated h e was on the Eliquis to prevent a stroke and acknowledged that his heart was mor e important than some of the other concerns and that he would contact Dr. Amanda shortly to get advice. Pt denied any other questions or concerns at this time. SHADE MAKER documented in this encounter Plan of Treatment Not on filedocumented as of this encounter Visit Diagnoses Not on filedocumented in this encounter
--- OUTSIDE RECORDS SUMMARY | 2020-03-28 20:36 | XMS REPORT | Continuity of Care Document ---
Author Author MATT MELISSA Organization [facility] Address Unknown Phone Unavailable Care Team Providers Care Nylon Mender Name Role Phone [facility] Unavailable Unavailable Problems Problem Status Onset Date Classification Date Reported Comments Source NICM (nonischemic cardiomyopathy) Active 01/25/2020 03/29/2020 [facility], PVC (premature ventricular contraction) Active 01/21/2020 03/29/2020 [facility], Chronic diastolic heart failure, NYHA class 2 Active 07/08/2017 03/29/2020 [facility], History of repair of atrial septal defect Active 03/22/2017 03/29/2020 [facility], Persistent atrial fibrillation Active 03/10/2017 03/29/2020 [facility], S/P repair of patent ductus arteriosus Active 03/10/2017 03/29/2020 [facility], Hyperlipidemia Active 03/10/2017 03/29/2020 [facility], Pulmonary hypertension Active 03/10/2017 03/29/2020 [facility], Unroofed coronary sinus Active 03/10/2017 03/29/2020 [facility], S/P cervical spinal fusion Act ewa 01/07/2015 03/29/2020 [facility], Asthma Active 01/07/2015 03/29/2020 [facility] , Persistent atrial fibrillation (HCC) Active Diagnosis 0 03/29/2020 [facility], PVC (premature ventricular contraction) Active Diagnosis 03/29/2020 [facility], Longstanding persistent atrial fibrillation (HCC) Active Diagnosis 03/29/2020 [facility], Other persistent atrial fibrillation (HCC) Active Diagnosis 03/29/2020 [facility], Cardiomyopathy, unspecified type (HCC) Active Diagnosis 03/29/2020 [facility], S/P repair of patent ductus arteriosus Active Diagnosis 03/29/2020 [facility], Mixed hyperlipidemia Active Diagnosis 03/29/2020 [facility], Pulmonary hypertension (HCC) A ctive Diagnosis 0 03/29/2020 [facility], Unroofed coronary sinus Active Diagnosis 03/29/2020 [facility], History of repair of atrial septal defect Active Diagnosis 03/29/2020 [facility], Chronic diastolic heart failure, NYHA class 2 (HCC) Active Diagnosis 03/29/2020 [facility], HLA-B27 spondyloarthropathy Ac tive Diagnosis 0 03/29/2020 [facility], HLA B27 (HLA B27 positive) Act ewa Diagnosis 0 03/29/2020 [facility], Inflammatory arthritis Active Diagnosis 03/29/2020 [facility], Polyarthralgia Active Diagnosis 03/29/2020 [facility], Chronic back pain, unspecified back loca tion, unspecified back pain laterality Active Diagnosis 03/29/2020 [facility] , S/P cervical spinal fusion Act ewa Diagnosis 0 03/29/2020 [facility], Disorder of rotator cuff of both shoulders Active Diagnosis 03/29/2020 [facility], Vitamin D deficiency Active Diagnosis 03/29/2020 [facility], Elevated antinuclear antibody (RENUKA) level Active Diagnosis 03/29/2020 [facility], Raynaud's phenomenon without gangrene Active Diagnosis 03/29/2020 [facility], Therapeutic drug monitoring Ac tive Diagnosis 0 03/29/2020 [facility], Diarrhea, unspecified type Act ewa Diagnosis 0 03/29/2020 [facility], Chronic fatigue Active Diagnosis 03/29/2020 [facility], Mild asthma without complication, unspec ified whether persistent Active Diag nosis 03/29/2020 [facility], Osteopenia, unspecified location Active Diagnosis 0 03/29/2020 [facility], [facility] current use of systemic steroids Active Diagnosis 03/29/2020 [facility], Change in bowel habits Active Diagnosis 03/29/2020 [facility], Gastroesophageal reflux disease with esophagitis Active Diagnosis 03/29/2020 [facility], Frequent PVCs Active Diagnosis 03/29/2020 [facility], Medications Medication Details Route Status Patient Instructions Ordering Provider Order Date Source acetaminophen (TYLENOL) 500 mg tablet Take 1,000 mg by mouth every 8 hours. Max of 4,000 mg of acetaminophen in 24 hours. Active [facility], albuterol 0.083% (PROVENTIL; VENTOLIN) 2 .5 mg /3 mL (0.083 %) nebulizer solution Inhale 2.5 mg solution as directed every 4 hours as needed for Wheezing. Active [facility] , apixaban (ELIQUIS) 5 mg tablet Take one tablet by mouth twice daily. May crush 5 mg or 2.5 mg tablets and suspend in 60 mL of D5W followed by immediate delivery through a nasogastric tube. No information regarding administration of suspension by mouth is available. Active [facility], budesonide/formoterol fumarate (SYMBICORT IN) Inhale by mouth into the lungs as Needed. Active [facility], diclofenac (VOLTAREN) 1 % topical gel Apply two g topically to affected area four times daily. Active [facility], fenofibrate(+) (TRIGLIDE) 160 mg tablet Take 160 mg by mouth at bedtime daily. Take with food. Active [facility], folic acid (FOLVITE) 1 mg tablet Take one tablet by mouth daily. Active [facility] , hydroxychloroquine (PLAQUENIL) 200 mg tablet Take one tablet by mouth twice daily. Take with food. Active [facility], loratadine (CLARITIN) 10 mg tablet Take 10 mg by mouth every morning. Active [facility] , methotrexate sodium (RHEUMATREX) 2.5 mg tablet Take four tablets by mouth every 7 days. Active [facility], metoprolol XL (TOPROL XL) 25 mg extended release table t Take one-half tablet by mouth at bedtime daily. Active [facility], montelukast (SINGULAIR) 10 mg tablet Take 10 mg by mouth at bedtime daily. Active [facility] , pantoprazole DR (PROTONIX) 40 mg tablet Take 40 mg by mouth daily. Active [facility] , polyethylene glycol 3350 (MIRALAX) 17 g packet Take 17 g by mouth daily. Active [facility] , traMADol (ULTRAM) 50 mg tablet Take one tablet by mouth every 12 hours. Active [facility] , zolpidem (AMBIEN) 5 mg tablet Take 5 mg by mouth at bedtime as needed for Sleep. Active [facility], ergocalciferol (VITAMIN D) 50,000 unit capsule Take one capsule by mouth every 7 days. Active [facility], Allergies, Adverse Reactions, Alerts Substance Category Reaction Severity Reaction type Status Date Reported Comments Source MORPHINE RA SH Drug Intolerance Active 01/29/2006 [facility], OXYCODONE U NKNOWN Drug Intolerance Active 01/29/2006 [facility] , OXYCODONE-ACETAMINOPHEN SEE COMMENTS Drug Intolerance Active 01/29/2006 [facility], Immunizations No Data Provided for This Section Results No Data Provided for This Section Pathology Reports No Data Provided for This Section Diagnostic Reports Report Value Date Source COLONOSCOPY Provation ReportPa tient Name: Diamond Paradarocedsav Date: 10/05/2019 1:27 PMMRN: [id number]: [id number] ID: [id number] Date of : 1950Gender: MaleAttending Physician: Melinda Smith ocedure: ColonoscopyIndications: Change in bowel habits. NSAID use in the past r/o underlying IBDProviders: Bassam Mckinnon (Doctor), Scarlett Pereira (Nurse), Binta Back Technologist (Refueling Ramp Supervisor)Referring Physician: Faviola Quarlesedications: Monitored Anes thesia CareComplications: No immediate complications.Procedure: Pre-Anesthesia Assessment: - Prior to the procedure, [...] identify polyps 6 mm and larger in size.Findings: The perianal and digital rectal examinations were [...] external and internal hemorrhoids were found during retroflexion.Impression: - The examined portion of the ileum was normal. - Normal mucosa in the entire examined colon. Biopsied. - Diverticulosis in the sigmoid colon. - One 3 mm polyp in the transverse colon, removed with a cold biopsy forceps. Resected and retrieved. - Non-bleeding external and internal hemorrhoids.Estimated Blood Loss: Estimated blood loss was minimal.Recommendation: - Patient has a contact number available [...] 5 years for surveillance based on pathology results.Scope In: 1:28:26 PMScope Out: 1:59:21 PMScope Withdrawal Time 0 hours 21 minutes 49 seconds Total Procedure Duration Time 0 hours 30 minutes 55 seconds Procedure Code(s): --- Professional --- 88326, Colonoscopy, flexible; with biopsy, single or multipleDiagnosis Code(s): --- Professional --- K64.8, Other hemorrhoids D12.3, Benign neoplasm of transverse colon (hepatic flexure or splenic flexure) R19.4, Change in bowel habit K57.30, Diverticulosis of large intestine without perforation or abscess without bleedingCPT copyright 2018 [employer]. All rights reserved.The codes documented in this report are preliminary and upon rn iv therapy review may be revised to meet current compliance requirements.Attending Participation: I personally performed the entire procedure.Juliette Smith, 10/05/2019 2:05:35 PMThe attending physician has electronically signed and finalized this document.Number of Addenda: 0Note Initiated On: 10/05/2019 1:27 PMKU OTHER RESULTS [facility], Consultation Notes Results Value Date Source [facility]. Note Telephone Encounter - Karin Yates MA - 01/24/2020 9:19 AM CDTLeft a message for Matt re: follow up with Paulette. He is scheduled for a tele health visit on 01/24.Asked that he have his username and p assword available for his [employer] account.Instructed to check blood pressure and weight prior to office visit. Karin Yates MA 01/24/2020 [facility] , Progress Note Sarahi Best MA - 11/09/2019 4:00 PM CDTOrthostatic BP'sLaying : 96/62 Pulse: 76Sittin/70 Pulse: 80Standin/62 Pulse: 81 11/09/2019 [facility], Misc. Note Telephone Encounter - Cornelius Russo BSN - 11/06/2019 2:46 PM CDTSent a message via mii to patient. 11/07/2019 [facility] , [facility] [place]. Note Telephone Encounter - Lorena Ellis RN - 11/06/2019 1:49 PM CDTAttempted to contact patient regarding Ziopatch results, but no answer. LMCB.Per R hold off on PVC ablation, and do not start AAD at this time. 11/07/2019 [facility], [facility] [place]. Note Telephone Encounter - Lorena Ellis RN - 11/06/2019 1:47 PM CDT----- Message from Gómez Mccurdy MD sent at 11/03/2019 1:48 PM SCHOOL OPERATIONS MANAGER -----Fortunately the PVC burden is lower than what we anticipated. There were ~7% PACs and ~3% PVCs. We should hold off on the PVC ablation for now. 11/07/2019 [facility], Progress Note Cornelius Russo B SN - 11/07/2019 1:07 PM CDTSent cancel request form to EP lab 11/07/2019 [facility] , Progress Note Keren Leos R N - 11/01/2019 9:57 AM CSTContacted Radiology Scheduling to cancel MRE per Dr. Mckinnon. OL OPERATIONS MANAGER 11/01/2019 [facility] , [facility]. Note Telephone Encounter - Keren Leos RN - 10/18/2019 8:40 AM CSTFaxed Surigcal Path results and recommendations for repeat colonoscopy to pt's PCP Faviola Resendiz. Fax Result: Success. Electronicall y signed by Keren Leos RN at 10/18/2019 8:42 AM SCHOOL OPERATIONS MANAGER 10/18/2019 [facility], [facility]. 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 Dr. Fields has seen Dr. Renteria in the past. He has a significant past medical history of recurrent persistent atrial fibrillation with cardioversions and prior therapy with amiodarone with recurrences, history of ASD with unroofed coronary sinus status post ASD closure and coronary sinus Os closure at [facility] in 1998, family history of premature coronary artery disease, heart failure with preserved left ventricular ejection fraction baseline right bundle branch block and possible obstructive sleep apnea who has been having increasing issues with his atrial fibrillation. 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 He eventually underwent Afib ablation on the July. The procedure was slightly difficult due to atypical anatomy. He also had moderate to severe LA scarring. He did have an occluded CS OS. He underwent bilateral PVAI with WACA approach. He also underwent CV isthmus ablation. He needed EsoSure for esophageal deviation. He actually has done remarkably well [...] that he was in AFib because his rhythm was irregular. EKG obtained here in the clinic shows normal sinus rhythm with frequent PVCs with a rate of 80 beats per minute, with a MA interval of around 160 msec, with the intrinsic QRS of right bundle branch block morphology of 170 msec, and a corrected QT interval of 503 msec. The PVC morphologies are left bundle branch block, positive in 1 and aVL, negative in 3 and AVF and biphasic in 2 sets suggesting right-sided septal inferoseptal location. 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 Frequent monomorphic PVCs.2. History of persistent atrial fibrillation status post AFib ablation.3. ASD with unroofed CS, status post PFO closure and coronary ostium closure.4. History of TIA.5. Patent ductus arteriosus status post repair.6. Heart failure with impaired LV ejection fraction.7. Family history of premature coronary artery disease. I discussed with Dr. Fields in detail regarding his overall cardiovascular status. I discussed with him regarding his EKG and the likelihood of he not having AFib. On the other hand, he underwent an echocardiogram as a pre-evaluation before starting his disease-modifying agents for his arthritis. Unfortunately, he was noted to have an EF of about 45%. This is new to him. In the past, his ejection fraction was 60%. It is likely that his PVCs may be frequent and might have precipitated this. I recommended him to wear a ZIO Patch monitor for the next 3 days, and we will evaluate the burden of his PVCs. I believe he would benefit from undergoing rhythm control from the PVC standpoint. I have discussed with him regarding rate and rhythm control. I believe he would benefit from undergoing the PVC ablation. I went over the indications, risks, and benefits of PVC ablation. I went over the potential complications of the procedure including groin bleeding, pericardial effusion, myocardial infarction, among others. We are going to await the results of the ZIO Patch monitor to confirm the plan, but for now, we will go ahead and tentatively scheduled him for a PVC ablation. Dr. Fields did express understanding of the management plan. Thank you for allowing us to participate in the care of Dr. Fields. If you have any questions regarding his management, please feel free to call us.(DOC:[phone]) Vitals: 10/13/19 0922 BP: 126/74 BP Source: Arm, Left Upper Pulse: 80 SpO2: 97% Weight: 79.8 kg (176 lb) Height: 1.6 m (5' 3") PainSc: Zero Body mass index is 31.18 kg/m . Past Medical HistoryPatient Active Problem List Diagnosis Date Noted Chronic diastolic heart failure, NYHA class 2 (HCC) 07/08/2017 09/27/2019 - ECHO: Slightly dilated left ventricle. Diffuse hypokinesis. Moderately depressed function with ejection fraction=40-45%. Severe diastolic dysfunction with elevated filling pressure. No mitral regurgitation. Unable to measure pulmonary artery pressure. Normal right ventricular ejection fraction. Normal central venous pressure. History of repair of atrial septal defect 03/22/2017 Persistent atrial fibrillation (HCC) 03/10/2017 10/01/16-[facility]- Echo-EF 55%- LA 4.5 cm; unable to comment on diastolic funciton due to PAF; mild LA dilatation; mild MR; mild TR3/04/15-[facility]- Successful DCCV to NSR with 200 joules02/12/17-[facility]- successful DCCV to NSR 06/23 admit for Tikosyn with successful DCCV to NSR/SB 08/16/17 Successful Pulmonary vein isolation with the WACA approach. Cavo-Tricuspid Isthmus Ablation with Bidirectional Block. Esosure used. No inducible arrhythmias post ablation. (Dr. Mccurdy) S/P repair of patent ductus arteriosus 03/10/2017 Hyperlipidemia 03/10/2017 • Pulmonary hypertension 03/10/2017 h/o Unroofed coronary sinus [...] respiratory distress. He has no wheezes. He has no rales. He exhibits no tenderness. Abdominal: [...] (SYMBICORT IN) Inhale by mouth into the lungs as Needed. diclofenac (VOLTAREN) 1 % topical gel Apply two g topically to affected area four times daily. (Patient taking differently: Apply 2 g topically to affected area as Needed.) ergocalciferol (VITAMIN D) 50,000 unit capsule Take one capsule by mouth every 7 days. fenofibrate(+) (TRIGLIDE) 160 mg tablet Take 160 mg by mouth at bedtime daily. Take with food. hydroxychloroquine (PLAQUENIL) 200 mg [...] mouth at bedtime as needed for Sleep. OL OPERATIONS MANAGER 10/16/2019 [facility], Progress Note Chapin Syed - 10/13/2019 11:18 AM CSTOnline enrollment with iRhythm. OL OPERATIONS MANAGER 10/13/2019 [facility] , Progress Note Hubert Carrizales - 10/13/2019 11:18 AM CSTLong Term Monitor Placement RecordOrdering Physician: Albert MccurdyDiagnosis: PVCsLength: 3 daysSerial Number: [id number] Time: 1016HK OL OPERATIONS MANAGER 10/13/2019 [facility], OR Note Anesthesia Postprocedu re Evaluation - Merissa Trejo MD - 10/05/2019 2:34 PM CST Post-Anesthesia EvaluationName: Matt Fields Dr. : 1950 Age: 69 y.o. Sex: male Procedure Date: 10/05/2019Procedure(s) (LRB):ColonoscopyESOPHAGOGASTRODUODENOSCOPY WITH SPECIMEN COLLECTION BY BRUSHING/ WASHINGCOLONOSCOPY WITH BIOPSY - FLEXIBLE Surgeon: Surgeon(s):Bassam Mckinnon, SHUBHAMost-Anesthesia VitalsBP: 126/85 (10/05 1420)Temp: 36.4 C (97.5 F) (10/05 1403)Pulse: 73 (10/05 1420)Respirations: 14 PER MINUTE (10/05 1420)SpO2: 99 % (10/05 1420)SpO2 Pulse: 71 (10/05 1420) Vitals Value Taken Time BP 126/85 10/05/2019 2:20 PM Temp Pulse 73 10/05/2019 2:20 PM Respirations 14 PER MINUTE 10/05/2019 2:20 PM SpO2 99 % 10/05/2019 2:20 PM Post Anesthesia Evaluation NoteEvaluation location: Pre/PostPatient participation: recovered; patient participated in evaluationLevel of consciousness: alertPain score: 0Pain management: adequateHydration: normovolemiaTemperature: 36.0 C - 38.4 CAirway patency: adequatePerioperative Events Post-op nausea and vomiting: no PONVPostoperative StatusCardiovascular status: hemodynamically stableRespiratory status: spontaneous ventilationFollow-up needed: nonePerioperative EventsPerioperative Event: NoEmergency Case Activation: No OL OPERATIONS MANAGER 10/05/2019 [facility], OR Note Anesthesia Preprocedur e Evaluation - Aimee Ybarra CRNA - 10/05/2019 12:06 PM CST Anesthesia Pre-Procedure EvaluationName: Matt marie Dr. : 1950 Age: 69 y.o. Sex: male Procedure Info: Procedure Information Date/Time: 10/05/19 1300 Procedures: Colonoscopy (N/A ) ESOPHAGOGASTRODUODENOSCOPY WITH BIOPSY - FLEXIBLE (N/A ) Location: ENDO 1 / ENDO/GI Surgeon: Bassam Mckinnon MD Physical AssessmentVital Signs (last filed in past 24 hours):Height: 160 cm (63") (10/05 1157)Weight: 75.8 kg (167 lb) (10/05 1157) Patient History Allergies Allergen Reactions Morphine RASH Allergy recorded in SMS: MorphineHas tolerated. Oxycodone UNKNOWN Allergy recorded in SMS: OXYCONTIN Oxycodone-Acetaminophen SEE COMMENTS Allergy recorded in SMS: Blairocetrynenolorenza Current Medications Medication Directions acetaminophen (TYLENOL) 500 [...] gram oral solution Mix as directed on package. Drink 240ml (8oz) every 10 minutes until gone. Refrigerate once mixed. ergocalciferol (VITAMIN D) 50,000 unit capsule Take one capsule by mouth every 7 days. fenofibrate(+) (TRIGLIDE) 160 mg tablet Take 160 mg by mouth at bedtime daily. Take with food. fluticasone (FLONASE) 50 mcg/actuation nasal spray Apply 2 sprays to each nostril as directed twice daily. hydroxychloroquine (PLAQUENIL) 200 mg tablet Take one tablet by mouth twice daily. Take with food. ibuprofen (MOTRIN) 800 mg tablet Take 800 mg by mouth every 6 hours as needed for Pain. Take with food. loratadine (CLARITIN) 10 mg tablet Take 10 mg by mouth every morning. MOMETASONE/FORMOTEROL (DULERA IN) Inhale 1 puff by mouth into the lungs twice daily. montelukast (SINGULAIR) 10 mg tablet Take 10 mg by mouth at bedtime daily. polyethylene glycol 3350 (MIRALAX) 17 g packet Take 17 g by mouth daily. prednisone (DELTASONE) 5 mg tablet Take three tablets by mouth daily with breakfast. Tapere by 2.5 mg per week down to 5 mg daily. traMADol (ULTRAM) 50 mg tablet Take one tablet by mouth every 12 hours. zolpidem (AMBIEN) 5 mg tablet Take 5 mg by mouth at bedtime as needed for Sleep. Review of Systems/Medical HistoryPatient summary reviewedPertinent labs reviewedPONV Screening: Non- smokerNo history of anesthetic complicationsNo family history of anesthetic complicationsPulmonary Asthma (last inhaler use 2 weeks ago) Pulmonary HTNCardiovascular Recent diagnostic studies: echocardiogram 09/27/19 ECHO1. Slightly dilated left ventricle. Diffuse hypokinesis. Moderately depressed function with ejection fraction=40-45%. Severe diastolic dysfunction with elevated filling pressure.2. No mitral regurgitation.3. Unable to measure pulmonary artery pressure.4. Normal right ventricular ejection fraction.5. Normal central venous pressure.6. No recent echocardiogram for comparison. Exercise tolerance: 4 METS Dysrhythmias (took eliquis 2 days ago, s/p ablation 1 year ago); atrial fibrillation CHF; NYHA Classification: II Hyperlipidemia H/o repair PDA ASD repairGI/Hepatic/Renal GERD, well controlled Bowel prepNeuro/Psych Hx TIA (no residual) Headaches NeuropathyMusculoskeletal Cervical spinal fusion limited neck motionDJDEndocrine/Other - negativeConstitution - negative Physical ExamAirway Findings Mallampati: IV TM distance: 3 FB Neck ROM: limited Mouth opening: limitedDental Findings: NegativeCardiovascular Findings: Rhythm: irregular Rate: normalPulmonary Findings: Breath sounds clear to auscultation.Abdominal Findings: Abdominal exam de ferredNeurological Findings: Alert and oriented x 3Constitutional findings: Negative Diagnostic TestsHematology: Lab Results Component Value Date HGB 13.9 [...] INR 1.2 08/16/2017 INR 1.3 01/28/2006 Anesthesia PlanASA score: 3 Plan: MACInduction method: intravenousNPO status: acceptableInformed ConsentAnesthetic plan and risks discussed with patient.Use of blood products discussed with patientPlan discussed with: anesthesiologist and ERP SPECIALIST. OL OPERATIONS MANAGER 10/05/2019 [facility]. Note Telephone Encounter - Keren Leos RN - 10/05/2019 1:39 PM CSTReceived VM from pt stating he had a procedure at with Dr. Mckinnon and was requesting instructions on where to go. Received VM after 1pm, as it had been left on another nurse's voicemail. Pt already in Endo at this time. Sent pt message via mii. OL OPERATIONS MANAGER 10/05/2019 [facility]. Note Telephone Encounter - Arlen Uribe RN - 10/03/2019 4:47 PM CSTYMR- RTC. Call # [phone] and have him paged.Per KA, patient should be bridging if holding Eliquis.Patient states he actually started holding eliquis last night, which technically left him unprotected so he would have to reschedule colonscopy.I called YMR to review new information that patient already started hold.Per YMR, OK for patient to continuing holding at this time.Left VM for patient with this information. OL OPERATIONS MANAGER 10/03/2019 [facility]. Note Telephone Encounter - Arlen Uribe RN - 10/03/2019 3:41 PM CSTI called the patient to discuss. Left VM to CB.Patient's CHADS is 3 for TIA, and age.Electronically signed by Arlen Uribe RN at 0 10/03/2019 3:43 PM SCHOOL OPERATIONS MANAGER 10/03/2019 [facility]. Note Telephone Encounter - Arlen Uribe RN - 10/03/2019 3:39 PM SCHOOL OPERATIONS MANAGER----- Message from Mary Santo LPN sent at 10/03/2019 3:16 PM SCHOOL OPERATIONS MANAGER -----Regarding: YMR- hold EliquisVM from patient on triage line.Said that he is to have colonoscopy on 10-05-19 and GI would like him to hold Eliquis.He is at # [phone]. OL OPERATIONS MANAGER 10/03/2019 [facility]. Note Telephone Encounter - Keren Leos RN - 10/03/2019 1:55 PM CSTReceived VM of pt again asking about Eliqius instructions for procedure, etc.Returned call and spoke to pt directly. Pt stated he had not gotten previous voicemail. Pt instructed to reach out to Dr. Mccurdy to see if he is okay with him holding the Eliqius. Pt states he has been holding it since yesterday. Pt stated he was on the Eliquis to prevent a stroke and acknowledged that his heart was more important than some of the other concerns and that he would contact Dr. Mccurdy shortly to get advice. Pt denied any other questions or concerns at this time. OL OPERATIONS MANAGER 10/03/2019 [facility], 2D + DOPPLER ECHO [id number] ER OUTSIDE LAB [facility], ECG-SCAN Ordered by an unspeci fied provider. [facility], LONG-TERM RADIOLOGY CT TECHNOLOGIST A ZI O patch ran 3 days 4 hours. 1 hour was lost to artifact. The rhythm is sinus at 54-106 bpm with a mean of 78 bpm 6.8% of all beats are isolated APCs, just over 24,000 beats. There are 815 couplets and 60 triplets. There are 4 longer runs of atrial tachycardia. The fastest is also the longest, 8 beats at a maximum rate of 158 bpm. The second longest run is 6 beats at 112 bpm.There is no A. fib or a flutter 3.2% of all beats are isolated PVCs. There are 298 couplets and 7 triplets. There are no runs longer than 3 beats. There is bigeminy up to 59 seconds in duration and trigeminy up to 8 seconds in duration.There is more than one PVC morphology. I am uncertain as to whether there is a dominant morphology AV conduction is 1:1. There is an IVCD. There are no diary entries but there are 2 patient triggers. The first is sinus with relatively frequent isolated PVCs including quadrigeminy. The second strip is sinus with predominant ventricular quadrigeminy. There are no pauses [facility] , ECG-SCAN Ordered by an unspeci fied provider. [facility], EGD REPORT Provation ReportPat ient Name: Diamond RickyProcedure Date: 10/05/2019 1:01 PMMRN: [id number]: [id number] ID: [id number] Date of : 1950Gender: MaleAttending Physician: Melinda Smith ocedure: Upper GI endoscopyIndications: Exclusion of reflux esophagitis, r/o barrets esophgaus . chronic GERDProviders: Bassam Mckinnon (Doctor), Scarlett Pereira (Nurse), Nato Rollins (Refueling Ramp Supervisor), Technologist Juanito (Refueling Ramp Supervisor)Referring Physician: Faviola GuzmanglerMedications: Monitored Anesthesia CareComplications: No immediate complications.Procedure: Pre-Anesthesia Assessment: - Prior to the proc edure, a History and Physical was performed, and [...] of duodenum. The upper GI endoscopy was accom plished without difficulty. The patient tolerated the procedure well.Findings: The Z-line was regular and was found 39 cm from the incisors. Intermittent non obs- schatzki ring . LA grade A/B esophagitis The entire examined stomach was normal. The examined duodenum was normal.Impression: - As aboveEstimated Blood Loss: Estimated blood loss: none.Recommendation: - Patient has a contact number available for emergencies. The signs and symptoms of potential delayed complications were discussed with the patient. Return to normal activities tomorrow. Written discharge instructions were provided to the patient. - Resume previous diet. - Do PPI BID for 6 weeks and then once daily and titrate it to symptoms. - Continue present medications.Procedure Code(s): --- Professional --- 34023, Esophagogastroduodenoscopy, flexible, transoral; diagnostic, including collection of specimen(s) by brushing or washing, when performed (separate procedure)CPT copyright 2018 [employer]. All rights reserved.The codes documented in this report are preliminary and upon rn iv therapy review may be revised to meet current compliance requirements.Attending Participation: I personally performed the entire procedure.Juliette Smith, 10/05/2019 2:07:07 PMThe attending physician has electronically signed and finalized this document.Number of Addenda: 0Note Initiated On: 10/05/2019 1:01 PMKU OTHER RESULTS [facility] , EGD REPORT Provation ReportPat ient Name: Diamond Moscoso Date: 10/05/2019 1:01 PMMRN: [id number]: [id number] ID: [id number] Date of : 1950Gender: MaleAttending Physician: Bassam Mckinnon , THIS EXAM WAS SENT IN ERROR KU OTHER RESULTS [facility] , EGD REPORT Provation ReportPat ient Name: Diamond Moscoso Date: 10/05/2019 1:03 : [id number] ID: [id number] Date of : 1950Gender: MaleAttending Physician: Melinda Smith ocedure: Upper GI endoscopyIndications: Suspected esophageal refluxProviders: Bassam Mckinnon (Doctor), Scarlett Pereira (Nurse), Nato Rollins (Refueling Ramp Supervisor), Niki Solomonologist (Refueling Ramp Supervisor)Referring Physician: Faviola ClementserMedications: Monitored Anesthesia CareComplications: No immediate complications. Estimated blood loss: Minimal.Procedure: Pre-Anesthesia Assessment: - Prior to the procedure, [...] without difficulty. The patient tolerated the procedure well.Findings: The Z- line was regular and was found 39 cm [...] were taken with a cold forceps for histology.Impression: - Z- line regular, 39 cm from the incisors. - Non- obstructing Schatzki ring. - LA Grade A reflux esophagitis. - Normal stomach. - Normal examined duodenum. Biopsied.Estimated Blood Loss: Estimated blood loss: none.Recommendation: - Await pathology results. - PPI BID for 6 weeks and then once daily . Which can titrated down based on the symptomsScope In: 1:15:29 PMScope Out: 1:19:26 PMTotal Procedure Duration Time 0 hours 3 minutes 57 seconds Procedure Code(s): --- Professional --- 03597, Esophagogastroduodenoscopy, flexible, transoral; with biopsy, single or multipleDiagnosis Code(s): --- Professional --- K22.2, Esophageal obstruction K21.0, Gastro-esophageal reflux disease with esophagitisCPT copyright 2018 [employer]. All rights reserved.The codes documented in this report are preliminary and upon rn iv therapy review may be revised to meet current compliance requirements.Attending Participation: I personally performed the entire procedure.Juliette Smith, 10/05/2019 4:59:53 PMThe attending physician has electronically signed and finalized this document.Number of Addenda: 0Note Initiated On: 10/05/2019 1:03 PMKU OTHER RESULTS [facility], Discharge Summaries No Data Provided for This Section History and Physicals Results Value Date Source HP Note Bassam Mckinnon MD - 0 10/05/2019 11:25 AM CST Pre Procedure History and Physical/Sedation PlanName:Matt Fields Dr. :1950 Age: 69 y.o.Date of Service: 10/05/2019Date of Procedure: 10/05/2019Planned Procedure(s): GI: Colonoscopy and EGDSedation/Medication Plan: MAC (Monitored Anesthesia Care)Discussion/Reviews: Physician has discussed risks and alternatives of this type of sedation and above planned procedures with duane ent Chief Complaint: Newly diagnosed sacroiliitis , now with change in bowel habits.History of Present Illness: Matt Fields Dr. is a 69 y.o. male with PMhx is here for a colonoscopy to r/o underlying IBD , EGD is for chronic GERD . 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 History of repair of atrial septal defect 03/22/2017 Hyperlipidemia 03/10/2017 Migraines on occasion Neuropathy lower extremities due to DDD Persistent atrial fibrillation 03/10/2017 10/01/16-[facility]- Echo-EF 55%- LA 4.5 cm; unable to comment on diastolic funciton due to PAF; mild LA dilatation; mild MR; mild TR 11/04/16-[facility]- Successful DCCV to NSR with 200 joules 02/12/17-[facility]- successful DCCV to NSR Pulmonary hypertension (HCC) 03/10/2017 S/P cervical spinal fusion 01/07/2015 S/P repair of patent ductus arteriosus 03/10/2017 TIA (transient ischemic attack) 1996 Surgical History: Procedure Laterality Date THORACOTOMY Left 2005 for MRSA pneumonia Left Atrial Antral Radiofrequency Ablation Left 08/16/2017 Performed by Gómez Mccurdy MD at CERTIFIED [employer]KL[employer] OPERATOR Comprehensive EP Study N/A 08/16/2017 Performed by Gómez Mccurdy MD at [facility] ASD REPAIR 1998 CARPAL TUNNEL RELEASE Bilateral CERVICAL SPINE SURGERY x5 surgeries total HX SEPTOPLASTY HX TONSILLECTOMY SINUS SURGERY multiple with revisions SURGERY medial nerve transposition Pertinent medical/surgical history reviewedPertinent family history reviewedSocial History Tobacco Use Smoking status: Never Smoker Smokeless tobacco: Never Used Substance Use Topics Alcohol use: No Drug use: No Social History Substance and Sexual Activity Drug Use No Allergies: Morphine; Oxycodone; and Oxycodone-acetaminophenMedicationsNo current facility- administered medications for this encounter. Current Outpatient Medications [...] gram oral solution Mix as directed on package. Drink 240ml (8oz) every 10 minutes until gone. Refrigerate once mixed. ergocalciferol (VITAMIN D) 50,000 unit capsule Take one capsule by mouth every 7 days. fenofibrate(+) (TRIGLIDE) 160 mg tablet Take 160 mg by mouth at bedtime daily. Take with food. fluticasone (FLONASE) 50 mcg/actuation nasal spray Apply 2 sprays to each nostril as directed twice daily. hydroxychloroquine (PLAQUENIL) 200 mg tablet Take one tablet by mouth twice daily. Take with food. ibuprofen (MOTRIN) 800 mg tablet Take 800 mg by mouth every 6 hours as needed for Pain. Take with food. loratadine (CLARITIN) 10 mg tablet Take 10 mg by mouth every morning. MOMETASONE/FORMOTEROL (DULERA IN) Inhale 1 puff by mouth into the lungs twice daily. montelukast (SINGULAIR) 10 mg tablet Take 10 mg by mouth at bedtime daily. polyethylene glycol 3350 (MIRALAX) 17 g packet Take 17 g by mouth daily. prednisone (DELTASONE) 5 mg tablet Take three tablets by mouth daily with breakfast. Tapere by 2.5 mg per week down to 5 mg daily. traMADol (ULTRAM) 50 mg tablet Take one tablet by mouth every 12 hours. zolpidem (AMBIEN) 5 mg tablet Take 5 mg by mouth at bedtime as needed for Sleep. Review of Systems:All other systems reviewed and are negative. Physical Exam: General appearance: alertThroat: Lips, mucosa, and tongue normal. Teeth and gums normalLungs: clear to auscultation bilaterallyHeart: S1, S2 normalAbdomen: soft, non-tender. Bowel sounds normal. No masses, no organomegalyExtremities: extremities normal, atraumatic, no cyanosis or edema@Airway: airway assessment performed Mallampati II (soft palate, uvula, fauces visible)Anesthesia Classification: ASA III (A patient wi th a severe systemic disease that limits activity, but is not incapacitating)NPO Status: AcceptablePregnancy Status: N/ALab/Radiology/Other Diagnostic TestsLabs: Relevant labs reviewedSHUBHAM Smithager OL OPERATIONS MANAGER 10/05/2019 [facility] , Note Bassam Mckinnon MD - 0 10/05/2019 11:25 AM CST Pre Procedure History and Physical/Sedation PlanName:Matt Fields Dr. :1950 Age: 69 y.o.Date of Service: 10/05/2019Date of Procedure: 10/05/2019Planned Procedure(s): GI: Colonoscopy and EGDSedation/Medication Plan: MAC (Monitored Anesthesia Care)Discussion/Reviews: Physician has discussed risks and alternatives of this type of sedation and above planned procedures with duane ent Chief Complaint: Newly diagnosed sacroiliitis , now with change in bowel habits.History of Present Illness: Matt Fields Dr. is a 69 y.o. male with PMhx is here for a colonoscopy to r/o underlying IBD , EGD is for chronic GERD . 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 History of repair of atrial septal defect 03/22/2017 Hyperlipidemia 03/10/2017 Migraines on occasion Neuropathy lower extremities due to DDD Persistent atrial fibrillation 03/10/2017 10/01/16-[facility]- Echo-EF 55%- LA 4.5 cm; unable to comment on diastolic funciton due to PAF; mild LA dilatation; mild MR; mild TR 11/04/16-[facility]- Successful DCCV to NSR with 200 joules 02/12/17-[facility]- successful DCCV to NSR Pulmonary hypertension (HCC) 03/10/2017 S/P cervical spinal fusion 01/07/2015 S/P repair of patent ductus arteriosus 03/10/2017 TIA (transient ischemic attack) 1996 Surgical History: Procedure Laterality Date THORACOTOMY Left 2005 for MRSA pneumonia Left Atrial Antral Radiofrequency Ablation Left 08/16/2017 Performed by Gómez Mccurdy MD at [facility] [facility] Comprehensive EP Study N/A 08/16/2017 Performed by Gómez Mccurdy MD at [facility] OPERATOR ASD REPAIR 1998 CARPAL TUNNEL RELEASE Bilateral CERVICAL SPINE SURGERY x5 surgeries total HX SEPTOPLASTY HX TONSILLECTOMY SINUS SURGERY multiple with revisions SURGERY medial nerve transposition Pertinent medical/surgical history reviewedPertinent family history reviewedSocial History Tobacco Use Smoking status: Never Smoker Smokeless tobacco: Never Used Substance Use Topics Alcohol use: No Drug use: No Social History Substance and Sexual Activity Drug Use No Allergies: Morphine; Oxycodone; and Oxycodone-acetaminophenMedicationsNo current facility- administered medications for this encounter. Current Outpatient Medications [...] gram oral solution Mix as directed on package. Drink 240ml (8oz) every 10 minutes until gone. Refrigerate once mixed. ergocalciferol (VITAMIN D) 50,000 unit capsule Take one capsule by mouth every 7 days. fenofibrate(+) (TRIGLIDE) 160 mg tablet Take 160 mg by mouth at bedtime daily. Take with food. fluticasone (FLONASE) 50 mcg/actuation nasal spray Apply 2 sprays to each nostril as directed twice daily. hydroxychloroquine (PLAQUENIL) 200 mg tablet Take one tablet by mouth twice daily. Take with food. ibuprofen (MOTRIN) 800 mg tablet Take 800 mg by mouth every 6 hours as needed for Pain. Take with food. loratadine (CLARITIN) 10 mg tablet Take 10 mg by mouth every morning. MOMETASONE/FORMOTEROL (DULERA IN) Inhale 1 puff by mouth into the lungs twice daily. montelukast (SINGULAIR) 10 mg tablet Take 10 mg by mouth at bedtime daily. polyethylene glycol 3350 (MIRALAX) 17 g packet Take 17 g by mouth daily. prednisone (DELTASONE) 5 mg tablet Take three tablets by mouth daily with breakfast. Tapere by 2.5 mg per week down to 5 mg daily. traMADol (ULTRAM) 50 mg tablet Take one tablet by mouth every 12 hours. zolpidem (AMBIEN) 5 mg tablet Take 5 mg by mouth at bedtime as needed for Sleep. Review of Systems:All other systems reviewed and are negative. Physical Exam: General appearance: alertThroat: Lips, mucosa, and tongue normal. Teeth and gums normalLungs: clear to auscultation bilaterallyHeart: S1, S2 normalAbdomen: soft, non-tender. Bowel sounds normal. No masses, no organomegalyExtremities: extremities normal, atraumatic, no cyanosis or edema@Airway: airway assessment performed Mallampati II (soft palate, uvula, fauces visible)Anesthesia Classification: ASA III (A patient wi th a severe systemic disease that limits activity, but is not incapacitating)NPO Status: AcceptablePregnancy Status: N/ALab/Radiology/Other Diagnostic TestsLabs: Relevant labs reviewedSHUBHAM Smithager OL OPERATIONS MANAGER 10/05/2019 [facility] , Vital Signs Vital Sign Value Date Comments Source Systolic blood pressure 116 mm [Hg] 03/15/2020 [facility], Diastolic blood pressure 70 mm [Hg] 03/15/2020 [facility], Body height 160 cm 03/15/2020 [facility], Body weight 74.39 kg 03/15/2020 [facility], BMI 29.05 kg/m2 03/15/2020 [facility], Systolic blood pressure 126 mm [Hg] 01/25/2020 [facility], Diastolic blood pressure 80 mm [Hg] 01/25/2020 [facility], Heart rate 72 /min 01/25/2020 [facility], Body height 160 cm 01/25/2020 [facility], Body weight 74.39 kg 01/25/2020 [facility], BMI 29.05 kg/m2 01/25/2020 [facility], Body temperature 36.89 Kassandra 11/09/2019 [facility], Respiratory rate 16 /min 11/09/2019 [facility], Oxygen saturation in Arterial blood by Pulse oximetry 97 % 11/09/2019 [facility] , Systolic blood pressure 91 mm[ Hg] 11/09/2019 [facility], Diastolic blood pressure 56 mm [Hg] 11/09/2019 [facility], Heart rate 82 /min 11/09/2019 [facility], Body height 160 cm 11/09/2019 [facility], Body weight 79.017 kg 11/09/2019 [facility], BMI 30.86 kg/m2 11/09/2019 [facility], Respiratory rate 16 /min 10/19/2019 [facility], Body height 160 cm 10/19/2019 [facility], Body weight 78.472 kg 10/19/2019 [facility], BMI 30.65 kg/m2 10/19/2019 [facility], Systolic blood pressure 126 mm [Hg] 10/13/2019 [facility], Diastolic blood pressure 74 mm [Hg] 10/13/2019 [facility], Heart rate 80 /min 10/13/2019 [facility], Body height 160 cm 10/13/2019 [facility], Body weight 79.833 kg 10/13/2019 [facility], BMI 31.18 kg/m2 10/13/2019 [facility], Oxygen saturation in Arterial blood by Pulse oximetry 97 % 10/13/2019 [facility] , Systolic blood pressure 126 mm [Hg] 10/05/2019 [facility], Diastolic blood pressure 85 mm [Hg] 10/05/2019 [facility], Heart rate 73 /min 10/05/2019 [facility], Oxygen saturation in Arterial blood by Pulse oximetry 99 % 10/05/2019 [facility] , Body temperature 36.39 Kassandra 10/05/2019 [facility], Body height 160 cm 10/05/2019 [facility], Body weight 75.751 kg 10/05/2019 [facility], BMI 29.58 kg/m2 10/05/2019 [facility], Encounters Location Location Details Encounter Type Encounter Number Reason For Visit Attending Provider ADM Date DC Date Status Source ENDOSC OP S URGERY [id number] Adelso OHN ROLA 01/10/2015 01/11/2015 Active [facility], CAT OUTPATI ENT [id number] Y ERUVA MCCURDY 05/27/2017 05/27/2017 Active [facility], SHIRLEY OUTPA TIENT [id number] Y ERUVA MCCURDY 06/23/2017 06/23/2017 Active [facility], DORINA O UTPATIENT [id number] GUILLERMO SUZANNE 06/24/2017 Active [facility], PRE OUTPATI ENT [id number] 08/05/2017 Active [facility], CCATHL EXT RECOVERY [id number] Y ERUVA MCCURDY 08/16/2017 08/17/2017 Active [facility], MACKUCL OUT PATIENT [id number] Y ERUVA MCCURDY 09/16/2017 09/16/2017 Active [facility], MACKUHRM OU TPATIENT [id number] Y ERUVA MCCURDY 12/14/2017 12/15/2017 Active [facility], MACKUCL OUT PATIENT [id number] Y ERUVA MCCURDY 12/16/2017 Active [facility], MACKUNUC OU TPATIENT [id number] Y ERUVA MCCURDY 12/16/2017 12/17/2017 Active [facility], MACKUHRM OU TPATIENT [id number] Y ERUVA MCCURDY 2018 07/02/2018 Active [facility], MACKUHRM OU TPATIENT [id number] 07/04/2018 Active [facility], CVMCLOP OUT PATIENT [id number] Y ERUVA MCCURDY 03/09/2019 Active [facility], KCMORH OUTP ATIENT [id number] M EHRDAD GIANNI 03/21/2019 03/21/2019 Discharged [facility], KCMORH OUTP ATIENT [id number] M EHRDAD GIANNI 03/21/2019 03/21/2019 Active [facility], ICDSPRAD OU TPATIENT [id number] M EHRDAD GIANNI 03/21/2019 03/22/2019 Active [facility], KCMORH OUTP ATIENT [id number] M EHRDAD GIANNI 04/25/2019 04/25/2019 Active [facility], KCMORH OUTP ATIENT [id number] M EHRDAD GIANNI 04/25/2019 04/25/2019 Active [facility], KCMORH OUTP ATIENT [id number] M EHRDAD GIANNI 05/16/2019 05/16/2019 Discharged [facility], IC2LAB OUTP ATIENT [id number] J PJ GUZMANGLER 05/16/2019 05/17/2019 Active [facility], MPANEURO OU TPATIENT [id number] P VENTURA CABRERAON 07/18/2019 Active [facility], AUW6KVM OUT PATIENT [id number] A DAM CASE 07/20/2019 Cancel [facility], MPBGASTR OU TPATIENT [id number] S KATIE MCKINNON 07/20/2019 07/20/2019 Active [facility], KCMORH OUTP ATIENT [id number] M EHRDAD GIANNI 08/15/2019 08/15/2019 Active [facility], KCMORH OUTP ATIENT [id number] M EHRDAD GIANNI 08/15/2019 08/15/2019 Active [facility], CLNLAB SPEC IMEN [id number] 08/16/2019 08/17/2019 Discharged [facility], WWMR OUTPAT IENT [id number] M EHRDAD GIANNI 09/14/2019 09/14/2019 Discharged [facility], EMIL CA SE MATHEW [id number] M EHRDAD GIANNI 09/14/2019 09/15/2019 Active [facility], DORINA O UTPATIENT [id number] M EHRDAD GIANNI 09/27/2019 09/28/2019 Active [facility], [facility] Telephone [id number] Bassam Mckinnon MD 10/03/2019 [facility] Telephone [id number] Arlen Uribe RN 10/03/2019 [facility] Telephone [id number] Bassam Mckinnon MD 10/05/2019 [facility], GENNA NELSON S URGERY [id number] S KATIE MCKINNON 10/05/2019 10/05/2019 Active [facility], [facility] Hospital Encounter [id number] Bassam Mckinnon MD 10/05/2019 10/05/2019 [facility] Surgery [id number] Bassam Mckinnon MD 10/05/2019 10/05/2019 [facility] Anesthesia Event [id number] Merissa Trejo MD 10/05/2019 10/05/2019 [facility] , CATARM OU TPATIENT [id number] 10/13/2019 10/14/2019 Active [facility], [facility] Documentation [id number] Keren Carrizales 10/13/2019 [facility] Prep for Case [id number] Gómez Mccurdy MD 10/13/2019 [facility] Office Visit [id number] Gómez Mccurdy MD 10/13/2019 10/16/2019 [facility] Hospital Encounter [id number] Gómez Mccurdy MD 10/14/2019 10/14/2019 [facility] Telephone [id number] Bassam Mckinnon MD 10/18/2019 [facility], MPBGASTR OU TPATIENT [id number] Katina MCKINNON 10/19/2019 10/19/2019 Active [facility], [facility] Office Visit [id number] Bassam Mckinnon MD 10/19/2019 11/17/2019 [facility] Orders Only [id number] Bassam Mckinnon MD 11/01/2019 [facility] Refill [id number] Gómez Mccurdy MD 11/04/2019 [facility], [facility] Telephone [id number] Lorena Ellis RN 11/06/2019 [facility], [facility] Documentation [id number] Cornelius Russo BSN 11/07/2019 [facility], Travel [id number] 11/09/2019 [facility] , KCMORH OUTP ATIENT [id number] Leann ARCHER 11/09/2019 11/09/2019 Active [facility], [facility] Office Visit [id number] Jose Cruz Archer MD 11/09/2019 11/09/2019 [facility] Refill [id number] Bassam Mckinnon MD 11/13/2019 [facility] [facility] Telephone [phone] Karin Yates MA 01/24/2020 [facility], [facility] Orders Only [id number] Cornelius Russo BSN 03/13/2020 [facility], CVMCLOP OUT PATIENT [id number] Shi SORIA 03/13/2020 Active [facility], [facility] Office Visit Telehealth [id number] Smita Soria BELLING MACHINE OPERATOR-N P 03/13/2020 03/13/2020 [facility] , Travel [id number] 03/15/2020 [facility] , [facility] Documentation [id number] December [facility], [facility] Hospital Encounter [id number] Smita Soria BELLING MACHINE OPERATOR-N P 03/15/2020 03/16/2020 [facility] , CVMCLOP OUT PATIENT [id number] 03/15/2020 Active [facility], CVMCLOP OUT PATIENT [id number] Jorge MCCURDY 03/30/2020 Active [facility], CVMCLOP O Active [facility], Procedures Procedure Code Date Perfomer Comments Source 2D + DOPPLER ECHO NO CONTRAST 26261 03/15/2020 Yang [facility] , ECG-SCAN [id number] 03/15/2020 Document [facility], PATIENT FROM CLINIC - LONG-TERM RADIOLOGY CT TECHNOLOGIST 0298T 10/20/2019 Mccurdy [facility], ECG-SCAN [id number] 10/13/2019 Document [facility], HC LVL IV SRG PTH, GROSS & MICRO [id number] [id number]AGNOSTIC WITH SPECIMEN COL LECTION BY BRUSHING/ WASHING - FLEXIBLE 16424 10/05/2019 [facility], ESOPHAGOGASTRODUODENOSCOPY WITH SPECIMEN COLLECTION BY BRUSHING/ WASHING 64746 10/05/2019 [facility], COLONOSCOPY WITH BIOPSY - FLEXIBLE 19109 10/05/2019 [facility] , EGD REPORT 1402 10/05/2019 [facility], EGD REPORT 1402 10/05/2019 [facility], TELEMETRY STRIPS-SCAN [id number] 10/05/2019 Document [facility] , Plan of Care Plan of Care Date Source Scheduled OrdersNameTypePriorityAssociat ed DiagnosesOrder ScheduleECG 12- LEADECGRoutinePersistent atrial fibrillation (HCC)Ordered: 10/13/2019documented as of this encounter 03/29/2020 [facility], Scheduled OrdersNameTypePriorityAssociat ed DiagnosesOrder ScheduleMRI ENTEROGRAPHYImagingRoutineChange in bowel habitsExpected: 10/19/2019 (Approximate), Expires: 1documented as of this encounter 03/29/2020 [facility], Scheduled OrdersNameTypePriorityAssociat ed DiagnosesOrder ScheduleCBC AND DIFFLabRoutineHLA B27 (HLA B27 positive)Inflammatory arthritisElevated antinuclear antibody (RENUKA) levelExpected: 11/11/2019 (Approximate), Expires: 08/10/2020C REACTIVE PROTEIN (CRP)LabRoutineHLA B27 (HLA B27 positive)Inflammatory arthritisElevated antinuclear antibody (RENUKA) levelExpected: 11/11/2019 (Approximate), Expires: 08/10/2020COMPREHENSIVE METABOLIC PANELLabRoutineHLA B27 (HLA B27 positive)Inflammatory arthritisElevated antinuclear antibody (RENUKA) levelExpected: 11/11/2019 (Approximate), Expires: 08/10/2020SED RATELabRoutineHLA B27 (HLA B27 positive)Inflammatory arthritisElevated antinuclear antibody (RENUKA) levelExpected: 11/11/2019 (Approximate), Expires: 08/10/2020URINALYSIS DIPSTICKLabRoutineHLA B27 (HLA B27 positive)Inflammatory arthritisElevated antinuclear antibody (RENUKA) levelExpected: 11/11/2019 (Approximate), Expires: 08/10/2020URINALYSIS, MICROSCOPICLabRoutineHLA B27 (HLA B27 positive)Inflammatory arthritisElevated antinuclear antibody (RENUKA) levelExpected: 11/11/2019 (Approximate), Expires: 08/10/2020PROTEIN/CR RATIO,UR RANLabRoutineHLA B27 (HLA B27 positive)Inflammatory arthritisElevated antinuclear antibody (RENUKA) levelExpected: 11/11/2019 (Approximate), Expires: 08/10/202025-[place] VITAMIN D (D2 + D3)LabRoutineVitamin D deficiencyExpected: 11/11/2019 (Approximate), Expires: 08/10/2020C3 COMPLEMENT 3LabRoutineHLA B27 (HLA B27 positive)Inflammatory arthritisElevated antinuclear antibody (RENUKA) levelExpected: 11/11/2019 (Approximate), Expires: 08/10/2020C4 COMPLEMENT 4LabRoutineHLA B27 (HLA B27 positive)Inflammatory arthritisElevated antinuclear antibody (RENUKA) levelExpected: 11/11/2019 (Approximate), Expires: 08/10/2020ANTI- DNA DOUBLE STRANDLabRoutineHLA B27 (HLA B27 positive)Inflammatory arthritisElevated antinuclear antibody (RENUKA) levelExpected: 11/11/2019 (Approximate), Expires: 08/10/2020MAGNESIUMLabRoutinePVC (premature ventricular contraction)Expected: 11/11/2019 (Approximate), Expires: 08/10/2020CBC AND DIFFLabRoutineHLA B27 (HLA B27 positive)Inflammatory arthritisTherapeutic drug monitoringEvery 4 Weeks Auto for 12 Occurrences starting 11/09/2019 until 1ALT (SGPT)LabRoutineHLA B27 (HLA B27 positive)Inflammatory arthritisTherapeutic drug monitoringEvery 4 Weeks Auto for 12 Occurrences starting 11/09/2019 until 1CREATININELabRoutineHLA B27 (HLA B27 positive)Inflammatory arthritisTherapeutic drug monitoringEvery 4 Weeks Auto for 12 Occurrences starting 11/09/2019 until 08/10/2021IMMUNOGLOBULINS- IGA,IGG,IGMLabRoutineInflammatory arthritisExpected: 11/11/2019 (Approximate), E xpires: 08/10/2020ANTI-DNA DOUBLE STRANDLabRoutineHLA B27 (HLA B27 positive)Inflammatory arthritisElevated antinuclear antibody (RENUKA) levelTherapeutic drug monitoringExpected: 11/11/2019 (Approximate), Expires: 08/10/2020C3 COMPLEMENT 3LabRoutineHLA B27 (HLA B27 positive)Inflammatory arthritisElevated antinuclear antibody (RENUKA) levelTherapeutic drug monitoringExpected: 11/11/2019 (Approximate), Expires: 08/10/2020C4 COMPLEMENT 4LabRoutineHLA B27 (HLA B27 positive)Inflammatory arthritisElevated antinuclear antibody (RENUKA) levelTherapeutic drug monitoringExpected: 11/11/2019 (Approximate), Expires: 08/10/202025-[place] VITAMIN D (D2 + D3)LabRoutineVitamin D deficiencyExpected: 11/11/2019 (Approximate), Expires: 08/10/2020C REACTIVE PROTEIN (CRP)LabRoutineHLA B27 (HLA B27 positive)Inflammatory arthritisElevated antinuclear antibody (RENUKA) levelTherapeutic drug monitoringExpected: 11/11/2019 (Approximate), Expires: 08/10/2020SED RATELabRoutineHLA B27 (HLA B27 positive)Inflammatory arthritisElevated antinuclear antibody (RENUKA) levelTherapeutic drug monitoringExpected: 11/11/2019 (Approximate), Expires: 08/10/2020COMPREHENSIVE METABOLIC PANELLabRoutineHLA B27 (HLA B27 positive)Inflammatory arthritisElevated antinuclear antibody (RENUKA) levelTherapeutic drug monitoringExpected: 11/11/2019 (Approximate), Expires: 08/10/2020URINALYSIS DIPSTICKLabRoutineHLA B27 (HLA B27 positive)Inflammatory arthritisElevated antinuclear antibody (RENUKA) levelTherapeutic drug monitoringExpected: 11/11/2019 (Approximate), Expires: 08/10/2020URINALYSIS, MICROSCOPICLabRoutineHLA B27 (HLA B27 positive)Inflammatory arthritisElevated a ntinuclear antibody (RENUKA) levelTherapeutic drug monitoringExpected: 11/11/2019 (Approximate), Expires: 08/10/2020PROTEIN/CR RATIO,UR RANLabRoutineHLA B27 (HLA B27 positive)Inflammatory arthritisElevated antinuclear antibody (RENUKA) levelTherapeutic drug monitoringExpected: 11/11/2019 (Approximate), Expires: 08/10/2020CBC AND DIFFLabRoutineHLA B27 (HLA B27 positive)Inflammatory arthritisElevated antinuclear antibody (RENUKA) levelTherapeutic drug monitoringExpected: 11/11/2019 (Approximate), Expires: 08/10/2020MAGNESIUMLabRoutinePVC (premature ventricular contraction)Expected: 11/11/2019 (Approximate), Expires: 08/10/2020CBC AND DIFFLabRoutineInflammatory arthritisTherapeutic drug monitoringEvery 4 Weeks Auto for 12 Occurrences starting 11/09/2019 until 1ALT (SGPT)LabRoutineInflammatory arthrit isTherapeutic drug monitoringEvery 4 Weeks Auto for 12 Occurrences starting 11/09/2019 until 1CREATININELabRoutineInflammatory arthritisTherapeutic drug monitoringEvery 4 Weeks Auto for 12 Occurrences starting 11/09/2019 until 1CBC AND DIFFLabRoutineHLA-B27 spondyloarthropathyInflammatory arthritisElevated antinuclear antibody (RENUKA) levelTherapeutic drug monitoringExpected: 03/14/2020 (Approximate), Expires: 08/10/2020C REACTIVE PROTEIN (CRP)LabRoutineHLA-B27 spondyloarthropathyInflammatory arthritisElevated antinuclear antibody (RENUKA) levelTherapeutic drug monitoringExpected: 03/14/2020 (Approximate), Expires: 08/10/2020SED RATELabRoutineHLA-B27 spondyloarthropathyInflammatory arthritisElevated antinuclear antibody (RENUKA) levelTherapeutic drug monitoringExpected: 03/14/2020 (Approximate), Expires: 08/10/2020COMPREHENSIVE METABOLIC PANELLabRoutineHLA-B27 spondyloarthropathyInflammatory arthritisElevated antinuclear antibody (RENUKA) levelTherapeutic drug monitoringExpected: 03/14/2020 (Approximate), Expires: 08/10/2020URINALYSIS DIPSTICKLabRoutineHLA-B27 spondyloarthropathyInflammatory arthritisElevated antinuclear antibody (RENUKA) levelTherapeutic drug monitoringExpected: 03/14/2020 (Approximate), Expires: 08/10/2020URINALYSIS, MICROSCOPICLabRoutineHLA-B27 spondyloarthropathyInflammatory arthritisElevated antinuclear antibody (RENUKA) levelTherapeutic drug monitoringExpected: 03/14/2020 (Approximate), Expires: 08/10/2020PROTEIN/CR RATIO,UR RANLabRoutineHLA-B27 spondyloarthropathyInflammatory arthritisElevated antinuclear antibody (RENUKA) levelTherapeutic drug monitoringExpected: 03/14/2020 (Approximate), Expires: 08/10/2020C3 COMPLEMENT 3LabRoutineHLA-B27 spondyloarthropathyInflammatory arthritisElevated antinuclear antibody (RENUKA) levelTherapeutic drug monitoringExpected: 03/14/2020 (Approximate), Expires: 08/10/2020C4 COMPLEMENT 4LabRoutineHLA-B27 spondyloarthropathyInflammatory arthritisElevated antinuclear antibody (RENUKA) levelTherapeutic drug monitoringExpected: 03/14/2020 (A pproximate), Expires: 08/10/2020ANTI-DNA DOUBLE STRANDLabRoutineHLA-B27 spondyloarthropathyInflammatory arthritisElevated antinuclear antibody (RENUKA) levelTherapeutic drug monitoringExpected: 03/14/2020 (Approximate), Expires: 08/10/202025-[place] VITAMIN D (D2 + D3)LabRoutineVitamin D deficiencyTherapeutic drug monitoringExpected: 03/14/2020 (Approximate), Expires: 08/10/2020documented as of this encounter 03/29/2020 [facility] , Scheduled OrdersNameTypePriorityAssociat ed DiagnosesOrder ScheduleCBC AND DIFFLabRoutineHLA B27 (HLA B27 positive)Inflammatory arthritisElevated antinuclear antibody (RENUKA) levelExpected: 11/11/2019 (Approximate), Expires: 08/10/2020C REACTIVE PROTEIN (CRP)LabRoutineHLA B27 (HLA B27 positive)Inflammatory arthritisElevated antinuclear antibody (RENUKA) levelExpected: 11/11/2019 (Approximate), Expires: 08/10/2020COMPREHENSIVE METABOLIC PANELLabRoutineHLA B27 (HLA B27 positive)Inflammatory arthritisElevated antinuclear antibody (RENUKA) levelExpected: 11/11/2019 (Approximate), Expires: 08/10/2020SED RATELabRoutineHLA B27 (HLA B27 positive)Inflammatory arthritisElevated antinuclear antibody (RENUKA) levelExpected: 11/11/2019 (Approximate), Expires: 08/10/2020URINALYSIS DIPSTICKLabRoutineHLA B27 (HLA B27 positive)Inflammatory arthritisElevated antinuclear antibody (RENUKA) levelExpected: 11/11/2019 (Approximate), Expires: 08/10/2020URINALYSIS, MICROSCOPICLabRoutineHLA B27 (HLA B27 positive)Inflammatory arthritisElevated antinuclear antibody (RENUKA) levelExpected: 11/11/2019 (Approximate), Expires: 08/10/2020PROTEIN/CR RATIO,UR RANLabRoutineHLA B27 (HLA B27 positive)Inflammatory arthritisElevated antinuclear antibody (RENUKA) levelExpected: 11/11/2019 (Approximate), Expires: 08/10/202025-OH VITAMIN D (D2 + D3)LabRoutineVitamin D deficiencyExpected: 11/11/2019 (Approximate), Expires: 08/10/2020C3 COMPLEMENT 3LabRoutineHLA B27 (HLA B27 positive)Inflammatory arthritisElevated antinuclear antibody (RENUKA) levelExpected: 11/11/2019 (Approximate), Expires: 08/10/2020C4 COMPLEMENT 4LabRoutineHLA B27 (HLA B27 positive)Inflammatory arthritisElevated antinuclear antibody (RENUKA) levelExpected: 11/11/2019 (Approximate), Expires: 08/10/2020ANTI- DNA DOUBLE STRANDLabRoutineHLA B27 (HLA B27 positive)Inflammatory arthritisElevated antinuclear antibody (RENUKA) levelExpected: 11/11/2019 (Approximate), Expires: 08/10/2020MAGNESIUMLabRoutinePVC (premature ventricular contraction)Expected: 11/11/2019 (Approximate), Expires: 08/10/2020CBC AND DIFFLabRoutineHLA B27 (HLA B27 positive)Inflammatory arthritisTherapeutic drug monitoringEvery 4 Weeks Auto for 12 Occurrences starting 11/09/2019 until 1ALT (SGPT)LabRoutineHLA B27 (HLA B27 positive)Inflammatory arthritisTherapeutic drug monitoringEvery 4 Weeks Auto for 12 Occurrences starting 11/09/2019 until 1CREATININELabRoutineHLA B27 (HLA B27 positive)Inflammatory arthritisTherapeutic drug monitoringEvery 4 Weeks Auto for 12 Occurrences starting 11/09/2019 until 08/10/2021IMMUNOGLOBULINS- IGA,IGG,IGMLabRoutineInflammatory arthritisExpected: 11/11/2019 (Approximate), E xpires: 08/10/2020ANTI-DNA DOUBLE STRANDLabRoutineHLA B27 (HLA B27 positive)Inflammatory arthritisElevated antinuclear antibody (RENUKA) levelTherapeutic drug monitoringExpected: 11/11/2019 (Approximate), Expires: 08/10/2020C3 COMPLEMENT 3LabRoutineHLA B27 (HLA B27 positive)Inflammatory arthritisElevated antinuclear antibody (RENUKA) levelTherapeutic drug monitoringExpected: 11/11/2019 (Approximate), Expires: 08/10/2020C4 COMPLEMENT 4LabRoutineHLA B27 (HLA B27 positive)Inflammatory arthritisElevated antinuclear antibody (RENUKA) levelTherapeutic drug monitoringExpected: 11/11/2019 (Approximate), Expires: 08/10/202025-OH VITAMIN D (D2 + D3)LabRoutineVitamin D deficiencyExpected: 11/11/2019 (Approximate), Expires: 08/10/2020C REACTIVE PROTEIN (CRP)LabRoutineHLA B27 (HLA B27 positive)Inflammatory arthritisElevated antinuclear antibody (RENUKA) levelTherapeutic drug monitoringExpected: 11/11/2019 (Approximate), Expires: 08/10/2020SED RATELabRoutineHLA B27 (HLA B27 positive)Inflammatory arthritisElevated antinuclear antibody (RENUKA) levelTherapeutic drug monitoringExpected: 11/11/2019 (Approximate), Expires: 08/10/2020COMPREHENSIVE METABOLIC PANELLabRoutineHLA B27 (HLA B27 positive)Inflammatory arthritisElevated antinuclear antibody (RENUKA) levelTherapeutic drug monitoringExpected: 11/11/2019 (Approximate), Expires: 08/10/2020URINALYSIS DIPSTICKLabRoutineHLA B27 (HLA B27 positive)Inflammatory arthritisElevated antinuclear antibody (RENUKA) levelTherapeutic drug monitoringExpected: 11/11/2019 (Approximate), Expires: 08/10/2020URINALYSIS, MICROSCOPICLabRoutineHLA B27 (HLA B27 positive)Inflammatory arthritisElevated a ntinuclear antibody (RENUKA) levelTherapeutic drug monitoringExpected: 11/11/2019 (Approximate), Expires: 08/10/2020PROTEIN/CR RATIO,UR RANLabRoutineHLA B27 (HLA B27 positive)Inflammatory arthritisElevated antinuclear antibody (RENUKA) levelTherapeutic drug monitoringExpected: 11/11/2019 (Approximate), Expires: 08/10/2020CBC AND DIFFLabRoutineHLA B27 (HLA B27 positive)Inflammatory arthritisElevated antinuclear antibody (RENUKA) levelTherapeutic drug monitoringExpected: 11/11/2019 (Approximate), Expires: 08/10/2020MAGNESIUMLabRoutinePVC (premature ventricular contraction)Expected: 11/11/2019 (Approximate), Expires: 08/10/2020CBC AND DIFFLabRoutineInflammatory arthritisTherapeutic drug monitoringEvery 4 Weeks Auto for 12 Occurrences starting 11/09/2019 until 1ALT (SGPT)LabRoutineInflammatory arthrit isTherapeutic drug monitoringEvery 4 Weeks Auto for 12 Occurrences starting 11/09/2019 until 1CREATININELabRoutineInflammatory arthritisTherapeutic drug monitoringEvery 4 Weeks Auto for 12 Occurrences starting 11/09/2019 until 1CBC AND DIFFLabRoutineHLA-B27 spondyloarthropathyInflammatory arthritisElevated antinuclear antibody (RENUKA) levelTherapeutic drug monitoringExpected: 03/14/2020 (Approximate), Expires: 08/10/2020C REACTIVE PROTEIN (CRP)LabRoutineHLA-B27 spondyloarthropathyInflammatory arthritisElevated antinuclear antibody (RENUKA) levelTherapeutic drug monitoringExpected: 03/14/2020 (Approximate), Expires: 08/10/2020SED RATELabRoutineHLA-B27 spondyloarthropathyInflammatory arthritisElevated antinuclear antibody (RENUKA) levelTherapeutic drug monitoringExpected: 03/14/2020 (Approximate), Expires: 08/10/2020COMPREHENSIVE METABOLIC PANELLabRoutineHLA-B27 spondyloarthropathyInflammatory arthritisElevated antinuclear antibody (RENUKA) levelTherapeutic drug monitoringExpected: 03/14/2020 (Approximate), Expires: 08/10/2020URINALYSIS DIPSTICKLabRoutineHLA-B27 spondyloarthropathyInflammatory arthritisElevated antinuclear antibody (RENUKA) levelTherapeutic drug monitoringExpected: 03/14/2020 (Approximate), Expires: 08/10/2020URINALYSIS, MICROSCOPICLabRoutineHLA-B27 spondyloarthropathyInflammatory arthritisElevated antinuclear antibody (RENUKA) levelTherapeutic drug monitoringExpected: 03/14/2020 (Approximate), Expires: 08/10/2020PROTEIN/CR RATIO,UR RANLabRoutineHLA-B27 spondyloarthropathyInflammatory arthritisElevated antinuclear antibody (RENUKA) levelTherapeutic drug monitoringExpected: 03/14/2020 (Approximate), Expires: 08/10/2020C3 COMPLEMENT 3LabRoutineHLA-B27 spondyloarthropathyInflammatory arthritisElevated antinuclear antibody (RENUKA) levelTherapeutic drug monitoringExpected: 03/14/2020 (Approximate), Expires: 08/10/2020C4 COMPLEMENT 4LabRoutineHLA-B27 spondyloarthropathyInflammatory arthritisElevated antinuclear antibody (RENUKA) levelTherapeutic drug monitoringExpected: 03/14/2020 (A pproximate), Expires: 08/10/2020ANTI-DNA DOUBLE STRANDLabRoutineHLA-B27 spondyloarthropathyInflammatory arthritisElevated antinuclear antibody (RENUKA) levelTherapeutic drug monitoringExpected: 03/14/2020 (Approximate), Expires: 08/10/202025-OH VITAMIN D (D2 + D3)LabRoutineVitamin D deficiencyTherapeutic drug monitoringExpected: 03/14/2020 (Approximate), Expires: 08/10/2020documented as of this encounter 03/29/2020 [facility] , Scheduled OrdersNameTypePriorityAssociat ed DiagnosesOrder ScheduleCBC AND DIFFLabRoutineHLA B27 (HLA B27 positive)Inflammatory arthritisElevated antinuclear antibody (RENUKA) levelExpected: 11/11/2019 (Approximate), Expires: 08/10/2020C REACTIVE PROTEIN (CRP)LabRoutineHLA B27 (HLA B27 positive)Inflammatory arthritisElevated antinuclear antibody (RENUKA) levelExpected: 11/11/2019 (Approximate), Expires: 08/10/2020COMPREHENSIVE METABOLIC PANELLabRoutineHLA B27 (HLA B27 positive)Inflammatory arthritisElevated antinuclear antibody (RENUKA) levelExpected: 11/11/2019 (Approximate), Expires: 08/10/2020SED RATELabRoutineHLA B27 (HLA B27 positive)Inflammatory arthritisElevated antinuclear antibody (RENUKA) levelExpected: 11/11/2019 (Approximate), Expires: 08/10/2020URINALYSIS DIPSTICKLabRoutineHLA B27 (HLA B27 positive)Inflammatory arthritisElevated antinuclear antibody (RENUKA) levelExpected: 11/11/2019 (Approximate), Expires: 08/10/2020URINALYSIS, MICROSCOPICLabRoutineHLA B27 (HLA B27 positive)Inflammatory arthritisElevated antinuclear antibody (RENUKA) levelExpected: 11/11/2019 (Approximate), Expires: 08/10/2020PROTEIN/CR RATIO,UR RANLabRoutineHLA B27 (HLA B27 positive)Inflammatory arthritisElevated antinuclear antibody (RENUKA) levelExpected: 11/11/2019 (Approximate), Expires: 08/10/202025-OH VITAMIN D (D2 + D3)LabRoutineVitamin D deficiencyExpected: 11/11/2019 (Approximate), Expires: 08/10/2020C3 COMPLEMENT 3LabRoutineHLA B27 (HLA B27 positive)Inflammatory arthritisElevated antinuclear antibody (RENUKA) levelExpected: 11/11/2019 (Approximate), Expires: 08/10/2020C4 COMPLEMENT 4LabRoutineHLA B27 (HLA B27 positive)Inflammatory arthritisElevated antinuclear antibody (RENUKA) levelExpected: 11/11/2019 (Approximate), Expires: 08/10/2020ANTI- DNA DOUBLE STRANDLabRoutineHLA B27 (HLA B27 positive)Inflammatory arthritisElevated antinuclear antibody (RENUKA) levelExpected: 11/11/2019 (Approximate), Expires: 08/10/2020MAGNESIUMLabRoutinePVC (premature ventricular contraction)Expected: 11/11/2019 (Approximate), Expires: 08/10/2020CBC AND DIFFLabRoutineHLA B27 (HLA B27 positive)Inflammatory arthritisTherapeutic drug monitoringEvery 4 Weeks Auto for 12 Occurrences starting 11/09/2019 until 1ALT (SGPT)LabRoutineHLA B27 (HLA B27 positive)Inflammatory arthritisTherapeutic drug monitoringEvery 4 Weeks Auto for 12 Occurrences starting 11/09/2019 until 1CREATININELabRoutineHLA B27 (HLA B27 positive)Inflammatory arthritisTherapeutic drug monitoringEvery 4 Weeks Auto for 12 Occurrences starting 11/09/2019 until 08/10/2021IMMUNOGLOBULINS- IGA,IGG,IGMLabRoutineInflammatory arthritisExpected: 11/11/2019 (Approximate), E xpires: 08/10/2020ANTI-DNA DOUBLE STRANDLabRoutineHLA B27 (HLA B27 positive)Inflammatory arthritisElevated antinuclear antibody (RENUKA) levelTherapeutic drug monitoringExpected: 11/11/2019 (Approximate), Expires: 08/10/2020C3 COMPLEMENT 3LabRoutineHLA B27 (HLA B27 positive)Inflammatory arthritisElevated antinuclear antibody (RENUKA) levelTherapeutic drug monitoringExpected: 11/11/2019 (Approximate), Expires: 08/10/2020C4 COMPLEMENT 4LabRoutineHLA B27 (HLA B27 positive)Inflammatory arthritisElevated antinuclear antibody (RENUKA) levelTherapeutic drug monitoringExpected: 11/11/2019 (Approximate), Expires: 08/10/202025-OH VITAMIN D (D2 + D3)LabRoutineVitamin D deficiencyExpected: 11/11/2019 (Approximate), Expires: 08/10/2020C REACTIVE PROTEIN (CRP)LabRoutineHLA B27 (HLA B27 positive)Inflammatory arthritisElevated antinuclear antibody (RENUKA) levelTherapeutic drug monitoringExpected: 11/11/2019 (Approximate), Expires: 08/10/2020SED RATELabRoutineHLA B27 (HLA B27 positive)Inflammatory arthritisElevated antinuclear antibody (RENUKA) levelTherapeutic drug monitoringExpected: 11/11/2019 (Approximate), Expires: 08/10/2020COMPREHENSIVE METABOLIC PANELLabRoutineHLA B27 (HLA B27 positive)Inflammatory arthritisElevated antinuclear antibody (RENUKA) levelTherapeutic drug monitoringExpected: 11/11/2019 (Approximate), Expires: 08/10/2020URINALYSIS DIPSTICKLabRoutineHLA B27 (HLA B27 positive)Inflammatory arthritisElevated antinuclear antibody (RENUKA) levelTherapeutic drug monitoringExpected: 11/11/2019 (Approximate), Expires: 08/10/2020URINALYSIS, MICROSCOPICLabRoutineHLA B27 (HLA B27 positive)Inflammatory arthritisElevated a ntinuclear antibody (RENUKA) levelTherapeutic drug monitoringExpected: 11/11/2019 (Approximate), Expires: 08/10/2020PROTEIN/CR RATIO,UR RANLabRoutineHLA B27 (HLA B27 positive)Inflammatory arthritisElevated antinuclear antibody (RENUKA) levelTherapeutic drug monitoringExpected: 11/11/2019 (Approximate), Expires: 08/10/2020CBC AND DIFFLabRoutineHLA B27 (HLA B27 positive)Inflammatory arthritisElevated antinuclear antibody (RENUKA) levelTherapeutic drug monitoringExpected: 11/11/2019 (Approximate), Expires: 08/10/2020MAGNESIUMLabRoutinePVC (premature ventricular contraction)Expected: 11/11/2019 (Approximate), Expires: 08/10/2020CBC AND DIFFLabRoutineInflammatory arthritisTherapeutic drug monitoringEvery 4 Weeks Auto for 12 Occurrences starting 11/09/2019 until 1ALT (SGPT)LabRoutineInflammatory arthrit isTherapeutic drug monitoringEvery 4 Weeks Auto for 12 Occurrences starting 11/09/2019 until 1CREATININELabRoutineInflammatory arthritisTherapeutic drug monitoringEvery 4 Weeks Auto for 12 Occurrences starting 11/09/2019 until 1CBC AND DIFFLabRoutineHLA-B27 spondyloarthropathyInflammatory arthritisElevated antinuclear antibody (RENUKA) levelTherapeutic drug monitoringExpected: 03/14/2020 (Approximate), Expires: 08/10/2020C REACTIVE PROTEIN (CRP)LabRoutineHLA-B27 spondyloarthropathyInflammatory arthritisElevated antinuclear antibody (RENUKA) levelTherapeutic drug monitoringExpected: 03/14/2020 (Approximate), Expires: 08/10/2020SED RATELabRoutineHLA-B27 spondyloarthropathyInflammatory arthritisElevated antinuclear antibody (RENUKA) levelTherapeutic drug monitoringExpected: 03/14/2020 (Approximate), Expires: 08/10/2020COMPREHENSIVE METABOLIC PANELLabRoutineHLA-B27 spondyloarthropathyInflammatory arthritisElevated antinuclear antibody (RENUKA) levelTherapeutic drug monitoringExpected: 03/14/2020 (Approximate), Expires: 08/10/2020URINALYSIS DIPSTICKLabRoutineHLA-B27 spondyloarthropathyInflammatory arthritisElevated antinuclear antibody (RENUKA) levelTherapeutic drug monitoringExpected: 03/14/2020 (Approximate), Expires: 08/10/2020URINALYSIS, MICROSCOPICLabRoutineHLA-B27 spondyloarthropathyInflammatory arthritisElevated antinuclear antibody (RENUKA) levelTherapeutic drug monitoringExpected: 03/14/2020 (Approximate), Expires: 08/10/2020PROTEIN/CR RATIO,UR RANLabRoutineHLA-B27 spondyloarthropathyInflammatory arthritisElevated antinuclear antibody (RENUKA) levelTherapeutic drug monitoringExpected: 03/14/2020 (Approximate), Expires: 08/10/2020C3 COMPLEMENT 3LabRoutineHLA-B27 spondyloarthropathyInflammatory arthritisElevated antinuclear antibody (RENUKA) levelTherapeutic drug monitoringExpected: 03/14/2020 (Approximate), Expires: 08/10/2020C4 COMPLEMENT 4LabRoutineHLA-B27 spondyloarthropathyInflammatory arthritisElevated antinuclear antibody (RENUKA) levelTherapeutic drug monitoringExpected: 03/14/2020 (A pproximate), Expires: 08/10/2020ANTI-DNA DOUBLE STRANDLabRoutineHLA-B27 spondyloarthropathyInflammatory arthritisElevated antinuclear antibody (RENUKA) levelTherapeutic drug monitoringExpected: 03/14/2020 (Approximate), Expires: 08/10/202025-[place] VITAMIN D (D2 + D3)LabRoutineVitamin D deficiencyTherapeutic drug monitoringExpected: 03/14/2020 (Approximate), Expires: 08/10/2020documented as of this encounter 03/29/2020 [facility] , Scheduled OrdersNameTypePriorityAssociat ed DiagnosesOrder ScheduleCBC AND DIFFLabRoutineHLA B27 (HLA B27 positive)Inflammatory arthritisElevated antinuclear antibody (RENUKA) levelExpected: 11/11/2019 (Approximate), Expires: 08/10/2020C REACTIVE PROTEIN (CRP)LabRoutineHLA B27 (HLA B27 positive)Inflammatory arthritisElevated antinuclear antibody (RENUKA) levelExpected: 11/11/2019 (Approximate), Expires: 08/10/2020COMPREHENSIVE METABOLIC PANELLabRoutineHLA B27 (HLA B27 positive)Inflammatory arthritisElevated antinuclear antibody (RENUKA) levelExpected: 11/11/2019 (Approximate), Expires: 08/10/2020SED RATELabRoutineHLA B27 (HLA B27 positive)Inflammatory arthritisElevated antinuclear antibody (RENUKA) levelExpected: 11/11/2019 (Approximate), Expires: 08/10/2020URINALYSIS DIPSTICKLabRoutineHLA B27 (HLA B27 positive)Inflammatory arthritisElevated antinuclear antibody (RENUKA) levelExpected: 11/11/2019 (Approximate), Expires: 08/10/2020URINALYSIS, MICROSCOPICLabRoutineHLA B27 (HLA B27 positive)Inflammatory arthritisElevated antinuclear antibody (RENUKA) levelExpected: 11/11/2019 (Approximate), Expires: 08/10/2020PROTEIN/CR RATIO,UR RANLabRoutineHLA B27 (HLA B27 positive)Inflammatory arthritisElevated antinuclear antibody (RENUKA) levelExpected: 11/11/2019 (Approximate), Expires: 08/10/202025[place] VITAMIN D (D2 + D3)LabRoutineVitamin D deficiencyExpected: 11/11/2019 (Approximate), Expires: 08/10/2020C3 COMPLEMENT 3LabRoutineHLA B27 (HLA B27 positive)Inflammatory arthritisElevated antinuclear antibody (RENUKA) levelExpected: 11/11/2019 (Approximate), Expires: 08/10/2020C4 COMPLEMENT 4LabRoutineHLA B27 (HLA B27 positive)Inflammatory arthritisElevated antinuclear antibody (RENUKA) levelExpected: 11/11/2019 (Approximate), Expires: 08/10/2020ANTI- DNA DOUBLE STRANDLabRoutineHLA B27 (HLA B27 positive)Inflammatory arthritisElevated antinuclear antibody (RENUKA) levelExpected: 11/11/2019 (Approximate), Expires: 08/10/2020MAGNESIUMLabRoutinePVC (premature ventricular contraction)Expected: 11/11/2019 (Approximate), Expires: 08/10/2020CBC AND DIFFLabRoutineHLA B27 (HLA B27 positive)Inflammatory arthritisTherapeutic drug monitoringEvery 4 Weeks Auto for 12 Occurrences starting 11/09/2019 until 1ALT (SGPT)LabRoutineHLA B27 (HLA B27 positive)Inflammatory arthritisTherapeutic drug monitoringEvery 4 Weeks Auto for 12 Occurrences starting 11/09/2019 until 1CREATININELabRoutineHLA B27 (HLA B27 positive)Inflammatory arthritisTherapeutic drug monitoringEvery 4 Weeks Auto for 12 Occurrences starting 11/09/2019 until 08/10/2021IMMUNOGLOBULINS- IGA,IGG,IGMLabRoutineInflammatory arthritisExpected: 11/11/2019 (Approximate), E xpires: 08/10/2020ANTI-DNA DOUBLE STRANDLabRoutineHLA B27 (HLA B27 positive)Inflammatory arthritisElevated antinuclear antibody (RENUKA) levelTherapeutic drug monitoringExpected: 11/11/2019 (Approximate), Expires: 08/10/2020C3 COMPLEMENT 3LabRoutineHLA B27 (HLA B27 positive)Inflammatory arthritisElevated antinuclear antibody (RENUKA) levelTherapeutic drug monitoringExpected: 11/11/2019 (Approximate), Expires: 08/10/2020C4 COMPLEMENT 4LabRoutineHLA B27 (HLA B27 positive)Inflammatory arthritisElevated antinuclear antibody (RENUKA) levelTherapeutic drug monitoringExpected: 11/11/2019 (Approximate), Expires: 08/10/202025-[place] VITAMIN D (D2 + D3)LabRoutineVitamin D deficiencyExpected: 11/11/2019 (Approximate), Expires: 08/10/2020C REACTIVE PROTEIN (CRP)LabRoutineHLA B27 (HLA B27 positive)Inflammatory arthritisElevated antinuclear antibody (RENUKA) levelTherapeutic drug monitoringExpected: 11/11/2019 (Approximate), Expires: 08/10/2020SED RATELabRoutineHLA B27 (HLA B27 positive)Inflammatory arthritisElevated antinuclear antibody (RENUKA) levelTherapeutic drug monitoringExpected: 11/11/2019 (Approximate), Expires: 08/10/2020COMPREHENSIVE METABOLIC PANELLabRoutineHLA B27 (HLA B27 positive)Inflammatory arthritisElevated antinuclear antibody (RENUKA) levelTherapeutic drug monitoringExpected: 11/11/2019 (Approximate), Expires: 08/10/2020URINALYSIS DIPSTICKLabRoutineHLA B27 (HLA B27 positive)Inflammatory arthritisElevated antinuclear antibody (RENUKA) levelTherapeutic drug monitoringExpected: 11/11/2019 (Approximate), Expires: 08/10/2020URINALYSIS, MICROSCOPICLabRoutineHLA B27 (HLA B27 positive)Inflammatory arthritisElevated a ntinuclear antibody (RENUKA) levelTherapeutic drug monitoringExpected: 11/11/2019 (Approximate), Expires: 08/10/2020PROTEIN/CR RATIO,UR RANLabRoutineHLA B27 (HLA B27 positive)Inflammatory arthritisElevated antinuclear antibody (RENUKA) levelTherapeutic drug monitoringExpected: 11/11/2019 (Approximate), Expires: 08/10/2020CBC AND DIFFLabRoutineHLA B27 (HLA B27 positive)Inflammatory arthritisElevated antinuclear antibody (RENUKA) levelTherapeutic drug monitoringExpected: 11/11/2019 (Approximate), Expires: 08/10/2020MAGNESIUMLabRoutinePVC (premature ventricular contraction)Expected: 11/11/2019 (Approximate), Expires: 08/10/2020CBC AND DIFFLabRoutineInflammatory arthritisTherapeutic drug monitoringEvery 4 Weeks Auto for 12 Occurrences starting 11/09/2019 until 1ALT (SGPT)LabRoutineInflammatory arthrit isTherapeutic drug monitoringEvery 4 Weeks Auto for 12 Occurrences starting 11/09/2019 until 1CREATININELabRoutineInflammatory arthritisTherapeutic drug monitoringEvery 4 Weeks Auto for 12 Occurrences starting 11/09/2019 until 1CBC AND DIFFLabRoutineHLA-B27 spondyloarthropathyInflammatory arthritisElevated antinuclear antibody (RENUKA) levelTherapeutic drug monitoringExpected: 03/14/2020 (Approximate), Expires: 08/10/2020C REACTIVE PROTEIN (CRP)LabRoutineHLA-B27 spondyloarthropathyInflammatory arthritisElevated antinuclear antibody (RENUKA) levelTherapeutic drug monitoringExpected: 03/14/2020 (Approximate), Expires: 08/10/2020SED RATELabRoutineHLA-B27 spondyloarthropathyInflammatory arthritisElevated antinuclear antibody (RENUKA) levelTherapeutic drug monitoringExpected: 03/14/2020 (Approximate), Expires: 08/10/2020COMPREHENSIVE METABOLIC PANELLabRoutineHLA-B27 spondyloarthropathyInflammatory arthritisElevated antinuclear antibody (RENUKA) levelTherapeutic drug monitoringExpected: 03/14/2020 (Approximate), Expires: 08/10/2020URINALYSIS DIPSTICKLabRoutineHLA-B27 spondyloarthropathyInflammatory arthritisElevated antinuclear antibody (RENUKA) levelTherapeutic drug monitoringExpected: 03/14/2020 (Approximate), Expires: 08/10/2020URINALYSIS, MICROSCOPICLabRoutineHLA-B27 spondyloarthropathyInflammatory arthritisElevated antinuclear antibody (RENUKA) levelTherapeutic drug monitoringExpected: 03/14/2020 (Approximate), Expires: 08/10/2020PROTEIN/CR RATIO,UR RANLabRoutineHLA-B27 spondyloarthropathyInflammatory arthritisElevated antinuclear antibody (RENUKA) levelTherapeutic drug monitoringExpected: 03/14/2020 (Approximate), Expires: 08/10/2020C3 COMPLEMENT 3LabRoutineHLA-B27 spondyloarthropathyInflammatory arthritisElevated antinuclear antibody (RENUKA) levelTherapeutic drug monitoringExpected: 03/14/2020 (Approximate), Expires: 08/10/2020C4 COMPLEMENT 4LabRoutineHLA-B27 spondyloarthropathyInflammatory arthritisElevated antinuclear antibody (RENUKA) levelTherapeutic drug monitoringExpected: 03/14/2020 (A pproximate), Expires: 08/10/2020ANTI-DNA DOUBLE STRANDLabRoutineHLA-B27 spondyloarthropathyInflammatory arthritisElevated antinuclear antibody (RENUKA) levelTherapeutic drug monitoringExpected: 03/14/2020 (Approximate), Expires: 08/10/202025-[place] VITAMIN D (D2 + D3)LabRoutineVitamin D deficiencyTherapeutic drug monitoringExpected: 03/14/2020 (Approximate), Expires: 08/10/2020documented as of this encounter 03/29/2020 [facility] , Scheduled OrdersNameTypePriorityAssociat ed DiagnosesOrder ScheduleCBC AND DIFFLabRoutineHLA B27 (HLA B27 positive)Inflammatory arthritisElevated antinuclear antibody (RENUKA) levelExpected: 11/11/2019 (Approximate), Expires: 08/10/2020C REACTIVE PROTEIN (CRP)LabRoutineHLA B27 (HLA B27 positive)Inflammatory arthritisElevated antinuclear antibody (RENUKA) levelExpected: 11/11/2019 (Approximate), Expires: 08/10/2020COMPREHENSIVE METABOLIC PANELLabRoutineHLA B27 (HLA B27 positive)Inflammatory arthritisElevated antinuclear antibody (RENUKA) levelExpected: 11/11/2019 (Approximate), Expires: 08/10/2020SED RATELabRoutineHLA B27 (HLA B27 positive)Inflammatory arthritisElevated antinuclear antibody (RENUKA) levelExpected: 11/11/2019 (Approximate), Expires: 08/10/2020URINALYSIS DIPSTICKLabRoutineHLA B27 (HLA B27 positive)Inflammatory arthritisElevated antinuclear antibody (RENUKA) levelExpected: 11/11/2019 (Approximate), Expires: 08/10/2020URINALYSIS, MICROSCOPICLabRoutineHLA B27 (HLA B27 positive)Inflammatory arthritisElevated antinuclear antibody (RENUKA) levelExpected: 11/11/2019 (Approximate), Expires: 08/10/2020PROTEIN/CR RATIO,UR RANLabRoutineHLA B27 (HLA B27 positive)Inflammatory arthritisElevated antinuclear antibody (RENUKA) levelExpected: 11/11/2019 (Approximate), Expires: 08/10/202025-[place] VITAMIN D (D2 + D3)LabRoutineVitamin D deficiencyExpected: 11/11/2019 (Approximate), Expires: 08/10/2020C3 COMPLEMENT 3LabRoutineHLA B27 (HLA B27 positive)Inflammatory arthritisElevated antinuclear antibody (RENUKA) levelExpected: 11/11/2019 (Approximate), Expires: 08/10/2020C4 COMPLEMENT 4LabRoutineHLA B27 (HLA B27 positive)Inflammatory arthritisElevated antinuclear antibody (RENUKA) levelExpected: 11/11/2019 (Approximate), Expires: 08/10/2020ANTI- DNA DOUBLE STRANDLabRoutineHLA B27 (HLA B27 positive)Inflammatory arthritisElevated antinuclear antibody (RENUKA) levelExpected: 11/11/2019 (Approximate), Expires: 08/10/2020MAGNESIUMLabRoutinePVC (premature ventricular contraction)Expected: 11/11/2019 (Approximate), Expires: 08/10/2020CBC AND DIFFLabRoutineHLA B27 (HLA B27 positive)Inflammatory arthritisTherapeutic drug monitoringEvery 4 Weeks Auto for 12 Occurrences starting 11/09/2019 until 1ALT (SGPT)LabRoutineHLA B27 (HLA B27 positive)Inflammatory arthritisTherapeutic drug monitoringEvery 4 Weeks Auto for 12 Occurrences starting 11/09/2019 until 1CREATININELabRoutineHLA B27 (HLA B27 positive)Inflammatory arthritisTherapeutic drug monitoringEvery 4 Weeks Auto for 12 Occurrences starting 11/09/2019 until 08/10/2021IMMUNOGLOBULINS- IGA,IGG,IGMLabRoutineInflammatory arthritisExpected: 11/11/2019 (Approximate), E xpires: 08/10/2020ANTI-DNA DOUBLE STRANDLabRoutineHLA B27 (HLA B27 positive)Inflammatory arthritisElevated antinuclear antibody (RENUKA) levelTherapeutic drug monitoringExpected: 11/11/2019 (Approximate), Expires: 08/10/2020C3 COMPLEMENT 3LabRoutineHLA B27 (HLA B27 positive)Inflammatory arthritisElevated antinuclear antibody (RENUKA) levelTherapeutic drug monitoringExpected: 11/11/2019 (Approximate), Expires: 08/10/2020C4 COMPLEMENT 4LabRoutineHLA B27 (HLA B27 positive)Inflammatory arthritisElevated antinuclear antibody (RENUKA) levelTherapeutic drug monitoringExpected: 11/11/2019 (Approximate), Expires: 08/10/202025-[place] VITAMIN D (D2 + D3)LabRoutineVitamin D deficiencyExpected: 11/11/2019 (Approximate), Expires: 08/10/2020C REACTIVE PROTEIN (CRP)LabRoutineHLA B27 (HLA B27 positive)Inflammatory arthritisElevated antinuclear antibody (RENUKA) levelTherapeutic drug monitoringExpected: 11/11/2019 (Approximate), Expires: 08/10/2020SED RATELabRoutineHLA B27 (HLA B27 positive)Inflammatory arthritisElevated antinuclear antibody (RENUKA) levelTherapeutic drug monitoringExpected: 11/11/2019 (Approximate), Expires: 08/10/2020COMPREHENSIVE METABOLIC PANELLabRoutineHLA B27 (HLA B27 positive)Inflammatory arthritisElevated antinuclear antibody (RENUKA) levelTherapeutic drug monitoringExpected: 11/11/2019 (Approximate), Expires: 08/10/2020URINALYSIS DIPSTICKLabRoutineHLA B27 (HLA B27 positive)Inflammatory arthritisElevated antinuclear antibody (RENUKA) levelTherapeutic drug monitoringExpected: 11/11/2019 (Approximate), Expires: 08/10/2020URINALYSIS, MICROSCOPICLabRoutineHLA B27 (HLA B27 positive)Inflammatory arthritisElevated a ntinuclear antibody (RENUKA) levelTherapeutic drug monitoringExpected: 11/11/2019 (Approximate), Expires: 08/10/2020PROTEIN/CR RATIO,UR RANLabRoutineHLA B27 (HLA B27 positive)Inflammatory arthritisElevated antinuclear antibody (RENUKA) levelTherapeutic drug monitoringExpected: 11/11/2019 (Approximate), Expires: 08/10/2020CBC AND DIFFLabRoutineHLA B27 (HLA B27 positive)Inflammatory arthritisElevated antinuclear antibody (RENUKA) levelTherapeutic drug monitoringExpected: 11/11/2019 (Approximate), Expires: 08/10/2020MAGNESIUMLabRoutinePVC (premature ventricular contraction)Expected: 11/11/2019 (Approximate), Expires: 08/10/2020CBC AND DIFFLabRoutineInflammatory arthritisTherapeutic drug monitoringEvery 4 Weeks Auto for 12 Occurrences starting 11/09/2019 until 1ALT (SGPT)LabRoutineInflammatory arthrit isTherapeutic drug monitoringEvery 4 Weeks Auto for 12 Occurrences starting 11/09/2019 until 1CREATININELabRoutineInflammatory arthritisTherapeutic drug monitoringEvery 4 Weeks Auto for 12 Occurrences starting 11/09/2019 until 1CBC AND DIFFLabRoutineHLA-B27 spondyloarthropathyInflammatory arthritisElevated antinuclear antibody (RENUKA) levelTherapeutic drug monitoringExpected: 03/14/2020 (Approximate), Expires: 08/10/2020C REACTIVE PROTEIN (CRP)LabRoutineHLA-B27 spondyloarthropathyInflammatory arthritisElevated antinuclear antibody (RENUKA) levelTherapeutic drug monitoringExpected: 03/14/2020 (Approximate), Expires: 08/10/2020SED RATELabRoutineHLA-B27 spondyloarthropathyInflammatory arthritisElevated antinuclear antibody (RENUKA) levelTherapeutic drug monitoringExpected: 03/14/2020 (Approximate), Expires: 08/10/2020COMPREHENSIVE METABOLIC PANELLabRoutineHLA-B27 spondyloarthropathyInflammatory arthritisElevated antinuclear antibody (RENUKA) levelTherapeutic drug monitoringExpected: 03/14/2020 (Approximate), Expires: 08/10/2020URINALYSIS DIPSTICKLabRoutineHLA-B27 spondyloarthropathyInflammatory arthritisElevated antinuclear antibody (RENUKA) levelTherapeutic drug monitoringExpected: 03/14/2020 (Approximate), Expires: 08/10/2020URINALYSIS, MICROSCOPICLabRoutineHLA-B27 spondyloarthropathyInflammatory arthritisElevated antinuclear antibody (RENUKA) levelTherapeutic drug monitoringExpected: 03/14/2020 (Approximate), Expires: 08/10/2020PROTEIN/CR RATIO,UR RANLabRoutineHLA-B27 spondyloarthropathyInflammatory arthritisElevated antinuclear antibody (RENUKA) levelTherapeutic drug monitoringExpected: 03/14/2020 (Approximate), Expires: 08/10/2020C3 COMPLEMENT 3LabRoutineHLA-B27 spondyloarthropathyInflammatory arthritisElevated antinuclear antibody (RENUKA) levelTherapeutic drug monitoringExpected: 03/14/2020 (Approximate), Expires: 08/10/2020C4 COMPLEMENT 4LabRoutineHLA-B27 spondyloarthropathyInflammatory arthritisElevated antinuclear antibody (RENUKA) levelTherapeutic drug monitoringExpected: 03/14/2020 (A pproximate), Expires: 08/10/2020ANTI-DNA DOUBLE STRANDLabRoutineHLA-B27 spondyloarthropathyInflammatory arthritisElevated antinuclear antibody (RENUKA) levelTherapeutic drug monitoringExpected: 03/14/2020 (Approximate), Expires: 08/10/202025-[place] VITAMIN D (D2 + D3)LabRoutineVitamin D deficiencyTherapeutic drug monitoringExpected: 03/14/2020 (Approximate), Expires: 08/10/2020documented as of this encounter 03/29/2020 [facility] , Scheduled OrdersNameTypePriorityAssociat ed DiagnosesOrder ScheduleCBC AND DIFFLabRoutineHLA B27 (HLA B27 positive)Inflammatory arthritisElevated antinuclear antibody (RENUKA) levelExpected: 11/11/2019 (Approximate), Expires: 08/10/2020C REACTIVE PROTEIN (CRP)LabRoutineHLA B27 (HLA B27 positive)Inflammatory arthritisElevated antinuclear antibody (RENUKA) levelExpected: 11/11/2019 (Approximate), Expires: 08/10/2020COMPREHENSIVE METABOLIC PANELLabRoutineHLA B27 (HLA B27 positive)Inflammatory arthritisElevated antinuclear antibody (RENUKA) levelExpected: 11/11/2019 (Approximate), Expires: 08/10/2020SED RATELabRoutineHLA B27 (HLA B27 positive)Inflammatory arthritisElevated antinuclear antibody (RENUKA) levelExpected: 11/11/2019 (Approximate), Expires: 08/10/2020URINALYSIS DIPSTICKLabRoutineHLA B27 (HLA B27 positive)Inflammatory arthritisElevated antinuclear antibody (RENUKA) levelExpected: 11/11/2019 (Approximate), Expires: 08/10/2020URINALYSIS, MICROSCOPICLabRoutineHLA B27 (HLA B27 positive)Inflammatory arthritisElevated antinuclear antibody (RENUKA) levelExpected: 11/11/2019 (Approximate), Expires: 08/10/2020PROTEIN/CR RATIO,UR RANLabRoutineHLA B27 (HLA B27 positive)Inflammatory arthritisElevated antinuclear antibody (RENUKA) levelExpected: 11/11/2019 (Approximate), Expires: 08/10/202025-[place] VITAMIN D (D2 + D3)LabRoutineVitamin D deficiencyExpected: 11/11/2019 (Approximate), Expires: 08/10/2020C3 COMPLEMENT 3LabRoutineHLA B27 (HLA B27 positive)Inflammatory arthritisElevated antinuclear antibody (RENUKA) levelExpected: 11/11/2019 (Approximate), Expires: 08/10/2020C4 COMPLEMENT 4LabRoutineHLA B27 (HLA B27 positive)Inflammatory arthritisElevated antinuclear antibody (RENUKA) levelExpected: 11/11/2019 (Approximate), Expires: 08/10/2020ANTI- DNA DOUBLE STRANDLabRoutineHLA B27 (HLA B27 positive)Inflammatory arthritisElevated antinuclear antibody (RENUKA) levelExpected: 11/11/2019 (Approximate), Expires: 08/10/2020MAGNESIUMLabRoutinePVC (premature ventricular contraction)Expected: 11/11/2019 (Approximate), Expires: 08/10/2020CBC AND DIFFLabRoutineHLA B27 (HLA B27 positive)Inflammatory arthritisTherapeutic drug monitoringEvery 4 Weeks Auto for 12 Occurrences starting 11/09/2019 until 1ALT (SGPT)LabRoutineHLA B27 (HLA B27 positive)Inflammatory arthritisTherapeutic drug monitoringEvery 4 Weeks Auto for 12 Occurrences starting 11/09/2019 until 1CREATININELabRoutineHLA B27 (HLA B27 positive)Inflammatory arthritisTherapeutic drug monitoringEvery 4 Weeks Auto for 12 Occurrences starting 11/09/2019 until 08/10/2021IMMUNOGLOBULINS- IGA,IGG,IGMLabRoutineInflammatory arthritisExpected: 11/11/2019 (Approximate), E xpires: 08/10/2020ANTI-DNA DOUBLE STRANDLabRoutineHLA B27 (HLA B27 positive)Inflammatory arthritisElevated antinuclear antibody (RENUKA) levelTherapeutic drug monitoringExpected: 11/11/2019 (Approximate), Expires: 08/10/2020C3 COMPLEMENT 3LabRoutineHLA B27 (HLA B27 positive)Inflammatory arthritisElevated antinuclear antibody (RENUKA) levelTherapeutic drug monitoringExpected: 11/11/2019 (Approximate), Expires: 08/10/2020C4 COMPLEMENT 4LabRoutineHLA B27 (HLA B27 positive)Inflammatory arthritisElevated antinuclear antibody (RENUKA) levelTherapeutic drug monitoringExpected: 11/11/2019 (Approximate), Expires: 08/10/202025-[place] VITAMIN D (D2 + D3)LabRoutineVitamin D deficiencyExpected: 11/11/2019 (Approximate), Expires: 08/10/2020C REACTIVE PROTEIN (CRP)LabRoutineHLA B27 (HLA B27 positive)Inflammatory arthritisElevated antinuclear antibody (RENUKA) levelTherapeutic drug monitoringExpected: 11/11/2019 (Approximate), Expires: 08/10/2020SED RATELabRoutineHLA B27 (HLA B27 positive)Inflammatory arthritisElevated antinuclear antibody (RENUKA) levelTherapeutic drug monitoringExpected: 11/11/2019 (Approximate), Expires: 08/10/2020COMPREHENSIVE METABOLIC PANELLabRoutineHLA B27 (HLA B27 positive)Inflammatory arthritisElevated antinuclear antibody (RENUKA) levelTherapeutic drug monitoringExpected: 11/11/2019 (Approximate), Expires: 08/10/2020URINALYSIS DIPSTICKLabRoutineHLA B27 (HLA B27 positive)Inflammatory arthritisElevated antinuclear antibody (RENUKA) levelTherapeutic drug monitoringExpected: 11/11/2019 (Approximate), Expires: 08/10/2020URINALYSIS, MICROSCOPICLabRoutineHLA B27 (HLA B27 positive)Inflammatory arthritisElevated a ntinuclear antibody (RENUKA) levelTherapeutic drug monitoringExpected: 11/11/2019 (Approximate), Expires: 08/10/2020PROTEIN/CR RATIO,UR RANLabRoutineHLA B27 (HLA B27 positive)Inflammatory arthritisElevated antinuclear antibody (RENUKA) levelTherapeutic drug monitoringExpected: 11/11/2019 (Approximate), Expires: 08/10/2020CBC AND DIFFLabRoutineHLA B27 (HLA B27 positive)Inflammatory arthritisElevated antinuclear antibody (RENUKA) levelTherapeutic drug monitoringExpected: 11/11/2019 (Approximate), Expires: 08/10/2020MAGNESIUMLabRoutinePVC (premature ventricular contraction)Expected: 11/11/2019 (Approximate), Expires: 08/10/2020CBC AND DIFFLabRoutineInflammatory arthritisTherapeutic drug monitoringEvery 4 Weeks Auto for 12 Occurrences starting 11/09/2019 until 1ALT (SGPT)LabRoutineInflammatory arthrit isTherapeutic drug monitoringEvery 4 Weeks Auto for 12 Occurrences starting 11/09/2019 until 1CREATININELabRoutineInflammatory arthritisTherapeutic drug monitoringEvery 4 Weeks Auto for 12 Occurrences starting 11/09/2019 until 1CBC AND DIFFLabRoutineHLA-B27 spondyloarthropathyInflammatory arthritisElevated antinuclear antibody (RENUKA) levelTherapeutic drug monitoringExpected: 03/14/2020 (Approximate), Expires: 08/10/2020C REACTIVE PROTEIN (CRP)LabRoutineHLA-B27 spondyloarthropathyInflammatory arthritisElevated antinuclear antibody (RENUKA) levelTherapeutic drug monitoringExpected: 03/14/2020 (Approximate), Expires: 08/10/2020SED RATELabRoutineHLA-B27 spondyloarthropathyInflammatory arthritisElevated antinuclear antibody (RENUKA) levelTherapeutic drug monitoringExpected: 03/14/2020 (Approximate), Expires: 08/10/2020COMPREHENSIVE METABOLIC PANELLabRoutineHLA-B27 spondyloarthropathyInflammatory arthritisElevated antinuclear antibody (RENUKA) levelTherapeutic drug monitoringExpected: 03/14/2020 (Approximate), Expires: 08/10/2020URINALYSIS DIPSTICKLabRoutineHLA-B27 spondyloarthropathyInflammatory arthritisElevated antinuclear antibody (RENUKA) levelTherapeutic drug monitoringExpected: 03/14/2020 (Approximate), Expires: 08/10/2020URINALYSIS, MICROSCOPICLabRoutineHLA-B27 spondyloarthropathyInflammatory arthritisElevated antinuclear antibody (RENUKA) levelTherapeutic drug monitoringExpected: 03/14/2020 (Approximate), Expires: 08/10/2020PROTEIN/CR RATIO,UR RANLabRoutineHLA-B27 spondyloarthropathyInflammatory arthritisElevated antinuclear antibody (RENUKA) levelTherapeutic drug monitoringExpected: 03/14/2020 (Approximate), Expires: 08/10/2020C3 COMPLEMENT 3LabRoutineHLA-B27 spondyloarthropathyInflammatory arthritisElevated antinuclear antibody (RENUKA) levelTherapeutic drug monitoringExpected: 03/14/2020 (Approximate), Expires: 08/10/2020C4 COMPLEMENT 4LabRoutineHLA-B27 spondyloarthropathyInflammatory arthritisElevated antinuclear antibody (RENUKA) levelTherapeutic drug monitoringExpected: 03/14/2020 (A pproximate), Expires: 08/10/2020ANTI-DNA DOUBLE STRANDLabRoutineHLA-B27 spondyloarthropathyInflammatory arthritisElevated antinuclear antibody (RENUKA) levelTherapeutic drug monitoringExpected: 03/14/2020 (Approximate), Expires: 08/10/202025-[place] VITAMIN D (D2 + D3)LabRoutineVitamin D deficiencyTherapeutic drug monitoringExpected: 03/14/2020 (Approximate), Expires: 08/10/2020documented as of this encounter 03/29/2020 [facility] , Scheduled OrdersNameTypePriorityAssociat ed DiagnosesOrder ScheduleCBC AND DIFFLabRoutineHLA B27 (HLA B27 positive)Inflammatory arthritisElevated antinuclear antibody (RENUKA) levelExpected: 11/11/2019 (Approximate), Expires: 08/10/2020C REACTIVE PROTEIN (CRP)LabRoutineHLA B27 (HLA B27 positive)Inflammatory arthritisElevated antinuclear antibody (RENUKA) levelExpected: 11/11/2019 (Approximate), Expires: 08/10/2020COMPREHENSIVE METABOLIC PANELLabRoutineHLA B27 (HLA B27 positive)Inflammatory arthritisElevated antinuclear antibody (RENUKA) levelExpected: 11/11/2019 (Approximate), Expires: 08/10/2020SED RATELabRoutineHLA B27 (HLA B27 positive)Inflammatory arthritisElevated antinuclear antibody (RENUKA) levelExpected: 11/11/2019 (Approximate), Expires: 08/10/2020URINALYSIS DIPSTICKLabRoutineHLA B27 (HLA B27 positive)Inflammatory arthritisElevated antinuclear antibody (RENUKA) levelExpected: 11/11/2019 (Approximate), Expires: 08/10/2020URINALYSIS, MICROSCOPICLabRoutineHLA B27 (HLA B27 positive)Inflammatory arthritisElevated antinuclear antibody (RENUKA) levelExpected: 11/11/2019 (Approximate), Expires: 08/10/2020PROTEIN/CR RATIO,UR RANLabRoutineHLA B27 (HLA B27 positive)Inflammatory arthritisElevated antinuclear antibody (RENUKA) levelExpected: 11/11/2019 (Approximate), Expires: 08/10/202025-[place] VITAMIN D (D2 + D3)LabRoutineVitamin D deficiencyExpected: 11/11/2019 (Approximate), Expires: 08/10/2020C3 COMPLEMENT 3LabRoutineHLA B27 (HLA B27 positive)Inflammatory arthritisElevated antinuclear antibody (RENUKA) levelExpected: 11/11/2019 (Approximate), Expires: 08/10/2020C4 COMPLEMENT 4LabRoutineHLA B27 (HLA B27 positive)Inflammatory arthritisElevated antinuclear antibody (RENUKA) levelExpected: 11/11/2019 (Approximate), Expires: 08/10/2020ANTI- DNA DOUBLE STRANDLabRoutineHLA B27 (HLA B27 positive)Inflammatory arthritisElevated antinuclear antibody (RENUKA) levelExpected: 11/11/2019 (Approximate), Expires: 08/10/2020MAGNESIUMLabRoutinePVC (premature ventricular contraction)Expected: 11/11/2019 (Approximate), Expires: 08/10/2020CBC AND DIFFLabRoutineHLA B27 (HLA B27 positive)Inflammatory arthritisTherapeutic drug monitoringEvery 4 Weeks Auto for 12 Occurrences starting 11/09/2019 until 1ALT (SGPT)LabRoutineHLA B27 (HLA B27 positive)Inflammatory arthritisTherapeutic drug monitoringEvery 4 Weeks Auto for 12 Occurrences starting 11/09/2019 until 1CREATININELabRoutineHLA B27 (HLA B27 positive)Inflammatory arthritisTherapeutic drug monitoringEvery 4 Weeks Auto for 12 Occurrences starting 11/09/2019 until 08/10/2021IMMUNOGLOBULINS- IGA,IGG,IGMLabRoutineInflammatory arthritisExpected: 11/11/2019 (Approximate), E xpires: 08/10/2020ANTI-DNA DOUBLE STRANDLabRoutineHLA B27 (HLA B27 positive)Inflammatory arthritisElevated antinuclear antibody (RENUKA) levelTherapeutic drug monitoringExpected: 11/11/2019 (Approximate), Expires: 08/10/2020C3 COMPLEMENT 3LabRoutineHLA B27 (HLA B27 positive)Inflammatory arthritisElevated antinuclear antibody (RENUKA) levelTherapeutic drug monitoringExpected: 11/11/2019 (Approximate), Expires: 08/10/2020C4 COMPLEMENT 4LabRoutineHLA B27 (HLA B27 positive)Inflammatory arthritisElevated antinuclear antibody (RENUKA) levelTherapeutic drug monitoringExpected: 11/11/2019 (Approximate), Expires: 08/10/202025-[place] VITAMIN D (D2 + D3)LabRoutineVitamin D deficiencyExpected: 11/11/2019 (Approximate), Expires: 08/10/2020C REACTIVE PROTEIN (CRP)LabRoutineHLA B27 (HLA B27 positive)Inflammatory arthritisElevated antinuclear antibody (RENUKA) levelTherapeutic drug monitoringExpected: 11/11/2019 (Approximate), Expires: 08/10/2020SED RATELabRoutineHLA B27 (HLA B27 positive)Inflammatory arthritisElevated antinuclear antibody (RENUKA) levelTherapeutic drug monitoringExpected: 11/11/2019 (Approximate), Expires: 08/10/2020COMPREHENSIVE METABOLIC PANELLabRoutineHLA B27 (HLA B27 positive)Inflammatory arthritisElevated antinuclear antibody (RENUKA) levelTherapeutic drug monitoringExpected: 11/11/2019 (Approximate), Expires: 08/10/2020URINALYSIS DIPSTICKLabRoutineHLA B27 (HLA B27 positive)Inflammatory arthritisElevated antinuclear antibody (RENUKA) levelTherapeutic drug monitoringExpected: 11/11/2019 (Approximate), Expires: 08/10/2020URINALYSIS, MICROSCOPICLabRoutineHLA B27 (HLA B27 positive)Inflammatory arthritisElevated a ntinuclear antibody (RENUKA) levelTherapeutic drug monitoringExpected: 11/11/2019 (Approximate), Expires: 08/10/2020PROTEIN/CR RATIO,UR RANLabRoutineHLA B27 (HLA B27 positive)Inflammatory arthritisElevated antinuclear antibody (RENUKA) levelTherapeutic drug monitoringExpected: 11/11/2019 (Approximate), Expires: 08/10/2020CBC AND DIFFLabRoutineHLA B27 (HLA B27 positive)Inflammatory arthritisElevated antinuclear antibody (RENUKA) levelTherapeutic drug monitoringExpected: 11/11/2019 (Approximate), Expires: 08/10/2020MAGNESIUMLabRoutinePVC (premature ventricular contraction)Expected: 11/11/2019 (Approximate), Expires: 08/10/2020CBC AND DIFFLabRoutineInflammatory arthritisTherapeutic drug monitoringEvery 4 Weeks Auto for 12 Occurrences starting 11/09/2019 until 1ALT (SGPT)LabRoutineInflammatory arthrit isTherapeutic drug monitoringEvery 4 Weeks Auto for 12 Occurrences starting 11/09/2019 until 1CREATININELabRoutineInflammatory arthritisTherapeutic drug monitoringEvery 4 Weeks Auto for 12 Occurrences starting 11/09/2019 until 1CBC AND DIFFLabRoutineHLA-B27 spondyloarthropathyInflammatory arthritisElevated antinuclear antibody (RENUKA) levelTherapeutic drug monitoringExpected: 03/14/2020 (Approximate), Expires: 08/10/2020C REACTIVE PROTEIN (CRP)LabRoutineHLA-B27 spondyloarthropathyInflammatory arthritisElevated antinuclear antibody (RENUKA) levelTherapeutic drug monitoringExpected: 03/14/2020 (Approximate), Expires: 08/10/2020SED RATELabRoutineHLA-B27 spondyloarthropathyInflammatory arthritisElevated antinuclear antibody (RENUKA) levelTherapeutic drug monitoringExpected: 03/14/2020 (Approximate), Expires: 08/10/2020COMPREHENSIVE METABOLIC PANELLabRoutineHLA-B27 spondyloarthropathyInflammatory arthritisElevated antinuclear antibody (RENUKA) levelTherapeutic drug monitoringExpected: 03/14/2020 (Approximate), Expires: 08/10/2020URINALYSIS DIPSTICKLabRoutineHLA-B27 spondyloarthropathyInflammatory arthritisElevated antinuclear antibody (RENUKA) levelTherapeutic drug monitoringExpected: 03/14/2020 (Approximate), Expires: 08/10/2020URINALYSIS, MICROSCOPICLabRoutineHLA-B27 spondyloarthropathyInflammatory arthritisElevated antinuclear antibody (RENUKA) levelTherapeutic drug monitoringExpected: 03/14/2020 (Approximate), Expires: 08/10/2020PROTEIN/CR RATIO,UR RANLabRoutineHLA-B27 spondyloarthropathyInflammatory arthritisElevated antinuclear antibody (RENUKA) levelTherapeutic drug monitoringExpected: 03/14/2020 (Approximate), Expires: 08/10/2020C3 COMPLEMENT 3LabRoutineHLA-B27 spondyloarthropathyInflammatory arthritisElevated antinuclear antibody (RENUKA) levelTherapeutic drug monitoringExpected: 03/14/2020 (Approximate), Expires: 08/10/2020C4 COMPLEMENT 4LabRoutineHLA-B27 spondyloarthropathyInflammatory arthritisElevated antinuclear antibody (RENUKA) levelTherapeutic drug monitoringExpected: 03/14/2020 (A pproximate), Expires: 08/10/2020ANTI-DNA DOUBLE STRANDLabRoutineHLA-B27 spondyloarthropathyInflammatory arthritisElevated antinuclear antibody (RENUKA) levelTherapeutic drug monitoringExpected: 03/14/2020 (Approximate), Expires: 08/10/202025-[place] VITAMIN D (D2 + D3)LabRoutineVitamin D deficiencyTherapeutic drug monitoringExpected: 03/14/2020 (Approximate), Expires: 08/10/2020documented as of this encounter 03/29/2020 [facility] , Scheduled OrdersNameTypePriorityAssociat ed DiagnosesOrder ScheduleCBC AND DIFFLabRoutineHLA B27 (HLA B27 positive)Inflammatory arthritisElevated antinuclear antibody (RENUKA) levelExpected: 11/11/2019 (Approximate), Expires: 08/10/2020C REACTIVE PROTEIN (CRP)LabRoutineHLA B27 (HLA B27 positive)Inflammatory arthritisElevated antinuclear antibody (RENUKA) levelExpected: 11/11/2019 (Approximate), Expires: 08/10/2020COMPREHENSIVE METABOLIC PANELLabRoutineHLA B27 (HLA B27 positive)Inflammatory arthritisElevated antinuclear antibody (RENUKA) levelExpected: 11/11/2019 (Approximate), Expires: 08/10/2020SED RATELabRoutineHLA B27 (HLA B27 positive)Inflammatory arthritisElevated antinuclear antibody (RENUKA) levelExpected: 11/11/2019 (Approximate), Expires: 08/10/2020URINALYSIS DIPSTICKLabRoutineHLA B27 (HLA B27 positive)Inflammatory arthritisElevated antinuclear antibody (RENUKA) levelExpected: 11/11/2019 (Approximate), Expires: 08/10/2020URINALYSIS, MICROSCOPICLabRoutineHLA B27 (HLA B27 positive)Inflammatory arthritisElevated antinuclear antibody (RENUKA) levelExpected: 11/11/2019 (Approximate), Expires: 08/10/2020PROTEIN/CR RATIO,UR RANLabRoutineHLA B27 (HLA B27 positive)Inflammatory arthritisElevated antinuclear antibody (RENUKA) levelExpected: 11/11/2019 (Approximate), Expires: 08/10/202025-[place] VITAMIN D (D2 + D3)LabRoutineVitamin D deficiencyExpected: 11/11/2019 (Approximate), Expires: 08/10/2020C3 COMPLEMENT 3LabRoutineHLA B27 (HLA B27 positive)Inflammatory arthritisElevated antinuclear antibody (RENUKA) levelExpected: 11/11/2019 (Approximate), Expires: 08/10/2020C4 COMPLEMENT 4LabRoutineHLA B27 (HLA B27 positive)Inflammatory arthritisElevated antinuclear antibody (RENUKA) levelExpected: 11/11/2019 (Approximate), Expires: 08/10/2020ANTI- DNA DOUBLE STRANDLabRoutineHLA B27 (HLA B27 positive)Inflammatory arthritisElevated antinuclear antibody (RENUKA) levelExpected: 11/11/2019 (Approximate), Expires: 08/10/2020MAGNESIUMLabRoutinePVC (premature ventricular contraction)Expected: 11/11/2019 (Approximate), Expires: 08/10/2020CBC AND DIFFLabRoutineHLA B27 (HLA B27 positive)Inflammatory arthritisTherapeutic drug monitoringEvery 4 Weeks Auto for 12 Occurrences starting 11/09/2019 until 1ALT (SGPT)LabRoutineHLA B27 (HLA B27 positive)Inflammatory arthritisTherapeutic drug monitoringEvery 4 Weeks Auto for 12 Occurrences starting 11/09/2019 until 1CREATININELabRoutineHLA B27 (HLA B27 positive)Inflammatory arthritisTherapeutic drug monitoringEvery 4 Weeks Auto for 12 Occurrences starting 11/09/2019 until 08/10/2021IMMUNOGLOBULINS- IGA,IGG,IGMLabRoutineInflammatory arthritisExpected: 11/11/2019 (Approximate), E xpires: 08/10/2020ANTI-DNA DOUBLE STRANDLabRoutineHLA B27 (HLA B27 positive)Inflammatory arthritisElevated antinuclear antibody (RENUKA) levelTherapeutic drug monitoringExpected: 11/11/2019 (Approximate), Expires: 08/10/2020C3 COMPLEMENT 3LabRoutineHLA B27 (HLA B27 positive)Inflammatory arthritisElevated antinuclear antibody (RENUKA) levelTherapeutic drug monitoringExpected: 11/11/2019 (Approximate), Expires: 08/10/2020C4 COMPLEMENT 4LabRoutineHLA B27 (HLA B27 positive)Inflammatory arthritisElevated antinuclear antibody (RENUKA) levelTherapeutic drug monitoringExpected: 11/11/2019 (Approximate), Expires: 08/10/202025-[place] VITAMIN D (D2 + D3)LabRoutineVitamin D deficiencyExpected: 11/11/2019 (Approximate), Expires: 08/10/2020C REACTIVE PROTEIN (CRP)LabRoutineHLA B27 (HLA B27 positive)Inflammatory arthritisElevated antinuclear antibody (RENUKA) levelTherapeutic drug monitoringExpected: 11/11/2019 (Approximate), Expires: 08/10/2020SED RATELabRoutineHLA B27 (HLA B27 positive)Inflammatory arthritisElevated antinuclear antibody (RENUKA) levelTherapeutic drug monitoringExpected: 11/11/2019 (Approximate), Expires: 08/10/2020COMPREHENSIVE METABOLIC PANELLabRoutineHLA B27 (HLA B27 positive)Inflammatory arthritisElevated antinuclear antibody (RENUKA) levelTherapeutic drug monitoringExpected: 11/11/2019 (Approximate), Expires: 08/10/2020URINALYSIS DIPSTICKLabRoutineHLA B27 (HLA B27 positive)Inflammatory arthritisElevated antinuclear antibody (RENUKA) levelTherapeutic drug monitoringExpected: 11/11/2019 (Approximate), Expires: 08/10/2020URINALYSIS, MICROSCOPICLabRoutineHLA B27 (HLA B27 positive)Inflammatory arthritisElevated a ntinuclear antibody (RENUKA) levelTherapeutic drug monitoringExpected: 11/11/2019 (Approximate), Expires: 08/10/2020PROTEIN/CR RATIO,UR RANLabRoutineHLA B27 (HLA B27 positive)Inflammatory arthritisElevated antinuclear antibody (RENUKA) levelTherapeutic drug monitoringExpected: 11/11/2019 (Approximate), Expires: 08/10/2020CBC AND DIFFLabRoutineHLA B27 (HLA B27 positive)Inflammatory arthritisElevated antinuclear antibody (RENUKA) levelTherapeutic drug monitoringExpected: 11/11/2019 (Approximate), Expires: 08/10/2020MAGNESIUMLabRoutinePVC (premature ventricular contraction)Expected: 11/11/2019 (Approximate), Expires: 08/10/2020CBC AND DIFFLabRoutineInflammatory arthritisTherapeutic drug monitoringEvery 4 Weeks Auto for 12 Occurrences starting 11/09/2019 until 1ALT (SGPT)LabRoutineInflammatory arthrit isTherapeutic drug monitoringEvery 4 Weeks Auto for 12 Occurrences starting 11/09/2019 until 1CREATININELabRoutineInflammatory arthritisTherapeutic drug monitoringEvery 4 Weeks Auto for 12 Occurrences starting 11/09/2019 until 1CBC AND DIFFLabRoutineHLA-B27 spondyloarthropathyInflammatory arthritisElevated antinuclear antibody (RENUKA) levelTherapeutic drug monitoringExpected: 03/14/2020 (Approximate), Expires: 08/10/2020C REACTIVE PROTEIN (CRP)LabRoutineHLA-B27 spondyloarthropathyInflammatory arthritisElevated antinuclear antibody (RENUKA) levelTherapeutic drug monitoringExpected: 03/14/2020 (Approximate), Expires: 08/10/2020SED RATELabRoutineHLA-B27 spondyloarthropathyInflammatory arthritisElevated antinuclear antibody (RENUKA) levelTherapeutic drug monitoringExpected: 03/14/2020 (Approximate), Expires: 08/10/2020COMPREHENSIVE METABOLIC PANELLabRoutineHLA-B27 spondyloarthropathyInflammatory arthritisElevated antinuclear antibody (RENUKA) levelTherapeutic drug monitoringExpected: 03/14/2020 (Approximate), Expires: 08/10/2020URINALYSIS DIPSTICKLabRoutineHLA-B27 spondyloarthropathyInflammatory arthritisElevated antinuclear antibody (RENUKA) levelTherapeutic drug monitoringExpected: 03/14/2020 (Approximate), Expires: 08/10/2020URINALYSIS, MICROSCOPICLabRoutineHLA-B27 spondyloarthropathyInflammatory arthritisElevated antinuclear antibody (RENUKA) levelTherapeutic drug monitoringExpected: 03/14/2020 (Approximate), Expires: 08/10/2020PROTEIN/CR RATIO,UR RANLabRoutineHLA-B27 spondyloarthropathyInflammatory arthritisElevated antinuclear antibody (RENUKA) levelTherapeutic drug monitoringExpected: 03/14/2020 (Approximate), Expires: 08/10/2020C3 COMPLEMENT 3LabRoutineHLA-B27 spondyloarthropathyInflammatory arthritisElevated antinuclear antibody (RENUKA) levelTherapeutic drug monitoringExpected: 03/14/2020 (Approximate), Expires: 08/10/2020C4 COMPLEMENT 4LabRoutineHLA-B27 spondyloarthropathyInflammatory arthritisElevated antinuclear antibody (RENUKA) levelTherapeutic drug monitoringExpected: 03/14/2020 (A pproximate), Expires: 08/10/2020ANTI-DNA DOUBLE STRANDLabRoutineHLA-B27 spondyloarthropathyInflammatory arthritisElevated antinuclear antibody (RENUKA) levelTherapeutic drug monitoringExpected: 03/14/2020 (Approximate), Expires: 08/10/202025-[place] VITAMIN D (D2 + D3)LabRoutineVitamin D deficiencyTherapeutic drug monitoringExpected: 03/14/2020 (Approximate), Expires: 08/10/2020documented as of this encounter 03/29/2020 [facility] , Scheduled OrdersNameTypePriorityAssociat ed DiagnosesOrder ScheduleCBC AND DIFFLabRoutineHLA B27 (HLA B27 positive)Inflammatory arthritisElevated antinuclear antibody (RENUKA) levelExpected: 11/11/2019 (Approximate), Expires: 08/10/2020C REACTIVE PROTEIN (CRP)LabRoutineHLA B27 (HLA B27 positive)Inflammatory arthritisElevated antinuclear antibody (RENUKA) levelExpected: 11/11/2019 (Approximate), Expires: 08/10/2020COMPREHENSIVE METABOLIC PANELLabRoutineHLA B27 (HLA B27 positive)Inflammatory arthritisElevated antinuclear antibody (RENUKA) levelExpected: 11/11/2019 (Approximate), Expires: 08/10/2020SED RATELabRoutineHLA B27 (HLA B27 positive)Inflammatory arthritisElevated antinuclear antibody (RENUKA) levelExpected: 11/11/2019 (Approximate), Expires: 08/10/2020URINALYSIS DIPSTICKLabRoutineHLA B27 (HLA B27 positive)Inflammatory arthritisElevated antinuclear antibody (RENUKA) levelExpected: 11/11/2019 (Approximate), Expires: 08/10/2020URINALYSIS, MICROSCOPICLabRoutineHLA B27 (HLA B27 positive)Inflammatory arthritisElevated antinuclear antibody (RENUKA) levelExpected: 11/11/2019 (Approximate), Expires: 08/10/2020PROTEIN/CR RATIO,UR RANLabRoutineHLA B27 (HLA B27 positive)Inflammatory arthritisElevated antinuclear antibody (RENUKA) levelExpected: 11/11/2019 (Approximate), Expires: 08/10/202025-[place] VITAMIN D (D2 + D3)LabRoutineVitamin D deficiencyExpected: 11/11/2019 (Approximate), Expires: 08/10/2020C3 COMPLEMENT 3LabRoutineHLA B27 (HLA B27 positive)Inflammatory arthritisElevated antinuclear antibody (RENUKA) levelExpected: 11/11/2019 (Approximate), Expires: 08/10/2020C4 COMPLEMENT 4LabRoutineHLA B27 (HLA B27 positive)Inflammatory arthritisElevated antinuclear antibody (RENUKA) levelExpected: 11/11/2019 (Approximate), Expires: 08/10/2020ANTI- DNA DOUBLE STRANDLabRoutineHLA B27 (HLA B27 positive)Inflammatory arthritisElevated antinuclear antibody (RENUKA) levelExpected: 11/11/2019 (Approximate), Expires: 08/10/2020MAGNESIUMLabRoutinePVC (premature ventricular contraction)Expected: 11/11/2019 (Approximate), Expires: 08/10/2020CBC AND DIFFLabRoutineHLA B27 (HLA B27 positive)Inflammatory arthritisTherapeutic drug monitoringEvery 4 Weeks Auto for 12 Occurrences starting 11/09/2019 until 1ALT (SGPT)LabRoutineHLA B27 (HLA B27 positive)Inflammatory arthritisTherapeutic drug monitoringEvery 4 Weeks Auto for 12 Occurrences starting 11/09/2019 until 1CREATININELabRoutineHLA B27 (HLA B27 positive)Inflammatory arthritisTherapeutic drug monitoringEvery 4 Weeks Auto for 12 Occurrences starting 11/09/2019 until 1IMMUNOGLOBULINS- IGA,IGG,IGMLabRoutineInflammatory arthritisExpected: 11/11/2019 (Approximate), E xpires: 08/10/2020ANTI-DNA DOUBLE STRANDLabRoutineHLA B27 (HLA B27 positive)Inflammatory arthritisElevated antinuclear antibody (RENUKA) levelTherapeutic drug monitoringExpected: 11/11/2019 (Approximate), Expires: 08/10/2020C3 COMPLEMENT 3LabRoutineHLA B27 (HLA B27 positive)Inflammatory arthritisElevated antinuclear antibody (RENUKA) levelTherapeutic drug monitoringExpected: 11/11/2019 (Approximate), Expires: 08/10/2020C4 COMPLEMENT 4LabRoutineHLA B27 (HLA B27 positive)Inflammatory arthritisElevated antinuclear antibody (RENUKA) levelTherapeutic drug monitoringExpected: 11/11/2019 (Approximate), Expires: 08/10/202025-[place] VITAMIN D (D2 + D3)LabRoutineVitamin D deficiencyExpected: 11/11/2019 (Approximate), Expires: 08/10/2020C REACTIVE PROTEIN (CRP)LabRoutineHLA B27 (HLA B27 positive)Inflammatory arthritisElevated antinuclear antibody (RENUKA) levelTherapeutic drug monitoringExpected: 11/11/2019 (Approximate), Expires: 08/10/2020SED RATELabRoutineHLA B27 (HLA B27 positive)Inflammatory arthritisElevated antinuclear antibody (RENUKA) levelTherapeutic drug monitoringExpected: 11/11/2019 (Approximate), Expires: 08/10/2020COMPREHENSIVE METABOLIC PANELLabRoutineHLA B27 (HLA B27 positive)Inflammatory arthritisElevated antinuclear antibody (RENUKA) levelTherapeutic drug monitoringExpected: 11/11/2019 (Approximate), Expires: 08/10/2020URINALYSIS DIPSTICKLabRoutineHLA B27 (HLA B27 positive)Inflammatory arthritisElevated antinuclear antibody (RENUKA) levelTherapeutic drug monitoringExpected: 11/11/2019 (Approximate), Expires: 08/10/2020URINALYSIS, MICROSCOPICLabRoutineHLA B27 (HLA B27 positive)Inflammatory arthritisElevated a ntinuclear antibody (RENUKA) levelTherapeutic drug monitoringExpected: 11/11/2019 (Approximate), Expires: 08/10/2020PROTEIN/CR RATIO,UR RANLabRoutineHLA B27 (HLA B27 positive)Inflammatory arthritisElevated antinuclear antibody (RENUKA) levelTherapeutic drug monitoringExpected: 11/11/2019 (Approximate), Expires: 08/10/2020CBC AND DIFFLabRoutineHLA B27 (HLA B27 positive)Inflammatory arthritisElevated antinuclear antibody (RENUKA) levelTherapeutic drug monitoringExpected: 11/11/2019 (Approximate), Expires: 08/10/2020MAGNESIUMLabRoutinePVC (premature ventricular contraction)Expected: 11/11/2019 (Approximate), Expires: 08/10/2020CBC AND DIFFLabRoutineInflammatory arthritisTherapeutic drug monitoringEvery 4 Weeks Auto for 12 Occurrences starting 11/09/2019 until 1ALT (SGPT)LabRoutineInflammatory arthrit isTherapeutic drug monitoringEvery 4 Weeks Auto for 12 Occurrences starting 11/09/2019 until 1CREATININELabRoutineInflammatory arthritisTherapeutic drug monitoringEvery 4 Weeks Auto for 12 Occurrences starting 11/09/2019 until 1CBC AND DIFFLabRoutineHLA-B27 spondyloarthropathyInflammatory arthritisElevated antinuclear antibody (RENUKA) levelTherapeutic drug monitoringExpected: 03/14/2020 (Approximate), Expires: 08/10/2020C REACTIVE PROTEIN (CRP)LabRoutineHLA-B27 spondyloarthropathyInflammatory arthritisElevated antinuclear antibody (RENUKA) levelTherapeutic drug monitoringExpected: 03/14/2020 (Approximate), Expires: 08/10/2020SED RATELabRoutineHLA-B27 spondyloarthropathyInflammatory arthritisElevated antinuclear antibody (RENUKA) levelTherapeutic drug monitoringExpected: 03/14/2020 (Approximate), Expires: 08/10/2020COMPREHENSIVE METABOLIC PANELLabRoutineHLA-B27 spondyloarthropathyInflammatory arthritisElevated antinuclear antibody (RENUKA) levelTherapeutic drug monitoringExpected: 03/14/2020 (Approximate), Expires: 08/10/2020URINALYSIS DIPSTICKLabRoutineHLA-B27 spondyloarthropathyInflammatory arthritisElevated antinuclear antibody (RENUKA) levelTherapeutic drug monitoringExpected: 03/14/2020 (Approximate), Expires: 08/10/2020URINALYSIS, MICROSCOPICLabRoutineHLA-B27 spondyloarthropathyInflammatory arthritisElevated antinuclear antibody (RENUKA) levelTherapeutic drug monitoringExpected: 03/14/2020 (Approximate), Expires: 08/10/2020PROTEIN/CR RATIO,UR RANLabRoutineHLA-B27 spondyloarthropathyInflammatory arthritisElevated antinuclear antibody (RENUKA) levelTherapeutic drug monitoringExpected: 03/14/2020 (Approximate), Expires: 08/10/2020C3 COMPLEMENT 3LabRoutineHLA-B27 spondyloarthropathyInflammatory arthritisElevated antinuclear antibody (RENUKA) levelTherapeutic drug monitoringExpected: 03/14/2020 (Approximate), Expires: 08/10/2020C4 COMPLEMENT 4LabRoutineHLA-B27 spondyloarthropathyInflammatory arthritisElevated antinuclear antibody (RENUKA) levelTherapeutic drug monitoringExpected: 03/14/2020 (A pproximate), Expires: 08/10/2020ANTI-DNA DOUBLE STRANDLabRoutineHLA-B27 spondyloarthropathyInflammatory arthritisElevated antinuclear antibody (REUNKA) levelTherapeutic drug monitoringExpected: 03/14/2020 (Approximate), Expires: 08/10/202025-[place] VITAMIN D (D2 + D3)LabRoutineVitamin D deficiencyTherapeutic drug monitoringExpected: 03/14/2020 (Approximate), Expires: 08/10/2020documented as of this encounter 03/29/2020 [facility] , Scheduled OrdersNameTypePriorityAssociat ed DiagnosesOrder ScheduleCBC AND DIFFLabRoutineHLA B27 (HLA B27 positive)Inflammatory arthritisElevated antinuclear antibody (RENUKA) levelExpected: 11/11/2019 (Approximate), Expires: 08/10/2020C REACTIVE PROTEIN (CRP)LabRoutineHLA B27 (HLA B27 positive)Inflammatory arthritisElevated antinuclear antibody (RENUKA) levelExpected: 11/11/2019 (Approximate), Expires: 08/10/2020COMPREHENSIVE METABOLIC PANELLabRoutineHLA B27 (HLA B27 positive)Inflammatory arthritisElevated antinuclear antibody (RENUKA) levelExpected: 11/11/2019 (Approximate), Expires: 08/10/2020SED RATELabRoutineHLA B27 (HLA B27 positive)Inflammatory arthritisElevated antinuclear antibody (RENUKA) levelExpected: 11/11/2019 (Approximate), Expires: 08/10/2020URINALYSIS DIPSTICKLabRoutineHLA B27 (HLA B27 positive)Inflammatory arthritisElevated antinuclear antibody (RENUKA) levelExpected: 11/11/2019 (Approximate), Expires: 08/10/2020URINALYSIS, MICROSCOPICLabRoutineHLA B27 (HLA B27 positive)Inflammatory arthritisElevated antinuclear antibody (RENUKA) levelExpected: 11/11/2019 (Approximate), Expires: 08/10/2020PROTEIN/CR RATIO,UR RANLabRoutineHLA B27 (HLA B27 positive)Inflammatory arthritisElevated antinuclear antibody (RENUKA) levelExpected: 11/11/2019 (Approximate), Expires: 08/10/202025-[place] VITAMIN D (D2 + D3)LabRoutineVitamin D deficiencyExpected: 11/11/2019 (Approximate), Expires: 08/10/2020C3 COMPLEMENT 3LabRoutineHLA B27 (HLA B27 positive)Inflammatory arthritisElevated antinuclear antibody (RENUKA) levelExpected: 11/11/2019 (Approximate), Expires: 08/10/2020C4 COMPLEMENT 4LabRoutineHLA B27 (HLA B27 positive)Inflammatory arthritisElevated antinuclear antibody (RENUKA) levelExpected: 11/11/2019 (Approximate), Expires: 08/10/2020ANTI- DNA DOUBLE STRANDLabRoutineHLA B27 (HLA B27 positive)Inflammatory arthritisElevated antinuclear antibody (RENUKA) levelExpected: 11/11/2019 (Approximate), Expires: 08/10/2020MAGNESIUMLabRoutinePVC (premature ventricular contraction)Expected: 11/11/2019 (Approximate), Expires: 08/10/2020CBC AND DIFFLabRoutineHLA B27 (HLA B27 positive)Inflammatory arthritisTherapeutic drug monitoringEvery 4 Weeks Auto for 12 Occurrences starting 11/09/2019 until 1ALT (SGPT)LabRoutineHLA B27 (HLA B27 positive)Inflammatory arthritisTherapeutic drug monitoringEvery 4 Weeks Auto for 12 Occurrences starting 11/09/2019 until 1CREATININELabRoutineHLA B27 (HLA B27 positive)Inflammatory arthritisTherapeutic drug monitoringEvery 4 Weeks Auto for 12 Occurrences starting 11/09/2019 until 1IMMUNOGLOBULINS- IGA,IGG,IGMLabRoutineInflammatory arthritisExpected: 11/11/2019 (Approximate), E xpires: 08/10/2020ANTI-DNA DOUBLE STRANDLabRoutineHLA B27 (HLA B27 positive)Inflammatory arthritisElevated antinuclear antibody (RENUKA) levelTherapeutic drug monitoringExpected: 11/11/2019 (Approximate), Expires: 08/10/2020C3 COMPLEMENT 3LabRoutineHLA B27 (HLA B27 positive)Inflammatory arthritisElevated antinuclear antibody (RENUKA) levelTherapeutic drug monitoringExpected: 11/11/2019 (Approximate), Expires: 08/10/2020C4 COMPLEMENT 4LabRoutineHLA B27 (HLA B27 positive)Inflammatory arthritisElevated antinuclear antibody (RENUKA) levelTherapeutic drug monitoringExpected: 11/11/2019 (Approximate), Expires: 08/10/202025-[place] VITAMIN D (D2 + D3)LabRoutineVitamin D deficiencyExpected: 11/11/2019 (Approximate), Expires: 08/10/2020C REACTIVE PROTEIN (CRP)LabRoutineHLA B27 (HLA B27 positive)Inflammatory arthritisElevated antinuclear antibody (RENUKA) levelTherapeutic drug monitoringExpected: 11/11/2019 (Approximate), Expires: 08/10/2020SED RATELabRoutineHLA B27 (HLA B27 positive)Inflammatory arthritisElevated antinuclear antibody (RENUKA) levelTherapeutic drug monitoringExpected: 11/11/2019 (Approximate), Expires: 08/10/2020COMPREHENSIVE METABOLIC PANELLabRoutineHLA B27 (HLA B27 positive)Inflammatory arthritisElevated antinuclear antibody (RENUKA) levelTherapeutic drug monitoringExpected: 11/11/2019 (Approximate), Expires: 08/10/2020URINALYSIS DIPSTICKLabRoutineHLA B27 (HLA B27 positive)Inflammatory arthritisElevated antinuclear antibody (RENUKA) levelTherapeutic drug monitoringExpected: 11/11/2019 (Approximate), Expires: 08/10/2020URINALYSIS, MICROSCOPICLabRoutineHLA B27 (HLA B27 positive)Inflammatory arthritisElevated a ntinuclear antibody (RENUKA) levelTherapeutic drug monitoringExpected: 11/11/2019 (Approximate), Expires: 08/10/2020PROTEIN/CR RATIO,UR RANLabRoutineHLA B27 (HLA B27 positive)Inflammatory arthritisElevated antinuclear antibody (RENUKA) levelTherapeutic drug monitoringExpected: 11/11/2019 (Approximate), Expires: 08/10/2020CBC AND DIFFLabRoutineHLA B27 (HLA B27 positive)Inflammatory arthritisElevated antinuclear antibody (RENUKA) levelTherapeutic drug monitoringExpected: 11/11/2019 (Approximate), Expires: 08/10/2020MAGNESIUMLabRoutinePVC (premature ventricular contraction)Expected: 11/11/2019 (Approximate), Expires: 08/10/2020CBC AND DIFFLabRoutineInflammatory arthritisTherapeutic drug monitoringEvery 4 Weeks Auto for 12 Occurrences starting 11/09/2019 until 1ALT (SGPT)LabRoutineInflammatory arthrit isTherapeutic drug monitoringEvery 4 Weeks Auto for 12 Occurrences starting 11/09/2019 until 1CREATININELabRoutineInflammatory arthritisTherapeutic drug monitoringEvery 4 Weeks Auto for 12 Occurrences starting 11/09/2019 until 1CBC AND DIFFLabRoutineHLA-B27 spondyloarthropathyInflammatory arthritisElevated antinuclear antibody (RENUKA) levelTherapeutic drug monitoringExpected: 03/14/2020 (Approximate), Expires: 08/10/2020C REACTIVE PROTEIN (CRP)LabRoutineHLA-B27 spondyloarthropathyInflammatory arthritisElevated antinuclear antibody (RENUKA) levelTherapeutic drug monitoringExpected: 03/14/2020 (Approximate), Expires: 08/10/2020SED RATELabRoutineHLA-B27 spondyloarthropathyInflammatory arthritisElevated antinuclear antibody (RENUKA) levelTherapeutic drug monitoringExpected: 03/14/2020 (Approximate), Expires: 08/10/2020COMPREHENSIVE METABOLIC PANELLabRoutineHLA-B27 spondyloarthropathyInflammatory arthritisElevated antinuclear antibody (RENUKA) levelTherapeutic drug monitoringExpected: 03/14/2020 (Approximate), Expires: 08/10/2020URINALYSIS DIPSTICKLabRoutineHLA-B27 spondyloarthropathyInflammatory arthritisElevated antinuclear antibody (RENUKA) levelTherapeutic drug monitoringExpected: 03/14/2020 (Approximate), Expires: 08/10/2020URINALYSIS, MICROSCOPICLabRoutineHLA-B27 spondyloarthropathyInflammatory arthritisElevated antinuclear antibody (RENUKA) levelTherapeutic drug monitoringExpected: 03/14/2020 (Approximate), Expires: 08/10/2020PROTEIN/CR RATIO,UR RANLabRoutineHLA-B27 spondyloarthropathyInflammatory arthritisElevated antinuclear antibody (RENUKA) levelTherapeutic drug monitoringExpected: 03/14/2020 (Approximate), Expires: 08/10/2020C3 COMPLEMENT 3LabRoutineHLA-B27 spondyloarthropathyInflammatory arthritisElevated antinuclear antibody (RENUKA) levelTherapeutic drug monitoringExpected: 03/14/2020 (Approximate), Expires: 08/10/2020C4 COMPLEMENT 4LabRoutineHLA-B27 spondyloarthropathyInflammatory arthritisElevated antinuclear antibody (RENUKA) levelTherapeutic drug monitoringExpected: 03/14/2020 (A pproximate), Expires: 08/10/2020ANTI-DNA DOUBLE STRANDLabRoutineHLA-B27 spondyloarthropathyInflammatory arthritisElevated antinuclear antibody (RENUKA) levelTherapeutic drug monitoringExpected: 03/14/2020 (Approximate), Expires: 08/10/202025-[place] VITAMIN D (D2 + D3)LabRoutineVitamin D deficiencyTherapeutic drug monitoringExpected: 03/14/2020 (Approximate), Expires: 08/10/2020documented as of this encounter 03/29/2020 [facility] , Scheduled OrdersNameTypePriorityAssociat ed DiagnosesOrder ScheduleCBC AND DIFFLabRoutineHLA B27 (HLA B27 positive)Inflammatory arthritisElevated antinuclear antibody (RENUKA) levelExpected: 11/11/2019 (Approximate), Expires: 08/10/2020C REACTIVE PROTEIN (CRP)LabRoutineHLA B27 (HLA B27 positive)Inflammatory arthritisElevated antinuclear antibody (RENUKA) levelExpected: 11/11/2019 (Approximate), Expires: 08/10/2020COMPREHENSIVE METABOLIC PANELLabRoutineHLA B27 (HLA B27 positive)Inflammatory arthritisElevated antinuclear antibody (RENUKA) levelExpected: 11/11/2019 (Approximate), Expires: 08/10/2020SED RATELabRoutineHLA B27 (HLA B27 positive)Inflammatory arthritisElevated antinuclear antibody (RENUKA) levelExpected: 11/11/2019 (Approximate), Expires: 08/10/2020URINALYSIS DIPSTICKLabRoutineHLA B27 (HLA B27 positive)Inflammatory arthritisElevated antinuclear antibody (RENUKA) levelExpected: 11/11/2019 (Approximate), Expires: 08/10/2020URINALYSIS, MICROSCOPICLabRoutineHLA B27 (HLA B27 positive)Inflammatory arthritisElevated antinuclear antibody (RENUKA) levelExpected: 11/11/2019 (Approximate), Expires: 08/10/2020PROTEIN/CR RATIO,UR RANLabRoutineHLA B27 (HLA B27 positive)Inflammatory arthritisElevated antinuclear antibody (RENUKA) levelExpected: 11/11/2019 (Approximate), Expires: 08/10/202025-[place] VITAMIN D (D2 + D3)LabRoutineVitamin D deficiencyExpected: 11/11/2019 (Approximate), Expires: 08/10/2020C3 COMPLEMENT 3LabRoutineHLA B27 (HLA B27 positive)Inflammatory arthritisElevated antinuclear antibody (RENUKA) levelExpected: 11/11/2019 (Approximate), Expires: 08/10/2020C4 COMPLEMENT 4LabRoutineHLA B27 (HLA B27 positive)Inflammatory arthritisElevated antinuclear antibody (RENUKA) levelExpected: 11/11/2019 (Approximate), Expires: 08/10/2020ANTI- DNA DOUBLE STRANDLabRoutineHLA B27 (HLA B27 positive)Inflammatory arthritisElevated antinuclear antibody (RENUKA) levelExpected: 11/11/2019 (Approximate), Expires: 08/10/2020MAGNESIUMLabRoutinePVC (premature ventricular contraction)Expected: 11/11/2019 (Approximate), Expires: 08/10/2020CBC AND DIFFLabRoutineHLA B27 (HLA B27 positive)Inflammatory arthritisTherapeutic drug monitoringEvery 4 Weeks Auto for 12 Occurrences starting 11/09/2019 until 1ALT (SGPT)LabRoutineHLA B27 (HLA B27 positive)Inflammatory arthritisTherapeutic drug monitoringEvery 4 Weeks Auto for 12 Occurrences starting 11/09/2019 until 1CREATININELabRoutineHLA B27 (HLA B27 positive)Inflammatory arthritisTherapeutic drug monitoringEvery 4 Weeks Auto for 12 Occurrences starting 11/09/2019 until 08/10/2021IMMUNOGLOBULINS- IGA,IGG,IGMLabRoutineInflammatory arthritisExpected: 11/11/2019 (Approximate), E xpires: 08/10/2020ANTI-DNA DOUBLE STRANDLabRoutineHLA B27 (HLA B27 positive)Inflammatory arthritisElevated antinuclear antibody (RENUKA) levelTherapeutic drug monitoringExpected: 11/11/2019 (Approximate), Expires: 08/10/2020C3 COMPLEMENT 3LabRoutineHLA B27 (HLA B27 positive)Inflammatory arthritisElevated antinuclear antibody (RENUKA) levelTherapeutic drug monitoringExpected: 11/11/2019 (Approximate), Expires: 08/10/2020C4 COMPLEMENT 4LabRoutineHLA B27 (HLA B27 positive)Inflammatory arthritisElevated antinuclear antibody (RENUKA) levelTherapeutic drug monitoringExpected: 11/11/2019 (Approximate), Expires: 08/10/202025-[place] VITAMIN D (D2 + D3)LabRoutineVitamin D deficiencyExpected: 11/11/2019 (Approximate), Expires: 08/10/2020C REACTIVE PROTEIN (CRP)LabRoutineHLA B27 (HLA B27 positive)Inflammatory arthritisElevated antinuclear antibody (RENUKA) levelTherapeutic drug monitoringExpected: 11/11/2019 (Approximate), Expires: 08/10/2020SED RATELabRoutineHLA B27 (HLA B27 positive)Inflammatory arthritisElevated antinuclear antibody (RENUKA) levelTherapeutic drug monitoringExpected: 11/11/2019 (Approximate), Expires: 08/10/2020COMPREHENSIVE METABOLIC PANELLabRoutineHLA B27 (HLA B27 positive)Inflammatory arthritisElevated antinuclear antibody (RENUKA) levelTherapeutic drug monitoringExpected: 11/11/2019 (Approximate), Expires: 08/10/2020URINALYSIS DIPSTICKLabRoutineHLA B27 (HLA B27 positive)Inflammatory arthritisElevated antinuclear antibody (RENUKA) levelTherapeutic drug monitoringExpected: 11/11/2019 (Approximate), Expires: 08/10/2020URINALYSIS, MICROSCOPICLabRoutineHLA B27 (HLA B27 positive)Inflammatory arthritisElevated a ntinuclear antibody (RENUKA) levelTherapeutic drug monitoringExpected: 11/11/2019 (Approximate), Expires: 08/10/2020PROTEIN/CR RATIO,UR RANLabRoutineHLA B27 (HLA B27 positive)Inflammatory arthritisElevated antinuclear antibody (RENUKA) levelTherapeutic drug monitoringExpected: 11/11/2019 (Approximate), Expires: 08/10/2020CBC AND DIFFLabRoutineHLA B27 (HLA B27 positive)Inflammatory arthritisElevated antinuclear antibody (RENUKA) levelTherapeutic drug monitoringExpected: 11/11/2019 (Approximate), Expires: 08/10/2020MAGNESIUMLabRoutinePVC (premature ventricular contraction)Expected: 11/11/2019 (Approximate), Expires: 08/10/2020CBC AND DIFFLabRoutineInflammatory arthritisTherapeutic drug monitoringEvery 4 Weeks Auto for 12 Occurrences starting 11/09/2019 until 1ALT (SGPT)LabRoutineInflammatory arthrit isTherapeutic drug monitoringEvery 4 Weeks Auto for 12 Occurrences starting 11/09/2019 until 1CREATININELabRoutineInflammatory arthritisTherapeutic drug monitoringEvery 4 Weeks Auto for 12 Occurrences starting 11/09/2019 until 1CBC AND DIFFLabRoutineHLA-B27 spondyloarthropathyInflammatory arthritisElevated antinuclear antibody (RENUKA) levelTherapeutic drug monitoringExpected: 03/14/2020 (Approximate), Expires: 08/10/2020C REACTIVE PROTEIN (CRP)LabRoutineHLA-B27 spondyloarthropathyInflammatory arthritisElevated antinuclear antibody (RENUKA) levelTherapeutic drug monitoringExpected: 03/14/2020 (Approximate), Expires: 08/10/2020SED RATELabRoutineHLA-B27 spondyloarthropathyInflammatory arthritisElevated antinuclear antibody (RENUKA) levelTherapeutic drug monitoringExpected: 03/14/2020 (Approximate), Expires: 08/10/2020COMPREHENSIVE METABOLIC PANELLabRoutineHLA-B27 spondyloarthropathyInflammatory arthritisElevated antinuclear antibody (RENUKA) levelTherapeutic drug monitoringExpected: 03/14/2020 (Approximate), Expires: 08/10/2020URINALYSIS DIPSTICKLabRoutineHLA-B27 spondyloarthropathyInflammatory arthritisElevated antinuclear antibody (RENUKA) levelTherapeutic drug monitoringExpected: 03/14/2020 (Approximate), Expires: 08/10/2020URINALYSIS, MICROSCOPICLabRoutineHLA-B27 spondyloarthropathyInflammatory arthritisElevated antinuclear antibody (RENUKA) levelTherapeutic drug monitoringExpected: 03/14/2020 (Approximate), Expires: 08/10/2020PROTEIN/CR RATIO,UR RANLabRoutineHLA-B27 spondyloarthropathyInflammatory arthritisElevated antinuclear antibody (RENUKA) levelTherapeutic drug monitoringExpected: 03/14/2020 (Approximate), Expires: 08/10/2020C3 COMPLEMENT 3LabRoutineHLA-B27 spondyloarthropathyInflammatory arthritisElevated antinuclear antibody (RENUKA) levelTherapeutic drug monitoringExpected: 03/14/2020 (Approximate), Expires: 08/10/2020C4 COMPLEMENT 4LabRoutineHLA-B27 spondyloarthropathyInflammatory arthritisElevated antinuclear antibody (RENUKA) levelTherapeutic drug monitoringExpected: 03/14/2020 (A pproximate), Expires: 08/10/2020ANTI-DNA DOUBLE STRANDLabRoutineHLA-B27 spondyloarthropathyInflammatory arthritisElevated antinuclear antibody (RENUKA) levelTherapeutic drug monitoringExpected: 03/14/2020 (Approximate), Expires: 08/10/202025-[place] VITAMIN D (D2 + D3)LabRoutineVitamin D deficiencyTherapeutic drug monitoringExpected: 03/14/2020 (Approximate), Expires: 08/10/2020documented as of this encounter 03/29/2020 [facility] , Scheduled OrdersNameTypePriorityAssociat ed DiagnosesOrder ScheduleCBC AND DIFFLabRoutineHLA B27 (HLA B27 positive)Inflammatory arthritisElevated antinuclear antibody (RENUKA) levelExpected: 11/11/2019 (Approximate), Expires: 08/10/2020C REACTIVE PROTEIN (CRP)LabRoutineHLA B27 (HLA B27 positive)Inflammatory arthritisElevated antinuclear antibody (RENUKA) levelExpected: 11/11/2019 (Approximate), Expires: 08/10/2020COMPREHENSIVE METABOLIC PANELLabRoutineHLA B27 (HLA B27 positive)Inflammatory arthritisElevated antinuclear antibody (RENUKA) levelExpected: 11/11/2019 (Approximate), Expires: 08/10/2020SED RATELabRoutineHLA B27 (HLA B27 positive)Inflammatory arthritisElevated antinuclear antibody (RENUKA) levelExpected: 11/11/2019 (Approximate), Expires: 08/10/2020URINALYSIS DIPSTICKLabRoutineHLA B27 (HLA B27 positive)Inflammatory arthritisElevated antinuclear antibody (RENUKA) levelExpected: 11/11/2019 (Approximate), Expires: 08/10/2020URINALYSIS, MICROSCOPICLabRoutineHLA B27 (HLA B27 positive)Inflammatory arthritisElevated antinuclear antibody (RENUKA) levelExpected: 11/11/2019 (Approximate), Expires: 08/10/2020PROTEIN/CR RATIO,UR RANLabRoutineHLA B27 (HLA B27 positive)Inflammatory arthritisElevated antinuclear antibody (RENUKA) levelExpected: 11/11/2019 (Approximate), Expires: 08/10/202025-[place] VITAMIN D (D2 + D3)LabRoutineVitamin D deficiencyExpected: 11/11/2019 (Approximate), Expires: 08/10/2020C3 COMPLEMENT 3LabRoutineHLA B27 (HLA B27 positive)Inflammatory arthritisElevated antinuclear antibody (RENUKA) levelExpected: 11/11/2019 (Approximate), Expires: 08/10/2020C4 COMPLEMENT 4LabRoutineHLA B27 (HLA B27 positive)Inflammatory arthritisElevated antinuclear antibody (RENUKA) levelExpected: 11/11/2019 (Approximate), Expires: 08/10/2020ANTI- DNA DOUBLE STRANDLabRoutineHLA B27 (HLA B27 positive)Inflammatory arthritisElevated antinuclear antibody (RENUKA) levelExpected: 11/11/2019 (Approximate), Expires: 08/10/2020MAGNESIUMLabRoutinePVC (premature ventricular contraction)Expected: 11/11/2019 (Approximate), Expires: 08/10/2020CBC AND DIFFLabRoutineHLA B27 (HLA B27 positive)Inflammatory arthritisTherapeutic drug monitoringEvery 4 Weeks Auto for 12 Occurrences starting 11/09/2019 until 1ALT (SGPT)LabRoutineHLA B27 (HLA B27 positive)Inflammatory arthritisTherapeutic drug monitoringEvery 4 Weeks Auto for 12 Occurrences starting 11/09/2019 until 1CREATININELabRoutineHLA B27 (HLA B27 positive)Inflammatory arthritisTherapeutic drug monitoringEvery 4 Weeks Auto for 12 Occurrences starting 11/09/2019 until 08/10/2021IMMUNOGLOBULINS- IGA,IGG,IGMLabRoutineInflammatory arthritisExpected: 11/11/2019 (Approximate), E xpires: 08/10/2020ANTI-DNA DOUBLE STRANDLabRoutineHLA B27 (HLA B27 positive)Inflammatory arthritisElevated antinuclear antibody (RENUKA) levelTherapeutic drug monitoringExpected: 11/11/2019 (Approximate), Expires: 08/10/2020C3 COMPLEMENT 3LabRoutineHLA B27 (HLA B27 positive)Inflammatory arthritisElevated antinuclear antibody (RENUKA) levelTherapeutic drug monitoringExpected: 11/11/2019 (Approximate), Expires: 08/10/2020C4 COMPLEMENT 4LabRoutineHLA B27 (HLA B27 positive)Inflammatory arthritisElevated antinuclear antibody (RENUKA) levelTherapeutic drug monitoringExpected: 11/11/2019 (Approximate), Expires: 08/10/202025-[place] VITAMIN D (D2 + D3)LabRoutineVitamin D deficiencyExpected: 11/11/2019 (Approximate), Expires: 08/10/2020C REACTIVE PROTEIN (CRP)LabRoutineHLA B27 (HLA B27 positive)Inflammatory arthritisElevated antinuclear antibody (RENUKA) levelTherapeutic drug monitoringExpected: 11/11/2019 (Approximate), Expires: 08/10/2020SED RATELabRoutineHLA B27 (HLA B27 positive)Inflammatory arthritisElevated antinuclear antibody (RENUKA) levelTherapeutic drug monitoringExpected: 11/11/2019 (Approximate), Expires: 08/10/2020COMPREHENSIVE METABOLIC PANELLabRoutineHLA B27 (HLA B27 positive)Inflammatory arthritisElevated antinuclear antibody (RENUKA) levelTherapeutic drug monitoringExpected: 11/11/2019 (Approximate), Expires: 08/10/2020URINALYSIS DIPSTICKLabRoutineHLA B27 (HLA B27 positive)Inflammatory arthritisElevated antinuclear antibody (RENUKA) levelTherapeutic drug monitoringExpected: 11/11/2019 (Approximate), Expires: 08/10/2020URINALYSIS, MICROSCOPICLabRoutineHLA B27 (HLA B27 positive)Inflammatory arthritisElevated a ntinuclear antibody (RENUKA) levelTherapeutic drug monitoringExpected: 11/11/2019 (Approximate), Expires: 08/10/2020PROTEIN/CR RATIO,UR RANLabRoutineHLA B27 (HLA B27 positive)Inflammatory arthritisElevated antinuclear antibody (RENUKA) levelTherapeutic drug monitoringExpected: 11/11/2019 (Approximate), Expires: 08/10/2020CBC AND DIFFLabRoutineHLA B27 (HLA B27 positive)Inflammatory arthritisElevated antinuclear antibody (RENUKA) levelTherapeutic drug monitoringExpected: 11/11/2019 (Approximate), Expires: 08/10/2020MAGNESIUMLabRoutinePVC (premature ventricular contraction)Expected: 11/11/2019 (Approximate), Expires: 08/10/2020CBC AND DIFFLabRoutineInflammatory arthritisTherapeutic drug monitoringEvery 4 Weeks Auto for 12 Occurrences starting 11/09/2019 until 1ALT (SGPT)LabRoutineInflammatory arthrit isTherapeutic drug monitoringEvery 4 Weeks Auto for 12 Occurrences starting 11/09/2019 until 1CREATININELabRoutineInflammatory arthritisTherapeutic drug monitoringEvery 4 Weeks Auto for 12 Occurrences starting 11/09/2019 until 1CBC AND DIFFLabRoutineHLA-B27 spondyloarthropathyInflammatory arthritisElevated antinuclear antibody (RENUKA) levelTherapeutic drug monitoringExpected: 03/14/2020 (Approximate), Expires: 08/10/2020C REACTIVE PROTEIN (CRP)LabRoutineHLA-B27 spondyloarthropathyInflammatory arthritisElevated antinuclear antibody (RENUKA) levelTherapeutic drug monitoringExpected: 03/14/2020 (Approximate), Expires: 08/10/2020SED RATELabRoutineHLA-B27 spondyloarthropathyInflammatory arthritisElevated antinuclear antibody (RENUKA) levelTherapeutic drug monitoringExpected: 03/14/2020 (Approximate), Expires: 08/10/2020COMPREHENSIVE METABOLIC PANELLabRoutineHLA-B27 spondyloarthropathyInflammatory arthritisElevated antinuclear antibody (RENUKA) levelTherapeutic drug monitoringExpected: 03/14/2020 (Approximate), Expires: 08/10/2020URINALYSIS DIPSTICKLabRoutineHLA-B27 spondyloarthropathyInflammatory arthritisElevated antinuclear antibody (RENUKA) levelTherapeutic drug monitoringExpected: 03/14/2020 (Approximate), Expires: 08/10/2020URINALYSIS, MICROSCOPICLabRoutineHLA-B27 spondyloarthropathyInflammatory arthritisElevated antinuclear antibody (RENUKA) levelTherapeutic drug monitoringExpected: 03/14/2020 (Approximate), Expires: 08/10/2020PROTEIN/CR RATIO,UR RANLabRoutineHLA-B27 spondyloarthropathyInflammatory arthritisElevated antinuclear antibody (RENUKA) levelTherapeutic drug monitoringExpected: 03/14/2020 (Approximate), Expires: 08/10/2020C3 COMPLEMENT 3LabRoutineHLA-B27 spondyloarthropathyInflammatory arthritisElevated antinuclear antibody (RENUKA) levelTherapeutic drug monitoringExpected: 03/14/2020 (Approximate), Expires: 08/10/2020C4 COMPLEMENT 4LabRoutineHLA-B27 spondyloarthropathyInflammatory arthritisElevated antinuclear antibody (RENUKA) levelTherapeutic drug monitoringExpected: 03/14/2020 (A pproximate), Expires: 08/10/2020ANTI-DNA DOUBLE STRANDLabRoutineHLA-B27 spondyloarthropathyInflammatory arthritisElevated antinuclear antibody (RENUKA) levelTherapeutic drug monitoringExpected: 03/14/2020 (Approximate), Expires: 08/10/202025-[place] VITAMIN D (D2 + D3)LabRoutineVitamin D deficiencyTherapeutic drug monitoringExpected: 03/14/2020 (Approximate), Expires: 08/10/2020documented as of this encounter 03/29/2020 [facility] , Scheduled OrdersNameTypePriorityAssociat ed DiagnosesOrder ScheduleCBC AND DIFFLabRoutineHLA B27 (HLA B27 positive)Inflammatory arthritisElevated antinuclear antibody (RENUKA) levelExpected: 11/11/2019 (Approximate), Expires: 08/10/2020C REACTIVE PROTEIN (CRP)LabRoutineHLA B27 (HLA B27 positive)Inflammatory arthritisElevated antinuclear antibody (RENUKA) levelExpected: 11/11/2019 (Approximate), Expires: 08/10/2020COMPREHENSIVE METABOLIC PANELLabRoutineHLA B27 (HLA B27 positive)Inflammatory arthritisElevated antinuclear antibody (RENUKA) levelExpected: 11/11/2019 (Approximate), Expires: 08/10/2020SED RATELabRoutineHLA B27 (HLA B27 positive)Inflammatory arthritisElevated antinuclear antibody (RENUKA) levelExpected: 11/11/2019 (Approximate), Expires: 08/10/2020URINALYSIS DIPSTICKLabRoutineHLA B27 (HLA B27 positive)Inflammatory arthritisElevated antinuclear antibody (RENUKA) levelExpected: 11/11/2019 (Approximate), Expires: 08/10/2020URINALYSIS, MICROSCOPICLabRoutineHLA B27 (HLA B27 positive)Inflammatory arthritisElevated antinuclear antibody (RENUKA) levelExpected: 11/11/2019 (Approximate), Expires: 08/10/2020PROTEIN/CR RATIO,UR RANLabRoutineHLA B27 (HLA B27 positive)Inflammatory arthritisElevated antinuclear antibody (RENUKA) levelExpected: 11/11/2019 (Approximate), Expires: 08/10/202025-[place] VITAMIN D (D2 + D3)LabRoutineVitamin D deficiencyExpected: 11/11/2019 (Approximate), Expires: 08/10/2020C3 COMPLEMENT 3LabRoutineHLA B27 (HLA B27 positive)Inflammatory arthritisElevated antinuclear antibody (RENUKA) levelExpected: 11/11/2019 (Approximate), Expires: 08/10/2020C4 COMPLEMENT 4LabRoutineHLA B27 (HLA B27 positive)Inflammatory arthritisElevated antinuclear antibody (RENUKA) levelExpected: 11/11/2019 (Approximate), Expires: 08/10/2020ANTI- DNA DOUBLE STRANDLabRoutineHLA B27 (HLA B27 positive)Inflammatory arthritisElevated antinuclear antibody (RENUKA) levelExpected: 11/11/2019 (Approximate), Expires: 08/10/2020MAGNESIUMLabRoutinePVC (premature ventricular contraction)Expected: 11/11/2019 (Approximate), Expires: 08/10/2020CBC AND DIFFLabRoutineHLA B27 (HLA B27 positive)Inflammatory arthritisTherapeutic drug monitoringEvery 4 Weeks Auto for 12 Occurrences starting 11/09/2019 until 1ALT (SGPT)LabRoutineHLA B27 (HLA B27 positive)Inflammatory arthritisTherapeutic drug monitoringEvery 4 Weeks Auto for 12 Occurrences starting 11/09/2019 until 1CREATININELabRoutineHLA B27 (HLA B27 positive)Inflammatory arthritisTherapeutic drug monitoringEvery 4 Weeks Auto for 12 Occurrences starting 11/09/2019 until 08/10/2021IMMUNOGLOBULINS- IGA,IGG,IGMLabRoutineInflammatory arthritisExpected: 11/11/2019 (Approximate), E xpires: 08/10/2020ANTI-DNA DOUBLE STRANDLabRoutineHLA B27 (HLA B27 positive)Inflammatory arthritisElevated antinuclear antibody (RENUKA) levelTherapeutic drug monitoringExpected: 11/11/2019 (Approximate), Expires: 08/10/2020C3 COMPLEMENT 3LabRoutineHLA B27 (HLA B27 positive)Inflammatory arthritisElevated antinuclear antibody (RENUKA) levelTherapeutic drug monitoringExpected: 11/11/2019 (Approximate), Expires: 08/10/2020C4 COMPLEMENT 4LabRoutineHLA B27 (HLA B27 positive)Inflammatory arthritisElevated antinuclear antibody (RENUKA) levelTherapeutic drug monitoringExpected: 11/11/2019 (Approximate), Expires: 08/10/202025-[place] VITAMIN D (D2 + D3)LabRoutineVitamin D deficiencyExpected: 11/11/2019 (Approximate), Expires: 08/10/2020C REACTIVE PROTEIN (CRP)LabRoutineHLA B27 (HLA B27 positive)Inflammatory arthritisElevated antinuclear antibody (RENUKA) levelTherapeutic drug monitoringExpected: 11/11/2019 (Approximate), Expires: 08/10/2020SED RATELabRoutineHLA B27 (HLA B27 positive)Inflammatory arthritisElevated antinuclear antibody (RENUKA) levelTherapeutic drug monitoringExpected: 11/11/2019 (Approximate), Expires: 08/10/2020COMPREHENSIVE METABOLIC PANELLabRoutineHLA B27 (HLA B27 positive)Inflammatory arthritisElevated antinuclear antibody (RENUKA) levelTherapeutic drug monitoringExpected: 11/11/2019 (Approximate), Expires: 08/10/2020URINALYSIS DIPSTICKLabRoutineHLA B27 (HLA B27 positive)Inflammatory arthritisElevated antinuclear antibody (RENUKA) levelTherapeutic drug monitoringExpected: 11/11/2019 (Approximate), Expires: 08/10/2020URINALYSIS, MICROSCOPICLabRoutineHLA B27 (HLA B27 positive)Inflammatory arthritisElevated a ntinuclear antibody (RENUKA) levelTherapeutic drug monitoringExpected: 11/11/2019 (Approximate), Expires: 08/10/2020PROTEIN/CR RATIO,UR RANLabRoutineHLA B27 (HLA B27 positive)Inflammatory arthritisElevated antinuclear antibody (RENUKA) levelTherapeutic drug monitoringExpected: 11/11/2019 (Approximate), Expires: 08/10/2020CBC AND DIFFLabRoutineHLA B27 (HLA B27 positive)Inflammatory arthritisElevated antinuclear antibody (RENUKA) levelTherapeutic drug monitoringExpected: 11/11/2019 (Approximate), Expires: 08/10/2020MAGNESIUMLabRoutinePVC (premature ventricular contraction)Expected: 11/11/2019 (Approximate), Expires: 08/10/2020CBC AND DIFFLabRoutineInflammatory arthritisTherapeutic drug monitoringEvery 4 Weeks Auto for 12 Occurrences starting 11/09/2019 until 1ALT (SGPT)LabRoutineInflammatory arthrit isTherapeutic drug monitoringEvery 4 Weeks Auto for 12 Occurrences starting 11/09/2019 until 1CREATININELabRoutineInflammatory arthritisTherapeutic drug monitoringEvery 4 Weeks Auto for 12 Occurrences starting 11/09/2019 until 1CBC AND DIFFLabRoutineHLA-B27 spondyloarthropathyInflammatory arthritisElevated antinuclear antibody (RENUKA) levelTherapeutic drug monitoringExpected: 03/14/2020 (Approximate), Expires: 08/10/2020C REACTIVE PROTEIN (CRP)LabRoutineHLA-B27 spondyloarthropathyInflammatory arthritisElevated antinuclear antibody (RENUKA) levelTherapeutic drug monitoringExpected: 03/14/2020 (Approximate), Expires: 08/10/2020SED RATELabRoutineHLA-B27 spondyloarthropathyInflammatory arthritisElevated antinuclear antibody (RENUKA) levelTherapeutic drug monitoringExpected: 03/14/2020 (Approximate), Expires: 08/10/2020COMPREHENSIVE METABOLIC PANELLabRoutineHLA-B27 spondyloarthropathyInflammatory arthritisElevated antinuclear antibody (RENUKA) levelTherapeutic drug monitoringExpected: 03/14/2020 (Approximate), Expires: 08/10/2020URINALYSIS DIPSTICKLabRoutineHLA-B27 spondyloarthropathyInflammatory arthritisElevated antinuclear antibody (RENUKA) levelTherapeutic drug monitoringExpected: 03/14/2020 (Approximate), Expires: 08/10/2020URINALYSIS, MICROSCOPICLabRoutineHLA-B27 spondyloarthropathyInflammatory arthritisElevated antinuclear antibody (RENUKA) levelTherapeutic drug monitoringExpected: 03/14/2020 (Approximate), Expires: 08/10/2020PROTEIN/CR RATIO,UR RANLabRoutineHLA-B27 spondyloarthropathyInflammatory arthritisElevated antinuclear antibody (RENUKA) levelTherapeutic drug monitoringExpected: 03/14/2020 (Approximate), Expires: 08/10/2020C3 COMPLEMENT 3LabRoutineHLA-B27 spondyloarthropathyInflammatory arthritisElevated antinuclear antibody (RENUKA) levelTherapeutic drug monitoringExpected: 03/14/2020 (Approximate), Expires: 08/10/2020C4 COMPLEMENT 4LabRoutineHLA-B27 spondyloarthropathyInflammatory arthritisElevated antinuclear antibody (RENUKA) levelTherapeutic drug monitoringExpected: 03/14/2020 (A pproximate), Expires: 08/10/2020ANTI-DNA DOUBLE STRANDLabRoutineHLA-B27 spondyloarthropathyInflammatory arthritisElevated antinuclear antibody (RENUKA) levelTherapeutic drug monitoringExpected: 03/14/2020 (Approximate), Expires: 08/10/202025-[place] VITAMIN D (D2 + D3)LabRoutineVitamin D deficiencyTherapeutic drug monitoringExpected: 03/14/2020 (Approximate), Expires: 08/10/2020documented as of this encounter 03/29/2020 [facility] , Scheduled OrdersNameTypePriorityAssociat ed DiagnosesOrder ScheduleCBC AND DIFFLabRoutineHLA B27 (HLA B27 positive)Inflammatory arthritisElevated antinuclear antibody (RENUKA) levelExpected: 11/11/2019 (Approximate), Expires: 08/10/2020C REACTIVE PROTEIN (CRP)LabRoutineHLA B27 (HLA B27 positive)Inflammatory arthritisElevated antinuclear antibody (RENUKA) levelExpected: 11/11/2019 (Approximate), Expires: 08/10/2020COMPREHENSIVE METABOLIC PANELLabRoutineHLA B27 (HLA B27 positive)Inflammatory arthritisElevated antinuclear antibody (RENUKA) levelExpected: 11/11/2019 (Approximate), Expires: 08/10/2020SED RATELabRoutineHLA B27 (HLA B27 positive)Inflammatory arthritisElevated antinuclear antibody (RENUKA) levelExpected: 11/11/2019 (Approximate), Expires: 08/10/2020URINALYSIS DIPSTICKLabRoutineHLA B27 (HLA B27 positive)Inflammatory arthritisElevated antinuclear antibody (RENUKA) levelExpected: 11/11/2019 (Approximate), Expires: 08/10/2020URINALYSIS, MICROSCOPICLabRoutineHLA B27 (HLA B27 positive)Inflammatory arthritisElevated antinuclear antibody (RENUKA) levelExpected: 11/11/2019 (Approximate), Expires: 08/10/2020PROTEIN/CR RATIO,UR RANLabRoutineHLA B27 (HLA B27 positive)Inflammatory arthritisElevated antinuclear antibody (RENUKA) levelExpected: 11/11/2019 (Approximate), Expires: 08/10/202025-[place] VITAMIN D (D2 + D3)LabRoutineVitamin D deficiencyExpected: 11/11/2019 (Approximate), Expires: 08/10/2020C3 COMPLEMENT 3LabRoutineHLA B27 (HLA B27 positive)Inflammatory arthritisElevated antinuclear antibody (RENUKA) levelExpected: 11/11/2019 (Approximate), Expires: 08/10/2020C4 COMPLEMENT 4LabRoutineHLA B27 (HLA B27 positive)Inflammatory arthritisElevated antinuclear antibody (RENUKA) levelExpected: 11/11/2019 (Approximate), Expires: 08/10/2020ANTI- DNA DOUBLE STRANDLabRoutineHLA B27 (HLA B27 positive)Inflammatory arthritisElevated antinuclear antibody (RENUKA) levelExpected: 11/11/2019 (Approximate), Expires: 08/10/2020MAGNESIUMLabRoutinePVC (premature ventricular contraction)Expected: 11/11/2019 (Approximate), Expires: 08/10/2020CBC AND DIFFLabRoutineHLA B27 (HLA B27 positive)Inflammatory arthritisTherapeutic drug monitoringEvery 4 Weeks Auto for 12 Occurrences starting 11/09/2019 until 1ALT (SGPT)LabRoutineHLA B27 (HLA B27 positive)Inflammatory arthritisTherapeutic drug monitoringEvery 4 Weeks Auto for 12 Occurrences starting 11/09/2019 until 1CREATININELabRoutineHLA B27 (HLA B27 positive)Inflammatory arthritisTherapeutic drug monitoringEvery 4 Weeks Auto for 12 Occurrences starting 11/09/2019 until 08/10/2021IMMUNOGLOBULINS- IGA,IGG,IGMLabRoutineInflammatory arthritisExpected: 11/11/2019 (Approximate), E xpires: 08/10/2020ANTI-DNA DOUBLE STRANDLabRoutineHLA B27 (HLA B27 positive)Inflammatory arthritisElevated antinuclear antibody (RENUKA) levelTherapeutic drug monitoringExpected: 11/11/2019 (Approximate), Expires: 08/10/2020C3 COMPLEMENT 3LabRoutineHLA B27 (HLA B27 positive)Inflammatory arthritisElevated antinuclear antibody (RENUKA) levelTherapeutic drug monitoringExpected: 11/11/2019 (Approximate), Expires: 08/10/2020C4 COMPLEMENT 4LabRoutineHLA B27 (HLA B27 positive)Inflammatory arthritisElevated antinuclear antibody (RENUKA) levelTherapeutic drug monitoringExpected: 11/11/2019 (Approximate), Expires: 08/10/202025-[place] VITAMIN D (D2 + D3)LabRoutineVitamin D deficiencyExpected: 11/11/2019 (Approximate), Expires: 08/10/2020C REACTIVE PROTEIN (CRP)LabRoutineHLA B27 (HLA B27 positive)Inflammatory arthritisElevated antinuclear antibody (RENUKA) levelTherapeutic drug monitoringExpected: 11/11/2019 (Approximate), Expires: 08/10/2020SED RATELabRoutineHLA B27 (HLA B27 positive)Inflammatory arthritisElevated antinuclear antibody (RENUKA) levelTherapeutic drug monitoringExpected: 11/11/2019 (Approximate), Expires: 08/10/2020COMPREHENSIVE METABOLIC PANELLabRoutineHLA B27 (HLA B27 positive)Inflammatory arthritisElevated antinuclear antibody (RENUKA) levelTherapeutic drug monitoringExpected: 11/11/2019 (Approximate), Expires: 08/10/2020URINALYSIS DIPSTICKLabRoutineHLA B27 (HLA B27 positive)Inflammatory arthritisElevated antinuclear antibody (RENUKA) levelTherapeutic drug monitoringExpected: 11/11/2019 (Approximate), Expires: 08/10/2020URINALYSIS, MICROSCOPICLabRoutineHLA B27 (HLA B27 positive)Inflammatory arthritisElevated a ntinuclear antibody (RENUKA) levelTherapeutic drug monitoringExpected: 11/11/2019 (Approximate), Expires: 08/10/2020PROTEIN/CR RATIO,UR RANLabRoutineHLA B27 (HLA B27 positive)Inflammatory arthritisElevated antinuclear antibody (RENUKA) levelTherapeutic drug monitoringExpected: 11/11/2019 (Approximate), Expires: 08/10/2020CBC AND DIFFLabRoutineHLA B27 (HLA B27 positive)Inflammatory arthritisElevated antinuclear antibody (RENUKA) levelTherapeutic drug monitoringExpected: 11/11/2019 (Approximate), Expires: 08/10/2020MAGNESIUMLabRoutinePVC (premature ventricular contraction)Expected: 11/11/2019 (Approximate), Expires: 08/10/2020CBC AND DIFFLabRoutineInflammatory arthritisTherapeutic drug monitoringEvery 4 Weeks Auto for 12 Occurrences starting 11/09/2019 until 1ALT (SGPT)LabRoutineInflammatory arthrit isTherapeutic drug monitoringEvery 4 Weeks Auto for 12 Occurrences starting 11/09/2019 until 1CREATININELabRoutineInflammatory arthritisTherapeutic drug monitoringEvery 4 Weeks Auto for 12 Occurrences starting 11/09/2019 until 1CBC AND DIFFLabRoutineHLA-B27 spondyloarthropathyInflammatory arthritisElevated antinuclear antibody (RENUKA) levelTherapeutic drug monitoringExpected: 03/14/2020 (Approximate), Expires: 08/10/2020C REACTIVE PROTEIN (CRP)LabRoutineHLA-B27 spondyloarthropathyInflammatory arthritisElevated antinuclear antibody (RENUKA) levelTherapeutic drug monitoringExpected: 03/14/2020 (Approximate), Expires: 08/10/2020SED RATELabRoutineHLA-B27 spondyloarthropathyInflammatory arthritisElevated antinuclear antibody (RENUKA) levelTherapeutic drug monitoringExpected: 03/14/2020 (Approximate), Expires: 08/10/2020COMPREHENSIVE METABOLIC PANELLabRoutineHLA-B27 spondyloarthropathyInflammatory arthritisElevated antinuclear antibody (RENUKA) levelTherapeutic drug monitoringExpected: 03/14/2020 (Approximate), Expires: 08/10/2020URINALYSIS DIPSTICKLabRoutineHLA-B27 spondyloarthropathyInflammatory arthritisElevated antinuclear antibody (RENUKA) levelTherapeutic drug monitoringExpected: 03/14/2020 (Approximate), Expires: 08/10/2020URINALYSIS, MICROSCOPICLabRoutineHLA-B27 spondyloarthropathyInflammatory arthritisElevated antinuclear antibody (RENUKA) levelTherapeutic drug monitoringExpected: 03/14/2020 (Approximate), Expires: 08/10/2020PROTEIN/CR RATIO,UR RANLabRoutineHLA-B27 spondyloarthropathyInflammatory arthritisElevated antinuclear antibody (RENUKA) levelTherapeutic drug monitoringExpected: 03/14/2020 (Approximate), Expires: 08/10/2020C3 COMPLEMENT 3LabRoutineHLA-B27 spondyloarthropathyInflammatory arthritisElevated antinuclear antibody (RENUKA) levelTherapeutic drug monitoringExpected: 03/14/2020 (Approximate), Expires: 08/10/2020C4 COMPLEMENT 4LabRoutineHLA-B27 spondyloarthropathyInflammatory arthritisElevated antinuclear antibody (RENUKA) levelTherapeutic drug monitoringExpected: 03/14/2020 (A pproximate), Expires: 08/10/2020ANTI-DNA DOUBLE STRANDLabRoutineHLA-B27 spondyloarthropathyInflammatory arthritisElevated antinuclear antibody (RENUKA) levelTherapeutic drug monitoringExpected: 03/14/2020 (Approximate), Expires: 08/10/202025-[place] VITAMIN D (D2 + D3)LabRoutineVitamin D deficiencyTherapeutic drug monitoringExpected: 03/14/2020 (Approximate), Expires: 08/10/2020documented as of this encounter 03/29/2020 [facility] , Scheduled OrdersNameTypePriorityAssociat ed DiagnosesOrder ScheduleCBC AND DIFFLabRoutineHLA B27 (HLA B27 positive)Inflammatory arthritisElevated antinuclear antibody (RENUKA) levelExpected: 11/11/2019 (Approximate), Expires: 08/10/2020C REACTIVE PROTEIN (CRP)LabRoutineHLA B27 (HLA B27 positive)Inflammatory arthritisElevated antinuclear antibody (RENUKA) levelExpected: 11/11/2019 (Approximate), Expires: 08/10/2020COMPREHENSIVE METABOLIC PANELLabRoutineHLA B27 (HLA B27 positive)Inflammatory arthritisElevated antinuclear antibody (RENUKA) levelExpected: 11/11/2019 (Approximate), Expires: 08/10/2020SED RATELabRoutineHLA B27 (HLA B27 positive)Inflammatory arthritisElevated antinuclear antibody (RENUKA) levelExpected: 11/11/2019 (Approximate), Expires: 08/10/2020URINALYSIS DIPSTICKLabRoutineHLA B27 (HLA B27 positive)Inflammatory arthritisElevated antinuclear antibody (RENUKA) levelExpected: 11/11/2019 (Approximate), Expires: 08/10/2020URINALYSIS, MICROSCOPICLabRoutineHLA B27 (HLA B27 positive)Inflammatory arthritisElevated antinuclear antibody (RENUKA) levelExpected: 11/11/2019 (Approximate), Expires: 08/10/2020PROTEIN/CR RATIO,UR RANLabRoutineHLA B27 (HLA B27 positive)Inflammatory arthritisElevated antinuclear antibody (RENUKA) levelExpected: 11/11/2019 (Approximate), Expires: 08/10/202025-[place] VITAMIN D (D2 + D3)LabRoutineVitamin D deficiencyExpected: 11/11/2019 (Approximate), Expires: 08/10/2020C3 COMPLEMENT 3LabRoutineHLA B27 (HLA B27 positive)Inflammatory arthritisElevated antinuclear antibody (RENUKA) levelExpected: 11/11/2019 (Approximate), Expires: 08/10/2020C4 COMPLEMENT 4LabRoutineHLA B27 (HLA B27 positive)Inflammatory arthritisElevated antinuclear antibody (RENUKA) levelExpected: 11/11/2019 (Approximate), Expires: 08/10/2020ANTI- DNA DOUBLE STRANDLabRoutineHLA B27 (HLA B27 positive)Inflammatory arthritisElevated antinuclear antibody (RENUKA) levelExpected: 11/11/2019 (Approximate), Expires: 08/10/2020MAGNESIUMLabRoutinePVC (premature ventricular contraction)Expected: 11/11/2019 (Approximate), Expires: 08/10/2020CBC AND DIFFLabRoutineHLA B27 (HLA B27 positive)Inflammatory arthritisTherapeutic drug monitoringEvery 4 Weeks Auto for 12 Occurrences starting 11/09/2019 until 1ALT (SGPT)LabRoutineHLA B27 (HLA B27 positive)Inflammatory arthritisTherapeutic drug monitoringEvery 4 Weeks Auto for 12 Occurrences starting 11/09/2019 until 1CREATININELabRoutineHLA B27 (HLA B27 positive)Inflammatory arthritisTherapeutic drug monitoringEvery 4 Weeks Auto for 12 Occurrences starting 11/09/2019 until 1IMMUNOGLOBULINS- IGA,IGG,IGMLabRoutineInflammatory arthritisExpected: 11/11/2019 (Approximate), E xpires: 08/10/2020ANTI-DNA DOUBLE STRANDLabRoutineHLA B27 (HLA B27 positive)Inflammatory arthritisElevated antinuclear antibody (RENUKA) levelTherapeutic drug monitoringExpected: 11/11/2019 (Approximate), Expires: 08/10/2020C3 COMPLEMENT 3LabRoutineHLA B27 (HLA B27 positive)Inflammatory arthritisElevated antinuclear antibody (RENUKA) levelTherapeutic drug monitoringExpected: 11/11/2019 (Approximate), Expires: 08/10/2020C4 COMPLEMENT 4LabRoutineHLA B27 (HLA B27 positive)Inflammatory arthritisElevated antinuclear antibody (RENUKA) levelTherapeutic drug monitoringExpected: 11/11/2019 (Approximate), Expires: 08/10/202025-[place] VITAMIN D (D2 + D3)LabRoutineVitamin D deficiencyExpected: 11/11/2019 (Approximate), Expires: 08/10/2020C REACTIVE PROTEIN (CRP)LabRoutineHLA B27 (HLA B27 positive)Inflammatory arthritisElevated antinuclear antibody (RENUKA) levelTherapeutic drug monitoringExpected: 11/11/2019 (Approximate), Expires: 08/10/2020SED RATELabRoutineHLA B27 (HLA B27 positive)Inflammatory arthritisElevated antinuclear antibody (RENUKA) levelTherapeutic drug monitoringExpected: 11/11/2019 (Approximate), Expires: 08/10/2020COMPREHENSIVE METABOLIC PANELLabRoutineHLA B27 (HLA B27 positive)Inflammatory arthritisElevated antinuclear antibody (RENUKA) levelTherapeutic drug monitoringExpected: 11/11/2019 (Approximate), Expires: 08/10/2020URINALYSIS DIPSTICKLabRoutineHLA B27 (HLA B27 positive)Inflammatory arthritisElevated antinuclear antibody (RENUKA) levelTherapeutic drug monitoringExpected: 11/11/2019 (Approximate), Expires: 08/10/2020URINALYSIS, MICROSCOPICLabRoutineHLA B27 (HLA B27 positive)Inflammatory arthritisElevated a ntinuclear antibody (RENUKA) levelTherapeutic drug monitoringExpected: 11/11/2019 (Approximate), Expires: 08/10/2020PROTEIN/CR RATIO,UR RANLabRoutineHLA B27 (HLA B27 positive)Inflammatory arthritisElevated antinuclear antibody (RENUKA) levelTherapeutic drug monitoringExpected: 11/11/2019 (Approximate), Expires: 08/10/2020CBC AND DIFFLabRoutineHLA B27 (HLA B27 positive)Inflammatory arthritisElevated antinuclear antibody (RENUKA) levelTherapeutic drug monitoringExpected: 11/11/2019 (Approximate), Expires: 08/10/2020MAGNESIUMLabRoutinePVC (premature ventricular contraction)Expected: 11/11/2019 (Approximate), Expires: 08/10/2020CBC AND DIFFLabRoutineInflammatory arthritisTherapeutic drug monitoringEvery 4 Weeks Auto for 12 Occurrences starting 11/09/2019 until 1ALT (SGPT)LabRoutineInflammatory arthrit isTherapeutic drug monitoringEvery 4 Weeks Auto for 12 Occurrences starting 11/09/2019 until 1CREATININELabRoutineInflammatory arthritisTherapeutic drug monitoringEvery 4 Weeks Auto for 12 Occurrences starting 11/09/2019 until 1CBC AND DIFFLabRoutineHLA-B27 spondyloarthropathyInflammatory arthritisElevated antinuclear antibody (RENUKA) levelTherapeutic drug monitoringExpected: 03/14/2020 (Approximate), Expires: 08/10/2020C REACTIVE PROTEIN (CRP)LabRoutineHLA-B27 spondyloarthropathyInflammatory arthritisElevated antinuclear antibody (RENUKA) levelTherapeutic drug monitoringExpected: 03/14/2020 (Approximate), Expires: 08/10/2020SED RATELabRoutineHLA-B27 spondyloarthropathyInflammatory arthritisElevated antinuclear antibody (RENUKA) levelTherapeutic drug monitoringExpected: 03/14/2020 (Approximate), Expires: 08/10/2020COMPREHENSIVE METABOLIC PANELLabRoutineHLA-B27 spondyloarthropathyInflammatory arthritisElevated antinuclear antibody (RENUKA) levelTherapeutic drug monitoringExpected: 03/14/2020 (Approximate), Expires: 08/10/2020URINALYSIS DIPSTICKLabRoutineHLA-B27 spondyloarthropathyInflammatory arthritisElevated antinuclear antibody (RENUKA) levelTherapeutic drug monitoringExpected: 03/14/2020 (Approximate), Expires: 08/10/2020URINALYSIS, MICROSCOPICLabRoutineHLA-B27 spondyloarthropathyInflammatory arthritisElevated antinuclear antibody (RENUKA) levelTherapeutic drug monitoringExpected: 03/14/2020 (Approximate), Expires: 08/10/2020PROTEIN/CR RATIO,UR RANLabRoutineHLA-B27 spondyloarthropathyInflammatory arthritisElevated antinuclear antibody (RENUKA) levelTherapeutic drug monitoringExpected: 03/14/2020 (Approximate), Expires: 08/10/2020C3 COMPLEMENT 3LabRoutineHLA-B27 spondyloarthropathyInflammatory arthritisElevated antinuclear antibody (RENUKA) levelTherapeutic drug monitoringExpected: 03/14/2020 (Approximate), Expires: 08/10/2020C4 COMPLEMENT 4LabRoutineHLA-B27 spondyloarthropathyInflammatory arthritisElevated antinuclear antibody (RENUKA) levelTherapeutic drug monitoringExpected: 03/14/2020 (A pproximate), Expires: 08/10/2020ANTI-DNA DOUBLE STRANDLabRoutineHLA-B27 spondyloarthropathyInflammatory arthritisElevated antinuclear antibody (RENUKA) levelTherapeutic drug monitoringExpected: 03/14/2020 (Approximate), Expires: 08/10/202025-[place] VITAMIN D (D2 + D3)LabRoutineVitamin D deficiencyTherapeutic drug monitoringExpected: 03/14/2020 (Approximate), Expires: 08/10/2020documented as of this encounter 03/29/2020 [facility] , Scheduled OrdersNameTypePriorityAssociat ed DiagnosesOrder ScheduleCBC AND DIFFLabRoutineHLA B27 (HLA B27 positive)Inflammatory arthritisElevated antinuclear antibody (RENUKA) levelExpected: 11/11/2019 (Approximate), Expires: 08/10/2020C REACTIVE PROTEIN (CRP)LabRoutineHLA B27 (HLA B27 positive)Inflammatory arthritisElevated antinuclear antibody (RENUKA) levelExpected: 11/11/2019 (Approximate), Expires: 08/10/2020COMPREHENSIVE METABOLIC PANELLabRoutineHLA B27 (HLA B27 positive)Inflammatory arthritisElevated antinuclear antibody (RENUKA) levelExpected: 11/11/2019 (Approximate), Expires: 08/10/2020SED RATELabRoutineHLA B27 (HLA B27 positive)Inflammatory arthritisElevated antinuclear antibody (RENUKA) levelExpected: 11/11/2019 (Approximate), Expires: 08/10/2020URINALYSIS DIPSTICKLabRoutineHLA B27 (HLA B27 positive)Inflammatory arthritisElevated antinuclear antibody (RENUKA) levelExpected: 11/11/2019 (Approximate), Expires: 08/10/2020URINALYSIS, MICROSCOPICLabRoutineHLA B27 (HLA B27 positive)Inflammatory arthritisElevated antinuclear antibody (RENUKA) levelExpected: 11/11/2019 (Approximate), Expires: 08/10/2020PROTEIN/CR RATIO,UR RANLabRoutineHLA B27 (HLA B27 positive)Inflammatory arthritisElevated antinuclear antibody (RENUKA) levelExpected: 11/11/2019 (Approximate), Expires: 08/10/202025-[place] VITAMIN D (D2 + D3)LabRoutineVitamin D deficiencyExpected: 11/11/2019 (Approximate), Expires: 08/10/2020C3 COMPLEMENT 3LabRoutineHLA B27 (HLA B27 positive)Inflammatory arthritisElevated antinuclear antibody (RENUKA) levelExpected: 11/11/2019 (Approximate), Expires: 08/10/2020C4 COMPLEMENT 4LabRoutineHLA B27 (HLA B27 positive)Inflammatory arthritisElevated antinuclear antibody (RENUKA) levelExpected: 11/11/2019 (Approximate), Expires: 08/10/2020ANTI- DNA DOUBLE STRANDLabRoutineHLA B27 (HLA B27 positive)Inflammatory arthritisElevated antinuclear antibody (RENUKA) levelExpected: 11/11/2019 (Approximate), Expires: 08/10/2020MAGNESIUMLabRoutinePVC (premature ventricular contraction)Expected: 11/11/2019 (Approximate), Expires: 08/10/2020CBC AND DIFFLabRoutineHLA B27 (HLA B27 positive)Inflammatory arthritisTherapeutic drug monitoringEvery 4 Weeks Auto for 12 Occurrences starting 11/09/2019 until 1ALT (SGPT)LabRoutineHLA B27 (HLA B27 positive)Inflammatory arthritisTherapeutic drug monitoringEvery 4 Weeks Auto for 12 Occurrences starting 11/09/2019 until 1CREATININELabRoutineHLA B27 (HLA B27 positive)Inflammatory arthritisTherapeutic drug monitoringEvery 4 Weeks Auto for 12 Occurrences starting 11/09/2019 until 1IMMUNOGLOBULINS- IGA,IGG,IGMLabRoutineInflammatory arthritisExpected: 11/11/2019 (Approximate), E xpires: 08/10/2020ANTI-DNA DOUBLE STRANDLabRoutineHLA B27 (HLA B27 positive)Inflammatory arthritisElevated antinuclear antibody (RENUKA) levelTherapeutic drug monitoringExpected: 11/11/2019 (Approximate), Expires: 08/10/2020C3 COMPLEMENT 3LabRoutineHLA B27 (HLA B27 positive)Inflammatory arthritisElevated antinuclear antibody (RENUKA) levelTherapeutic drug monitoringExpected: 11/11/2019 (Approximate), Expires: 08/10/2020C4 COMPLEMENT 4LabRoutineHLA B27 (HLA B27 positive)Inflammatory arthritisElevated antinuclear antibody (RENUKA) levelTherapeutic drug monitoringExpected: 11/11/2019 (Approximate), Expires: 08/10/202025-[place] VITAMIN D (D2 + D3)LabRoutineVitamin D deficiencyExpected: 11/11/2019 (Approximate), Expires: 08/10/2020C REACTIVE PROTEIN (CRP)LabRoutineHLA B27 (HLA B27 positive)Inflammatory arthritisElevated antinuclear antibody (RENUKA) levelTherapeutic drug monitoringExpected: 11/11/2019 (Approximate), Expires: 08/10/2020SED RATELabRoutineHLA B27 (HLA B27 positive)Inflammatory arthritisElevated antinuclear antibody (RENUKA) levelTherapeutic drug monitoringExpected: 11/11/2019 (Approximate), Expires: 08/10/2020COMPREHENSIVE METABOLIC PANELLabRoutineHLA B27 (HLA B27 positive)Inflammatory arthritisElevated antinuclear antibody (RENUKA) levelTherapeutic drug monitoringExpected: 11/11/2019 (Approximate), Expires: 08/10/2020URINALYSIS DIPSTICKLabRoutineHLA B27 (HLA B27 positive)Inflammatory arthritisElevated antinuclear antibody (RENUKA) levelTherapeutic drug monitoringExpected: 11/11/2019 (Approximate), Expires: 08/10/2020URINALYSIS, MICROSCOPICLabRoutineHLA B27 (HLA B27 positive)Inflammatory arthritisElevated a ntinuclear antibody (RENUKA) levelTherapeutic drug monitoringExpected: 11/11/2019 (Approximate), Expires: 08/10/2020PROTEIN/CR RATIO,UR RANLabRoutineHLA B27 (HLA B27 positive)Inflammatory arthritisElevated antinuclear antibody (RENUKA) levelTherapeutic drug monitoringExpected: 11/11/2019 (Approximate), Expires: 08/10/2020CBC AND DIFFLabRoutineHLA B27 (HLA B27 positive)Inflammatory arthritisElevated antinuclear antibody (RENUKA) levelTherapeutic drug monitoringExpected: 11/11/2019 (Approximate), Expires: 08/10/2020MAGNESIUMLabRoutinePVC (premature ventricular contraction)Expected: 11/11/2019 (Approximate), Expires: 08/10/2020CBC AND DIFFLabRoutineInflammatory arthritisTherapeutic drug monitoringEvery 4 Weeks Auto for 12 Occurrences starting 11/09/2019 until 1ALT (SGPT)LabRoutineInflammatory arthrit isTherapeutic drug monitoringEvery 4 Weeks Auto for 12 Occurrences starting 11/09/2019 until 1CREATININELabRoutineInflammatory arthritisTherapeutic drug monitoringEvery 4 Weeks Auto for 12 Occurrences starting 11/09/2019 until 1CBC AND DIFFLabRoutineHLA-B27 spondyloarthropathyInflammatory arthritisElevated antinuclear antibody (RENUKA) levelTherapeutic drug monitoringExpected: 03/14/2020 (Approximate), Expires: 08/10/2020C REACTIVE PROTEIN (CRP)LabRoutineHLA-B27 spondyloarthropathyInflammatory arthritisElevated antinuclear antibody (RENUKA) levelTherapeutic drug monitoringExpected: 03/14/2020 (Approximate), Expires: 08/10/2020SED RATELabRoutineHLA-B27 spondyloarthropathyInflammatory arthritisElevated antinuclear antibody (RENUKA) levelTherapeutic drug monitoringExpected: 03/14/2020 (Approximate), Expires: 08/10/2020COMPREHENSIVE METABOLIC PANELLabRoutineHLA-B27 spondyloarthropathyInflammatory arthritisElevated antinuclear antibody (RENUKA) levelTherapeutic drug monitoringExpected: 03/14/2020 (Approximate), Expires: 08/10/2020URINALYSIS DIPSTICKLabRoutineHLA-B27 spondyloarthropathyInflammatory arthritisElevated antinuclear antibody (RENUKA) levelTherapeutic drug monitoringExpected: 03/14/2020 (Approximate), Expires: 08/10/2020URINALYSIS, MICROSCOPICLabRoutineHLA-B27 spondyloarthropathyInflammatory arthritisElevated antinuclear antibody (RENUKA) levelTherapeutic drug monitoringExpected: 03/14/2020 (Approximate), Expires: 08/10/2020PROTEIN/CR RATIO,UR RANLabRoutineHLA-B27 spondyloarthropathyInflammatory arthritisElevated antinuclear antibody (RENUKA) levelTherapeutic drug monitoringExpected: 03/14/2020 (Approximate), Expires: 08/10/2020C3 COMPLEMENT 3LabRoutineHLA-B27 spondyloarthropathyInflammatory arthritisElevated antinuclear antibody (RENUKA) levelTherapeutic drug monitoringExpected: 03/14/2020 (Approximate), Expires: 08/10/2020C4 COMPLEMENT 4LabRoutineHLA-B27 spondyloarthropathyInflammatory arthritisElevated antinuclear antibody (RENUKA) levelTherapeutic drug monitoringExpected: 03/14/2020 (A pproximate), Expires: 08/10/2020ANTI-DNA DOUBLE STRANDLabRoutineHLA-B27 spondyloarthropathyInflammatory arthritisElevated antinuclear antibody (RENUKA) levelTherapeutic drug monitoringExpected: 03/14/2020 (Approximate), Expires: 08/10/202025-[place] VITAMIN D (D2 + D3)LabRoutineVitamin D deficiencyTherapeutic drug monitoringExpected: 03/14/2020 (Approximate), Expires: 08/10/2020documented as of this encounter 03/29/2020 [facility] , Scheduled OrdersNameTypePriorityAssociat ed DiagnosesOrder ScheduleCBC AND DIFFLabRoutineHLA B27 (HLA B27 positive)Inflammatory arthritisElevated antinuclear antibody (RENUKA) levelExpected: 11/11/2019 (Approximate), Expires: 08/10/2020C REACTIVE PROTEIN (CRP)LabRoutineHLA B27 (HLA B27 positive)Inflammatory arthritisElevated antinuclear antibody (RENUKA) levelExpected: 11/11/2019 (Approximate), Expires: 08/10/2020COMPREHENSIVE METABOLIC PANELLabRoutineHLA B27 (HLA B27 positive)Inflammatory arthritisElevated antinuclear antibody (RENUKA) levelExpected: 11/11/2019 (Approximate), Expires: 08/10/2020SED RATELabRoutineHLA B27 (HLA B27 positive)Inflammatory arthritisElevated antinuclear antibody (RENUKA) levelExpected: 11/11/2019 (Approximate), Expires: 08/10/2020URINALYSIS DIPSTICKLabRoutineHLA B27 (HLA B27 positive)Inflammatory arthritisElevated antinuclear antibody (RENUKA) levelExpected: 11/11/2019 (Approximate), Expires: 08/10/2020URINALYSIS, MICROSCOPICLabRoutineHLA B27 (HLA B27 positive)Inflammatory arthritisElevated antinuclear antibody (RENUKA) levelExpected: 11/11/2019 (Approximate), Expires: 08/10/2020PROTEIN/CR RATIO,UR RANLabRoutineHLA B27 (HLA B27 positive)Inflammatory arthritisElevated antinuclear antibody (RENUKA) levelExpected: 11/11/2019 (Approximate), Expires: 08/10/202025-[place] VITAMIN D (D2 + D3)LabRoutineVitamin D deficiencyExpected: 11/11/2019 (Approximate), Expires: 08/10/2020C3 COMPLEMENT 3LabRoutineHLA B27 (HLA B27 positive)Inflammatory arthritisElevated antinuclear antibody (RENUKA) levelExpected: 11/11/2019 (Approximate), Expires: 08/10/2020C4 COMPLEMENT 4LabRoutineHLA B27 (HLA B27 positive)Inflammatory arthritisElevated antinuclear antibody (RENUKA) levelExpected: 11/11/2019 (Approximate), Expires: 08/10/2020ANTI- DNA DOUBLE STRANDLabRoutineHLA B27 (HLA B27 positive)Inflammatory arthritisElevated antinuclear antibody (RENUKA) levelExpected: 11/11/2019 (Approximate), Expires: 08/10/2020MAGNESIUMLabRoutinePVC (premature ventricular contraction)Expected: 11/11/2019 (Approximate), Expires: 08/10/2020CBC AND DIFFLabRoutineHLA B27 (HLA B27 positive)Inflammatory arthritisTherapeutic drug monitoringEvery 4 Weeks Auto for 12 Occurrences starting 11/09/2019 until 1ALT (SGPT)LabRoutineHLA B27 (HLA B27 positive)Inflammatory arthritisTherapeutic drug monitoringEvery 4 Weeks Auto for 12 Occurrences starting 11/09/2019 until 1CREATININELabRoutineHLA B27 (HLA B27 positive)Inflammatory arthritisTherapeutic drug monitoringEvery 4 Weeks Auto for 12 Occurrences starting 11/09/2019 until 08/10/2021IMMUNOGLOBULINS- IGA,IGG,IGMLabRoutineInflammatory arthritisExpected: 11/11/2019 (Approximate), E xpires: 08/10/2020ANTI-DNA DOUBLE STRANDLabRoutineHLA B27 (HLA B27 positive)Inflammatory arthritisElevated antinuclear antibody (RENUKA) levelTherapeutic drug monitoringExpected: 11/11/2019 (Approximate), Expires: 08/10/2020C3 COMPLEMENT 3LabRoutineHLA B27 (HLA B27 positive)Inflammatory arthritisElevated antinuclear antibody (RENUKA) levelTherapeutic drug monitoringExpected: 11/11/2019 (Approximate), Expires: 08/10/2020C4 COMPLEMENT 4LabRoutineHLA B27 (HLA B27 positive)Inflammatory arthritisElevated antinuclear antibody (RENUKA) levelTherapeutic drug monitoringExpected: 11/11/2019 (Approximate), Expires: 08/10/202025-[place] VITAMIN D (D2 + D3)LabRoutineVitamin D deficiencyExpected: 11/11/2019 (Approximate), Expires: 08/10/2020C REACTIVE PROTEIN (CRP)LabRoutineHLA B27 (HLA B27 positive)Inflammatory arthritisElevated antinuclear antibody (RENUKA) levelTherapeutic drug monitoringExpected: 11/11/2019 (Approximate), Expires: 08/10/2020SED RATELabRoutineHLA B27 (HLA B27 positive)Inflammatory arthritisElevated antinuclear antibody (RENUKA) levelTherapeutic drug monitoringExpected: 11/11/2019 (Approximate), Expires: 08/10/2020COMPREHENSIVE METABOLIC PANELLabRoutineHLA B27 (HLA B27 positive)Inflammatory arthritisElevated antinuclear antibody (RENUKA) levelTherapeutic drug monitoringExpected: 11/11/2019 (Approximate), Expires: 08/10/2020URINALYSIS DIPSTICKLabRoutineHLA B27 (HLA B27 positive)Inflammatory arthritisElevated antinuclear antibody (RENUKA) levelTherapeutic drug monitoringExpected: 11/11/2019 (Approximate), Expires: 08/10/2020URINALYSIS, MICROSCOPICLabRoutineHLA B27 (HLA B27 positive)Inflammatory arthritisElevated a ntinuclear antibody (RENUKA) levelTherapeutic drug monitoringExpected: 11/11/2019 (Approximate), Expires: 08/10/2020PROTEIN/CR RATIO,UR RANLabRoutineHLA B27 (HLA B27 positive)Inflammatory arthritisElevated antinuclear antibody (RENUKA) levelTherapeutic drug monitoringExpected: 11/11/2019 (Approximate), Expires: 08/10/2020CBC AND DIFFLabRoutineHLA B27 (HLA B27 positive)Inflammatory arthritisElevated antinuclear antibody (RENUKA) levelTherapeutic drug monitoringExpected: 11/11/2019 (Approximate), Expires: 08/10/2020MAGNESIUMLabRoutinePVC (premature ventricular contraction)Expected: 11/11/2019 (Approximate), Expires: 08/10/2020CBC AND DIFFLabRoutineInflammatory arthritisTherapeutic drug monitoringEvery 4 Weeks Auto for 12 Occurrences starting 11/09/2019 until 1ALT (SGPT)LabRoutineInflammatory arthrit isTherapeutic drug monitoringEvery 4 Weeks Auto for 12 Occurrences starting 11/09/2019 until 1CREATININELabRoutineInflammatory arthritisTherapeutic drug monitoringEvery 4 Weeks Auto for 12 Occurrences starting 11/09/2019 until 1CBC AND DIFFLabRoutineHLA-B27 spondyloarthropathyInflammatory arthritisElevated antinuclear antibody (RENUKA) levelTherapeutic drug monitoringExpected: 03/14/2020 (Approximate), Expires: 08/10/2020C REACTIVE PROTEIN (CRP)LabRoutineHLA-B27 spondyloarthropathyInflammatory arthritisElevated antinuclear antibody (RENUKA) levelTherapeutic drug monitoringExpected: 03/14/2020 (Approximate), Expires: 08/10/2020SED RATELabRoutineHLA-B27 spondyloarthropathyInflammatory arthritisElevated antinuclear antibody (RENUKA) levelTherapeutic drug monitoringExpected: 03/14/2020 (Approximate), Expires: 08/10/2020COMPREHENSIVE METABOLIC PANELLabRoutineHLA-B27 spondyloarthropathyInflammatory arthritisElevated antinuclear antibody (RENUKA) levelTherapeutic drug monitoringExpected: 03/14/2020 (Approximate), Expires: 08/10/2020URINALYSIS DIPSTICKLabRoutineHLA-B27 spondyloarthropathyInflammatory arthritisElevated antinuclear antibody (RENUKA) levelTherapeutic drug monitoringExpected: 03/14/2020 (Approximate), Expires: 08/10/2020URINALYSIS, MICROSCOPICLabRoutineHLA-B27 spondyloarthropathyInflammatory arthritisElevated antinuclear antibody (RENUKA) levelTherapeutic drug monitoringExpected: 03/14/2020 (Approximate), Expires: 08/10/2020PROTEIN/CR RATIO,UR RANLabRoutineHLA-B27 spondyloarthropathyInflammatory arthritisElevated antinuclear antibody (RENUKA) levelTherapeutic drug monitoringExpected: 03/14/2020 (Approximate), Expires: 08/10/2020C3 COMPLEMENT 3LabRoutineHLA-B27 spondyloarthropathyInflammatory arthritisElevated antinuclear antibody (RENUKA) levelTherapeutic drug monitoringExpected: 03/14/2020 (Approximate), Expires: 08/10/2020C4 COMPLEMENT 4LabRoutineHLA-B27 spondyloarthropathyInflammatory arthritisElevated antinuclear antibody (RENUKA) levelTherapeutic drug monitoringExpected: 03/14/2020 (A pproximate), Expires: 08/10/2020ANTI-DNA DOUBLE STRANDLabRoutineHLA-B27 spondyloarthropathyInflammatory arthritisElevated antinuclear antibody (RENUKA) levelTherapeutic drug monitoringExpected: 03/14/2020 (Approximate), Expires: 08/10/202025-[place] VITAMIN D (D2 + D3)LabRoutineVitamin D deficiencyTherapeutic drug monitoringExpected: 03/14/2020 (Approximate), Expires: 08/10/2020documented as of this encounter 03/29/2020 [facility] , Scheduled OrdersNameTypePriorityAssociat ed DiagnosesOrder ScheduleCBC AND DIFFLabRoutineHLA B27 (HLA B27 positive)Inflammatory arthritisElevated antinuclear antibody (RENUKA) levelExpected: 11/11/2019 (Approximate), Expires: 08/10/2020C REACTIVE PROTEIN (CRP)LabRoutineHLA B27 (HLA B27 positive)Inflammatory arthritisElevated antinuclear antibody (RENUKA) levelExpected: 11/11/2019 (Approximate), Expires: 08/10/2020COMPREHENSIVE METABOLIC PANELLabRoutineHLA B27 (HLA B27 positive)Inflammatory arthritisElevated antinuclear antibody (RENUKA) levelExpected: 11/11/2019 (Approximate), Expires: 08/10/2020SED RATELabRoutineHLA B27 (HLA B27 positive)Inflammatory arthritisElevated antinuclear antibody (RENUKA) levelExpected: 11/11/2019 (Approximate), Expires: 08/10/2020URINALYSIS DIPSTICKLabRoutineHLA B27 (HLA B27 positive)Inflammatory arthritisElevated antinuclear antibody (RENUKA) levelExpected: 11/11/2019 (Approximate), Expires: 08/10/2020URINALYSIS, MICROSCOPICLabRoutineHLA B27 (HLA B27 positive)Inflammatory arthritisElevated antinuclear antibody (RENUKA) levelExpected: 11/11/2019 (Approximate), Expires: 08/10/2020PROTEIN/CR RATIO,UR RANLabRoutineHLA B27 (HLA B27 positive)Inflammatory arthritisElevated antinuclear antibody (RENUKA) levelExpected: 11/11/2019 (Approximate), Expires: 08/10/202025-[place] VITAMIN D (D2 + D3)LabRoutineVitamin D deficiencyExpected: 11/11/2019 (Approximate), Expires: 08/10/2020C3 COMPLEMENT 3LabRoutineHLA B27 (HLA B27 positive)Inflammatory arthritisElevated antinuclear antibody (RENUKA) levelExpected: 11/11/2019 (Approximate), Expires: 08/10/2020C4 COMPLEMENT 4LabRoutineHLA B27 (HLA B27 positive)Inflammatory arthritisElevated antinuclear antibody (RENUKA) levelExpected: 11/11/2019 (Approximate), Expires: 08/10/2020ANTI- DNA DOUBLE STRANDLabRoutineHLA B27 (HLA B27 positive)Inflammatory arthritisElevated antinuclear antibody (RENUKA) levelExpected: 11/11/2019 (Approximate), Expires: 08/10/2020MAGNESIUMLabRoutinePVC (premature ventricular contraction)Expected: 11/11/2019 (Approximate), Expires: 08/10/2020CBC AND DIFFLabRoutineHLA B27 (HLA B27 positive)Inflammatory arthritisTherapeutic drug monitoringEvery 4 Weeks Auto for 12 Occurrences starting 11/09/2019 until 1ALT (SGPT)LabRoutineHLA B27 (HLA B27 positive)Inflammatory arthritisTherapeutic drug monitoringEvery 4 Weeks Auto for 12 Occurrences starting 11/09/2019 until 1CREATININELabRoutineHLA B27 (HLA B27 positive)Inflammatory arthritisTherapeutic drug monitoringEvery 4 Weeks Auto for 12 Occurrences starting 11/09/2019 until 1IMMUNOGLOBULINS- IGA,IGG,IGMLabRoutineInflammatory arthritisExpected: 11/11/2019 (Approximate), E xpires: 08/10/2020ANTI-DNA DOUBLE STRANDLabRoutineHLA B27 (HLA B27 positive)Inflammatory arthritisElevated antinuclear antibody (RENUKA) levelTherapeutic drug monitoringExpected: 11/11/2019 (Approximate), Expires: 08/10/2020C3 COMPLEMENT 3LabRoutineHLA B27 (HLA B27 positive)Inflammatory arthritisElevated antinuclear antibody (RENUKA) levelTherapeutic drug monitoringExpected: 11/11/2019 (Approximate), Expires: 08/10/2020C4 COMPLEMENT 4LabRoutineHLA B27 (HLA B27 positive)Inflammatory arthritisElevated antinuclear antibody (RENUKA) levelTherapeutic drug monitoringExpected: 11/11/2019 (Approximate), Expires: 08/10/202025-[place] VITAMIN D (D2 + D3)LabRoutineVitamin D deficiencyExpected: 11/11/2019 (Approximate), Expires: 08/10/2020C REACTIVE PROTEIN (CRP)LabRoutineHLA B27 (HLA B27 positive)Inflammatory arthritisElevated antinuclear antibody (RENUKA) levelTherapeutic drug monitoringExpected: 11/11/2019 (Approximate), Expires: 08/10/2020SED RATELabRoutineHLA B27 (HLA B27 positive)Inflammatory arthritisElevated antinuclear antibody (RENUKA) levelTherapeutic drug monitoringExpected: 11/11/2019 (Approximate), Expires: 08/10/2020COMPREHENSIVE METABOLIC PANELLabRoutineHLA B27 (HLA B27 positive)Inflammatory arthritisElevated antinuclear antibody (RENUKA) levelTherapeutic drug monitoringExpected: 11/11/2019 (Approximate), Expires: 08/10/2020URINALYSIS DIPSTICKLabRoutineHLA B27 (HLA B27 positive)Inflammatory arthritisElevated antinuclear antibody (RENUKA) levelTherapeutic drug monitoringExpected: 11/11/2019 (Approximate), Expires: 08/10/2020URINALYSIS, MICROSCOPICLabRoutineHLA B27 (HLA B27 positive)Inflammatory arthritisElevated a ntinuclear antibody (RENUKA) levelTherapeutic drug monitoringExpected: 11/11/2019 (Approximate), Expires: 08/10/2020PROTEIN/CR RATIO,UR RANLabRoutineHLA B27 (HLA B27 positive)Inflammatory arthritisElevated antinuclear antibody (RENUKA) levelTherapeutic drug monitoringExpected: 11/11/2019 (Approximate), Expires: 08/10/2020CBC AND DIFFLabRoutineHLA B27 (HLA B27 positive)Inflammatory arthritisElevated antinuclear antibody (RENUKA) levelTherapeutic drug monitoringExpected: 11/11/2019 (Approximate), Expires: 08/10/2020MAGNESIUMLabRoutinePVC (premature ventricular contraction)Expected: 11/11/2019 (Approximate), Expires: 08/10/2020CBC AND DIFFLabRoutineInflammatory arthritisTherapeutic drug monitoringEvery 4 Weeks Auto for 12 Occurrences starting 11/09/2019 until 1ALT (SGPT)LabRoutineInflammatory arthrit isTherapeutic drug monitoringEvery 4 Weeks Auto for 12 Occurrences starting 11/09/2019 until 1CREATININELabRoutineInflammatory arthritisTherapeutic drug monitoringEvery 4 Weeks Auto for 12 Occurrences starting 11/09/2019 until 1CBC AND DIFFLabRoutineHLA-B27 spondyloarthropathyInflammatory arthritisElevated antinuclear antibody (ERNUKA) levelTherapeutic drug monitoringExpected: 03/14/2020 (Approximate), Expires: 08/10/2020C REACTIVE PROTEIN (CRP)LabRoutineHLA-B27 spondyloarthropathyInflammatory arthritisElevated antinuclear antibody (RENUKA) levelTherapeutic drug monitoringExpected: 03/14/2020 (Approximate), Expires: 08/10/2020SED RATELabRoutineHLA-B27 spondyloarthropathyInflammatory arthritisElevated antinuclear antibody (RENUKA) levelTherapeutic drug monitoringExpected: 03/14/2020 (Approximate), Expires: 08/10/2020COMPREHENSIVE METABOLIC PANELLabRoutineHLA-B27 spondyloarthropathyInflammatory arthritisElevated antinuclear antibody (RENUKA) levelTherapeutic drug monitoringExpected: 03/14/2020 (Approximate), Expires: 08/10/2020URINALYSIS DIPSTICKLabRoutineHLA-B27 spondyloarthropathyInflammatory arthritisElevated antinuclear antibody (RENUKA) levelTherapeutic drug monitoringExpected: 03/14/2020 (Approximate), Expires: 08/10/2020URINALYSIS, MICROSCOPICLabRoutineHLA-B27 spondyloarthropathyInflammatory arthritisElevated antinuclear antibody (RENUKA) levelTherapeutic drug monitoringExpected: 03/14/2020 (Approximate), Expires: 08/10/2020PROTEIN/CR RATIO,UR RANLabRoutineHLA-B27 spondyloarthropathyInflammatory arthritisElevated antinuclear antibody (RENUKA) levelTherapeutic drug monitoringExpected: 03/14/2020 (Approximate), Expires: 08/10/2020C3 COMPLEMENT 3LabRoutineHLA-B27 spondyloarthropathyInflammatory arthritisElevated antinuclear antibody (RENUKA) levelTherapeutic drug monitoringExpected: 03/14/2020 (Approximate), Expires: 08/10/2020C4 COMPLEMENT 4LabRoutineHLA-B27 spondyloarthropathyInflammatory arthritisElevated antinuclear antibody (RENUKA) levelTherapeutic drug monitoringExpected: 03/14/2020 (A pproximate), Expires: 08/10/2020ANTI-DNA DOUBLE STRANDLabRoutineHLA-B27 spondyloarthropathyInflammatory arthritisElevated antinuclear antibody (RENUKA) levelTherapeutic drug monitoringExpected: 03/14/2020 (Approximate), Expires: 08/10/202025-[place] VITAMIN D (D2 + D3)LabRoutineVitamin D deficiencyTherapeutic drug monitoringExpected: 03/14/2020 (Approximate), Expires: 08/10/2020documented as of this encounter 03/29/2020 [facility] , Scheduled OrdersNameTypePriorityAssociat ed DiagnosesOrder ScheduleCBC AND DIFFLabRoutineHLA B27 (HLA B27 positive)Inflammatory arthritisElevated antinuclear antibody (RENUKA) levelExpected: 11/11/2019 (Approximate), Expires: 08/10/2020C REACTIVE PROTEIN (CRP)LabRoutineHLA B27 (HLA B27 positive)Inflammatory arthritisElevated antinuclear antibody (RENUKA) levelExpected: 11/11/2019 (Approximate), Expires: 08/10/2020COMPREHENSIVE METABOLIC PANELLabRoutineHLA B27 (HLA B27 positive)Inflammatory arthritisElevated antinuclear antibody (RENUKA) levelExpected: 11/11/2019 (Approximate), Expires: 08/10/2020SED RATELabRoutineHLA B27 (HLA B27 positive)Inflammatory arthritisElevated antinuclear antibody (RENUKA) levelExpected: 11/11/2019 (Approximate), Expires: 08/10/2020URINALYSIS DIPSTICKLabRoutineHLA B27 (HLA B27 positive)Inflammatory arthritisElevated antinuclear antibody (RENUKA) levelExpected: 11/11/2019 (Approximate), Expires: 08/10/2020URINALYSIS, MICROSCOPICLabRoutineHLA B27 (HLA B27 positive)Inflammatory arthritisElevated antinuclear antibody (RENUKA) levelExpected: 11/11/2019 (Approximate), Expires: 08/10/2020PROTEIN/CR RATIO,UR RANLabRoutineHLA B27 (HLA B27 positive)Inflammatory arthritisElevated antinuclear antibody (RENUKA) levelExpected: 11/11/2019 (Approximate), Expires: 08/10/202025-[place] VITAMIN D (D2 + D3)LabRoutineVitamin D deficiencyExpected: 11/11/2019 (Approximate), Expires: 08/10/2020C3 COMPLEMENT 3LabRoutineHLA B27 (HLA B27 positive)Inflammatory arthritisElevated antinuclear antibody (RENUKA) levelExpected: 11/11/2019 (Approximate), Expires: 08/10/2020C4 COMPLEMENT 4LabRoutineHLA B27 (HLA B27 positive)Inflammatory arthritisElevated antinuclear antibody (RENUKA) levelExpected: 11/11/2019 (Approximate), Expires: 08/10/2020ANTI- DNA DOUBLE STRANDLabRoutineHLA B27 (HLA B27 positive)Inflammatory arthritisElevated antinuclear antibody (RENUKA) levelExpected: 11/11/2019 (Approximate), Expires: 08/10/2020MAGNESIUMLabRoutinePVC (premature ventricular contraction)Expected: 11/11/2019 (Approximate), Expires: 08/10/2020CBC AND DIFFLabRoutineHLA B27 (HLA B27 positive)Inflammatory arthritisTherapeutic drug monitoringEvery 4 Weeks Auto for 12 Occurrences starting 11/09/2019 until 1ALT (SGPT)LabRoutineHLA B27 (HLA B27 positive)Inflammatory arthritisTherapeutic drug monitoringEvery 4 Weeks Auto for 12 Occurrences starting 11/09/2019 until 1CREATININELabRoutineHLA B27 (HLA B27 positive)Inflammatory arthritisTherapeutic drug monitoringEvery 4 Weeks Auto for 12 Occurrences starting 11/09/2019 until 1IMMUNOGLOBULINS- IGA,IGG,IGMLabRoutineInflammatory arthritisExpected: 11/11/2019 (Approximate), E xpires: 08/10/2020ANTI-DNA DOUBLE STRANDLabRoutineHLA B27 (HLA B27 positive)Inflammatory arthritisElevated antinuclear antibody (RENUKA) levelTherapeutic drug monitoringExpected: 11/11/2019 (Approximate), Expires: 08/10/2020C3 COMPLEMENT 3LabRoutineHLA B27 (HLA B27 positive)Inflammatory arthritisElevated antinuclear antibody (RENUKA) levelTherapeutic drug monitoringExpected: 11/11/2019 (Approximate), Expires: 08/10/2020C4 COMPLEMENT 4LabRoutineHLA B27 (HLA B27 positive)Inflammatory arthritisElevated antinuclear antibody (RENUKA) levelTherapeutic drug monitoringExpected: 11/11/2019 (Approximate), Expires: 08/10/202025-[place] VITAMIN D (D2 + D3)LabRoutineVitamin D deficiencyExpected: 11/11/2019 (Approximate), Expires: 08/10/2020C REACTIVE PROTEIN (CRP)LabRoutineHLA B27 (HLA B27 positive)Inflammatory arthritisElevated antinuclear antibody (RENUKA) levelTherapeutic drug monitoringExpected: 11/11/2019 (Approximate), Expires: 08/10/2020SED RATELabRoutineHLA B27 (HLA B27 positive)Inflammatory arthritisElevated antinuclear antibody (RENUKA) levelTherapeutic drug monitoringExpected: 11/11/2019 (Approximate), Expires: 08/10/2020COMPREHENSIVE METABOLIC PANELLabRoutineHLA B27 (HLA B27 positive)Inflammatory arthritisElevated antinuclear antibody (RENUKA) levelTherapeutic drug monitoringExpected: 11/11/2019 (Approximate), Expires: 08/10/2020URINALYSIS DIPSTICKLabRoutineHLA B27 (HLA B27 positive)Inflammatory arthritisElevated antinuclear antibody (RENUKA) levelTherapeutic drug monitoringExpected: 11/11/2019 (Approximate), Expires: 08/10/2020URINALYSIS, MICROSCOPICLabRoutineHLA B27 (HLA B27 positive)Inflammatory arthritisElevated a ntinuclear antibody (RENUKA) levelTherapeutic drug monitoringExpected: 11/11/2019 (Approximate), Expires: 08/10/2020PROTEIN/CR RATIO,UR RANLabRoutineHLA B27 (HLA B27 positive)Inflammatory arthritisElevated antinuclear antibody (RENUKA) levelTherapeutic drug monitoringExpected: 11/11/2019 (Approximate), Expires: 08/10/2020CBC AND DIFFLabRoutineHLA B27 (HLA B27 positive)Inflammatory arthritisElevated antinuclear antibody (RENUKA) levelTherapeutic drug monitoringExpected: 11/11/2019 (Approximate), Expires: 08/10/2020MAGNESIUMLabRoutinePVC (premature ventricular contraction)Expected: 11/11/2019 (Approximate), Expires: 08/10/2020CBC AND DIFFLabRoutineInflammatory arthritisTherapeutic drug monitoringEvery 4 Weeks Auto for 12 Occurrences starting 11/09/2019 until 1ALT (SGPT)LabRoutineInflammatory arthrit isTherapeutic drug monitoringEvery 4 Weeks Auto for 12 Occurrences starting 11/09/2019 until 1CREATININELabRoutineInflammatory arthritisTherapeutic drug monitoringEvery 4 Weeks Auto for 12 Occurrences starting 11/09/2019 until 1CBC AND DIFFLabRoutineHLA-B27 spondyloarthropathyInflammatory arthritisElevated antinuclear antibody (RENUKA) levelTherapeutic drug monitoringExpected: 03/14/2020 (Approximate), Expires: 08/10/2020C REACTIVE PROTEIN (CRP)LabRoutineHLA-B27 spondyloarthropathyInflammatory arthritisElevated antinuclear antibody (RENUKA) levelTherapeutic drug monitoringExpected: 03/14/2020 (Approximate), Expires: 08/10/2020SED RATELabRoutineHLA-B27 spondyloarthropathyInflammatory arthritisElevated antinuclear antibody (RENUKA) levelTherapeutic drug monitoringExpected: 03/14/2020 (Approximate), Expires: 08/10/2020COMPREHENSIVE METABOLIC PANELLabRoutineHLA-B27 spondyloarthropathyInflammatory arthritisElevated antinuclear antibody (RENUKA) levelTherapeutic drug monitoringExpected: 03/14/2020 (Approximate), Expires: 08/10/2020URINALYSIS DIPSTICKLabRoutineHLA-B27 spondyloarthropathyInflammatory arthritisElevated antinuclear antibody (RENUKA) levelTherapeutic drug monitoringExpected: 03/14/2020 (Approximate), Expires: 08/10/2020URINALYSIS, MICROSCOPICLabRoutineHLA-B27 spondyloarthropathyInflammatory arthritisElevated antinuclear antibody (RENUKA) levelTherapeutic drug monitoringExpected: 03/14/2020 (Approximate), Expires: 08/10/2020PROTEIN/CR RATIO,UR RANLabRoutineHLA-B27 spondyloarthropathyInflammatory arthritisElevated antinuclear antibody (RENUKA) levelTherapeutic drug monitoringExpected: 03/14/2020 (Approximate), Expires: 08/10/2020C3 COMPLEMENT 3LabRoutineHLA-B27 spondyloarthropathyInflammatory arthritisElevated antinuclear antibody (RENUKA) levelTherapeutic drug monitoringExpected: 03/14/2020 (Approximate), Expires: 08/10/2020C4 COMPLEMENT 4LabRoutineHLA-B27 spondyloarthropathyInflammatory arthritisElevated antinuclear antibody (RENUKA) levelTherapeutic drug monitoringExpected: 03/14/2020 (A pproximate), Expires: 08/10/2020ANTI-DNA DOUBLE STRANDLabRoutineHLA-B27 spondyloarthropathyInflammatory arthritisElevated antinuclear antibody (RENUKA) levelTherapeutic drug monitoringExpected: 03/14/2020 (Approximate), Expires: 08/10/202025-[place] VITAMIN D (D2 + D3)LabRoutineVitamin D deficiencyTherapeutic drug monitoringExpected: 03/14/2020 (Approximate), Expires: 08/10/2020documented as of this encounter 03/29/2020 [facility] , Scheduled OrdersNameTypePriorityAssociat ed DiagnosesOrder ScheduleCBC AND DIFFLabRoutineHLA B27 (HLA B27 positive)Inflammatory arthritisElevated antinuclear antibody (RENUKA) levelExpected: 11/11/2019 (Approximate), Expires: 08/10/2020C REACTIVE PROTEIN (CRP)LabRoutineHLA B27 (HLA B27 positive)Inflammatory arthritisElevated antinuclear antibody (RENUKA) levelExpected: 11/11/2019 (Approximate), Expires: 08/10/2020COMPREHENSIVE METABOLIC PANELLabRoutineHLA B27 (HLA B27 positive)Inflammatory arthritisElevated antinuclear antibody (RENUKA) levelExpected: 11/11/2019 (Approximate), Expires: 08/10/2020SED RATELabRoutineHLA B27 (HLA B27 positive)Inflammatory arthritisElevated antinuclear antibody (RENUKA) levelExpected: 11/11/2019 (Approximate), Expires: 08/10/2020URINALYSIS DIPSTICKLabRoutineHLA B27 (HLA B27 positive)Inflammatory arthritisElevated antinuclear antibody (RENUKA) levelExpected: 11/11/2019 (Approximate), Expires: 08/10/2020URINALYSIS, MICROSCOPICLabRoutineHLA B27 (HLA B27 positive)Inflammatory arthritisElevated antinuclear antibody (RENUKA) levelExpected: 11/11/2019 (Approximate), Expires: 08/10/2020PROTEIN/CR RATIO,UR RANLabRoutineHLA B27 (HLA B27 positive)Inflammatory arthritisElevated antinuclear antibody (RENUKA) levelExpected: 11/11/2019 (Approximate), Expires: 08/10/202025-[place] VITAMIN D (D2 + D3)LabRoutineVitamin D deficiencyExpected: 11/11/2019 (Approximate), Expires: 08/10/2020C3 COMPLEMENT 3LabRoutineHLA B27 (HLA B27 positive)Inflammatory arthritisElevated antinuclear antibody (RENUKA) levelExpected: 11/11/2019 (Approximate), Expires: 08/10/2020C4 COMPLEMENT 4LabRoutineHLA B27 (HLA B27 positive)Inflammatory arthritisElevated antinuclear antibody (RENUKA) levelExpected: 11/11/2019 (Approximate), Expires: 08/10/2020ANTI- DNA DOUBLE STRANDLabRoutineHLA B27 (HLA B27 positive)Inflammatory arthritisElevated antinuclear antibody (RENUKA) levelExpected: 11/11/2019 (Approximate), Expires: 08/10/2020MAGNESIUMLabRoutinePVC (premature ventricular contraction)Expected: 11/11/2019 (Approximate), Expires: 08/10/2020CBC AND DIFFLabRoutineHLA B27 (HLA B27 positive)Inflammatory arthritisTherapeutic drug monitoringEvery 4 Weeks Auto for 12 Occurrences starting 11/09/2019 until 1ALT (SGPT)LabRoutineHLA B27 (HLA B27 positive)Inflammatory arthritisTherapeutic drug monitoringEvery 4 Weeks Auto for 12 Occurrences starting 11/09/2019 until 1CREATININELabRoutineHLA B27 (HLA B27 positive)Inflammatory arthritisTherapeutic drug monitoringEvery 4 Weeks Auto for 12 Occurrences starting 11/09/2019 until 1IMMUNOGLOBULINS- IGA,IGG,IGMLabRoutineInflammatory arthritisExpected: 11/11/2019 (Approximate), E xpires: 08/10/2020ANTI-DNA DOUBLE STRANDLabRoutineHLA B27 (HLA B27 positive)Inflammatory arthritisElevated antinuclear antibody (RENUKA) levelTherapeutic drug monitoringExpected: 11/11/2019 (Approximate), Expires: 08/10/2020C3 COMPLEMENT 3LabRoutineHLA B27 (HLA B27 positive)Inflammatory arthritisElevated antinuclear antibody (RENUKA) levelTherapeutic drug monitoringExpected: 11/11/2019 (Approximate), Expires: 08/10/2020C4 COMPLEMENT 4LabRoutineHLA B27 (HLA B27 positive)Inflammatory arthritisElevated antinuclear antibody (RENUKA) levelTherapeutic drug monitoringExpected: 11/11/2019 (Approximate), Expires: 08/10/202025-[place] VITAMIN D (D2 + D3)LabRoutineVitamin D deficiencyExpected: 11/11/2019 (Approximate), Expires: 08/10/2020C REACTIVE PROTEIN (CRP)LabRoutineHLA B27 (HLA B27 positive)Inflammatory arthritisElevated antinuclear antibody (RENUKA) levelTherapeutic drug monitoringExpected: 11/11/2019 (Approximate), Expires: 08/10/2020SED RATELabRoutineHLA B27 (HLA B27 positive)Inflammatory arthritisElevated antinuclear antibody (RENUKA) levelTherapeutic drug monitoringExpected: 11/11/2019 (Approximate), Expires: 08/10/2020COMPREHENSIVE METABOLIC PANELLabRoutineHLA B27 (HLA B27 positive)Inflammatory arthritisElevated antinuclear antibody (RENUKA) levelTherapeutic drug monitoringExpected: 11/11/2019 (Approximate), Expires: 08/10/2020URINALYSIS DIPSTICKLabRoutineHLA B27 (HLA B27 positive)Inflammatory arthritisElevated antinuclear antibody (RENUKA) levelTherapeutic drug monitoringExpected: 11/11/2019 (Approximate), Expires: 08/10/2020URINALYSIS, MICROSCOPICLabRoutineHLA B27 (HLA B27 positive)Inflammatory arthritisElevated a ntinuclear antibody (RENUKA) levelTherapeutic drug monitoringExpected: 11/11/2019 (Approximate), Expires: 08/10/2020PROTEIN/CR RATIO,UR RANLabRoutineHLA B27 (HLA B27 positive)Inflammatory arthritisElevated antinuclear antibody (RENUKA) levelTherapeutic drug monitoringExpected: 11/11/2019 (Approximate), Expires: 08/10/2020CBC AND DIFFLabRoutineHLA B27 (HLA B27 positive)Inflammatory arthritisElevated antinuclear antibody (RENUKA) levelTherapeutic drug monitoringExpected: 11/11/2019 (Approximate), Expires: 08/10/2020MAGNESIUMLabRoutinePVC (premature ventricular contraction)Expected: 11/11/2019 (Approximate), Expires: 08/10/2020CBC AND DIFFLabRoutineInflammatory arthritisTherapeutic drug monitoringEvery 4 Weeks Auto for 12 Occurrences starting 11/09/2019 until 1ALT (SGPT)LabRoutineInflammatory arthrit isTherapeutic drug monitoringEvery 4 Weeks Auto for 12 Occurrences starting 11/09/2019 until 1CREATININELabRoutineInflammatory arthritisTherapeutic drug monitoringEvery 4 Weeks Auto for 12 Occurrences starting 11/09/2019 until 1CBC AND DIFFLabRoutineHLA-B27 spondyloarthropathyInflammatory arthritisElevated antinuclear antibody (RENUKA) levelTherapeutic drug monitoringExpected: 03/14/2020 (Approximate), Expires: 08/10/2020C REACTIVE PROTEIN (CRP)LabRoutineHLA-B27 spondyloarthropathyInflammatory arthritisElevated antinuclear antibody (RENUKA) levelTherapeutic drug monitoringExpected: 03/14/2020 (Approximate), Expires: 08/10/2020SED RATELabRoutineHLA-B27 spondyloarthropathyInflammatory arthritisElevated antinuclear antibody (RENUKA) levelTherapeutic drug monitoringExpected: 03/14/2020 (Approximate), Expires: 08/10/2020COMPREHENSIVE METABOLIC PANELLabRoutineHLA-B27 spondyloarthropathyInflammatory arthritisElevated antinuclear antibody (RENUKA) levelTherapeutic drug monitoringExpected: 03/14/2020 (Approximate), Expires: 08/10/2020URINALYSIS DIPSTICKLabRoutineHLA-B27 spondyloarthropathyInflammatory arthritisElevated antinuclear antibody (RENUKA) levelTherapeutic drug monitoringExpected: 03/14/2020 (Approximate), Expires: 08/10/2020URINALYSIS, MICROSCOPICLabRoutineHLA-B27 spondyloarthropathyInflammatory arthritisElevated antinuclear antibody (RENUKA) levelTherapeutic drug monitoringExpected: 03/14/2020 (Approximate), Expires: 08/10/2020PROTEIN/CR RATIO,UR RANLabRoutineHLA-B27 spondyloarthropathyInflammatory arthritisElevated antinuclear antibody (RENUKA) levelTherapeutic drug monitoringExpected: 03/14/2020 (Approximate), Expires: 08/10/2020C3 COMPLEMENT 3LabRoutineHLA-B27 spondyloarthropathyInflammatory arthritisElevated antinuclear antibody (RENUKA) levelTherapeutic drug monitoringExpected: 03/14/2020 (Approximate), Expires: 08/10/2020C4 COMPLEMENT 4LabRoutineHLA-B27 spondyloarthropathyInflammatory arthritisElevated antinuclear antibody (RENUKA) levelTherapeutic drug monitoringExpected: 03/14/2020 (A pproximate), Expires: 08/10/2020ANTI-DNA DOUBLE STRANDLabRoutineHLA-B27 spondyloarthropathyInflammatory arthritisElevated antinuclear antibody (RENUKA) levelTherapeutic drug monitoringExpected: 03/14/2020 (Approximate), Expires: 08/10/202025-[place] VITAMIN D (D2 + D3)LabRoutineVitamin D deficiencyTherapeutic drug monitoringExpected: 03/14/2020 (Approximate), Expires: 08/10/2020documented as of this encounter 03/29/2020 [facility] , Scheduled OrdersNameTypePriorityAssociat ed DiagnosesOrder ScheduleCBC AND DIFFLabRoutineHLA B27 (HLA B27 positive)Inflammatory arthritisElevated antinuclear antibody (RENUKA) levelExpected: 11/11/2019 (Approximate), Expires: 08/10/2020C REACTIVE PROTEIN (CRP)LabRoutineHLA B27 (HLA B27 positive)Inflammatory arthritisElevated antinuclear antibody (RENUKA) levelExpected: 11/11/2019 (Approximate), Expires: 08/10/2020COMPREHENSIVE METABOLIC PANELLabRoutineHLA B27 (HLA B27 positive)Inflammatory arthritisElevated antinuclear antibody (RENUKA) levelExpected: 11/11/2019 (Approximate), Expires: 08/10/2020SED RATELabRoutineHLA B27 (HLA B27 positive)Inflammatory arthritisElevated antinuclear antibody (RENUKA) levelExpected: 11/11/2019 (Approximate), Expires: 08/10/2020URINALYSIS DIPSTICKLabRoutineHLA B27 (HLA B27 positive)Inflammatory arthritisElevated antinuclear antibody (RENUKA) levelExpected: 11/11/2019 (Approximate), Expires: 08/10/2020URINALYSIS, MICROSCOPICLabRoutineHLA B27 (HLA B27 positive)Inflammatory arthritisElevated antinuclear antibody (RENUKA) levelExpected: 11/11/2019 (Approximate), Expires: 08/10/2020PROTEIN/CR RATIO,UR RANLabRoutineHLA B27 (HLA B27 positive)Inflammatory arthritisElevated antinuclear antibody (RENUKA) levelExpected: 11/11/2019 (Approximate), Expires: 08/10/202025-[place] VITAMIN D (D2 + D3)LabRoutineVitamin D deficiencyExpected: 11/11/2019 (Approximate), Expires: 08/10/2020C3 COMPLEMENT 3LabRoutineHLA B27 (HLA B27 positive)Inflammatory arthritisElevated antinuclear antibody (RENUKA) levelExpected: 11/11/2019 (Approximate), Expires: 08/10/2020C4 COMPLEMENT 4LabRoutineHLA B27 (HLA B27 positive)Inflammatory arthritisElevated antinuclear antibody (RENUKA) levelExpected: 11/11/2019 (Approximate), Expires: 08/10/2020ANTI- DNA DOUBLE STRANDLabRoutineHLA B27 (HLA B27 positive)Inflammatory arthritisElevated antinuclear antibody (RENUKA) levelExpected: 11/11/2019 (Approximate), Expires: 08/10/2020MAGNESIUMLabRoutinePVC (premature ventricular contraction)Expected: 11/11/2019 (Approximate), Expires: 08/10/2020CBC AND DIFFLabRoutineHLA B27 (HLA B27 positive)Inflammatory arthritisTherapeutic drug monitoringEvery 4 Weeks Auto for 12 Occurrences starting 11/09/2019 until 1ALT (SGPT)LabRoutineHLA B27 (HLA B27 positive)Inflammatory arthritisTherapeutic drug monitoringEvery 4 Weeks Auto for 12 Occurrences starting 11/09/2019 until 1CREATININELabRoutineHLA B27 (HLA B27 positive)Inflammatory arthritisTherapeutic drug monitoringEvery 4 Weeks Auto for 12 Occurrences starting 11/09/2019 until 1IMMUNOGLOBULINS- IGA,IGG,IGMLabRoutineInflammatory arthritisExpected: 11/11/2019 (Approximate), E xpires: 08/10/2020ANTI-DNA DOUBLE STRANDLabRoutineHLA B27 (HLA B27 positive)Inflammatory arthritisElevated antinuclear antibody (RENUKA) levelTherapeutic drug monitoringExpected: 11/11/2019 (Approximate), Expires: 08/10/2020C3 COMPLEMENT 3LabRoutineHLA B27 (HLA B27 positive)Inflammatory arthritisElevated antinuclear antibody (RENUKA) levelTherapeutic drug monitoringExpected: 11/11/2019 (Approximate), Expires: 08/10/2020C4 COMPLEMENT 4LabRoutineHLA B27 (HLA B27 positive)Inflammatory arthritisElevated antinuclear antibody (RENUKA) levelTherapeutic drug monitoringExpected: 11/11/2019 (Approximate), Expires: 08/10/202025-[place] VITAMIN D (D2 + D3)LabRoutineVitamin D deficiencyExpected: 11/11/2019 (Approximate), Expires: 08/10/2020C REACTIVE PROTEIN (CRP)LabRoutineHLA B27 (HLA B27 positive)Inflammatory arthritisElevated antinuclear antibody (RENUKA) levelTherapeutic drug monitoringExpected: 11/11/2019 (Approximate), Expires: 08/10/2020SED RATELabRoutineHLA B27 (HLA B27 positive)Inflammatory arthritisElevated antinuclear antibody (RENUKA) levelTherapeutic drug monitoringExpected: 11/11/2019 (Approximate), Expires: 08/10/2020COMPREHENSIVE METABOLIC PANELLabRoutineHLA B27 (HLA B27 positive)Inflammatory arthritisElevated antinuclear antibody (RENUKA) levelTherapeutic drug monitoringExpected: 11/11/2019 (Approximate), Expires: 08/10/2020URINALYSIS DIPSTICKLabRoutineHLA B27 (HLA B27 positive)Inflammatory arthritisElevated antinuclear antibody (RENUKA) levelTherapeutic drug monitoringExpected: 11/11/2019 (Approximate), Expires: 08/10/2020URINALYSIS, MICROSCOPICLabRoutineHLA B27 (HLA B27 positive)Inflammatory arthritisElevated a ntinuclear antibody (RENUKA) levelTherapeutic drug monitoringExpected: 11/11/2019 (Approximate), Expires: 08/10/2020PROTEIN/CR RATIO,UR RANLabRoutineHLA B27 (HLA B27 positive)Inflammatory arthritisElevated antinuclear antibody (RENUKA) levelTherapeutic drug monitoringExpected: 11/11/2019 (Approximate), Expires: 08/10/2020CBC AND DIFFLabRoutineHLA B27 (HLA B27 positive)Inflammatory arthritisElevated antinuclear antibody (RENUKA) levelTherapeutic drug monitoringExpected: 11/11/2019 (Approximate), Expires: 08/10/2020MAGNESIUMLabRoutinePVC (premature ventricular contraction)Expected: 11/11/2019 (Approximate), Expires: 08/10/2020CBC AND DIFFLabRoutineInflammatory arthritisTherapeutic drug monitoringEvery 4 Weeks Auto for 12 Occurrences starting 11/09/2019 until 1ALT (SGPT)LabRoutineInflammatory arthrit isTherapeutic drug monitoringEvery 4 Weeks Auto for 12 Occurrences starting 11/09/2019 until 1CREATININELabRoutineInflammatory arthritisTherapeutic drug monitoringEvery 4 Weeks Auto for 12 Occurrences starting 11/09/2019 until 1CBC AND DIFFLabRoutineHLA-B27 spondyloarthropathyInflammatory arthritisElevated antinuclear antibody (RENUKA) levelTherapeutic drug monitoringExpected: 03/14/2020 (Approximate), Expires: 08/10/2020C REACTIVE PROTEIN (CRP)LabRoutineHLA-B27 spondyloarthropathyInflammatory arthritisElevated antinuclear antibody (RENUKA) levelTherapeutic drug monitoringExpected: 03/14/2020 (Approximate), Expires: 08/10/2020SED RATELabRoutineHLA-B27 spondyloarthropathyInflammatory arthritisElevated antinuclear antibody (RENUKA) levelTherapeutic drug monitoringExpected: 03/14/2020 (Approximate), Expires: 08/10/2020COMPREHENSIVE METABOLIC PANELLabRoutineHLA-B27 spondyloarthropathyInflammatory arthritisElevated antinuclear antibody (RENUKA) levelTherapeutic drug monitoringExpected: 03/14/2020 (Approximate), Expires: 08/10/2020URINALYSIS DIPSTICKLabRoutineHLA-B27 spondyloarthropathyInflammatory arthritisElevated antinuclear antibody (RENUKA) levelTherapeutic drug monitoringExpected: 03/14/2020 (Approximate), Expires: 08/10/2020URINALYSIS, MICROSCOPICLabRoutineHLA-B27 spondyloarthropathyInflammatory arthritisElevated antinuclear antibody (RENUKA) levelTherapeutic drug monitoringExpected: 03/14/2020 (Approximate), Expires: 08/10/2020PROTEIN/CR RATIO,UR RANLabRoutineHLA-B27 spondyloarthropathyInflammatory arthritisElevated antinuclear antibody (RENUKA) levelTherapeutic drug monitoringExpected: 03/14/2020 (Approximate), Expires: 08/10/2020C3 COMPLEMENT 3LabRoutineHLA-B27 spondyloarthropathyInflammatory arthritisElevated antinuclear antibody (RENUKA) levelTherapeutic drug monitoringExpected: 03/14/2020 (Approximate), Expires: 08/10/2020C4 COMPLEMENT 4LabRoutineHLA-B27 spondyloarthropathyInflammatory arthritisElevated antinuclear antibody (RENUKA) levelTherapeutic drug monitoringExpected: 03/14/2020 (A pproximate), Expires: 08/10/2020ANTI-DNA DOUBLE STRANDLabRoutineHLA-B27 spondyloarthropathyInflammatory arthritisElevated antinuclear antibody (RENUKA) levelTherapeutic drug monitoringExpected: 03/14/2020 (Approximate), Expires: 08/10/202025-[place] VITAMIN D (D2 + D3)LabRoutineVitamin D deficiencyTherapeutic drug monitoringExpected: 03/14/2020 (Approximate), Expires: 08/10/2020documented as of this encounter 03/29/2020 [facility] , Scheduled OrdersNameTypePriorityAssociat ed DiagnosesOrder ScheduleCBC AND DIFFLabRoutineHLA B27 (HLA B27 positive)Inflammatory arthritisElevated antinuclear antibody (RENUKA) levelExpected: 11/11/2019 (Approximate), Expires: 08/10/2020C REACTIVE PROTEIN (CRP)LabRoutineHLA B27 (HLA B27 positive)Inflammatory arthritisElevated antinuclear antibody (RENUKA) levelExpected: 11/11/2019 (Approximate), Expires: 08/10/2020COMPREHENSIVE METABOLIC PANELLabRoutineHLA B27 (HLA B27 positive)Inflammatory arthritisElevated antinuclear antibody (RENUKA) levelExpected: 11/11/2019 (Approximate), Expires: 08/10/2020SED RATELabRoutineHLA B27 (HLA B27 positive)Inflammatory arthritisElevated antinuclear antibody (RENUKA) levelExpected: 11/11/2019 (Approximate), Expires: 08/10/2020URINALYSIS DIPSTICKLabRoutineHLA B27 (HLA B27 positive)Inflammatory arthritisElevated antinuclear antibody (RENUKA) levelExpected: 11/11/2019 (Approximate), Expires: 08/10/2020URINALYSIS, MICROSCOPICLabRoutineHLA B27 (HLA B27 positive)Inflammatory arthritisElevated antinuclear antibody (RENUKA) levelExpected: 11/11/2019 (Approximate), Expires: 08/10/2020PROTEIN/CR RATIO,UR RANLabRoutineHLA B27 (HLA B27 positive)Inflammatory arthritisElevated antinuclear antibody (ERNUKA) levelExpected: 11/11/2019 (Approximate), Expires: 08/10/202025-[place] VITAMIN D (D2 + D3)LabRoutineVitamin D deficiencyExpected: 11/11/2019 (Approximate), Expires: 08/10/2020C3 COMPLEMENT 3LabRoutineHLA B27 (HLA B27 positive)Inflammatory arthritisElevated antinuclear antibody (RENUKA) levelExpected: 11/11/2019 (Approximate), Expires: 08/10/2020C4 COMPLEMENT 4LabRoutineHLA B27 (HLA B27 positive)Inflammatory arthritisElevated antinuclear antibody (RENUKA) levelExpected: 11/11/2019 (Approximate), Expires: 08/10/2020ANTI- DNA DOUBLE STRANDLabRoutineHLA B27 (HLA B27 positive)Inflammatory arthritisElevated antinuclear antibody (RENUKA) levelExpected: 11/11/2019 (Approximate), Expires: 08/10/2020MAGNESIUMLabRoutinePVC (premature ventricular contraction)Expected: 11/11/2019 (Approximate), Expires: 08/10/2020CBC AND DIFFLabRoutineHLA B27 (HLA B27 positive)Inflammatory arthritisTherapeutic drug monitoringEvery 4 Weeks Auto for 12 Occurrences starting 11/09/2019 until 1ALT (SGPT)LabRoutineHLA B27 (HLA B27 positive)Inflammatory arthritisTherapeutic drug monitoringEvery 4 Weeks Auto for 12 Occurrences starting 11/09/2019 until 1CREATININELabRoutineHLA B27 (HLA B27 positive)Inflammatory arthritisTherapeutic drug monitoringEvery 4 Weeks Auto for 12 Occurrences starting 11/09/2019 until 08/10/2021IMMUNOGLOBULINS- IGA,IGG,IGMLabRoutineInflammatory arthritisExpected: 11/11/2019 (Approximate), E xpires: 08/10/2020ANTI-DNA DOUBLE STRANDLabRoutineHLA B27 (HLA B27 positive)Inflammatory arthritisElevated antinuclear antibody (RENUKA) levelTherapeutic drug monitoringExpected: 11/11/2019 (Approximate), Expires: 08/10/2020C3 COMPLEMENT 3LabRoutineHLA B27 (HLA B27 positive)Inflammatory arthritisElevated antinuclear antibody (RENUKA) levelTherapeutic drug monitoringExpected: 11/11/2019 (Approximate), Expires: 08/10/2020C4 COMPLEMENT 4LabRoutineHLA B27 (HLA B27 positive)Inflammatory arthritisElevated antinuclear antibody (RENUKA) levelTherapeutic drug monitoringExpected: 11/11/2019 (Approximate), Expires: 08/10/202025-[place] VITAMIN D (D2 + D3)LabRoutineVitamin D deficiencyExpected: 11/11/2019 (Approximate), Expires: 08/10/2020C REACTIVE PROTEIN (CRP)LabRoutineHLA B27 (HLA B27 positive)Inflammatory arthritisElevated antinuclear antibody (RENUKA) levelTherapeutic drug monitoringExpected: 11/11/2019 (Approximate), Expires: 08/10/2020SED RATELabRoutineHLA B27 (HLA B27 positive)Inflammatory arthritisElevated antinuclear antibody (RENUKA) levelTherapeutic drug monitoringExpected: 11/11/2019 (Approximate), Expires: 08/10/2020COMPREHENSIVE METABOLIC PANELLabRoutineHLA B27 (HLA B27 positive)Inflammatory arthritisElevated antinuclear antibody (RENUKA) levelTherapeutic drug monitoringExpected: 11/11/2019 (Approximate), Expires: 08/10/2020URINALYSIS DIPSTICKLabRoutineHLA B27 (HLA B27 positive)Inflammatory arthritisElevated antinuclear antibody (RENUKA) levelTherapeutic drug monitoringExpected: 11/11/2019 (Approximate), Expires: 08/10/2020URINALYSIS, MICROSCOPICLabRoutineHLA B27 (HLA B27 positive)Inflammatory arthritisElevated a ntinuclear antibody (RENUKA) levelTherapeutic drug monitoringExpected: 11/11/2019 (Approximate), Expires: 08/10/2020PROTEIN/CR RATIO,UR RANLabRoutineHLA B27 (HLA B27 positive)Inflammatory arthritisElevated antinuclear antibody (RENUKA) levelTherapeutic drug monitoringExpected: 11/11/2019 (Approximate), Expires: 08/10/2020CBC AND DIFFLabRoutineHLA B27 (HLA B27 positive)Inflammatory arthritisElevated antinuclear antibody (RENUKA) levelTherapeutic drug monitoringExpected: 11/11/2019 (Approximate), Expires: 08/10/2020MAGNESIUMLabRoutinePVC (premature ventricular contraction)Expected: 11/11/2019 (Approximate), Expires: 08/10/2020CBC AND DIFFLabRoutineInflammatory arthritisTherapeutic drug monitoringEvery 4 Weeks Auto for 12 Occurrences starting 11/09/2019 until 1ALT (SGPT)LabRoutineInflammatory arthrit isTherapeutic drug monitoringEvery 4 Weeks Auto for 12 Occurrences starting 11/09/2019 until 1CREATININELabRoutineInflammatory arthritisTherapeutic drug monitoringEvery 4 Weeks Auto for 12 Occurrences starting 11/09/2019 until 1CBC AND DIFFLabRoutineHLA-B27 spondyloarthropathyInflammatory arthritisElevated antinuclear antibody (RENUKA) levelTherapeutic drug monitoringExpected: 03/14/2020 (Approximate), Expires: 08/10/2020C REACTIVE PROTEIN (CRP)LabRoutineHLA-B27 spondyloarthropathyInflammatory arthritisElevated antinuclear antibody (RENUKA) levelTherapeutic drug monitoringExpected: 03/14/2020 (Approximate), Expires: 08/10/2020SED RATELabRoutineHLA-B27 spondyloarthropathyInflammatory arthritisElevated antinuclear antibody (RENUKA) levelTherapeutic drug monitoringExpected: 03/14/2020 (Approximate), Expires: 08/10/2020COMPREHENSIVE METABOLIC PANELLabRoutineHLA-B27 spondyloarthropathyInflammatory arthritisElevated antinuclear antibody (RENUKA) levelTherapeutic drug monitoringExpected: 03/14/2020 (Approximate), Expires: 08/10/2020URINALYSIS DIPSTICKLabRoutineHLA-B27 spondyloarthropathyInflammatory arthritisElevated antinuclear antibody (RENUKA) levelTherapeutic drug monitoringExpected: 03/14/2020 (Approximate), Expires: 08/10/2020URINALYSIS, MICROSCOPICLabRoutineHLA-B27 spondyloarthropathyInflammatory arthritisElevated antinuclear antibody (RENUKA) levelTherapeutic drug monitoringExpected: 03/14/2020 (Approximate), Expires: 08/10/2020PROTEIN/CR RATIO,UR RANLabRoutineHLA-B27 spondyloarthropathyInflammatory arthritisElevated antinuclear antibody (RENUKA) levelTherapeutic drug monitoringExpected: 03/14/2020 (Approximate), Expires: 08/10/2020C3 COMPLEMENT 3LabRoutineHLA-B27 spondyloarthropathyInflammatory arthritisElevated antinuclear antibody (RENUKA) levelTherapeutic drug monitoringExpected: 03/14/2020 (Approximate), Expires: 08/10/2020C4 COMPLEMENT 4LabRoutineHLA-B27 spondyloarthropathyInflammatory arthritisElevated antinuclear antibody (RENUKA) levelTherapeutic drug monitoringExpected: 03/14/2020 (A pproximate), Expires: 08/10/2020ANTI-DNA DOUBLE STRANDLabRoutineHLA-B27 spondyloarthropathyInflammatory arthritisElevated antinuclear antibody (RENUKA) levelTherapeutic drug monitoringExpected: 03/14/2020 (Approximate), Expires: 08/10/202025-[place] VITAMIN D (D2 + D3)LabRoutineVitamin D deficiencyTherapeutic drug monitoringExpected: 03/14/2020 (Approximate), Expires: 08/10/2020documented as of this encounter 03/29/2020 [facility] , Scheduled OrdersNameTypePriorityAssociat ed DiagnosesOrder ScheduleCBC AND DIFFLabRoutineHLA B27 (HLA B27 positive)Inflammatory arthritisElevated antinuclear antibody (RENUKA) levelExpected: 11/11/2019 (Approximate), Expires: 08/10/2020C REACTIVE PROTEIN (CRP)LabRoutineHLA B27 (HLA B27 positive)Inflammatory arthritisElevated antinuclear antibody (RENUKA) levelExpected: 11/11/2019 (Approximate), Expires: 08/10/2020COMPREHENSIVE METABOLIC PANELLabRoutineHLA B27 (HLA B27 positive)Inflammatory arthritisElevated antinuclear antibody (RENUKA) levelExpected: 11/11/2019 (Approximate), Expires: 08/10/2020SED RATELabRoutineHLA B27 (HLA B27 positive)Inflammatory arthritisElevated antinuclear antibody (RENUKA) levelExpected: 11/11/2019 (Approximate), Expires: 08/10/2020URINALYSIS DIPSTICKLabRoutineHLA B27 (HLA B27 positive)Inflammatory arthritisElevated antinuclear antibody (RENUKA) levelExpected: 11/11/2019 (Approximate), Expires: 08/10/2020URINALYSIS, MICROSCOPICLabRoutineHLA B27 (HLA B27 positive)Inflammatory arthritisElevated antinuclear antibody (RENUKA) levelExpected: 11/11/2019 (Approximate), Expires: 08/10/2020PROTEIN/CR RATIO,UR RANLabRoutineHLA B27 (HLA B27 positive)Inflammatory arthritisElevated antinuclear antibody (RENUKA) levelExpected: 11/11/2019 (Approximate), Expires: 08/10/202025[place] VITAMIN D (D2 + D3)LabRoutineVitamin D deficiencyExpected: 11/11/2019 (Approximate), Expires: 08/10/2020C3 COMPLEMENT 3LabRoutineHLA B27 (HLA B27 positive)Inflammatory arthritisElevated antinuclear antibody (RENUKA) levelExpected: 11/11/2019 (Approximate), Expires: 08/10/2020C4 COMPLEMENT 4LabRoutineHLA B27 (HLA B27 positive)Inflammatory arthritisElevated antinuclear antibody (RENUKA) levelExpected: 11/11/2019 (Approximate), Expires: 08/10/2020ANTI- DNA DOUBLE STRANDLabRoutineHLA B27 (HLA B27 positive)Inflammatory arthritisElevated antinuclear antibody (RENUKA) levelExpected: 11/11/2019 (Approximate), Expires: 08/10/2020MAGNESIUMLabRoutinePVC (premature ventricular contraction)Expected: 11/11/2019 (Approximate), Expires: 08/10/2020CBC AND DIFFLabRoutineHLA B27 (HLA B27 positive)Inflammatory arthritisTherapeutic drug monitoringEvery 4 Weeks Auto for 12 Occurrences starting 11/09/2019 until 1ALT (SGPT)LabRoutineHLA B27 (HLA B27 positive)Inflammatory arthritisTherapeutic drug monitoringEvery 4 Weeks Auto for 12 Occurrences starting 11/09/2019 until 1CREATININELabRoutineHLA B27 (HLA B27 positive)Inflammatory arthritisTherapeutic drug monitoringEvery 4 Weeks Auto for 12 Occurrences starting 11/09/2019 until 08/10/2021IMMUNOGLOBULINS- IGA,IGG,IGMLabRoutineInflammatory arthritisExpected: 11/11/2019 (Approximate), E xpires: 08/10/2020ANTI-DNA DOUBLE STRANDLabRoutineHLA B27 (HLA B27 positive)Inflammatory arthritisElevated antinuclear antibody (RENUKA) levelTherapeutic drug monitoringExpected: 11/11/2019 (Approximate), Expires: 08/10/2020C3 COMPLEMENT 3LabRoutineHLA B27 (HLA B27 positive)Inflammatory arthritisElevated antinuclear antibody (RENUKA) levelTherapeutic drug monitoringExpected: 11/11/2019 (Approximate), Expires: 08/10/2020C4 COMPLEMENT 4LabRoutineHLA B27 (HLA B27 positive)Inflammatory arthritisElevated antinuclear antibody (RENUKA) levelTherapeutic drug monitoringExpected: 11/11/2019 (Approximate), Expires: 08/10/202025-[place] VITAMIN D (D2 + D3)LabRoutineVitamin D deficiencyExpected: 11/11/2019 (Approximate), Expires: 08/10/2020C REACTIVE PROTEIN (CRP)LabRoutineHLA B27 (HLA B27 positive)Inflammatory arthritisElevated antinuclear antibody (RENUKA) levelTherapeutic drug monitoringExpected: 11/11/2019 (Approximate), Expires: 08/10/2020SED RATELabRoutineHLA B27 (HLA B27 positive)Inflammatory arthritisElevated antinuclear antibody (RENUKA) levelTherapeutic drug monitoringExpected: 11/11/2019 (Approximate), Expires: 08/10/2020COMPREHENSIVE METABOLIC PANELLabRoutineHLA B27 (HLA B27 positive)Inflammatory arthritisElevated antinuclear antibody (RENUKA) levelTherapeutic drug monitoringExpected: 11/11/2019 (Approximate), Expires: 08/10/2020URINALYSIS DIPSTICKLabRoutineHLA B27 (HLA B27 positive)Inflammatory arthritisElevated antinuclear antibody (RENUKA) levelTherapeutic drug monitoringExpected: 11/11/2019 (Approximate), Expires: 08/10/2020URINALYSIS, MICROSCOPICLabRoutineHLA B27 (HLA B27 positive)Inflammatory arthritisElevated a ntinuclear antibody (RENUKA) levelTherapeutic drug monitoringExpected: 11/11/2019 (Approximate), Expires: 08/10/2020PROTEIN/CR RATIO,UR RANLabRoutineHLA B27 (HLA B27 positive)Inflammatory arthritisElevated antinuclear antibody (RENUKA) levelTherapeutic drug monitoringExpected: 11/11/2019 (Approximate), Expires: 08/10/2020CBC AND DIFFLabRoutineHLA B27 (HLA B27 positive)Inflammatory arthritisElevated antinuclear antibody (RENUKA) levelTherapeutic drug monitoringExpected: 11/11/2019 (Approximate), Expires: 08/10/2020MAGNESIUMLabRoutinePVC (premature ventricular contraction)Expected: 11/11/2019 (Approximate), Expires: 08/10/2020CBC AND DIFFLabRoutineInflammatory arthritisTherapeutic drug monitoringEvery 4 Weeks Auto for 12 Occurrences starting 11/09/2019 until 1ALT (SGPT)LabRoutineInflammatory arthrit isTherapeutic drug monitoringEvery 4 Weeks Auto for 12 Occurrences starting 11/09/2019 until 1CREATININELabRoutineInflammatory arthritisTherapeutic drug monitoringEvery 4 Weeks Auto for 12 Occurrences starting 11/09/2019 until 1CBC AND DIFFLabRoutineHLA-B27 spondyloarthropathyInflammatory arthritisElevated antinuclear antibody (RENUKA) levelTherapeutic drug monitoringExpected: 03/14/2020 (Approximate), Expires: 08/10/2020C REACTIVE PROTEIN (CRP)LabRoutineHLA-B27 spondyloarthropathyInflammatory arthritisElevated antinuclear antibody (RENUKA) levelTherapeutic drug monitoringExpected: 03/14/2020 (Approximate), Expires: 08/10/2020SED RATELabRoutineHLA-B27 spondyloarthropathyInflammatory arthritisElevated antinuclear antibody (RENUKA) levelTherapeutic drug monitoringExpected: 03/14/2020 (Approximate), Expires: 08/10/2020COMPREHENSIVE METABOLIC PANELLabRoutineHLA-B27 spondyloarthropathyInflammatory arthritisElevated antinuclear antibody (RENUKA) levelTherapeutic drug monitoringExpected: 03/14/2020 (Approximate), Expires: 08/10/2020URINALYSIS DIPSTICKLabRoutineHLA-B27 spondyloarthropathyInflammatory arthritisElevated antinuclear antibody (RENUKA) levelTherapeutic drug monitoringExpected: 03/14/2020 (Approximate), Expires: 08/10/2020URINALYSIS, MICROSCOPICLabRoutineHLA-B27 spondyloarthropathyInflammatory arthritisElevated antinuclear antibody (RENUKA) levelTherapeutic drug monitoringExpected: 03/14/2020 (Approximate), Expires: 08/10/2020PROTEIN/CR RATIO,UR RANLabRoutineHLA-B27 spondyloarthropathyInflammatory arthritisElevated antinuclear antibody (RENUKA) levelTherapeutic drug monitoringExpected: 03/14/2020 (Approximate), Expires: 08/10/2020C3 COMPLEMENT 3LabRoutineHLA-B27 spondyloarthropathyInflammatory arthritisElevated antinuclear antibody (RENUKA) levelTherapeutic drug monitoringExpected: 03/14/2020 (Approximate), Expires: 08/10/2020C4 COMPLEMENT 4LabRoutineHLA-B27 spondyloarthropathyInflammatory arthritisElevated antinuclear antibody (RENUKA) levelTherapeutic drug monitoringExpected: 03/14/2020 (A pproximate), Expires: 08/10/2020ANTI-DNA DOUBLE STRANDLabRoutineHLA-B27 spondyloarthropathyInflammatory arthritisElevated antinuclear antibody (RENUKA) levelTherapeutic drug monitoringExpected: 03/14/2020 (Approximate), Expires: 08/10/202025-[place] VITAMIN D (D2 + D3)LabRoutineVitamin D deficiencyTherapeutic drug monitoringExpected: 03/14/2020 (Approximate), Expires: 08/10/2020documented as of this encounter 03/29/2020 [facility] , Scheduled OrdersNameTypePriorityAssociat ed DiagnosesOrder ScheduleCBC AND DIFFLabRoutineHLA B27 (HLA B27 positive)Inflammatory arthritisElevated antinuclear antibody (RENUKA) levelExpected: 11/11/2019 (Approximate), Expires: 08/10/2020C REACTIVE PROTEIN (CRP)LabRoutineHLA B27 (HLA B27 positive)Inflammatory arthritisElevated antinuclear antibody (RENUKA) levelExpected: 11/11/2019 (Approximate), Expires: 08/10/2020COMPREHENSIVE METABOLIC PANELLabRoutineHLA B27 (HLA B27 positive)Inflammatory arthritisElevated antinuclear antibody (RENUKA) levelExpected: 11/11/2019 (Approximate), Expires: 08/10/2020SED RATELabRoutineHLA B27 (HLA B27 positive)Inflammatory arthritisElevated antinuclear antibody (RENUKA) levelExpected: 11/11/2019 (Approximate), Expires: 08/10/2020URINALYSIS DIPSTICKLabRoutineHLA B27 (HLA B27 positive)Inflammatory arthritisElevated antinuclear antibody (RENUKA) levelExpected: 11/11/2019 (Approximate), Expires: 08/10/2020URINALYSIS, MICROSCOPICLabRoutineHLA B27 (HLA B27 positive)Inflammatory arthritisElevated antinuclear antibody (RENUKA) levelExpected: 11/11/2019 (Approximate), Expires: 08/10/2020PROTEIN/CR RATIO,UR RANLabRoutineHLA B27 (HLA B27 positive)Inflammatory arthritisElevated antinuclear antibody (RENUKA) levelExpected: 11/11/2019 (Approximate), Expires: 08/10/202025-[place] VITAMIN D (D2 + D3)LabRoutineVitamin D deficiencyExpected: 11/11/2019 (Approximate), Expires: 08/10/2020C3 COMPLEMENT 3LabRoutineHLA B27 (HLA B27 positive)Inflammatory arthritisElevated antinuclear antibody (RENUKA) levelExpected: 11/11/2019 (Approximate), Expires: 08/10/2020C4 COMPLEMENT 4LabRoutineHLA B27 (HLA B27 positive)Inflammatory arthritisElevated antinuclear antibody (RENUKA) levelExpected: 11/11/2019 (Approximate), Expires: 08/10/2020ANTI- DNA DOUBLE STRANDLabRoutineHLA B27 (HLA B27 positive)Inflammatory arthritisElevated antinuclear antibody (RENUKA) levelExpected: 11/11/2019 (Approximate), Expires: 08/10/2020MAGNESIUMLabRoutinePVC (premature ventricular contraction)Expected: 11/11/2019 (Approximate), Expires: 08/10/2020CBC AND DIFFLabRoutineHLA B27 (HLA B27 positive)Inflammatory arthritisTherapeutic drug monitoringEvery 4 Weeks Auto for 12 Occurrences starting 11/09/2019 until 1ALT (SGPT)LabRoutineHLA B27 (HLA B27 positive)Inflammatory arthritisTherapeutic drug monitoringEvery 4 Weeks Auto for 12 Occurrences starting 11/09/2019 until 1CREATININELabRoutineHLA B27 (HLA B27 positive)Inflammatory arthritisTherapeutic drug monitoringEvery 4 Weeks Auto for 12 Occurrences starting 11/09/2019 until 1IMMUNOGLOBULINS- IGA,IGG,IGMLabRoutineInflammatory arthritisExpected: 11/11/2019 (Approximate), E xpires: 08/10/2020ANTI-DNA DOUBLE STRANDLabRoutineHLA B27 (HLA B27 positive)Inflammatory arthritisElevated antinuclear antibody (RENUKA) levelTherapeutic drug monitoringExpected: 11/11/2019 (Approximate), Expires: 08/10/2020C3 COMPLEMENT 3LabRoutineHLA B27 (HLA B27 positive)Inflammatory arthritisElevated antinuclear antibody (RENUKA) levelTherapeutic drug monitoringExpected: 11/11/2019 (Approximate), Expires: 08/10/2020C4 COMPLEMENT 4LabRoutineHLA B27 (HLA B27 positive)Inflammatory arthritisElevated antinuclear antibody (RENUKA) levelTherapeutic drug monitoringExpected: 11/11/2019 (Approximate), Expires: 08/10/202025-[place] VITAMIN D (D2 + D3)LabRoutineVitamin D deficiencyExpected: 11/11/2019 (Approximate), Expires: 08/10/2020C REACTIVE PROTEIN (CRP)LabRoutineHLA B27 (HLA B27 positive)Inflammatory arthritisElevated antinuclear antibody (RENUKA) levelTherapeutic drug monitoringExpected: 11/11/2019 (Approximate), Expires: 08/10/2020SED RATELabRoutineHLA B27 (HLA B27 positive)Inflammatory arthritisElevated antinuclear antibody (RENUKA) levelTherapeutic drug monitoringExpected: 11/11/2019 (Approximate), Expires: 08/10/2020COMPREHENSIVE METABOLIC PANELLabRoutineHLA B27 (HLA B27 positive)Inflammatory arthritisElevated antinuclear antibody (RENUKA) levelTherapeutic drug monitoringExpected: 11/11/2019 (Approximate), Expires: 08/10/2020URINALYSIS DIPSTICKLabRoutineHLA B27 (HLA B27 positive)Inflammatory arthritisElevated antinuclear antibody (RENUKA) levelTherapeutic drug monitoringExpected: 11/11/2019 (Approximate), Expires: 08/10/2020URINALYSIS, MICROSCOPICLabRoutineHLA B27 (HLA B27 positive)Inflammatory arthritisElevated a ntinuclear antibody (RENUKA) levelTherapeutic drug monitoringExpected: 11/11/2019 (Approximate), Expires: 08/10/2020PROTEIN/CR RATIO,UR RANLabRoutineHLA B27 (HLA B27 positive)Inflammatory arthritisElevated antinuclear antibody (RENUKA) levelTherapeutic drug monitoringExpected: 11/11/2019 (Approximate), Expires: 08/10/2020CBC AND DIFFLabRoutineHLA B27 (HLA B27 positive)Inflammatory arthritisElevated antinuclear antibody (RENUKA) levelTherapeutic drug monitoringExpected: 11/11/2019 (Approximate), Expires: 08/10/2020MAGNESIUMLabRoutinePVC (premature ventricular contraction)Expected: 11/11/2019 (Approximate), Expires: 08/10/2020CBC AND DIFFLabRoutineInflammatory arthritisTherapeutic drug monitoringEvery 4 Weeks Auto for 12 Occurrences starting 11/09/2019 until 1ALT (SGPT)LabRoutineInflammatory arthrit isTherapeutic drug monitoringEvery 4 Weeks Auto for 12 Occurrences starting 11/09/2019 until 1CREATININELabRoutineInflammatory arthritisTherapeutic drug monitoringEvery 4 Weeks Auto for 12 Occurrences starting 11/09/2019 until 1CBC AND DIFFLabRoutineHLA-B27 spondyloarthropathyInflammatory arthritisElevated antinuclear antibody (RENUKA) levelTherapeutic drug monitoringExpected: 03/14/2020 (Approximate), Expires: 08/10/2020C REACTIVE PROTEIN (CRP)LabRoutineHLA-B27 spondyloarthropathyInflammatory arthritisElevated antinuclear antibody (RENUKA) levelTherapeutic drug monitoringExpected: 03/14/2020 (Approximate), Expires: 08/10/2020SED RATELabRoutineHLA-B27 spondyloarthropathyInflammatory arthritisElevated antinuclear antibody (RENUKA) levelTherapeutic drug monitoringExpected: 03/14/2020 (Approximate), Expires: 08/10/2020COMPREHENSIVE METABOLIC PANELLabRoutineHLA-B27 spondyloarthropathyInflammatory arthritisElevated antinuclear antibody (RENUKA) levelTherapeutic drug monitoringExpected: 03/14/2020 (Approximate), Expires: 08/10/2020URINALYSIS DIPSTICKLabRoutineHLA-B27 spondyloarthropathyInflammatory arthritisElevated antinuclear antibody (RENUKA) levelTherapeutic drug monitoringExpected: 03/14/2020 (Approximate), Expires: 08/10/2020URINALYSIS, MICROSCOPICLabRoutineHLA-B27 spondyloarthropathyInflammatory arthritisElevated antinuclear antibody (RENUKA) levelTherapeutic drug monitoringExpected: 03/14/2020 (Approximate), Expires: 08/10/2020PROTEIN/CR RATIO,UR RANLabRoutineHLA-B27 spondyloarthropathyInflammatory arthritisElevated antinuclear antibody (RENUKA) levelTherapeutic drug monitoringExpected: 03/14/2020 (Approximate), Expires: 08/10/2020C3 COMPLEMENT 3LabRoutineHLA-B27 spondyloarthropathyInflammatory arthritisElevated antinuclear antibody (RENUKA) levelTherapeutic drug monitoringExpected: 03/14/2020 (Approximate), Expires: 08/10/2020C4 COMPLEMENT 4LabRoutineHLA-B27 spondyloarthropathyInflammatory arthritisElevated antinuclear antibody (RENUKA) levelTherapeutic drug monitoringExpected: 03/14/2020 (A pproximate), Expires: 08/10/2020ANTI-DNA DOUBLE STRANDLabRoutineHLA-B27 spondyloarthropathyInflammatory arthritisElevated antinuclear antibody (RENUKA) levelTherapeutic drug monitoringExpected: 03/14/2020 (Approximate), Expires: 08/10/202025-[place] VITAMIN D (D2 + D3)LabRoutineVitamin D deficiencyTherapeutic drug monitoringExpected: 03/14/2020 (Approximate), Expires: 08/10/2020documented as of this encounter 03/29/2020 [facility] , Scheduled OrdersNameTypePriorityAssociat ed DiagnosesOrder ScheduleCBC AND DIFFLabRoutineHLA B27 (HLA B27 positive)Inflammatory arthritisElevated antinuclear antibody (RENUKA) levelExpected: 11/11/2019 (Approximate), Expires: 08/10/2020C REACTIVE PROTEIN (CRP)LabRoutineHLA B27 (HLA B27 positive)Inflammatory arthritisElevated antinuclear antibody (RENUKA) levelExpected: 11/11/2019 (Approximate), Expires: 08/10/2020COMPREHENSIVE METABOLIC PANELLabRoutineHLA B27 (HLA B27 positive)Inflammatory arthritisElevated antinuclear antibody (RENUKA) levelExpected: 11/11/2019 (Approximate), Expires: 08/10/2020SED RATELabRoutineHLA B27 (HLA B27 positive)Inflammatory arthritisElevated antinuclear antibody (RENUKA) levelExpected: 11/11/2019 (Approximate), Expires: 08/10/2020URINALYSIS DIPSTICKLabRoutineHLA B27 (HLA B27 positive)Inflammatory arthritisElevated antinuclear antibody (RENUKA) levelExpected: 11/11/2019 (Approximate), Expires: 08/10/2020URINALYSIS, MICROSCOPICLabRoutineHLA B27 (HLA B27 positive)Inflammatory arthritisElevated antinuclear antibody (RENUKA) levelExpected: 11/11/2019 (Approximate), Expires: 08/10/2020PROTEIN/CR RATIO,UR RANLabRoutineHLA B27 (HLA B27 positive)Inflammatory arthritisElevated antinuclear antibody (RENUKA) levelExpected: 11/11/2019 (Approximate), Expires: 08/10/202025-[place] VITAMIN D (D2 + D3)LabRoutineVitamin D deficiencyExpected: 11/11/2019 (Approximate), Expires: 08/10/2020C3 COMPLEMENT 3LabRoutineHLA B27 (HLA B27 positive)Inflammatory arthritisElevated antinuclear antibody (RENUKA) levelExpected: 11/11/2019 (Approximate), Expires: 08/10/2020C4 COMPLEMENT 4LabRoutineHLA B27 (HLA B27 positive)Inflammatory arthritisElevated antinuclear antibody (RENUKA) levelExpected: 11/11/2019 (Approximate), Expires: 08/10/2020ANTI- DNA DOUBLE STRANDLabRoutineHLA B27 (HLA B27 positive)Inflammatory arthritisElevated antinuclear antibody (RENUKA) levelExpected: 11/11/2019 (Approximate), Expires: 08/10/2020MAGNESIUMLabRoutinePVC (premature ventricular contraction)Expected: 11/11/2019 (Approximate), Expires: 08/10/2020CBC AND DIFFLabRoutineHLA B27 (HLA B27 positive)Inflammatory arthritisTherapeutic drug monitoringEvery 4 Weeks Auto for 12 Occurrences starting 11/09/2019 until 1ALT (SGPT)LabRoutineHLA B27 (HLA B27 positive)Inflammatory arthritisTherapeutic drug monitoringEvery 4 Weeks Auto for 12 Occurrences starting 11/09/2019 until 1CREATININELabRoutineHLA B27 (HLA B27 positive)Inflammatory arthritisTherapeutic drug monitoringEvery 4 Weeks Auto for 12 Occurrences starting 11/09/2019 until 08/10/2021IMMUNOGLOBULINS- IGA,IGG,IGMLabRoutineInflammatory arthritisExpected: 11/11/2019 (Approximate), E xpires: 08/10/2020ANTI-DNA DOUBLE STRANDLabRoutineHLA B27 (HLA B27 positive)Inflammatory arthritisElevated antinuclear antibody (RENUKA) levelTherapeutic drug monitoringExpected: 11/11/2019 (Approximate), Expires: 08/10/2020C3 COMPLEMENT 3LabRoutineHLA B27 (HLA B27 positive)Inflammatory arthritisElevated antinuclear antibody (RENUKA) levelTherapeutic drug monitoringExpected: 11/11/2019 (Approximate), Expires: 08/10/2020C4 COMPLEMENT 4LabRoutineHLA B27 (HLA B27 positive)Inflammatory arthritisElevated antinuclear antibody (RENUKA) levelTherapeutic drug monitoringExpected: 11/11/2019 (Approximate), Expires: 08/10/202025-[place] VITAMIN D (D2 + D3)LabRoutineVitamin D deficiencyExpected: 11/11/2019 (Approximate), Expires: 08/10/2020C REACTIVE PROTEIN (CRP)LabRoutineHLA B27 (HLA B27 positive)Inflammatory arthritisElevated antinuclear antibody (RENUKA) levelTherapeutic drug monitoringExpected: 11/11/2019 (Approximate), Expires: 08/10/2020SED RATELabRoutineHLA B27 (HLA B27 positive)Inflammatory arthritisElevated antinuclear antibody (RENUKA) levelTherapeutic drug monitoringExpected: 11/11/2019 (Approximate), Expires: 08/10/2020COMPREHENSIVE METABOLIC PANELLabRoutineHLA B27 (HLA B27 positive)Inflammatory arthritisElevated antinuclear antibody (RENUKA) levelTherapeutic drug monitoringExpected: 11/11/2019 (Approximate), Expires: 08/10/2020URINALYSIS DIPSTICKLabRoutineHLA B27 (HLA B27 positive)Inflammatory arthritisElevated antinuclear antibody (RENUKA) levelTherapeutic drug monitoringExpected: 11/11/2019 (Approximate), Expires: 08/10/2020URINALYSIS, MICROSCOPICLabRoutineHLA B27 (HLA B27 positive)Inflammatory arthritisElevated a ntinuclear antibody (RENUKA) levelTherapeutic drug monitoringExpected: 11/11/2019 (Approximate), Expires: 08/10/2020PROTEIN/CR RATIO,UR RANLabRoutineHLA B27 (HLA B27 positive)Inflammatory arthritisElevated antinuclear antibody (RENUKA) levelTherapeutic drug monitoringExpected: 11/11/2019 (Approximate), Expires: 08/10/2020CBC AND DIFFLabRoutineHLA B27 (HLA B27 positive)Inflammatory arthritisElevated antinuclear antibody (RENUKA) levelTherapeutic drug monitoringExpected: 11/11/2019 (Approximate), Expires: 08/10/2020MAGNESIUMLabRoutinePVC (premature ventricular contraction)Expected: 11/11/2019 (Approximate), Expires: 08/10/2020CBC AND DIFFLabRoutineInflammatory arthritisTherapeutic drug monitoringEvery 4 Weeks Auto for 12 Occurrences starting 11/09/2019 until 1ALT (SGPT)LabRoutineInflammatory arthrit isTherapeutic drug monitoringEvery 4 Weeks Auto for 12 Occurrences starting 11/09/2019 until 1CREATININELabRoutineInflammatory arthritisTherapeutic drug monitoringEvery 4 Weeks Auto for 12 Occurrences starting 11/09/2019 until 1CBC AND DIFFLabRoutineHLA-B27 spondyloarthropathyInflammatory arthritisElevated antinuclear antibody (RENUKA) levelTherapeutic drug monitoringExpected: 03/14/2020 (Approximate), Expires: 08/10/2020C REACTIVE PROTEIN (CRP)LabRoutineHLA-B27 spondyloarthropathyInflammatory arthritisElevated antinuclear antibody (RENUKA) levelTherapeutic drug monitoringExpected: 03/14/2020 (Approximate), Expires: 08/10/2020SED RATELabRoutineHLA-B27 spondyloarthropathyInflammatory arthritisElevated antinuclear antibody (RENUKA) levelTherapeutic drug monitoringExpected: 03/14/2020 (Approximate), Expires: 08/10/2020COMPREHENSIVE METABOLIC PANELLabRoutineHLA-B27 spondyloarthropathyInflammatory arthritisElevated antinuclear antibody (RENUKA) levelTherapeutic drug monitoringExpected: 03/14/2020 (Approximate), Expires: 08/10/2020URINALYSIS DIPSTICKLabRoutineHLA-B27 spondyloarthropathyInflammatory arthritisElevated antinuclear antibody (RENUKA) levelTherapeutic drug monitoringExpected: 03/14/2020 (Approximate), Expires: 08/10/2020URINALYSIS, MICROSCOPICLabRoutineHLA-B27 spondyloarthropathyInflammatory arthritisElevated antinuclear antibody (RENUKA) levelTherapeutic drug monitoringExpected: 03/14/2020 (Approximate), Expires: 08/10/2020PROTEIN/CR RATIO,UR RANLabRoutineHLA-B27 spondyloarthropathyInflammatory arthritisElevated antinuclear antibody (RENUKA) levelTherapeutic drug monitoringExpected: 03/14/2020 (Approximate), Expires: 08/10/2020C3 COMPLEMENT 3LabRoutineHLA-B27 spondyloarthropathyInflammatory arthritisElevated antinuclear antibody (RENUKA) levelTherapeutic drug monitoringExpected: 03/14/2020 (Approximate), Expires: 08/10/2020C4 COMPLEMENT 4LabRoutineHLA-B27 spondyloarthropathyInflammatory arthritisElevated antinuclear antibody (RENUKA) levelTherapeutic drug monitoringExpected: 03/14/2020 (A pproximate), Expires: 08/10/2020ANTI-DNA DOUBLE STRANDLabRoutineHLA-B27 spondyloarthropathyInflammatory arthritisElevated antinuclear antibody (RENUKA) levelTherapeutic drug monitoringExpected: 03/14/2020 (Approximate), Expires: 08/10/202025-[place] VITAMIN D (D2 + D3)LabRoutineVitamin D deficiencyTherapeutic drug monitoringExpected: 03/14/2020 (Approximate), Expires: 08/10/2020documented as of this encounter 03/29/2020 [facility] , Scheduled OrdersNameTypePriorityAssociat ed DiagnosesOrder ScheduleCBC AND DIFFLabRoutineHLA B27 (HLA B27 positive)Inflammatory arthritisElevated antinuclear antibody (RENUKA) levelExpected: 11/11/2019 (Approximate), Expires: 08/10/2020C REACTIVE PROTEIN (CRP)LabRoutineHLA B27 (HLA B27 positive)Inflammatory arthritisElevated antinuclear antibody (RENUKA) levelExpected: 11/11/2019 (Approximate), Expires: 08/10/2020COMPREHENSIVE METABOLIC PANELLabRoutineHLA B27 (HLA B27 positive)Inflammatory arthritisElevated antinuclear antibody (RENUKA) levelExpected: 11/11/2019 (Approximate), Expires: 08/10/2020SED RATELabRoutineHLA B27 (HLA B27 positive)Inflammatory arthritisElevated antinuclear antibody (RENUKA) levelExpected: 11/11/2019 (Approximate), Expires: 08/10/2020URINALYSIS DIPSTICKLabRoutineHLA B27 (HLA B27 positive)Inflammatory arthritisElevated antinuclear antibody (RENUKA) levelExpected: 11/11/2019 (Approximate), Expires: 08/10/2020URINALYSIS, MICROSCOPICLabRoutineHLA B27 (HLA B27 positive)Inflammatory arthritisElevated antinuclear antibody (RENUKA) levelExpected: 11/11/2019 (Approximate), Expires: 08/10/2020PROTEIN/CR RATIO,UR RANLabRoutineHLA B27 (HLA B27 positive)Inflammatory arthritisElevated antinuclear antibody (RENUKA) levelExpected: 11/11/2019 (Approximate), Expires: 08/10/202025-[place] VITAMIN D (D2 + D3)LabRoutineVitamin D deficiencyExpected: 11/11/2019 (Approximate), Expires: 08/10/2020C3 COMPLEMENT 3LabRoutineHLA B27 (HLA B27 positive)Inflammatory arthritisElevated antinuclear antibody (RENUKA) levelExpected: 11/11/2019 (Approximate), Expires: 08/10/2020C4 COMPLEMENT 4LabRoutineHLA B27 (HLA B27 positive)Inflammatory arthritisElevated antinuclear antibody (RENUKA) levelExpected: 11/11/2019 (Approximate), Expires: 08/10/2020ANTI- DNA DOUBLE STRANDLabRoutineHLA B27 (HLA B27 positive)Inflammatory arthritisElevated antinuclear antibody (RENUKA) levelExpected: 11/11/2019 (Approximate), Expires: 08/10/2020MAGNESIUMLabRoutinePVC (premature ventricular contraction)Expected: 11/11/2019 (Approximate), Expires: 08/10/2020CBC AND DIFFLabRoutineHLA B27 (HLA B27 positive)Inflammatory arthritisTherapeutic drug monitoringEvery 4 Weeks Auto for 12 Occurrences starting 11/09/2019 until 1ALT (SGPT)LabRoutineHLA B27 (HLA B27 positive)Inflammatory arthritisTherapeutic drug monitoringEvery 4 Weeks Auto for 12 Occurrences starting 11/09/2019 until 1CREATININELabRoutineHLA B27 (HLA B27 positive)Inflammatory arthritisTherapeutic drug monitoringEvery 4 Weeks Auto for 12 Occurrences starting 11/09/2019 until 12/12/2021IMMUNOGLOBULINS- IGA,IGG,IGMLabRoutineInflammatory arthritisExpected: 11/11/2019 (Approximate), E xpires: 08/10/2020ANTI-DNA DOUBLE STRANDLabRoutineHLA B27 (HLA B27 positive)Inflammatory arthritisElevated antinuclear antibody (RENUKA) levelTherapeutic drug monitoringExpected: 11/11/2019 (Approximate), Expires: 08/10/2020C3 COMPLEMENT 3LabRoutineHLA B27 (HLA B27 positive)Inflammatory arthritisElevated antinuclear antibody (RENUKA) levelTherapeutic drug monitoringExpected: 11/11/2019 (Approximate), Expires: 08/10/2020C4 COMPLEMENT 4LabRoutineHLA B27 (HLA B27 positive)Inflammatory arthritisElevated antinuclear antibody (RENUKA) levelTherapeutic drug monitoringExpected: 11/11/2019 (Approximate), Expires: 08/10/202025-[place] VITAMIN D (D2 + D3)LabRoutineVitamin D deficiencyExpected: 11/11/2019 (Approximate), Expires: 08/10/2020C REACTIVE PROTEIN (CRP)LabRoutineHLA B27 (HLA B27 positive)Inflammatory arthritisElevated antinuclear antibody (RENUKA) levelTherapeutic drug monitoringExpected: 11/11/2019 (Approximate), Expires: 08/10/2020SED RATELabRoutineHLA B27 (HLA B27 positive)Inflammatory arthritisElevated antinuclear antibody (RENUKA) levelTherapeutic drug monitoringExpected: 11/11/2019 (Approximate), Expires: 08/10/2020COMPREHENSIVE METABOLIC PANELLabRoutineHLA B27 (HLA B27 positive)Inflammatory arthritisElevated antinuclear antibody (RENUKA) levelTherapeutic drug monitoringExpected: 11/11/2019 (Approximate), Expires: 08/10/2020URINALYSIS DIPSTICKLabRoutineHLA B27 (HLA B27 positive)Inflammatory arthritisElevated antinuclear antibody (RENUKA) levelTherapeutic drug monitoringExpected: 11/11/2019 (Approximate), Expires: 08/10/2020URINALYSIS, MICROSCOPICLabRoutineHLA B27 (HLA B27 positive)Inflammatory arthritisElevated a ntinuclear antibody (RENUKA) levelTherapeutic drug monitoringExpected: 11/11/2019 (Approximate), Expires: 08/10/2020PROTEIN/CR RATIO,UR RANLabRoutineHLA B27 (HLA B27 positive)Inflammatory arthritisElevated antinuclear antibody (RENUKA) levelTherapeutic drug monitoringExpected: 11/11/2019 (Approximate), Expires: 08/10/2020CBC AND DIFFLabRoutineHLA B27 (HLA B27 positive)Inflammatory arthritisElevated antinuclear antibody (RENUKA) levelTherapeutic drug monitoringExpected: 11/11/2019 (Approximate), Expires: 08/10/2020MAGNESIUMLabRoutinePVC (premature ventricular contraction)Expected: 11/11/2019 (Approximate), Expires: 08/10/2020CBC AND DIFFLabRoutineInflammatory arthritisTherapeutic drug monitoringEvery 4 Weeks Auto for 12 Occurrences starting 11/09/2019 until 1ALT (SGPT)LabRoutineInflammatory arthrit isTherapeutic drug monitoringEvery 4 Weeks Auto for 12 Occurrences starting 11/09/2019 until 1CREATININELabRoutineInflammatory arthritisTherapeutic drug monitoringEvery 4 Weeks Auto for 12 Occurrences starting 11/09/2019 until 1CBC AND DIFFLabRoutineHLA-B27 spondyloarthropathyInflammatory arthritisElevated antinuclear antibody (RENUKA) levelTherapeutic drug monitoringExpected: 03/14/2020 (Approximate), Expires: 08/10/2020C REACTIVE PROTEIN (CRP)LabRoutineHLA-B27 spondyloarthropathyInflammatory arthritisElevated antinuclear antibody (RENUKA) levelTherapeutic drug monitoringExpected: 03/14/2020 (Approximate), Expires: 08/10/2020SED RATELabRoutineHLA-B27 spondyloarthropathyInflammatory arthritisElevated antinuclear antibody (RENUKA) levelTherapeutic drug monitoringExpected: 03/14/2020 (Approximate), Expires: 08/10/2020COMPREHENSIVE METABOLIC PANELLabRoutineHLA-B27 spondyloarthropathyInflammatory arthritisElevated antinuclear antibody (RENUKA) levelTherapeutic drug monitoringExpected: 03/14/2020 (Approximate), Expires: 08/10/2020URINALYSIS DIPSTICKLabRoutineHLA-B27 spondyloarthropathyInflammatory arthritisElevated antinuclear antibody (RENUKA) levelTherapeutic drug monitoringExpected: 03/14/2020 (Approximate), Expires: 08/10/2020URINALYSIS, MICROSCOPICLabRoutineHLA-B27 spondyloarthropathyInflammatory arthritisElevated antinuclear antibody (RENUKA) levelTherapeutic drug monitoringExpected: 03/14/2020 (Approximate), Expires: 08/10/2020PROTEIN/CR RATIO,UR RANLabRoutineHLA-B27 spondyloarthropathyInflammatory arthritisElevated antinuclear antibody (RENUKA) levelTherapeutic drug monitoringExpected: 03/14/2020 (Approximate), Expires: 08/10/2020C3 COMPLEMENT 3LabRoutineHLA-B27 spondyloarthropathyInflammatory arthritisElevated antinuclear antibody (RENUKA) levelTherapeutic drug monitoringExpected: 03/14/2020 (Approximate), Expires: 08/10/2020C4 COMPLEMENT 4LabRoutineHLA-B27 spondyloarthropathyInflammatory arthritisElevated antinuclear antibody (RENUKA) levelTherapeutic drug monitoringExpected: 03/14/2020 (A pproximate), Expires: 08/10/2020ANTI-DNA DOUBLE STRANDLabRoutineHLA-B27 spondyloarthropathyInflammatory arthritisElevated antinuclear antibody (RENUKA) levelTherapeutic drug monitoringExpected: 03/14/2020 (Approximate), Expires: 08/10/202025-[place] VITAMIN D (D2 + D3)LabRoutineVitamin D deficiencyTherapeutic drug monitoringExpected: 03/14/2020 (Approximate), Expires: 08/10/2020documented as of this encounter 03/29/2020 [facility] , Scheduled OrdersNameTypePriorityAssociat ed DiagnosesOrder ScheduleCBC AND DIFFLabRoutineHLA B27 (HLA B27 positive)Inflammatory arthritisElevated antinuclear antibody (RENUKA) levelExpected: 11/11/2019 (Approximate), Expires: 08/10/2020C REACTIVE PROTEIN (CRP)LabRoutineHLA B27 (HLA B27 positive)Inflammatory arthritisElevated antinuclear antibody (RENUKA) levelExpected: 11/11/2019 (Approximate), Expires: 08/10/2020COMPREHENSIVE METABOLIC PANELLabRoutineHLA B27 (HLA B27 positive)Inflammatory arthritisElevated antinuclear antibody (RENUKA) levelExpected: 11/11/2019 (Approximate), Expires: 08/10/2020SED RATELabRoutineHLA B27 (HLA B27 positive)Inflammatory arthritisElevated antinuclear antibody (RENUKA) levelExpected: 11/11/2019 (Approximate), Expires: 08/10/2020URINALYSIS DIPSTICKLabRoutineHLA B27 (HLA B27 positive)Inflammatory arthritisElevated antinuclear antibody (RENUKA) levelExpected: 11/11/2019 (Approximate), Expires: 08/10/2020URINALYSIS, MICROSCOPICLabRoutineHLA B27 (HLA B27 positive)Inflammatory arthritisElevated antinuclear antibody (RENUKA) levelExpected: 11/11/2019 (Approximate), Expires: 08/10/2020PROTEIN/CR RATIO,UR RANLabRoutineHLA B27 (HLA B27 positive)Inflammatory arthritisElevated antinuclear antibody (RENUKA) levelExpected: 11/11/2019 (Approximate), Expires: 08/10/202025-[place] VITAMIN D (D2 + D3)LabRoutineVitamin D deficiencyExpected: 11/11/2019 (Approximate), Expires: 08/10/2020C3 COMPLEMENT 3LabRoutineHLA B27 (HLA B27 positive)Inflammatory arthritisElevated antinuclear antibody (RENUKA) levelExpected: 11/11/2019 (Approximate), Expires: 08/10/2020C4 COMPLEMENT 4LabRoutineHLA B27 (HLA B27 positive)Inflammatory arthritisElevated antinuclear antibody (RENUKA) levelExpected: 11/11/2019 (Approximate), Expires: 08/10/2020ANTI- DNA DOUBLE STRANDLabRoutineHLA B27 (HLA B27 positive)Inflammatory arthritisElevated antinuclear antibody (RENUKA) levelExpected: 11/11/2019 (Approximate), Expires: 08/10/2020MAGNESIUMLabRoutinePVC (premature ventricular contraction)Expected: 11/11/2019 (Approximate), Expires: 08/10/2020CBC AND DIFFLabRoutineHLA B27 (HLA B27 positive)Inflammatory arthritisTherapeutic drug monitoringEvery 4 Weeks Auto for 12 Occurrences starting 11/09/2019 until 1ALT (SGPT)LabRoutineHLA B27 (HLA B27 positive)Inflammatory arthritisTherapeutic drug monitoringEvery 4 Weeks Auto for 12 Occurrences starting 11/09/2019 until 1CREATININELabRoutineHLA B27 (HLA B27 positive)Inflammatory arthritisTherapeutic drug monitoringEvery 4 Weeks Auto for 12 Occurrences starting 11/09/2019 until 1IMMUNOGLOBULINS- IGA,IGG,IGMLabRoutineInflammatory arthritisExpected: 11/11/2019 (Approximate), E xpires: 08/10/2020ANTI-DNA DOUBLE STRANDLabRoutineHLA B27 (HLA B27 positive)Inflammatory arthritisElevated antinuclear antibody (RENUKA) levelTherapeutic drug monitoringExpected: 11/11/2019 (Approximate), Expires: 08/10/2020C3 COMPLEMENT 3LabRoutineHLA B27 (HLA B27 positive)Inflammatory arthritisElevated antinuclear antibody (RENUKA) levelTherapeutic drug monitoringExpected: 11/11/2019 (Approximate), Expires: 08/10/2020C4 COMPLEMENT 4LabRoutineHLA B27 (HLA B27 positive)Inflammatory arthritisElevated antinuclear antibody (RENUKA) levelTherapeutic drug monitoringExpected: 11/11/2019 (Approximate), Expires: 08/10/202025-[place] VITAMIN D (D2 + D3)LabRoutineVitamin D deficiencyExpected: 11/11/2019 (Approximate), Expires: 08/10/2020C REACTIVE PROTEIN (CRP)LabRoutineHLA B27 (HLA B27 positive)Inflammatory arthritisElevated antinuclear antibody (RENUKA) levelTherapeutic drug monitoringExpected: 11/11/2019 (Approximate), Expires: 08/10/2020SED RATELabRoutineHLA B27 (HLA B27 positive)Inflammatory arthritisElevated antinuclear antibody (RENUKA) levelTherapeutic drug monitoringExpected: 11/11/2019 (Approximate), Expires: 08/10/2020COMPREHENSIVE METABOLIC PANELLabRoutineHLA B27 (HLA B27 positive)Inflammatory arthritisElevated antinuclear antibody (RENUKA) levelTherapeutic drug monitoringExpected: 11/11/2019 (Approximate), Expires: 08/10/2020URINALYSIS DIPSTICKLabRoutineHLA B27 (HLA B27 positive)Inflammatory arthritisElevated antinuclear antibody (RENUKA) levelTherapeutic drug monitoringExpected: 11/11/2019 (Approximate), Expires: 08/10/2020URINALYSIS, MICROSCOPICLabRoutineHLA B27 (HLA B27 positive)Inflammatory arthritisElevated a ntinuclear antibody (RENUKA) levelTherapeutic drug monitoringExpected: 11/11/2019 (Approximate), Expires: 08/10/2020PROTEIN/CR RATIO,UR RANLabRoutineHLA B27 (HLA B27 positive)Inflammatory arthritisElevated antinuclear antibody (RENUKA) levelTherapeutic drug monitoringExpected: 11/11/2019 (Approximate), Expires: 08/10/2020CBC AND DIFFLabRoutineHLA B27 (HLA B27 positive)Inflammatory arthritisElevated antinuclear antibody (RENUKA) levelTherapeutic drug monitoringExpected: 11/11/2019 (Approximate), Expires: 08/10/2020MAGNESIUMLabRoutinePVC (premature ventricular contraction)Expected: 11/11/2019 (Approximate), Expires: 08/10/2020CBC AND DIFFLabRoutineInflammatory arthritisTherapeutic drug monitoringEvery 4 Weeks Auto for 12 Occurrences starting 11/09/2019 until 1ALT (SGPT)LabRoutineInflammatory arthrit isTherapeutic drug monitoringEvery 4 Weeks Auto for 12 Occurrences starting 11/09/2019 until 1CREATININELabRoutineInflammatory arthritisTherapeutic drug monitoringEvery 4 Weeks Auto for 12 Occurrences starting 11/09/2019 until 1CBC AND DIFFLabRoutineHLA-B27 spondyloarthropathyInflammatory arthritisElevated antinuclear antibody (RENUKA) levelTherapeutic drug monitoringExpected: 03/14/2020 (Approximate), Expires: 08/10/2020C REACTIVE PROTEIN (CRP)LabRoutineHLA-B27 spondyloarthropathyInflammatory arthritisElevated antinuclear antibody (RENUKA) levelTherapeutic drug monitoringExpected: 03/14/2020 (Approximate), Expires: 08/10/2020SED RATELabRoutineHLA-B27 spondyloarthropathyInflammatory arthritisElevated antinuclear antibody (RENUKA) levelTherapeutic drug monitoringExpected: 03/14/2020 (Approximate), Expires: 08/10/2020COMPREHENSIVE METABOLIC PANELLabRoutineHLA-B27 spondyloarthropathyInflammatory arthritisElevated antinuclear antibody (RENUKA) levelTherapeutic drug monitoringExpected: 03/14/2020 (Approximate), Expires: 08/10/2020URINALYSIS DIPSTICKLabRoutineHLA-B27 spondyloarthropathyInflammatory arthritisElevated antinuclear antibody (RENUKA) levelTherapeutic drug monitoringExpected: 03/14/2020 (Approximate), Expires: 08/10/2020URINALYSIS, MICROSCOPICLabRoutineHLA-B27 spondyloarthropathyInflammatory arthritisElevated antinuclear antibody (RENUKA) levelTherapeutic drug monitoringExpected: 03/14/2020 (Approximate), Expires: 08/10/2020PROTEIN/CR RATIO,UR RANLabRoutineHLA-B27 spondyloarthropathyInflammatory arthritisElevated antinuclear antibody (RENUKA) levelTherapeutic drug monitoringExpected: 03/14/2020 (Approximate), Expires: 08/10/2020C3 COMPLEMENT 3LabRoutineHLA-B27 spondyloarthropathyInflammatory arthritisElevated antinuclear antibody (RENUKA) levelTherapeutic drug monitoringExpected: 03/14/2020 (Approximate), Expires: 08/10/2020C4 COMPLEMENT 4LabRoutineHLA-B27 spondyloarthropathyInflammatory arthritisElevated antinuclear antibody (RENUKA) levelTherapeutic drug monitoringExpected: 03/14/2020 (A pproximate), Expires: 08/10/2020ANTI-DNA DOUBLE STRANDLabRoutineHLA-B27 spondyloarthropathyInflammatory arthritisElevated antinuclear antibody (RENUKA) levelTherapeutic drug monitoringExpected: 03/14/2020 (Approximate), Expires: 08/10/202025-[place] VITAMIN D (D2 + D3)LabRoutineVitamin D deficiencyTherapeutic drug monitoringExpected: 03/14/2020 (Approximate), Expires: 08/10/2020documented as of this encounter 03/29/2020 [facility] , Scheduled OrdersNameTypePriorityAssociat ed DiagnosesOrder ScheduleCBC AND DIFFLabRoutineHLA B27 (HLA B27 positive)Inflammatory arthritisElevated antinuclear antibody (RENUKA) levelExpected: 11/11/2019 (Approximate), Expires: 08/10/2020C REACTIVE PROTEIN (CRP)LabRoutineHLA B27 (HLA B27 positive)Inflammatory arthritisElevated antinuclear antibody (RENUKA) levelExpected: 11/11/2019 (Approximate), Expires: 08/10/2020COMPREHENSIVE METABOLIC PANELLabRoutineHLA B27 (HLA B27 positive)Inflammatory arthritisElevated antinuclear antibody (RENUKA) levelExpected: 11/11/2019 (Approximate), Expires: 08/10/2020SED RATELabRoutineHLA B27 (HLA B27 positive)Inflammatory arthritisElevated antinuclear antibody (RENUKA) levelExpected: 11/11/2019 (Approximate), Expires: 08/10/2020URINALYSIS DIPSTICKLabRoutineHLA B27 (HLA B27 positive)Inflammatory arthritisElevated antinuclear antibody (RENUKA) levelExpected: 11/11/2019 (Approximate), Expires: 08/10/2020URINALYSIS, MICROSCOPICLabRoutineHLA B27 (HLA B27 positive)Inflammatory arthritisElevated antinuclear antibody (RENUKA) levelExpected: 11/11/2019 (Approximate), Expires: 08/10/2020PROTEIN/CR RATIO,UR RANLabRoutineHLA B27 (HLA B27 positive)Inflammatory arthritisElevated antinuclear antibody (RENUKA) levelExpected: 11/11/2019 (Approximate), Expires: 08/10/202025-[place] VITAMIN D (D2 + D3)LabRoutineVitamin D deficiencyExpected: 11/11/2019 (Approximate), Expires: 08/10/2020C3 COMPLEMENT 3LabRoutineHLA B27 (HLA B27 positive)Inflammatory arthritisElevated antinuclear antibody (RENUKA) levelExpected: 11/11/2019 (Approximate), Expires: 08/10/2020C4 COMPLEMENT 4LabRoutineHLA B27 (HLA B27 positive)Inflammatory arthritisElevated antinuclear antibody (RENUKA) levelExpected: 11/11/2019 (Approximate), Expires: 08/10/2020ANTI- DNA DOUBLE STRANDLabRoutineHLA B27 (HLA B27 positive)Inflammatory arthritisElevated antinuclear antibody (RENUKA) levelExpected: 11/11/2019 (Approximate), Expires: 08/10/2020MAGNESIUMLabRoutinePVC (premature ventricular contraction)Expected: 11/11/2019 (Approximate), Expires: 08/10/2020CBC AND DIFFLabRoutineHLA B27 (HLA B27 positive)Inflammatory arthritisTherapeutic drug monitoringEvery 4 Weeks Auto for 12 Occurrences starting 11/09/2019 until 1ALT (SGPT)LabRoutineHLA B27 (HLA B27 positive)Inflammatory arthritisTherapeutic drug monitoringEvery 4 Weeks Auto for 12 Occurrences starting 11/09/2019 until 1CREATININELabRoutineHLA B27 (HLA B27 positive)Inflammatory arthritisTherapeutic drug monitoringEvery 4 Weeks Auto for 12 Occurrences starting 11/09/2019 until 1IMMUNOGLOBULINS- IGA,IGG,IGMLabRoutineInflammatory arthritisExpected: 11/11/2019 (Approximate), E xpires: 08/10/2020ANTI-DNA DOUBLE STRANDLabRoutineHLA B27 (HLA B27 positive)Inflammatory arthritisElevated antinuclear antibody (RENUKA) levelTherapeutic drug monitoringExpected: 11/11/2019 (Approximate), Expires: 08/10/2020C3 COMPLEMENT 3LabRoutineHLA B27 (HLA B27 positive)Inflammatory arthritisElevated antinuclear antibody (RENUKA) levelTherapeutic drug monitoringExpected: 11/11/2019 (Approximate), Expires: 08/10/2020C4 COMPLEMENT 4LabRoutineHLA B27 (HLA B27 positive)Inflammatory arthritisElevated antinuclear antibody (RENUKA) levelTherapeutic drug monitoringExpected: 11/11/2019 (Approximate), Expires: 08/10/202025-[place] VITAMIN D (D2 + D3)LabRoutineVitamin D deficiencyExpected: 11/11/2019 (Approximate), Expires: 08/10/2020C REACTIVE PROTEIN (CRP)LabRoutineHLA B27 (HLA B27 positive)Inflammatory arthritisElevated antinuclear antibody (RENUKA) levelTherapeutic drug monitoringExpected: 11/11/2019 (Approximate), Expires: 08/10/2020SED RATELabRoutineHLA B27 (HLA B27 positive)Inflammatory arthritisElevated antinuclear antibody (RENUKA) levelTherapeutic drug monitoringExpected: 11/11/2019 (Approximate), Expires: 08/10/2020COMPREHENSIVE METABOLIC PANELLabRoutineHLA B27 (HLA B27 positive)Inflammatory arthritisElevated antinuclear antibody (RENUKA) levelTherapeutic drug monitoringExpected: 11/11/2019 (Approximate), Expires: 08/10/2020URINALYSIS DIPSTICKLabRoutineHLA B27 (HLA B27 positive)Inflammatory arthritisElevated antinuclear antibody (RENUKA) levelTherapeutic drug monitoringExpected: 11/11/2019 (Approximate), Expires: 08/10/2020URINALYSIS, MICROSCOPICLabRoutineHLA B27 (HLA B27 positive)Inflammatory arthritisElevated a ntinuclear antibody (RENUKA) levelTherapeutic drug monitoringExpected: 11/11/2019 (Approximate), Expires: 08/10/2020PROTEIN/CR RATIO,UR RANLabRoutineHLA B27 (HLA B27 positive)Inflammatory arthritisElevated antinuclear antibody (RENUKA) levelTherapeutic drug monitoringExpected: 11/11/2019 (Approximate), Expires: 08/10/2020CBC AND DIFFLabRoutineHLA B27 (HLA B27 positive)Inflammatory arthritisElevated antinuclear antibody (RENUKA) levelTherapeutic drug monitoringExpected: 11/11/2019 (Approximate), Expires: 08/10/2020MAGNESIUMLabRoutinePVC (premature ventricular contraction)Expected: 11/11/2019 (Approximate), Expires: 08/10/2020CBC AND DIFFLabRoutineInflammatory arthritisTherapeutic drug monitoringEvery 4 Weeks Auto for 12 Occurrences starting 11/09/2019 until 1ALT (SGPT)LabRoutineInflammatory arthrit isTherapeutic drug monitoringEvery 4 Weeks Auto for 12 Occurrences starting 11/09/2019 until 1CREATININELabRoutineInflammatory arthritisTherapeutic drug monitoringEvery 4 Weeks Auto for 12 Occurrences starting 11/09/2019 until 1CBC AND DIFFLabRoutineHLA-B27 spondyloarthropathyInflammatory arthritisElevated antinuclear antibody (RENUKA) levelTherapeutic drug monitoringExpected: 03/14/2020 (Approximate), Expires: 08/10/2020C REACTIVE PROTEIN (CRP)LabRoutineHLA-B27 spondyloarthropathyInflammatory arthritisElevated antinuclear antibody (RENUKA) levelTherapeutic drug monitoringExpected: 03/14/2020 (Approximate), Expires: 08/10/2020SED RATELabRoutineHLA-B27 spondyloarthropathyInflammatory arthritisElevated antinuclear antibody (RENUKA) levelTherapeutic drug monitoringExpected: 03/14/2020 (Approximate), Expires: 08/10/2020COMPREHENSIVE METABOLIC PANELLabRoutineHLA-B27 spondyloarthropathyInflammatory arthritisElevated antinuclear antibody (RENUKA) levelTherapeutic drug monitoringExpected: 03/14/2020 (Approximate), Expires: 08/10/2020URINALYSIS DIPSTICKLabRoutineHLA-B27 spondyloarthropathyInflammatory arthritisElevated antinuclear antibody (RENUKA) levelTherapeutic drug monitoringExpected: 03/14/2020 (Approximate), Expires: 08/10/2020URINALYSIS, MICROSCOPICLabRoutineHLA-B27 spondyloarthropathyInflammatory arthritisElevated antinuclear antibody (RENUKA) levelTherapeutic drug monitoringExpected: 03/14/2020 (Approximate), Expires: 08/10/2020PROTEIN/CR RATIO,UR RANLabRoutineHLA-B27 spondyloarthropathyInflammatory arthritisElevated antinuclear antibody (RENUKA) levelTherapeutic drug monitoringExpected: 03/14/2020 (Approximate), Expires: 08/10/2020C3 COMPLEMENT 3LabRoutineHLA-B27 spondyloarthropathyInflammatory arthritisElevated antinuclear antibody (RENUKA) levelTherapeutic drug monitoringExpected: 03/14/2020 (Approximate), Expires: 08/10/2020C4 COMPLEMENT 4LabRoutineHLA-B27 spondyloarthropathyInflammatory arthritisElevated antinuclear antibody (RENUKA) levelTherapeutic drug monitoringExpected: 03/14/2020 (A pproximate), Expires: 08/10/2020ANTI-DNA DOUBLE STRANDLabRoutineHLA-B27 spondyloarthropathyInflammatory arthritisElevated antinuclear antibody (RENUKA) levelTherapeutic drug monitoringExpected: 03/14/2020 (Approximate), Expires: 08/10/202025-[place] VITAMIN D (D2 + D3)LabRoutineVitamin D deficiencyTherapeutic drug monitoringExpected: 03/14/2020 (Approximate), Expires: 08/10/2020documented as of this encounter 03/29/2020 [facility] , Scheduled OrdersNameTypePriorityAssociat ed DiagnosesOrder ScheduleCBC AND DIFFLabRoutineHLA B27 (HLA B27 positive)Inflammatory arthritisElevated antinuclear antibody (RENUKA) levelExpected: 11/11/2019 (Approximate), Expires: 08/10/2020C REACTIVE PROTEIN (CRP)LabRoutineHLA B27 (HLA B27 positive)Inflammatory arthritisElevated antinuclear antibody (RENUKA) levelExpected: 11/11/2019 (Approximate), Expires: 08/10/2020COMPREHENSIVE METABOLIC PANELLabRoutineHLA B27 (HLA B27 positive)Inflammatory arthritisElevated antinuclear antibody (RENUKA) levelExpected: 11/11/2019 (Approximate), Expires: 08/10/2020SED RATELabRoutineHLA B27 (HLA B27 positive)Inflammatory arthritisElevated antinuclear antibody (RENUKA) levelExpected: 11/11/2019 (Approximate), Expires: 08/10/2020URINALYSIS DIPSTICKLabRoutineHLA B27 (HLA B27 positive)Inflammatory arthritisElevated antinuclear antibody (RENUKA) levelExpected: 11/11/2019 (Approximate), Expires: 08/10/2020URINALYSIS, MICROSCOPICLabRoutineHLA B27 (HLA B27 positive)Inflammatory arthritisElevated antinuclear antibody (RENUKA) levelExpected: 11/11/2019 (Approximate), Expires: 08/10/2020PROTEIN/CR RATIO,UR RANLabRoutineHLA B27 (HLA B27 positive)Inflammatory arthritisElevated antinuclear antibody (RENUKA) levelExpected: 11/11/2019 (Approximate), Expires: 08/10/202025-[place] VITAMIN D (D2 + D3)LabRoutineVitamin D deficiencyExpected: 11/11/2019 (Approximate), Expires: 08/10/2020C3 COMPLEMENT 3LabRoutineHLA B27 (HLA B27 positive)Inflammatory arthritisElevated antinuclear antibody (RENUKA) levelExpected: 11/11/2019 (Approximate), Expires: 08/10/2020C4 COMPLEMENT 4LabRoutineHLA B27 (HLA B27 positive)Inflammatory arthritisElevated antinuclear antibody (RENUKA) levelExpected: 11/11/2019 (Approximate), Expires: 08/10/2020ANTI- DNA DOUBLE STRANDLabRoutineHLA B27 (HLA B27 positive)Inflammatory arthritisElevated antinuclear antibody (RENUKA) levelExpected: 11/11/2019 (Approximate), Expires: 08/10/2020MAGNESIUMLabRoutinePVC (premature ventricular contraction)Expected: 11/11/2019 (Approximate), Expires: 08/10/2020CBC AND DIFFLabRoutineHLA B27 (HLA B27 positive)Inflammatory arthritisTherapeutic drug monitoringEvery 4 Weeks Auto for 12 Occurrences starting 11/09/2019 until 1ALT (SGPT)LabRoutineHLA B27 (HLA B27 positive)Inflammatory arthritisTherapeutic drug monitoringEvery 4 Weeks Auto for 12 Occurrences starting 11/09/2019 until 1CREATININELabRoutineHLA B27 (HLA B27 positive)Inflammatory arthritisTherapeutic drug monitoringEvery 4 Weeks Auto for 12 Occurrences starting 11/09/2019 until 1IMMUNOGLOBULINS- IGA,IGG,IGMLabRoutineInflammatory arthritisExpected: 11/11/2019 (Approximate), E xpires: 08/10/2020ANTI-DNA DOUBLE STRANDLabRoutineHLA B27 (HLA B27 positive)Inflammatory arthritisElevated antinuclear antibody (RENUKA) levelTherapeutic drug monitoringExpected: 11/11/2019 (Approximate), Expires: 08/10/2020C3 COMPLEMENT 3LabRoutineHLA B27 (HLA B27 positive)Inflammatory arthritisElevated antinuclear antibody (RENUKA) levelTherapeutic drug monitoringExpected: 11/11/2019 (Approximate), Expires: 08/10/2020C4 COMPLEMENT 4LabRoutineHLA B27 (HLA B27 positive)Inflammatory arthritisElevated antinuclear antibody (RENUKA) levelTherapeutic drug monitoringExpected: 11/11/2019 (Approximate), Expires: 08/10/202025-[place] VITAMIN D (D2 + D3)LabRoutineVitamin D deficiencyExpected: 11/11/2019 (Approximate), Expires: 08/10/2020C REACTIVE PROTEIN (CRP)LabRoutineHLA B27 (HLA B27 positive)Inflammatory arthritisElevated antinuclear antibody (RENUKA) levelTherapeutic drug monitoringExpected: 11/11/2019 (Approximate), Expires: 08/10/2020SED RATELabRoutineHLA B27 (HLA B27 positive)Inflammatory arthritisElevated antinuclear antibody (RENUKA) levelTherapeutic drug monitoringExpected: 11/11/2019 (Approximate), Expires: 08/10/2020COMPREHENSIVE METABOLIC PANELLabRoutineHLA B27 (HLA B27 positive)Inflammatory arthritisElevated antinuclear antibody (RENUKA) levelTherapeutic drug monitoringExpected: 11/11/2019 (Approximate), Expires: 08/10/2020URINALYSIS DIPSTICKLabRoutineHLA B27 (HLA B27 positive)Inflammatory arthritisElevated antinuclear antibody (RENUKA) levelTherapeutic drug monitoringExpected: 11/11/2019 (Approximate), Expires: 08/10/2020URINALYSIS, MICROSCOPICLabRoutineHLA B27 (HLA B27 positive)Inflammatory arthritisElevated a ntinuclear antibody (RENUKA) levelTherapeutic drug monitoringExpected: 11/11/2019 (Approximate), Expires: 08/10/2020PROTEIN/CR RATIO,UR RANLabRoutineHLA B27 (HLA B27 positive)Inflammatory arthritisElevated antinuclear antibody (RENUKA) levelTherapeutic drug monitoringExpected: 11/11/2019 (Approximate), Expires: 08/10/2020CBC AND DIFFLabRoutineHLA B27 (HLA B27 positive)Inflammatory arthritisElevated antinuclear antibody (RENUKA) levelTherapeutic drug monitoringExpected: 11/11/2019 (Approximate), Expires: 08/10/2020MAGNESIUMLabRoutinePVC (premature ventricular contraction)Expected: 11/11/2019 (Approximate), Expires: 08/10/2020CBC AND DIFFLabRoutineInflammatory arthritisTherapeutic drug monitoringEvery 4 Weeks Auto for 12 Occurrences starting 11/09/2019 until 1ALT (SGPT)LabRoutineInflammatory arthrit isTherapeutic drug monitoringEvery 4 Weeks Auto for 12 Occurrences starting 11/09/2019 until 1CREATININELabRoutineInflammatory arthritisTherapeutic drug monitoringEvery 4 Weeks Auto for 12 Occurrences starting 11/09/2019 until 1CBC AND DIFFLabRoutineHLA-B27 spondyloarthropathyInflammatory arthritisElevated antinuclear antibody (RENUKA) levelTherapeutic drug monitoringExpected: 03/14/2020 (Approximate), Expires: 08/10/2020C REACTIVE PROTEIN (CRP)LabRoutineHLA-B27 spondyloarthropathyInflammatory arthritisElevated antinuclear antibody (RENUKA) levelTherapeutic drug monitoringExpected: 03/14/2020 (Approximate), Expires: 08/10/2020SED RATELabRoutineHLA-B27 spondyloarthropathyInflammatory arthritisElevated antinuclear antibody (RENUKA) levelTherapeutic drug monitoringExpected: 03/14/2020 (Approximate), Expires: 08/10/2020COMPREHENSIVE METABOLIC PANELLabRoutineHLA-B27 spondyloarthropathyInflammatory arthritisElevated antinuclear antibody (RENUKA) levelTherapeutic drug monitoringExpected: 03/14/2020 (Approximate), Expires: 08/10/2020URINALYSIS DIPSTICKLabRoutineHLA-B27 spondyloarthropathyInflammatory arthritisElevated antinuclear antibody (RENUKA) levelTherapeutic drug monitoringExpected: 03/14/2020 (Approximate), Expires: 08/10/2020URINALYSIS, MICROSCOPICLabRoutineHLA-B27 spondyloarthropathyInflammatory arthritisElevated antinuclear antibody (RENUKA) levelTherapeutic drug monitoringExpected: 03/14/2020 (Approximate), Expires: 08/10/2020PROTEIN/CR RATIO,UR RANLabRoutineHLA-B27 spondyloarthropathyInflammatory arthritisElevated antinuclear antibody (RENUKA) levelTherapeutic drug monitoringExpected: 03/14/2020 (Approximate), Expires: 08/10/2020C3 COMPLEMENT 3LabRoutineHLA-B27 spondyloarthropathyInflammatory arthritisElevated antinuclear antibody (RENUKA) levelTherapeutic drug monitoringExpected: 03/14/2020 (Approximate), Expires: 08/10/2020C4 COMPLEMENT 4LabRoutineHLA-B27 spondyloarthropathyInflammatory arthritisElevated antinuclear antibody (RENUKA) levelTherapeutic drug monitoringExpected: 03/14/2020 (A pproximate), Expires: 08/10/2020ANTI-DNA DOUBLE STRANDLabRoutineHLA-B27 spondyloarthropathyInflammatory arthritisElevated antinuclear antibody (RENUKA) levelTherapeutic drug monitoringExpected: 03/14/2020 (Approximate), Expires: 08/10/202025-[place] VITAMIN D (D2 + D3)LabRoutineVitamin D deficiencyTherapeutic drug monitoringExpected: 03/14/2020 (Approximate), Expires: 08/10/2020documented as of this encounter 03/29/2020 [facility] , Scheduled OrdersNameTypePriorityAssociat ed DiagnosesOrder ScheduleCBC AND DIFFLabRoutineHLA B27 (HLA B27 positive)Inflammatory arthritisElevated antinuclear antibody (RENUKA) levelExpected: 11/11/2019 (Approximate), Expires: 08/10/2020C REACTIVE PROTEIN (CRP)LabRoutineHLA B27 (HLA B27 positive)Inflammatory arthritisElevated antinuclear antibody (RENUKA) levelExpected: 11/11/2019 (Approximate), Expires: 08/10/2020COMPREHENSIVE METABOLIC PANELLabRoutineHLA B27 (HLA B27 positive)Inflammatory arthritisElevated antinuclear antibody (RENUKA) levelExpected: 11/11/2019 (Approximate), Expires: 08/10/2020SED RATELabRoutineHLA B27 (HLA B27 positive)Inflammatory arthritisElevated antinuclear antibody (RENUKA) levelExpected: 11/11/2019 (Approximate), Expires: 08/10/2020URINALYSIS DIPSTICKLabRoutineHLA B27 (HLA B27 positive)Inflammatory arthritisElevated antinuclear antibody (RENUKA) levelExpected: 11/11/2019 (Approximate), Expires: 08/10/2020URINALYSIS, MICROSCOPICLabRoutineHLA B27 (HLA B27 positive)Inflammatory arthritisElevated antinuclear antibody (RENUKA) levelExpected: 11/11/2019 (Approximate), Expires: 08/10/2020PROTEIN/CR RATIO,UR RANLabRoutineHLA B27 (HLA B27 positive)Inflammatory arthritisElevated antinuclear antibody (RENUKA) levelExpected: 11/11/2019 (Approximate), Expires: 08/10/202025-[place] VITAMIN D (D2 + D3)LabRoutineVitamin D deficiencyExpected: 11/11/2019 (Approximate), Expires: 08/10/2020C3 COMPLEMENT 3LabRoutineHLA B27 (HLA B27 positive)Inflammatory arthritisElevated antinuclear antibody (RENUKA) levelExpected: 11/11/2019 (Approximate), Expires: 08/10/2020C4 COMPLEMENT 4LabRoutineHLA B27 (HLA B27 positive)Inflammatory arthritisElevated antinuclear antibody (RENUKA) levelExpected: 11/11/2019 (Approximate), Expires: 08/10/2020ANTI- DNA DOUBLE STRANDLabRoutineHLA B27 (HLA B27 positive)Inflammatory arthritisElevated antinuclear antibody (RENUKA) levelExpected: 11/11/2019 (Approximate), Expires: 08/10/2020MAGNESIUMLabRoutinePVC (premature ventricular contraction)Expected: 11/11/2019 (Approximate), Expires: 08/10/2020CBC AND DIFFLabRoutineHLA B27 (HLA B27 positive)Inflammatory arthritisTherapeutic drug monitoringEvery 4 Weeks Auto for 12 Occurrences starting 11/09/2019 until 1ALT (SGPT)LabRoutineHLA B27 (HLA B27 positive)Inflammatory arthritisTherapeutic drug monitoringEvery 4 Weeks Auto for 12 Occurrences starting 11/09/2019 until 1CREATININELabRoutineHLA B27 (HLA B27 positive)Inflammatory arthritisTherapeutic drug monitoringEvery 4 Weeks Auto for 12 Occurrences starting 11/09/2019 until 1IMMUNOGLOBULINS- IGA,IGG,IGMLabRoutineInflammatory arthritisExpected: 11/11/2019 (Approximate), E xpires: 08/10/2020ANTI-DNA DOUBLE STRANDLabRoutineHLA B27 (HLA B27 positive)Inflammatory arthritisElevated antinuclear antibody (RENUKA) levelTherapeutic drug monitoringExpected: 11/11/2019 (Approximate), Expires: 08/10/2020C3 COMPLEMENT 3LabRoutineHLA B27 (HLA B27 positive)Inflammatory arthritisElevated antinuclear antibody (RENUKA) levelTherapeutic drug monitoringExpected: 11/11/2019 (Approximate), Expires: 08/10/2020C4 COMPLEMENT 4LabRoutineHLA B27 (HLA B27 positive)Inflammatory arthritisElevated antinuclear antibody (RENUKA) levelTherapeutic drug monitoringExpected: 11/11/2019 (Approximate), Expires: 08/10/202025-[place] VITAMIN D (D2 + D3)LabRoutineVitamin D deficiencyExpected: 11/11/2019 (Approximate), Expires: 08/10/2020C REACTIVE PROTEIN (CRP)LabRoutineHLA B27 (HLA B27 positive)Inflammatory arthritisElevated antinuclear antibody (RENUKA) levelTherapeutic drug monitoringExpected: 11/11/2019 (Approximate), Expires: 08/10/2020SED RATELabRoutineHLA B27 (HLA B27 positive)Inflammatory arthritisElevated antinuclear antibody (RENUKA) levelTherapeutic drug monitoringExpected: 11/11/2019 (Approximate), Expires: 08/10/2020COMPREHENSIVE METABOLIC PANELLabRoutineHLA B27 (HLA B27 positive)Inflammatory arthritisElevated antinuclear antibody (RENUKA) levelTherapeutic drug monitoringExpected: 11/11/2019 (Approximate), Expires: 08/10/2020URINALYSIS DIPSTICKLabRoutineHLA B27 (HLA B27 positive)Inflammatory arthritisElevated antinuclear antibody (RENUKA) levelTherapeutic drug monitoringExpected: 11/11/2019 (Approximate), Expires: 08/10/2020URINALYSIS, MICROSCOPICLabRoutineHLA B27 (HLA B27 positive)Inflammatory arthritisElevated a ntinuclear antibody (RENUKA) levelTherapeutic drug monitoringExpected: 11/11/2019 (Approximate), Expires: 08/10/2020PROTEIN/CR RATIO,UR RANLabRoutineHLA B27 (HLA B27 positive)Inflammatory arthritisElevated antinuclear antibody (RENUKA) levelTherapeutic drug monitoringExpected: 11/11/2019 (Approximate), Expires: 08/10/2020CBC AND DIFFLabRoutineHLA B27 (HLA B27 positive)Inflammatory arthritisElevated antinuclear antibody (RENUKA) levelTherapeutic drug monitoringExpected: 11/11/2019 (Approximate), Expires: 08/10/2020MAGNESIUMLabRoutinePVC (premature ventricular contraction)Expected: 11/11/2019 (Approximate), Expires: 08/10/2020CBC AND DIFFLabRoutineInflammatory arthritisTherapeutic drug monitoringEvery 4 Weeks Auto for 12 Occurrences starting 11/09/2019 until 1ALT (SGPT)LabRoutineInflammatory arthrit isTherapeutic drug monitoringEvery 4 Weeks Auto for 12 Occurrences starting 11/09/2019 until 1CREATININELabRoutineInflammatory arthritisTherapeutic drug monitoringEvery 4 Weeks Auto for 12 Occurrences starting 11/09/2019 until 1CBC AND DIFFLabRoutineHLA-B27 spondyloarthropathyInflammatory arthritisElevated antinuclear antibody (RENUKA) levelTherapeutic drug monitoringExpected: 03/14/2020 (Approximate), Expires: 08/10/2020C REACTIVE PROTEIN (CRP)LabRoutineHLA-B27 spondyloarthropathyInflammatory arthritisElevated antinuclear antibody (RENUKA) levelTherapeutic drug monitoringExpected: 03/14/2020 (Approximate), Expires: 08/10/2020SED RATELabRoutineHLA-B27 spondyloarthropathyInflammatory arthritisElevated antinuclear antibody (RENUKA) levelTherapeutic drug monitoringExpected: 03/14/2020 (Approximate), Expires: 08/10/2020COMPREHENSIVE METABOLIC PANELLabRoutineHLA-B27 spondyloarthropathyInflammatory arthritisElevated antinuclear antibody (RENUKA) levelTherapeutic drug monitoringExpected: 03/14/2020 (Approximate), Expires: 08/10/2020URINALYSIS DIPSTICKLabRoutineHLA-B27 spondyloarthropathyInflammatory arthritisElevated antinuclear antibody (RENUKA) levelTherapeutic drug monitoringExpected: 03/14/2020 (Approximate), Expires: 08/10/2020URINALYSIS, MICROSCOPICLabRoutineHLA-B27 spondyloarthropathyInflammatory arthritisElevated antinuclear antibody (RENUKA) levelTherapeutic drug monitoringExpected: 03/14/2020 (Approximate), Expires: 08/10/2020PROTEIN/CR RATIO,UR RANLabRoutineHLA-B27 spondyloarthropathyInflammatory arthritisElevated antinuclear antibody (RENUKA) levelTherapeutic drug monitoringExpected: 03/14/2020 (Approximate), Expires: 08/10/2020C3 COMPLEMENT 3LabRoutineHLA-B27 spondyloarthropathyInflammatory arthritisElevated antinuclear antibody (RENUKA) levelTherapeutic drug monitoringExpected: 03/14/2020 (Approximate), Expires: 08/10/2020C4 COMPLEMENT 4LabRoutineHLA-B27 spondyloarthropathyInflammatory arthritisElevated antinuclear antibody (RENUKA) levelTherapeutic drug monitoringExpected: 03/14/2020 (A pproximate), Expires: 08/10/2020ANTI-DNA DOUBLE STRANDLabRoutineHLA-B27 spondyloarthropathyInflammatory arthritisElevated antinuclear antibody (RENUKA) levelTherapeutic drug monitoringExpected: 03/14/2020 (Approximate), Expires: 08/10/202025-[place] VITAMIN D (D2 + D3)LabRoutineVitamin D deficiencyTherapeutic drug monitoringExpected: 03/14/2020 (Approximate), Expires: 08/10/2020documented as of this encounter 03/29/2020 [facility] , Scheduled OrdersNameTypePriorityAssociat ed DiagnosesOrder ScheduleCBC AND DIFFLabRoutineHLA B27 (HLA B27 positive)Inflammatory arthritisElevated antinuclear antibody (RENUKA) levelExpected: 11/11/2019 (Approximate), Expires: 08/10/2020C REACTIVE PROTEIN (CRP)LabRoutineHLA B27 (HLA B27 positive)Inflammatory arthritisElevated antinuclear antibody (RENUKA) levelExpected: 11/11/2019 (Approximate), Expires: 08/10/2020COMPREHENSIVE METABOLIC PANELLabRoutineHLA B27 (HLA B27 positive)Inflammatory arthritisElevated antinuclear antibody (RENUKA) levelExpected: 11/11/2019 (Approximate), Expires: 08/10/2020SED RATELabRoutineHLA B27 (HLA B27 positive)Inflammatory arthritisElevated antinuclear antibody (RENUKA) levelExpected: 11/11/2019 (Approximate), Expires: 08/10/2020URINALYSIS DIPSTICKLabRoutineHLA B27 (HLA B27 positive)Inflammatory arthritisElevated antinuclear antibody (RENUKA) levelExpected: 11/11/2019 (Approximate), Expires: 08/10/2020URINALYSIS, MICROSCOPICLabRoutineHLA B27 (HLA B27 positive)Inflammatory arthritisElevated antinuclear antibody (RENUKA) levelExpected: 11/11/2019 (Approximate), Expires: 08/10/2020PROTEIN/CR RATIO,UR RANLabRoutineHLA B27 (HLA B27 positive)Inflammatory arthritisElevated antinuclear antibody (RENUKA) levelExpected: 11/11/2019 (Approximate), Expires: 08/10/202025-[place] VITAMIN D (D2 + D3)LabRoutineVitamin D deficiencyExpected: 11/11/2019 (Approximate), Expires: 08/10/2020C3 COMPLEMENT 3LabRoutineHLA B27 (HLA B27 positive)Inflammatory arthritisElevated antinuclear antibody (RENUKA) levelExpected: 11/11/2019 (Approximate), Expires: 08/10/2020C4 COMPLEMENT 4LabRoutineHLA B27 (HLA B27 positive)Inflammatory arthritisElevated antinuclear antibody (RENUKA) levelExpected: 11/11/2019 (Approximate), Expires: 08/10/2020ANTI- DNA DOUBLE STRANDLabRoutineHLA B27 (HLA B27 positive)Inflammatory arthritisElevated antinuclear antibody (RENUKA) levelExpected: 11/11/2019 (Approximate), Expires: 08/10/2020MAGNESIUMLabRoutinePVC (premature ventricular contraction)Expected: 11/11/2019 (Approximate), Expires: 08/10/2020CBC AND DIFFLabRoutineHLA B27 (HLA B27 positive)Inflammatory arthritisTherapeutic drug monitoringEvery 4 Weeks Auto for 12 Occurrences starting 11/09/2019 until 1ALT (SGPT)LabRoutineHLA B27 (HLA B27 positive)Inflammatory arthritisTherapeutic drug monitoringEvery 4 Weeks Auto for 12 Occurrences starting 11/09/2019 until 1CREATININELabRoutineHLA B27 (HLA B27 positive)Inflammatory arthritisTherapeutic drug monitoringEvery 4 Weeks Auto for 12 Occurrences starting 11/09/2019 until 08/10/2021IMMUNOGLOBULINS- IGA,IGG,IGMLabRoutineInflammatory arthritisExpected: 11/11/2019 (Approximate), E xpires: 08/10/2020ANTI-DNA DOUBLE STRANDLabRoutineHLA B27 (HLA B27 positive)Inflammatory arthritisElevated antinuclear antibody (RENUKA) levelTherapeutic drug monitoringExpected: 11/11/2019 (Approximate), Expires: 08/10/2020C3 COMPLEMENT 3LabRoutineHLA B27 (HLA B27 positive)Inflammatory arthritisElevated antinuclear antibody (RENUKA) levelTherapeutic drug monitoringExpected: 11/11/2019 (Approximate), Expires: 08/10/2020C4 COMPLEMENT 4LabRoutineHLA B27 (HLA B27 positive)Inflammatory arthritisElevated antinuclear antibody (RENUKA) levelTherapeutic drug monitoringExpected: 11/11/2019 (Approximate), Expires: 08/10/202025-[place] VITAMIN D (D2 + D3)LabRoutineVitamin D deficiencyExpected: 11/11/2019 (Approximate), Expires: 08/10/2020C REACTIVE PROTEIN (CRP)LabRoutineHLA B27 (HLA B27 positive)Inflammatory arthritisElevated antinuclear antibody (RENUKA) levelTherapeutic drug monitoringExpected: 11/11/2019 (Approximate), Expires: 08/10/2020SED RATELabRoutineHLA B27 (HLA B27 positive)Inflammatory arthritisElevated antinuclear antibody (RENUKA) levelTherapeutic drug monitoringExpected: 11/11/2019 (Approximate), Expires: 08/10/2020COMPREHENSIVE METABOLIC PANELLabRoutineHLA B27 (HLA B27 positive)Inflammatory arthritisElevated antinuclear antibody (RENUKA) levelTherapeutic drug monitoringExpected: 11/11/2019 (Approximate), Expires: 08/10/2020URINALYSIS DIPSTICKLabRoutineHLA B27 (HLA B27 positive)Inflammatory arthritisElevated antinuclear antibody (RENUKA) levelTherapeutic drug monitoringExpected: 11/11/2019 (Approximate), Expires: 08/10/2020URINALYSIS, MICROSCOPICLabRoutineHLA B27 (HLA B27 positive)Inflammatory arthritisElevated a ntinuclear antibody (RENUKA) levelTherapeutic drug monitoringExpected: 11/11/2019 (Approximate), Expires: 08/10/2020PROTEIN/CR RATIO,UR RANLabRoutineHLA B27 (HLA B27 positive)Inflammatory arthritisElevated antinuclear antibody (RENUKA) levelTherapeutic drug monitoringExpected: 11/11/2019 (Approximate), Expires: 08/10/2020CBC AND DIFFLabRoutineHLA B27 (HLA B27 positive)Inflammatory arthritisElevated antinuclear antibody (RENUKA) levelTherapeutic drug monitoringExpected: 11/11/2019 (Approximate), Expires: 08/10/2020MAGNESIUMLabRoutinePVC (premature ventricular contraction)Expected: 11/11/2019 (Approximate), Expires: 08/10/2020CBC AND DIFFLabRoutineInflammatory arthritisTherapeutic drug monitoringEvery 4 Weeks Auto for 12 Occurrences starting 11/09/2019 until 1ALT (SGPT)LabRoutineInflammatory arthrit isTherapeutic drug monitoringEvery 4 Weeks Auto for 12 Occurrences starting 11/09/2019 until 1CREATININELabRoutineInflammatory arthritisTherapeutic drug monitoringEvery 4 Weeks Auto for 12 Occurrences starting 11/09/2019 until 1CBC AND DIFFLabRoutineHLA-B27 spondyloarthropathyInflammatory arthritisElevated antinuclear antibody (RENUKA) levelTherapeutic drug monitoringExpected: 03/14/2020 (Approximate), Expires: 08/10/2020C REACTIVE PROTEIN (CRP)LabRoutineHLA-B27 spondyloarthropathyInflammatory arthritisElevated antinuclear antibody (RENUKA) levelTherapeutic drug monitoringExpected: 03/14/2020 (Approximate), Expires: 08/10/2020SED RATELabRoutineHLA-B27 spondyloarthropathyInflammatory arthritisElevated antinuclear antibody (RENUKA) levelTherapeutic drug monitoringExpected: 03/14/2020 (Approximate), Expires: 08/10/2020COMPREHENSIVE METABOLIC PANELLabRoutineHLA-B27 spondyloarthropathyInflammatory arthritisElevated antinuclear antibody (RENUKA) levelTherapeutic drug monitoringExpected: 03/14/2020 (Approximate), Expires: 08/10/2020URINALYSIS DIPSTICKLabRoutineHLA-B27 spondyloarthropathyInflammatory arthritisElevated antinuclear antibody (RENUKA) levelTherapeutic drug monitoringExpected: 03/14/2020 (Approximate), Expires: 08/10/2020URINALYSIS, MICROSCOPICLabRoutineHLA-B27 spondyloarthropathyInflammatory arthritisElevated antinuclear antibody (RENUKA) levelTherapeutic drug monitoringExpected: 03/14/2020 (Approximate), Expires: 08/10/2020PROTEIN/CR RATIO,UR RANLabRoutineHLA-B27 spondyloarthropathyInflammatory arthritisElevated antinuclear antibody (RENUKA) levelTherapeutic drug monitoringExpected: 03/14/2020 (Approximate), Expires: 08/10/2020C3 COMPLEMENT 3LabRoutineHLA-B27 spondyloarthropathyInflammatory arthritisElevated antinuclear antibody (RENUKA) levelTherapeutic drug monitoringExpected: 03/14/2020 (Approximate), Expires: 08/10/2020C4 COMPLEMENT 4LabRoutineHLA-B27 spondyloarthropathyInflammatory arthritisElevated antinuclear antibody (RENUKA) levelTherapeutic drug monitoringExpected: 03/14/2020 (A pproximate), Expires: 08/10/2020ANTI-DNA DOUBLE STRANDLabRoutineHLA-B27 spondyloarthropathyInflammatory arthritisElevated antinuclear antibody (RENUKA) levelTherapeutic drug monitoringExpected: 03/14/2020 (Approximate), Expires: 08/10/202025-[place] VITAMIN D (D2 + D3)LabRoutineVitamin D deficiencyTherapeutic drug monitoringExpected: 03/14/2020 (Approximate), Expires: 08/10/2020documented as of this encounter 03/29/2020 [facility] , Scheduled OrdersNameTypePriorityAssociat ed DiagnosesOrder ScheduleCBC AND DIFFLabRoutineHLA B27 (HLA B27 positive)Inflammatory arthritisElevated antinuclear antibody (RENUKA) levelExpected: 11/11/2019 (Approximate), Expires: 08/10/2020C REACTIVE PROTEIN (CRP)LabRoutineHLA B27 (HLA B27 positive)Inflammatory arthritisElevated antinuclear antibody (RENUKA) levelExpected: 11/11/2019 (Approximate), Expires: 08/10/2020COMPREHENSIVE METABOLIC PANELLabRoutineHLA B27 (HLA B27 positive)Inflammatory arthritisElevated antinuclear antibody (RENUKA) levelExpected: 11/11/2019 (Approximate), Expires: 08/10/2020SED RATELabRoutineHLA B27 (HLA B27 positive)Inflammatory arthritisElevated antinuclear antibody (RENUKA) levelExpected: 11/11/2019 (Approximate), Expires: 08/10/2020URINALYSIS DIPSTICKLabRoutineHLA B27 (HLA B27 positive)Inflammatory arthritisElevated antinuclear antibody (RENUKA) levelExpected: 11/11/2019 (Approximate), Expires: 08/10/2020URINALYSIS, MICROSCOPICLabRoutineHLA B27 (HLA B27 positive)Inflammatory arthritisElevated antinuclear antibody (RENUKA) levelExpected: 11/11/2019 (Approximate), Expires: 08/10/2020PROTEIN/CR RATIO,UR RANLabRoutineHLA B27 (HLA B27 positive)Inflammatory arthritisElevated antinuclear antibody (RENUKA) levelExpected: 11/11/2019 (Approximate), Expires: 08/10/202025-[place] VITAMIN D (D2 + D3)LabRoutineVitamin D deficiencyExpected: 11/11/2019 (Approximate), Expires: 08/10/2020C3 COMPLEMENT 3LabRoutineHLA B27 (HLA B27 positive)Inflammatory arthritisElevated antinuclear antibody (RENUKA) levelExpected: 11/11/2019 (Approximate), Expires: 08/10/2020C4 COMPLEMENT 4LabRoutineHLA B27 (HLA B27 positive)Inflammatory arthritisElevated antinuclear antibody (RENUKA) levelExpected: 11/11/2019 (Approximate), Expires: 08/10/2020ANTI- DNA DOUBLE STRANDLabRoutineHLA B27 (HLA B27 positive)Inflammatory arthritisElevated antinuclear antibody (RENUKA) levelExpected: 11/11/2019 (Approximate), Expires: 08/10/2020MAGNESIUMLabRoutinePVC (premature ventricular contraction)Expected: 11/11/2019 (Approximate), Expires: 08/10/2020CBC AND DIFFLabRoutineHLA B27 (HLA B27 positive)Inflammatory arthritisTherapeutic drug monitoringEvery 4 Weeks Auto for 12 Occurrences starting 11/09/2019 until 1ALT (SGPT)LabRoutineHLA B27 (HLA B27 positive)Inflammatory arthritisTherapeutic drug monitoringEvery 4 Weeks Auto for 12 Occurrences starting 11/09/2019 until 1CREATININELabRoutineHLA B27 (HLA B27 positive)Inflammatory arthritisTherapeutic drug monitoringEvery 4 Weeks Auto for 12 Occurrences starting 11/09/2019 until 08/10/2021IMMUNOGLOBULINS- IGA,IGG,IGMLabRoutineInflammatory arthritisExpected: 11/11/2019 (Approximate), E xpires: 08/10/2020ANTI-DNA DOUBLE STRANDLabRoutineHLA B27 (HLA B27 positive)Inflammatory arthritisElevated antinuclear antibody (RENUKA) levelTherapeutic drug monitoringExpected: 11/11/2019 (Approximate), Expires: 08/10/2020C3 COMPLEMENT 3LabRoutineHLA B27 (HLA B27 positive)Inflammatory arthritisElevated antinuclear antibody (RENUKA) levelTherapeutic drug monitoringExpected: 11/11/2019 (Approximate), Expires: 08/10/2020C4 COMPLEMENT 4LabRoutineHLA B27 (HLA B27 positive)Inflammatory arthritisElevated antinuclear antibody (RENUKA) levelTherapeutic drug monitoringExpected: 11/11/2019 (Approximate), Expires: 08/10/202025-[place] VITAMIN D (D2 + D3)LabRoutineVitamin D deficiencyExpected: 11/11/2019 (Approximate), Expires: 08/10/2020C REACTIVE PROTEIN (CRP)LabRoutineHLA B27 (HLA B27 positive)Inflammatory arthritisElevated antinuclear antibody (RENUKA) levelTherapeutic drug monitoringExpected: 11/11/2019 (Approximate), Expires: 08/10/2020SED RATELabRoutineHLA B27 (HLA B27 positive)Inflammatory arthritisElevated antinuclear antibody (RENUKA) levelTherapeutic drug monitoringExpected: 11/11/2019 (Approximate), Expires: 08/10/2020COMPREHENSIVE METABOLIC PANELLabRoutineHLA B27 (HLA B27 positive)Inflammatory arthritisElevated antinuclear antibody (RENUKA) levelTherapeutic drug monitoringExpected: 11/11/2019 (Approximate), Expires: 08/10/2020URINALYSIS DIPSTICKLabRoutineHLA B27 (HLA B27 positive)Inflammatory arthritisElevated antinuclear antibody (RENUKA) levelTherapeutic drug monitoringExpected: 11/11/2019 (Approximate), Expires: 08/10/2020URINALYSIS, MICROSCOPICLabRoutineHLA B27 (HLA B27 positive)Inflammatory arthritisElevated a ntinuclear antibody (RENUKA) levelTherapeutic drug monitoringExpected: 11/11/2019 (Approximate), Expires: 08/10/2020PROTEIN/CR RATIO,UR RANLabRoutineHLA B27 (HLA B27 positive)Inflammatory arthritisElevated antinuclear antibody (RENUKA) levelTherapeutic drug monitoringExpected: 11/11/2019 (Approximate), Expires: 08/10/2020CBC AND DIFFLabRoutineHLA B27 (HLA B27 positive)Inflammatory arthritisElevated antinuclear antibody (RENUKA) levelTherapeutic drug monitoringExpected: 11/11/2019 (Approximate), Expires: 08/10/2020MAGNESIUMLabRoutinePVC (premature ventricular contraction)Expected: 11/11/2019 (Approximate), Expires: 08/10/2020CBC AND DIFFLabRoutineInflammatory arthritisTherapeutic drug monitoringEvery 4 Weeks Auto for 12 Occurrences starting 11/09/2019 until 1ALT (SGPT)LabRoutineInflammatory arthrit isTherapeutic drug monitoringEvery 4 Weeks Auto for 12 Occurrences starting 11/09/2019 until 1CREATININELabRoutineInflammatory arthritisTherapeutic drug monitoringEvery 4 Weeks Auto for 12 Occurrences starting 11/09/2019 until 1CBC AND DIFFLabRoutineHLA-B27 spondyloarthropathyInflammatory arthritisElevated antinuclear antibody (RENUKA) levelTherapeutic drug monitoringExpected: 03/14/2020 (Approximate), Expires: 08/10/2020C REACTIVE PROTEIN (CRP)LabRoutineHLA-B27 spondyloarthropathyInflammatory arthritisElevated antinuclear antibody (RENUKA) levelTherapeutic drug monitoringExpected: 03/14/2020 (Approximate), Expires: 08/10/2020SED RATELabRoutineHLA-B27 spondyloarthropathyInflammatory arthritisElevated antinuclear antibody (RENUKA) levelTherapeutic drug monitoringExpected: 03/14/2020 (Approximate), Expires: 08/10/2020COMPREHENSIVE METABOLIC PANELLabRoutineHLA-B27 spondyloarthropathyInflammatory arthritisElevated antinuclear antibody (RENUKA) levelTherapeutic drug monitoringExpected: 03/14/2020 (Approximate), Expires: 08/10/2020URINALYSIS DIPSTICKLabRoutineHLA-B27 spondyloarthropathyInflammatory arthritisElevated antinuclear antibody (RENUKA) levelTherapeutic drug monitoringExpected: 03/14/2020 (Approximate), Expires: 08/10/2020URINALYSIS, MICROSCOPICLabRoutineHLA-B27 spondyloarthropathyInflammatory arthritisElevated antinuclear antibody (RENUKA) levelTherapeutic drug monitoringExpected: 03/14/2020 (Approximate), Expires: 08/10/2020PROTEIN/CR RATIO,UR RANLabRoutineHLA-B27 spondyloarthropathyInflammatory arthritisElevated antinuclear antibody (RENUKA) levelTherapeutic drug monitoringExpected: 03/14/2020 (Approximate), Expires: 08/10/2020C3 COMPLEMENT 3LabRoutineHLA-B27 spondyloarthropathyInflammatory arthritisElevated antinuclear antibody (RENUKA) levelTherapeutic drug monitoringExpected: 03/14/2020 (Approximate), Expires: 08/10/2020C4 COMPLEMENT 4LabRoutineHLA-B27 spondyloarthropathyInflammatory arthritisElevated antinuclear antibody (RENUKA) levelTherapeutic drug monitoringExpected: 03/14/2020 (A pproximate), Expires: 08/10/2020ANTI-DNA DOUBLE STRANDLabRoutineHLA-B27 spondyloarthropathyInflammatory arthritisElevated antinuclear antibody (RENUKA) levelTherapeutic drug monitoringExpected: 03/14/2020 (Approximate), Expires: 08/10/202025-[place] VITAMIN D (D2 + D3)LabRoutineVitamin D deficiencyTherapeutic drug monitoringExpected: 03/14/2020 (Approximate), Expires: 08/10/2020documented as of this encounter 03/29/2020 [facility] , Scheduled OrdersNameTypePriorityAssociat ed DiagnosesOrder ScheduleCBC AND DIFFLabRoutineHLA B27 (HLA B27 positive)Inflammatory arthritisElevated antinuclear antibody (RENUKA) levelExpected: 11/11/2019 (Approximate), Expires: 08/10/2020C REACTIVE PROTEIN (CRP)LabRoutineHLA B27 (HLA B27 positive)Inflammatory arthritisElevated antinuclear antibody (RENUKA) levelExpected: 11/11/2019 (Approximate), Expires: 08/10/2020COMPREHENSIVE METABOLIC PANELLabRoutineHLA B27 (HLA B27 positive)Inflammatory arthritisElevated antinuclear antibody (RENUKA) levelExpected: 11/11/2019 (Approximate), Expires: 08/10/2020SED RATELabRoutineHLA B27 (HLA B27 positive)Inflammatory arthritisElevated antinuclear antibody (RENUKA) levelExpected: 11/11/2019 (Approximate), Expires: 08/10/2020URINALYSIS DIPSTICKLabRoutineHLA B27 (HLA B27 positive)Inflammatory arthritisElevated antinuclear antibody (RENUKA) levelExpected: 11/11/2019 (Approximate), Expires: 08/10/2020URINALYSIS, MICROSCOPICLabRoutineHLA B27 (HLA B27 positive)Inflammatory arthritisElevated antinuclear antibody (RENUKA) levelExpected: 11/11/2019 (Approximate), Expires: 08/10/2020PROTEIN/CR RATIO,UR RANLabRoutineHLA B27 (HLA B27 positive)Inflammatory arthritisElevated antinuclear antibody (RENUKA) levelExpected: 11/11/2019 (Approximate), Expires: 08/10/202025-[place] VITAMIN D (D2 + D3)LabRoutineVitamin D deficiencyExpected: 11/11/2019 (Approximate), Expires: 08/10/2020C3 COMPLEMENT 3LabRoutineHLA B27 (HLA B27 positive)Inflammatory arthritisElevated antinuclear antibody (RENUKA) levelExpected: 11/11/2019 (Approximate), Expires: 08/10/2020C4 COMPLEMENT 4LabRoutineHLA B27 (HLA B27 positive)Inflammatory arthritisElevated antinuclear antibody (RENUKA) levelExpected: 11/11/2019 (Approximate), Expires: 08/10/2020ANTI- DNA DOUBLE STRANDLabRoutineHLA B27 (HLA B27 positive)Inflammatory arthritisElevated antinuclear antibody (RENUKA) levelExpected: 11/11/2019 (Approximate), Expires: 08/10/2020MAGNESIUMLabRoutinePVC (premature ventricular contraction)Expected: 11/11/2019 (Approximate), Expires: 08/10/2020CBC AND DIFFLabRoutineHLA B27 (HLA B27 positive)Inflammatory arthritisTherapeutic drug monitoringEvery 4 Weeks Auto for 12 Occurrences starting 11/09/2019 until 1ALT (SGPT)LabRoutineHLA B27 (HLA B27 positive)Inflammatory arthritisTherapeutic drug monitoringEvery 4 Weeks Auto for 12 Occurrences starting 11/09/2019 until 1CREATININELabRoutineHLA B27 (HLA B27 positive)Inflammatory arthritisTherapeutic drug monitoringEvery 4 Weeks Auto for 12 Occurrences starting 11/09/2019 until 08/10/2021IMMUNOGLOBULINS- IGA,IGG,IGMLabRoutineInflammatory arthritisExpected: 11/11/2019 (Approximate), E xpires: 08/10/2020ANTI-DNA DOUBLE STRANDLabRoutineHLA B27 (HLA B27 positive)Inflammatory arthritisElevated antinuclear antibody (RENUKA) levelTherapeutic drug monitoringExpected: 11/11/2019 (Approximate), Expires: 08/10/2020C3 COMPLEMENT 3LabRoutineHLA B27 (HLA B27 positive)Inflammatory arthritisElevated antinuclear antibody (RENUKA) levelTherapeutic drug monitoringExpected: 11/11/2019 (Approximate), Expires: 08/10/2020C4 COMPLEMENT 4LabRoutineHLA B27 (HLA B27 positive)Inflammatory arthritisElevated antinuclear antibody (RENUKA) levelTherapeutic drug monitoringExpected: 11/11/2019 (Approximate), Expires: 08/10/202025-[place] VITAMIN D (D2 + D3)LabRoutineVitamin D deficiencyExpected: 11/11/2019 (Approximate), Expires: 08/10/2020C REACTIVE PROTEIN (CRP)LabRoutineHLA B27 (HLA B27 positive)Inflammatory arthritisElevated antinuclear antibody (RENUKA) levelTherapeutic drug monitoringExpected: 11/11/2019 (Approximate), Expires: 08/10/2020SED RATELabRoutineHLA B27 (HLA B27 positive)Inflammatory arthritisElevated antinuclear antibody (RENUKA) levelTherapeutic drug monitoringExpected: 11/11/2019 (Approximate), Expires: 08/10/2020COMPREHENSIVE METABOLIC PANELLabRoutineHLA B27 (HLA B27 positive)Inflammatory arthritisElevated antinuclear antibody (RENUKA) levelTherapeutic drug monitoringExpected: 11/11/2019 (Approximate), Expires: 08/10/2020URINALYSIS DIPSTICKLabRoutineHLA B27 (HLA B27 positive)Inflammatory arthritisElevated antinuclear antibody (RENUKA) levelTherapeutic drug monitoringExpected: 11/11/2019 (Approximate), Expires: 08/10/2020URINALYSIS, MICROSCOPICLabRoutineHLA B27 (HLA B27 positive)Inflammatory arthritisElevated a ntinuclear antibody (RENUKA) levelTherapeutic drug monitoringExpected: 11/11/2019 (Approximate), Expires: 08/10/2020PROTEIN/CR RATIO,UR RANLabRoutineHLA B27 (HLA B27 positive)Inflammatory arthritisElevated antinuclear antibody (RENUKA) levelTherapeutic drug monitoringExpected: 11/11/2019 (Approximate), Expires: 08/10/2020CBC AND DIFFLabRoutineHLA B27 (HLA B27 positive)Inflammatory arthritisElevated antinuclear antibody (RENUKA) levelTherapeutic drug monitoringExpected: 11/11/2019 (Approximate), Expires: 08/10/2020MAGNESIUMLabRoutinePVC (premature ventricular contraction)Expected: 11/11/2019 (Approximate), Expires: 08/10/2020CBC AND DIFFLabRoutineInflammatory arthritisTherapeutic drug monitoringEvery 4 Weeks Auto for 12 Occurrences starting 11/09/2019 until 1ALT (SGPT)LabRoutineInflammatory arthrit isTherapeutic drug monitoringEvery 4 Weeks Auto for 12 Occurrences starting 11/09/2019 until 1CREATININELabRoutineInflammatory arthritisTherapeutic drug monitoringEvery 4 Weeks Auto for 12 Occurrences starting 11/09/2019 until 1CBC AND DIFFLabRoutineHLA-B27 spondyloarthropathyInflammatory arthritisElevated antinuclear antibody (RENUKA) levelTherapeutic drug monitoringExpected: 03/14/2020 (Approximate), Expires: 08/10/2020C REACTIVE PROTEIN (CRP)LabRoutineHLA-B27 spondyloarthropathyInflammatory arthritisElevated antinuclear antibody (RENUKA) levelTherapeutic drug monitoringExpected: 03/14/2020 (Approximate), Expires: 08/10/2020SED RATELabRoutineHLA-B27 spondyloarthropathyInflammatory arthritisElevated antinuclear antibody (RENUKA) levelTherapeutic drug monitoringExpected: 03/14/2020 (Approximate), Expires: 08/10/2020COMPREHENSIVE METABOLIC PANELLabRoutineHLA-B27 spondyloarthropathyInflammatory arthritisElevated antinuclear antibody (RENUKA) levelTherapeutic drug monitoringExpected: 03/14/2020 (Approximate), Expires: 08/10/2020URINALYSIS DIPSTICKLabRoutineHLA-B27 spondyloarthropathyInflammatory arthritisElevated antinuclear antibody (RENUKA) levelTherapeutic drug monitoringExpected: 03/14/2020 (Approximate), Expires: 08/10/2020URINALYSIS, MICROSCOPICLabRoutineHLA-B27 spondyloarthropathyInflammatory arthritisElevated antinuclear antibody (RENUKA) levelTherapeutic drug monitoringExpected: 03/14/2020 (Approximate), Expires: 08/10/2020PROTEIN/CR RATIO,UR RANLabRoutineHLA-B27 spondyloarthropathyInflammatory arthritisElevated antinuclear antibody (RENUKA) levelTherapeutic drug monitoringExpected: 03/14/2020 (Approximate), Expires: 08/10/2020C3 COMPLEMENT 3LabRoutineHLA-B27 spondyloarthropathyInflammatory arthritisElevated antinuclear antibody (RENUKA) levelTherapeutic drug monitoringExpected: 03/14/2020 (Approximate), Expires: 08/10/2020C4 COMPLEMENT 4LabRoutineHLA-B27 spondyloarthropathyInflammatory arthritisElevated antinuclear antibody (RENUKA) levelTherapeutic drug monitoringExpected: 03/14/2020 (A pproximate), Expires: 08/10/2020ANTI-DNA DOUBLE STRANDLabRoutineHLA-B27 spondyloarthropathyInflammatory arthritisElevated antinuclear antibody (RENUKA) levelTherapeutic drug monitoringExpected: 03/14/2020 (Approximate), Expires: 08/10/202025-[place] VITAMIN D (D2 + D3)LabRoutineVitamin D deficiencyTherapeutic drug monitoringExpected: 03/14/2020 (Approximate), Expires: 08/10/2020documented as of this encounter 03/29/2020 [facility] , Scheduled OrdersNameTypePriorityAssociat ed DiagnosesOrder ScheduleCBC AND DIFFLabRoutineHLA B27 (HLA B27 positive)Inflammatory arthritisElevated antinuclear antibody (RENUKA) levelExpected: 11/11/2019 (Approximate), Expires: 08/10/2020C REACTIVE PROTEIN (CRP)LabRoutineHLA B27 (HLA B27 positive)Inflammatory arthritisElevated antinuclear antibody (RENUKA) levelExpected: 11/11/2019 (Approximate), Expires: 08/10/2020COMPREHENSIVE METABOLIC PANELLabRoutineHLA B27 (HLA B27 positive)Inflammatory arthritisElevated antinuclear antibody (RENUKA) levelExpected: 11/11/2019 (Approximate), Expires: 08/10/2020SED RATELabRoutineHLA B27 (HLA B27 positive)Inflammatory arthritisElevated antinuclear antibody (RENUKA) levelExpected: 11/11/2019 (Approximate), Expires: 08/10/2020URINALYSIS DIPSTICKLabRoutineHLA B27 (HLA B27 positive)Inflammatory arthritisElevated antinuclear antibody (RENUKA) levelExpected: 11/11/2019 (Approximate), Expires: 08/10/2020URINALYSIS, MICROSCOPICLabRoutineHLA B27 (HLA B27 positive)Inflammatory arthritisElevated antinuclear antibody (RENUKA) levelExpected: 11/11/2019 (Approximate), Expires: 08/10/2020PROTEIN/CR RATIO,UR RANLabRoutineHLA B27 (HLA B27 positive)Inflammatory arthritisElevated antinuclear antibody (RENUKA) levelExpected: 11/11/2019 (Approximate), Expires: 08/10/202025-[place] VITAMIN D (D2 + D3)LabRoutineVitamin D deficiencyExpected: 11/11/2019 (Approximate), Expires: 08/10/2020C3 COMPLEMENT 3LabRoutineHLA B27 (HLA B27 positive)Inflammatory arthritisElevated antinuclear antibody (RENUKA) levelExpected: 11/11/2019 (Approximate), Expires: 08/10/2020C4 COMPLEMENT 4LabRoutineHLA B27 (HLA B27 positive)Inflammatory arthritisElevated antinuclear antibody (RENUKA) levelExpected: 11/11/2019 (Approximate), Expires: 08/10/2020ANTI- DNA DOUBLE STRANDLabRoutineHLA B27 (HLA B27 positive)Inflammatory arthritisElevated antinuclear antibody (RENUKA) levelExpected: 11/11/2019 (Approximate), Expires: 08/10/2020MAGNESIUMLabRoutinePVC (premature ventricular contraction)Expected: 11/11/2019 (Approximate), Expires: 08/10/2020CBC AND DIFFLabRoutineHLA B27 (HLA B27 positive)Inflammatory arthritisTherapeutic drug monitoringEvery 4 Weeks Auto for 12 Occurrences starting 11/09/2019 until 1ALT (SGPT)LabRoutineHLA B27 (HLA B27 positive)Inflammatory arthritisTherapeutic drug monitoringEvery 4 Weeks Auto for 12 Occurrences starting 11/09/2019 until 1CREATININELabRoutineHLA B27 (HLA B27 positive)Inflammatory arthritisTherapeutic drug monitoringEvery 4 Weeks Auto for 12 Occurrences starting 11/09/2019 until 1IMMUNOGLOBULINS- IGA,IGG,IGMLabRoutineInflammatory arthritisExpected: 11/11/2019 (Approximate), E xpires: 08/10/2020ANTI-DNA DOUBLE STRANDLabRoutineHLA B27 (HLA B27 positive)Inflammatory arthritisElevated antinuclear antibody (RENUKA) levelTherapeutic drug monitoringExpected: 11/11/2019 (Approximate), Expires: 08/10/2020C3 COMPLEMENT 3LabRoutineHLA B27 (HLA B27 positive)Inflammatory arthritisElevated antinuclear antibody (RENUKA) levelTherapeutic drug monitoringExpected: 11/11/2019 (Approximate), Expires: 08/10/2020C4 COMPLEMENT 4LabRoutineHLA B27 (HLA B27 positive)Inflammatory arthritisElevated antinuclear antibody (RENUKA) levelTherapeutic drug monitoringExpected: 11/11/2019 (Approximate), Expires: 08/10/202025-[place] VITAMIN D (D2 + D3)LabRoutineVitamin D deficiencyExpected: 11/11/2019 (Approximate), Expires: 08/10/2020C REACTIVE PROTEIN (CRP)LabRoutineHLA B27 (HLA B27 positive)Inflammatory arthritisElevated antinuclear antibody (RENUKA) levelTherapeutic drug monitoringExpected: 11/11/2019 (Approximate), Expires: 08/10/2020SED RATELabRoutineHLA B27 (HLA B27 positive)Inflammatory arthritisElevated antinuclear antibody (RENUKA) levelTherapeutic drug monitoringExpected: 11/11/2019 (Approximate), Expires: 08/10/2020COMPREHENSIVE METABOLIC PANELLabRoutineHLA B27 (HLA B27 positive)Inflammatory arthritisElevated antinuclear antibody (RENUKA) levelTherapeutic drug monitoringExpected: 11/11/2019 (Approximate), Expires: 08/10/2020URINALYSIS DIPSTICKLabRoutineHLA B27 (HLA B27 positive)Inflammatory arthritisElevated antinuclear antibody (RENUKA) levelTherapeutic drug monitoringExpected: 11/11/2019 (Approximate), Expires: 08/10/2020URINALYSIS, MICROSCOPICLabRoutineHLA B27 (HLA B27 positive)Inflammatory arthritisElevated a ntinuclear antibody (RENUKA) levelTherapeutic drug monitoringExpected: 11/11/2019 (Approximate), Expires: 08/10/2020PROTEIN/CR RATIO,UR RANLabRoutineHLA B27 (HLA B27 positive)Inflammatory arthritisElevated antinuclear antibody (RENUKA) levelTherapeutic drug monitoringExpected: 11/11/2019 (Approximate), Expires: 08/10/2020CBC AND DIFFLabRoutineHLA B27 (HLA B27 positive)Inflammatory arthritisElevated antinuclear antibody (RENUKA) levelTherapeutic drug monitoringExpected: 11/11/2019 (Approximate), Expires: 08/10/2020MAGNESIUMLabRoutinePVC (premature ventricular contraction)Expected: 11/11/2019 (Approximate), Expires: 08/10/2020CBC AND DIFFLabRoutineInflammatory arthritisTherapeutic drug monitoringEvery 4 Weeks Auto for 12 Occurrences starting 11/09/2019 until 1ALT (SGPT)LabRoutineInflammatory arthrit isTherapeutic drug monitoringEvery 4 Weeks Auto for 12 Occurrences starting 11/09/2019 until 1CREATININELabRoutineInflammatory arthritisTherapeutic drug monitoringEvery 4 Weeks Auto for 12 Occurrences starting 11/09/2019 until 1CBC AND DIFFLabRoutineHLA-B27 spondyloarthropathyInflammatory arthritisElevated antinuclear antibody (RENUKA) levelTherapeutic drug monitoringExpected: 03/14/2020 (Approximate), Expires: 08/10/2020C REACTIVE PROTEIN (CRP)LabRoutineHLA-B27 spondyloarthropathyInflammatory arthritisElevated antinuclear antibody (RENUKA) levelTherapeutic drug monitoringExpected: 03/14/2020 (Approximate), Expires: 08/10/2020SED RATELabRoutineHLA-B27 spondyloarthropathyInflammatory arthritisElevated antinuclear antibody (RENUKA) levelTherapeutic drug monitoringExpected: 03/14/2020 (Approximate), Expires: 08/10/2020COMPREHENSIVE METABOLIC PANELLabRoutineHLA-B27 spondyloarthropathyInflammatory arthritisElevated antinuclear antibody (RENUKA) levelTherapeutic drug monitoringExpected: 03/14/2020 (Approximate), Expires: 08/10/2020URINALYSIS DIPSTICKLabRoutineHLA-B27 spondyloarthropathyInflammatory arthritisElevated antinuclear antibody (RENUKA) levelTherapeutic drug monitoringExpected: 03/14/2020 (Approximate), Expires: 08/10/2020URINALYSIS, MICROSCOPICLabRoutineHLA-B27 spondyloarthropathyInflammatory arthritisElevated antinuclear antibody (RENUKA) levelTherapeutic drug monitoringExpected: 03/14/2020 (Approximate), Expires: 08/10/2020PROTEIN/CR RATIO,UR RANLabRoutineHLA-B27 spondyloarthropathyInflammatory arthritisElevated antinuclear antibody (RENUKA) levelTherapeutic drug monitoringExpected: 03/14/2020 (Approximate), Expires: 08/10/2020C3 COMPLEMENT 3LabRoutineHLA-B27 spondyloarthropathyInflammatory arthritisElevated antinuclear antibody (RENUKA) levelTherapeutic drug monitoringExpected: 03/14/2020 (Approximate), Expires: 08/10/2020C4 COMPLEMENT 4LabRoutineHLA-B27 spondyloarthropathyInflammatory arthritisElevated antinuclear antibody (RENUKA) levelTherapeutic drug monitoringExpected: 03/14/2020 (A pproximate), Expires: 08/10/2020ANTI-DNA DOUBLE STRANDLabRoutineHLA-B27 spondyloarthropathyInflammatory arthritisElevated antinuclear antibody (RENUKA) levelTherapeutic drug monitoringExpected: 03/14/2020 (Approximate), Expires: 08/10/202025-[place] VITAMIN D (D2 + D3)LabRoutineVitamin D deficiencyTherapeutic drug monitoringExpected: 03/14/2020 (Approximate), Expires: 08/10/2020documented as of this encounter 03/29/2020 [facility] , Scheduled OrdersNameTypePriorityAssociat ed DiagnosesOrder ScheduleCBC AND DIFFLabRoutineHLA B27 (HLA B27 positive)Inflammatory arthritisElevated antinuclear antibody (RENUKA) levelExpected: 11/11/2019 (Approximate), Expires: 08/10/2020C REACTIVE PROTEIN (CRP)LabRoutineHLA B27 (HLA B27 positive)Inflammatory arthritisElevated antinuclear antibody (RENUKA) levelExpected: 11/11/2019 (Approximate), Expires: 08/10/2020COMPREHENSIVE METABOLIC PANELLabRoutineHLA B27 (HLA B27 positive)Inflammatory arthritisElevated antinuclear antibody (RENUKA) levelExpected: 11/11/2019 (Approximate), Expires: 08/10/2020SED RATELabRoutineHLA B27 (HLA B27 positive)Inflammatory arthritisElevated antinuclear antibody (RENUKA) levelExpected: 11/11/2019 (Approximate), Expires: 08/10/2020URINALYSIS DIPSTICKLabRoutineHLA B27 (HLA B27 positive)Inflammatory arthritisElevated antinuclear antibody (RENUKA) levelExpected: 11/11/2019 (Approximate), Expires: 08/10/2020URINALYSIS, MICROSCOPICLabRoutineHLA B27 (HLA B27 positive)Inflammatory arthritisElevated antinuclear antibody (RENUKA) levelExpected: 11/11/2019 (Approximate), Expires: 08/10/2020PROTEIN/CR RATIO,UR RANLabRoutineHLA B27 (HLA B27 positive)Inflammatory arthritisElevated antinuclear antibody (RENUKA) levelExpected: 11/11/2019 (Approximate), Expires: 08/10/202025-[place] VITAMIN D (D2 + D3)LabRoutineVitamin D deficiencyExpected: 11/11/2019 (Approximate), Expires: 08/10/2020C3 COMPLEMENT 3LabRoutineHLA B27 (HLA B27 positive)Inflammatory arthritisElevated antinuclear antibody (RENUKA) levelExpected: 11/11/2019 (Approximate), Expires: 08/10/2020C4 COMPLEMENT 4LabRoutineHLA B27 (HLA B27 positive)Inflammatory arthritisElevated antinuclear antibody (RENUKA) levelExpected: 11/11/2019 (Approximate), Expires: 08/10/2020ANTI- DNA DOUBLE STRANDLabRoutineHLA B27 (HLA B27 positive)Inflammatory arthritisElevated antinuclear antibody (RENUKA) levelExpected: 11/11/2019 (Approximate), Expires: 08/10/2020MAGNESIUMLabRoutinePVC (premature ventricular contraction)Expected: 11/11/2019 (Approximate), Expires: 08/10/2020CBC AND DIFFLabRoutineHLA B27 (HLA B27 positive)Inflammatory arthritisTherapeutic drug monitoringEvery 4 Weeks Auto for 12 Occurrences starting 11/09/2019 until 1ALT (SGPT)LabRoutineHLA B27 (HLA B27 positive)Inflammatory arthritisTherapeutic drug monitoringEvery 4 Weeks Auto for 12 Occurrences starting 11/09/2019 until 1CREATININELabRoutineHLA B27 (HLA B27 positive)Inflammatory arthritisTherapeutic drug monitoringEvery 4 Weeks Auto for 12 Occurrences starting 11/09/2019 until 08/10/2021IMMUNOGLOBULINS- IGA,IGG,IGMLabRoutineInflammatory arthritisExpected: 11/11/2019 (Approximate), E xpires: 08/10/2020ANTI-DNA DOUBLE STRANDLabRoutineHLA B27 (HLA B27 positive)Inflammatory arthritisElevated antinuclear antibody (RENUKA) levelTherapeutic drug monitoringExpected: 11/11/2019 (Approximate), Expires: 08/10/2020C3 COMPLEMENT 3LabRoutineHLA B27 (HLA B27 positive)Inflammatory arthritisElevated antinuclear antibody (RENUKA) levelTherapeutic drug monitoringExpected: 11/11/2019 (Approximate), Expires: 08/10/2020C4 COMPLEMENT 4LabRoutineHLA B27 (HLA B27 positive)Inflammatory arthritisElevated antinuclear antibody (RENUKA) levelTherapeutic drug monitoringExpected: 11/11/2019 (Approximate), Expires: 08/10/202025-[place] VITAMIN D (D2 + D3)LabRoutineVitamin D deficiencyExpected: 11/11/2019 (Approximate), Expires: 08/10/2020C REACTIVE PROTEIN (CRP)LabRoutineHLA B27 (HLA B27 positive)Inflammatory arthritisElevated antinuclear antibody (RENUKA) levelTherapeutic drug monitoringExpected: 11/11/2019 (Approximate), Expires: 08/10/2020SED RATELabRoutineHLA B27 (HLA B27 positive)Inflammatory arthritisElevated antinuclear antibody (RENUKA) levelTherapeutic drug monitoringExpected: 11/11/2019 (Approximate), Expires: 08/10/2020COMPREHENSIVE METABOLIC PANELLabRoutineHLA B27 (HLA B27 positive)Inflammatory arthritisElevated antinuclear antibody (RENUKA) levelTherapeutic drug monitoringExpected: 11/11/2019 (Approximate), Expires: 08/10/2020URINALYSIS DIPSTICKLabRoutineHLA B27 (HLA B27 positive)Inflammatory arthritisElevated antinuclear antibody (RENUKA) levelTherapeutic drug monitoringExpected: 11/11/2019 (Approximate), Expires: 08/10/2020URINALYSIS, MICROSCOPICLabRoutineHLA B27 (HLA B27 positive)Inflammatory arthritisElevated a ntinuclear antibody (RENUKA) levelTherapeutic drug monitoringExpected: 11/11/2019 (Approximate), Expires: 08/10/2020PROTEIN/CR RATIO,UR RANLabRoutineHLA B27 (HLA B27 positive)Inflammatory arthritisElevated antinuclear antibody (RENUKA) levelTherapeutic drug monitoringExpected: 11/11/2019 (Approximate), Expires: 08/10/2020CBC AND DIFFLabRoutineHLA B27 (HLA B27 positive)Inflammatory arthritisElevated antinuclear antibody (RENUKA) levelTherapeutic drug monitoringExpected: 11/11/2019 (Approximate), Expires: 08/10/2020MAGNESIUMLabRoutinePVC (premature ventricular contraction)Expected: 11/11/2019 (Approximate), Expires: 08/10/2020CBC AND DIFFLabRoutineInflammatory arthritisTherapeutic drug monitoringEvery 4 Weeks Auto for 12 Occurrences starting 11/09/2019 until 1ALT (SGPT)LabRoutineInflammatory arthrit isTherapeutic drug monitoringEvery 4 Weeks Auto for 12 Occurrences starting 11/09/2019 until 1CREATININELabRoutineInflammatory arthritisTherapeutic drug monitoringEvery 4 Weeks Auto for 12 Occurrences starting 11/09/2019 until 1CBC AND DIFFLabRoutineHLA-B27 spondyloarthropathyInflammatory arthritisElevated antinuclear antibody (RENUKA) levelTherapeutic drug monitoringExpected: 03/14/2020 (Approximate), Expires: 08/10/2020C REACTIVE PROTEIN (CRP)LabRoutineHLA-B27 spondyloarthropathyInflammatory arthritisElevated antinuclear antibody (RENUKA) levelTherapeutic drug monitoringExpected: 03/14/2020 (Approximate), Expires: 08/10/2020SED RATELabRoutineHLA-B27 spondyloarthropathyInflammatory arthritisElevated antinuclear antibody (RENUKA) levelTherapeutic drug monitoringExpected: 03/14/2020 (Approximate), Expires: 08/10/2020COMPREHENSIVE METABOLIC PANELLabRoutineHLA-B27 spondyloarthropathyInflammatory arthritisElevated antinuclear antibody (RENUKA) levelTherapeutic drug monitoringExpected: 03/14/2020 (Approximate), Expires: 08/10/2020URINALYSIS DIPSTICKLabRoutineHLA-B27 spondyloarthropathyInflammatory arthritisElevated antinuclear antibody (RENUKA) levelTherapeutic drug monitoringExpected: 03/14/2020 (Approximate), Expires: 08/10/2020URINALYSIS, MICROSCOPICLabRoutineHLA-B27 spondyloarthropathyInflammatory arthritisElevated antinuclear antibody (RENUKA) levelTherapeutic drug monitoringExpected: 03/14/2020 (Approximate), Expires: 08/10/2020PROTEIN/CR RATIO,UR RANLabRoutineHLA-B27 spondyloarthropathyInflammatory arthritisElevated antinuclear antibody (RENUKA) levelTherapeutic drug monitoringExpected: 03/14/2020 (Approximate), Expires: 08/10/2020C3 COMPLEMENT 3LabRoutineHLA-B27 spondyloarthropathyInflammatory arthritisElevated antinuclear antibody (RENUKA) levelTherapeutic drug monitoringExpected: 03/14/2020 (Approximate), Expires: 08/10/2020C4 COMPLEMENT 4LabRoutineHLA-B27 spondyloarthropathyInflammatory arthritisElevated antinuclear antibody (RENUKA) levelTherapeutic drug monitoringExpected: 03/14/2020 (A pproximate), Expires: 08/10/2020ANTI-DNA DOUBLE STRANDLabRoutineHLA-B27 spondyloarthropathyInflammatory arthritisElevated antinuclear antibody (RENUKA) levelTherapeutic drug monitoringExpected: 03/14/2020 (Approximate), Expires: 08/10/202025-[place] VITAMIN D (D2 + D3)LabRoutineVitamin D deficiencyTherapeutic drug monitoringExpected: 03/14/2020 (Approximate), Expires: 08/10/2020documented as of this encounter 03/29/2020 [facility] , Scheduled OrdersNameTypePriorityAssociat ed DiagnosesOrder ScheduleCBC AND DIFFLabRoutineHLA B27 (HLA B27 positive)Inflammatory arthritisElevated antinuclear antibody (RENUKA) levelExpected: 11/11/2019 (Approximate), Expires: 08/10/2020C REACTIVE PROTEIN (CRP)LabRoutineHLA B27 (HLA B27 positive)Inflammatory arthritisElevated antinuclear antibody (RENUKA) levelExpected: 11/11/2019 (Approximate), Expires: 08/10/2020COMPREHENSIVE METABOLIC PANELLabRoutineHLA B27 (HLA B27 positive)Inflammatory arthritisElevated antinuclear antibody (RENUKA) levelExpected: 11/11/2019 (Approximate), Expires: 08/10/2020SED RATELabRoutineHLA B27 (HLA B27 positive)Inflammatory arthritisElevated antinuclear antibody (RENUKA) levelExpected: 11/11/2019 (Approximate), Expires: 08/10/2020URINALYSIS DIPSTICKLabRoutineHLA B27 (HLA B27 positive)Inflammatory arthritisElevated antinuclear antibody (RENUKA) levelExpected: 11/11/2019 (Approximate), Expires: 08/10/2020URINALYSIS, MICROSCOPICLabRoutineHLA B27 (HLA B27 positive)Inflammatory arthritisElevated antinuclear antibody (RENUKA) levelExpected: 11/11/2019 (Approximate), Expires: 08/10/2020PROTEIN/CR RATIO,UR RANLabRoutineHLA B27 (HLA B27 positive)Inflammatory arthritisElevated antinuclear antibody (RENUKA) levelExpected: 11/11/2019 (Approximate), Expires: 08/10/202025-[place] VITAMIN D (D2 + D3)LabRoutineVitamin D deficiencyExpected: 11/11/2019 (Approximate), Expires: 08/10/2020C3 COMPLEMENT 3LabRoutineHLA B27 (HLA B27 positive)Inflammatory arthritisElevated antinuclear antibody (RENUKA) levelExpected: 11/11/2019 (Approximate), Expires: 08/10/2020C4 COMPLEMENT 4LabRoutineHLA B27 (HLA B27 positive)Inflammatory arthritisElevated antinuclear antibody (RENUKA) levelExpected: 11/11/2019 (Approximate), Expires: 08/10/2020ANTI- DNA DOUBLE STRANDLabRoutineHLA B27 (HLA B27 positive)Inflammatory arthritisElevated antinuclear antibody (RENUKA) levelExpected: 11/11/2019 (Approximate), Expires: 08/10/2020MAGNESIUMLabRoutinePVC (premature ventricular contraction)Expected: 11/11/2019 (Approximate), Expires: 08/10/2020CBC AND DIFFLabRoutineHLA B27 (HLA B27 positive)Inflammatory arthritisTherapeutic drug monitoringEvery 4 Weeks Auto for 12 Occurrences starting 11/09/2019 until 1ALT (SGPT)LabRoutineHLA B27 (HLA B27 positive)Inflammatory arthritisTherapeutic drug monitoringEvery 4 Weeks Auto for 12 Occurrences starting 11/09/2019 until 1CREATININELabRoutineHLA B27 (HLA B27 positive)Inflammatory arthritisTherapeutic drug monitoringEvery 4 Weeks Auto for 12 Occurrences starting 11/09/2019 until 08/10/2021IMMUNOGLOBULINS- IGA,IGG,IGMLabRoutineInflammatory arthritisExpected: 11/11/2019 (Approximate), E xpires: 08/10/2020ANTI-DNA DOUBLE STRANDLabRoutineHLA B27 (HLA B27 positive)Inflammatory arthritisElevated antinuclear antibody (RENUKA) levelTherapeutic drug monitoringExpected: 11/11/2019 (Approximate), Expires: 08/10/2020C3 COMPLEMENT 3LabRoutineHLA B27 (HLA B27 positive)Inflammatory arthritisElevated antinuclear antibody (RENUKA) levelTherapeutic drug monitoringExpected: 11/11/2019 (Approximate), Expires: 08/10/2020C4 COMPLEMENT 4LabRoutineHLA B27 (HLA B27 positive)Inflammatory arthritisElevated antinuclear antibody (RENUKA) levelTherapeutic drug monitoringExpected: 11/11/2019 (Approximate), Expires: 08/10/202025-[place] VITAMIN D (D2 + D3)LabRoutineVitamin D deficiencyExpected: 11/11/2019 (Approximate), Expires: 08/10/2020C REACTIVE PROTEIN (CRP)LabRoutineHLA B27 (HLA B27 positive)Inflammatory arthritisElevated antinuclear antibody (RENUKA) levelTherapeutic drug monitoringExpected: 11/11/2019 (Approximate), Expires: 08/10/2020SED RATELabRoutineHLA B27 (HLA B27 positive)Inflammatory arthritisElevated antinuclear antibody (RENUKA) levelTherapeutic drug monitoringExpected: 11/11/2019 (Approximate), Expires: 08/10/2020COMPREHENSIVE METABOLIC PANELLabRoutineHLA B27 (HLA B27 positive)Inflammatory arthritisElevated antinuclear antibody (RENUKA) levelTherapeutic drug monitoringExpected: 11/11/2019 (Approximate), Expires: 08/10/2020URINALYSIS DIPSTICKLabRoutineHLA B27 (HLA B27 positive)Inflammatory arthritisElevated antinuclear antibody (RENUKA) levelTherapeutic drug monitoringExpected: 11/11/2019 (Approximate), Expires: 08/10/2020URINALYSIS, MICROSCOPICLabRoutineHLA B27 (HLA B27 positive)Inflammatory arthritisElevated a ntinuclear antibody (RENUKA) levelTherapeutic drug monitoringExpected: 11/11/2019 (Approximate), Expires: 08/10/2020PROTEIN/CR RATIO,UR RANLabRoutineHLA B27 (HLA B27 positive)Inflammatory arthritisElevated antinuclear antibody (RENUKA) levelTherapeutic drug monitoringExpected: 11/11/2019 (Approximate), Expires: 08/10/2020CBC AND DIFFLabRoutineHLA B27 (HLA B27 positive)Inflammatory arthritisElevated antinuclear antibody (RENUKA) levelTherapeutic drug monitoringExpected: 11/11/2019 (Approximate), Expires: 08/10/2020MAGNESIUMLabRoutinePVC (premature ventricular contraction)Expected: 11/11/2019 (Approximate), Expires: 08/10/2020CBC AND DIFFLabRoutineInflammatory arthritisTherapeutic drug monitoringEvery 4 Weeks Auto for 12 Occurrences starting 11/09/2019 until 1ALT (SGPT)LabRoutineInflammatory arthrit isTherapeutic drug monitoringEvery 4 Weeks Auto for 12 Occurrences starting 11/09/2019 until 1CREATININELabRoutineInflammatory arthritisTherapeutic drug monitoringEvery 4 Weeks Auto for 12 Occurrences starting 11/09/2019 until 1CBC AND DIFFLabRoutineHLA-B27 spondyloarthropathyInflammatory arthritisElevated antinuclear antibody (RENUKA) levelTherapeutic drug monitoringExpected: 03/14/2020 (Approximate), Expires: 08/10/2020C REACTIVE PROTEIN (CRP)LabRoutineHLA-B27 spondyloarthropathyInflammatory arthritisElevated antinuclear antibody (RENUKA) levelTherapeutic drug monitoringExpected: 03/14/2020 (Approximate), Expires: 08/10/2020SED RATELabRoutineHLA-B27 spondyloarthropathyInflammatory arthritisElevated antinuclear antibody (RENUKA) levelTherapeutic drug monitoringExpected: 03/14/2020 (Approximate), Expires: 08/10/2020COMPREHENSIVE METABOLIC PANELLabRoutineHLA-B27 spondyloarthropathyInflammatory arthritisElevated antinuclear antibody (RENUKA) levelTherapeutic drug monitoringExpected: 03/14/2020 (Approximate), Expires: 08/10/2020URINALYSIS DIPSTICKLabRoutineHLA-B27 spondyloarthropathyInflammatory arthritisElevated antinuclear antibody (RENUKA) levelTherapeutic drug monitoringExpected: 03/14/2020 (Approximate), Expires: 08/10/2020URINALYSIS, MICROSCOPICLabRoutineHLA-B27 spondyloarthropathyInflammatory arthritisElevated antinuclear antibody (RENUKA) levelTherapeutic drug monitoringExpected: 03/14/2020 (Approximate), Expires: 08/10/2020PROTEIN/CR RATIO,UR RANLabRoutineHLA-B27 spondyloarthropathyInflammatory arthritisElevated antinuclear antibody (RENUKA) levelTherapeutic drug monitoringExpected: 03/14/2020 (Approximate), Expires: 08/10/2020C3 COMPLEMENT 3LabRoutineHLA-B27 spondyloarthropathyInflammatory arthritisElevated antinuclear antibody (RENUKA) levelTherapeutic drug monitoringExpected: 03/14/2020 (Approximate), Expires: 08/10/2020C4 COMPLEMENT 4LabRoutineHLA-B27 spondyloarthropathyInflammatory arthritisElevated antinuclear antibody (RENUKA) levelTherapeutic drug monitoringExpected: 03/14/2020 (A pproximate), Expires: 08/10/2020ANTI-DNA DOUBLE STRANDLabRoutineHLA-B27 spondyloarthropathyInflammatory arthritisElevated antinuclear antibody (RENUKA) levelTherapeutic drug monitoringExpected: 03/14/2020 (Approximate), Expires: 08/10/202025-[place] VITAMIN D (D2 + D3)LabRoutineVitamin D deficiencyTherapeutic drug monitoringExpected: 03/14/2020 (Approximate), Expires: 08/10/2020documented as of this encounter 03/29/2020 [facility] , Scheduled OrdersNameTypePriorityAssociat ed DiagnosesOrder ScheduleCBC AND DIFFLabRoutineHLA B27 (HLA B27 positive)Inflammatory arthritisElevated antinuclear antibody (RENUKA) levelExpected: 11/11/2019 (Approximate), Expires: 08/10/2020C REACTIVE PROTEIN (CRP)LabRoutineHLA B27 (HLA B27 positive)Inflammatory arthritisElevated antinuclear antibody (RENUKA) levelExpected: 11/11/2019 (Approximate), Expires: 08/10/2020COMPREHENSIVE METABOLIC PANELLabRoutineHLA B27 (HLA B27 positive)Inflammatory arthritisElevated antinuclear antibody (RENUKA) levelExpected: 11/11/2019 (Approximate), Expires: 08/10/2020SED RATELabRoutineHLA B27 (HLA B27 positive)Inflammatory arthritisElevated antinuclear antibody (RENUKA) levelExpected: 11/11/2019 (Approximate), Expires: 08/10/2020URINALYSIS DIPSTICKLabRoutineHLA B27 (HLA B27 positive)Inflammatory arthritisElevated antinuclear antibody (RENUKA) levelExpected: 11/11/2019 (Approximate), Expires: 08/10/2020URINALYSIS, MICROSCOPICLabRoutineHLA B27 (HLA B27 positive)Inflammatory arthritisElevated antinuclear antibody (RENUKA) levelExpected: 11/11/2019 (Approximate), Expires: 08/10/2020PROTEIN/CR RATIO,UR RANLabRoutineHLA B27 (HLA B27 positive)Inflammatory arthritisElevated antinuclear antibody (RENUKA) levelExpected: 11/11/2019 (Approximate), Expires: 08/10/202025-[place] VITAMIN D (D2 + D3)LabRoutineVitamin D deficiencyExpected: 11/11/2019 (Approximate), Expires: 08/10/2020C3 COMPLEMENT 3LabRoutineHLA B27 (HLA B27 positive)Inflammatory arthritisElevated antinuclear antibody (RENUKA) levelExpected: 11/11/2019 (Approximate), Expires: 08/10/2020C4 COMPLEMENT 4LabRoutineHLA B27 (HLA B27 positive)Inflammatory arthritisElevated antinuclear antibody (RENUKA) levelExpected: 11/11/2019 (Approximate), Expires: 08/10/2020ANTI- DNA DOUBLE STRANDLabRoutineHLA B27 (HLA B27 positive)Inflammatory arthritisElevated antinuclear antibody (RENUKA) levelExpected: 11/11/2019 (Approximate), Expires: 08/10/2020MAGNESIUMLabRoutinePVC (premature ventricular contraction)Expected: 11/11/2019 (Approximate), Expires: 08/10/2020CBC AND DIFFLabRoutineHLA B27 (HLA B27 positive)Inflammatory arthritisTherapeutic drug monitoringEvery 4 Weeks Auto for 12 Occurrences starting 11/09/2019 until 1ALT (SGPT)LabRoutineHLA B27 (HLA B27 positive)Inflammatory arthritisTherapeutic drug monitoringEvery 4 Weeks Auto for 12 Occurrences starting 11/09/2019 until 1CREATININELabRoutineHLA B27 (HLA B27 positive)Inflammatory arthritisTherapeutic drug monitoringEvery 4 Weeks Auto for 12 Occurrences starting 11/09/2019 until 1IMMUNOGLOBULINS- IGA,IGG,IGMLabRoutineInflammatory arthritisExpected: 11/11/2019 (Approximate), E xpires: 08/10/2020ANTI-DNA DOUBLE STRANDLabRoutineHLA B27 (HLA B27 positive)Inflammatory arthritisElevated antinuclear antibody (RENUKA) levelTherapeutic drug monitoringExpected: 11/11/2019 (Approximate), Expires: 08/10/2020C3 COMPLEMENT 3LabRoutineHLA B27 (HLA B27 positive)Inflammatory arthritisElevated antinuclear antibody (RENUKA) levelTherapeutic drug monitoringExpected: 11/11/2019 (Approximate), Expires: 08/10/2020C4 COMPLEMENT 4LabRoutineHLA B27 (HLA B27 positive)Inflammatory arthritisElevated antinuclear antibody (RENUKA) levelTherapeutic drug monitoringExpected: 11/11/2019 (Approximate), Expires: 08/10/202025-[place] VITAMIN D (D2 + D3)LabRoutineVitamin D deficiencyExpected: 11/11/2019 (Approximate), Expires: 08/10/2020C REACTIVE PROTEIN (CRP)LabRoutineHLA B27 (HLA B27 positive)Inflammatory arthritisElevated antinuclear antibody (RENUKA) levelTherapeutic drug monitoringExpected: 11/11/2019 (Approximate), Expires: 08/10/2020SED RATELabRoutineHLA B27 (HLA B27 positive)Inflammatory arthritisElevated antinuclear antibody (RENUKA) levelTherapeutic drug monitoringExpected: 11/11/2019 (Approximate), Expires: 08/10/2020COMPREHENSIVE METABOLIC PANELLabRoutineHLA B27 (HLA B27 positive)Inflammatory arthritisElevated antinuclear antibody (RENUKA) levelTherapeutic drug monitoringExpected: 11/11/2019 (Approximate), Expires: 08/10/2020URINALYSIS DIPSTICKLabRoutineHLA B27 (HLA B27 positive)Inflammatory arthritisElevated antinuclear antibody (RENUKA) levelTherapeutic drug monitoringExpected: 11/11/2019 (Approximate), Expires: 08/10/2020URINALYSIS, MICROSCOPICLabRoutineHLA B27 (HLA B27 positive)Inflammatory arthritisElevated a ntinuclear antibody (RENUKA) levelTherapeutic drug monitoringExpected: 11/11/2019 (Approximate), Expires: 08/10/2020PROTEIN/CR RATIO,UR RANLabRoutineHLA B27 (HLA B27 positive)Inflammatory arthritisElevated antinuclear antibody (RENUKA) levelTherapeutic drug monitoringExpected: 11/11/2019 (Approximate), Expires: 08/10/2020CBC AND DIFFLabRoutineHLA B27 (HLA B27 positive)Inflammatory arthritisElevated antinuclear antibody (RENUKA) levelTherapeutic drug monitoringExpected: 11/11/2019 (Approximate), Expires: 08/10/2020MAGNESIUMLabRoutinePVC (premature ventricular contraction)Expected: 11/11/2019 (Approximate), Expires: 08/10/2020CBC AND DIFFLabRoutineInflammatory arthritisTherapeutic drug monitoringEvery 4 Weeks Auto for 12 Occurrences starting 11/09/2019 until 1ALT (SGPT)LabRoutineInflammatory arthrit isTherapeutic drug monitoringEvery 4 Weeks Auto for 12 Occurrences starting 11/09/2019 until 1CREATININELabRoutineInflammatory arthritisTherapeutic drug monitoringEvery 4 Weeks Auto for 12 Occurrences starting 11/09/2019 until 1CBC AND DIFFLabRoutineHLA-B27 spondyloarthropathyInflammatory arthritisElevated antinuclear antibody (RENUKA) levelTherapeutic drug monitoringExpected: 03/14/2020 (Approximate), Expires: 08/10/2020C REACTIVE PROTEIN (CRP)LabRoutineHLA-B27 spondyloarthropathyInflammatory arthritisElevated antinuclear antibody (RENUKA) levelTherapeutic drug monitoringExpected: 03/14/2020 (Approximate), Expires: 08/10/2020SED RATELabRoutineHLA-B27 spondyloarthropathyInflammatory arthritisElevated antinuclear antibody (RENUKA) levelTherapeutic drug monitoringExpected: 03/14/2020 (Approximate), Expires: 08/10/2020COMPREHENSIVE METABOLIC PANELLabRoutineHLA-B27 spondyloarthropathyInflammatory arthritisElevated antinuclear antibody (RENUKA) levelTherapeutic drug monitoringExpected: 03/14/2020 (Approximate), Expires: 08/10/2020URINALYSIS DIPSTICKLabRoutineHLA-B27 spondyloarthropathyInflammatory arthritisElevated antinuclear antibody (RENUKA) levelTherapeutic drug monitoringExpected: 03/14/2020 (Approximate), Expires: 08/10/2020URINALYSIS, MICROSCOPICLabRoutineHLA-B27 spondyloarthropathyInflammatory arthritisElevated antinuclear antibody (RENUKA) levelTherapeutic drug monitoringExpected: 03/14/2020 (Approximate), Expires: 08/10/2020PROTEIN/CR RATIO,UR RANLabRoutineHLA-B27 spondyloarthropathyInflammatory arthritisElevated antinuclear antibody (RENUKA) levelTherapeutic drug monitoringExpected: 03/14/2020 (Approximate), Expires: 08/10/2020C3 COMPLEMENT 3LabRoutineHLA-B27 spondyloarthropathyInflammatory arthritisElevated antinuclear antibody (RENUKA) levelTherapeutic drug monitoringExpected: 03/14/2020 (Approximate), Expires: 08/10/2020C4 COMPLEMENT 4LabRoutineHLA-B27 spondyloarthropathyInflammatory arthritisElevated antinuclear antibody (RENUKA) levelTherapeutic drug monitoringExpected: 03/14/2020 (A pproximate), Expires: 08/10/2020ANTI-DNA DOUBLE STRANDLabRoutineHLA-B27 spondyloarthropathyInflammatory arthritisElevated antinuclear antibody (RENUKA) levelTherapeutic drug monitoringExpected: 03/14/2020 (Approximate), Expires: 08/10/202025-[place] VITAMIN D (D2 + D3)LabRoutineVitamin D deficiencyTherapeutic drug monitoringExpected: 03/14/2020 (Approximate), Expires: 08/10/2020documented as of this encounter 03/29/2020 [facility] , Scheduled OrdersNameTypePriorityAssociat ed DiagnosesOrder ScheduleCBC AND DIFFLabRoutineHLA B27 (HLA B27 positive)Inflammatory arthritisElevated antinuclear antibody (RENUKA) levelExpected: 11/11/2019 (Approximate), Expires: 08/10/2020C REACTIVE PROTEIN (CRP)LabRoutineHLA B27 (HLA B27 positive)Inflammatory arthritisElevated antinuclear antibody (RENUKA) levelExpected: 11/11/2019 (Approximate), Expires: 08/10/2020COMPREHENSIVE METABOLIC PANELLabRoutineHLA B27 (HLA B27 positive)Inflammatory arthritisElevated antinuclear antibody (RENUKA) levelExpected: 11/11/2019 (Approximate), Expires: 08/10/2020SED RATELabRoutineHLA B27 (HLA B27 positive)Inflammatory arthritisElevated antinuclear antibody (RENUKA) levelExpected: 11/11/2019 (Approximate), Expires: 08/10/2020URINALYSIS DIPSTICKLabRoutineHLA B27 (HLA B27 positive)Inflammatory arthritisElevated antinuclear antibody (RENUKA) levelExpected: 11/11/2019 (Approximate), Expires: 08/10/2020URINALYSIS, MICROSCOPICLabRoutineHLA B27 (HLA B27 positive)Inflammatory arthritisElevated antinuclear antibody (RENUKA) levelExpected: 11/11/2019 (Approximate), Expires: 08/10/2020PROTEIN/CR RATIO,UR RANLabRoutineHLA B27 (HLA B27 positive)Inflammatory arthritisElevated antinuclear antibody (RENUKA) levelExpected: 11/11/2019 (Approximate), Expires: 08/10/202025-[place] VITAMIN D (D2 + D3)LabRoutineVitamin D deficiencyExpected: 11/11/2019 (Approximate), Expires: 08/10/2020C3 COMPLEMENT 3LabRoutineHLA B27 (HLA B27 positive)Inflammatory arthritisElevated antinuclear antibody (RENUKA) levelExpected: 11/11/2019 (Approximate), Expires: 08/10/2020C4 COMPLEMENT 4LabRoutineHLA B27 (HLA B27 positive)Inflammatory arthritisElevated antinuclear antibody (RENUKA) levelExpected: 11/11/2019 (Approximate), Expires: 08/10/2020ANTI- DNA DOUBLE STRANDLabRoutineHLA B27 (HLA B27 positive)Inflammatory arthritisElevated antinuclear antibody (RENUKA) levelExpected: 11/11/2019 (Approximate), Expires: 08/10/2020MAGNESIUMLabRoutinePVC (premature ventricular contraction)Expected: 11/11/2019 (Approximate), Expires: 08/10/2020CBC AND DIFFLabRoutineHLA B27 (HLA B27 positive)Inflammatory arthritisTherapeutic drug monitoringEvery 4 Weeks Auto for 12 Occurrences starting 11/09/2019 until 1ALT (SGPT)LabRoutineHLA B27 (HLA B27 positive)Inflammatory arthritisTherapeutic drug monitoringEvery 4 Weeks Auto for 12 Occurrences starting 11/09/2019 until 1CREATININELabRoutineHLA B27 (HLA B27 positive)Inflammatory arthritisTherapeutic drug monitoringEvery 4 Weeks Auto for 12 Occurrences starting 11/09/2019 until 1IMMUNOGLOBULINS- IGA,IGG,IGMLabRoutineInflammatory arthritisExpected: 11/11/2019 (Approximate), E xpires: 08/10/2020ANTI-DNA DOUBLE STRANDLabRoutineHLA B27 (HLA B27 positive)Inflammatory arthritisElevated antinuclear antibody (RENUKA) levelTherapeutic drug monitoringExpected: 11/11/2019 (Approximate), Expires: 08/10/2020C3 COMPLEMENT 3LabRoutineHLA B27 (HLA B27 positive)Inflammatory arthritisElevated antinuclear antibody (RENUKA) levelTherapeutic drug monitoringExpected: 11/11/2019 (Approximate), Expires: 08/10/2020C4 COMPLEMENT 4LabRoutineHLA B27 (HLA B27 positive)Inflammatory arthritisElevated antinuclear antibody (RENUKA) levelTherapeutic drug monitoringExpected: 11/11/2019 (Approximate), Expires: 08/10/202025-[place] VITAMIN D (D2 + D3)LabRoutineVitamin D deficiencyExpected: 11/11/2019 (Approximate), Expires: 08/10/2020C REACTIVE PROTEIN (CRP)LabRoutineHLA B27 (HLA B27 positive)Inflammatory arthritisElevated antinuclear antibody (RENUKA) levelTherapeutic drug monitoringExpected: 11/11/2019 (Approximate), Expires: 08/10/2020SED RATELabRoutineHLA B27 (HLA B27 positive)Inflammatory arthritisElevated antinuclear antibody (RENUKA) levelTherapeutic drug monitoringExpected: 11/11/2019 (Approximate), Expires: 08/10/2020COMPREHENSIVE METABOLIC PANELLabRoutineHLA B27 (HLA B27 positive)Inflammatory arthritisElevated antinuclear antibody (RENUKA) levelTherapeutic drug monitoringExpected: 11/11/2019 (Approximate), Expires: 08/10/2020URINALYSIS DIPSTICKLabRoutineHLA B27 (HLA B27 positive)Inflammatory arthritisElevated antinuclear antibody (RENUKA) levelTherapeutic drug monitoringExpected: 11/11/2019 (Approximate), Expires: 08/10/2020URINALYSIS, MICROSCOPICLabRoutineHLA B27 (HLA B27 positive)Inflammatory arthritisElevated a ntinuclear antibody (RENUKA) levelTherapeutic drug monitoringExpected: 11/11/2019 (Approximate), Expires: 08/10/2020PROTEIN/CR RATIO,UR RANLabRoutineHLA B27 (HLA B27 positive)Inflammatory arthritisElevated antinuclear antibody (RENUKA) levelTherapeutic drug monitoringExpected: 11/11/2019 (Approximate), Expires: 08/10/2020CBC AND DIFFLabRoutineHLA B27 (HLA B27 positive)Inflammatory arthritisElevated antinuclear antibody (RENUKA) levelTherapeutic drug monitoringExpected: 11/11/2019 (Approximate), Expires: 08/10/2020MAGNESIUMLabRoutinePVC (premature ventricular contraction)Expected: 11/11/2019 (Approximate), Expires: 08/10/2020CBC AND DIFFLabRoutineInflammatory arthritisTherapeutic drug monitoringEvery 4 Weeks Auto for 12 Occurrences starting 11/09/2019 until 1ALT (SGPT)LabRoutineInflammatory arthrit isTherapeutic drug monitoringEvery 4 Weeks Auto for 12 Occurrences starting 11/09/2019 until 1CREATININELabRoutineInflammatory arthritisTherapeutic drug monitoringEvery 4 Weeks Auto for 12 Occurrences starting 11/09/2019 until 1CBC AND DIFFLabRoutineHLA-B27 spondyloarthropathyInflammatory arthritisElevated antinuclear antibody (RENUKA) levelTherapeutic drug monitoringExpected: 03/14/2020 (Approximate), Expires: 08/10/2020C REACTIVE PROTEIN (CRP)LabRoutineHLA-B27 spondyloarthropathyInflammatory arthritisElevated antinuclear antibody (RENUKA) levelTherapeutic drug monitoringExpected: 03/14/2020 (Approximate), Expires: 08/10/2020SED RATELabRoutineHLA-B27 spondyloarthropathyInflammatory arthritisElevated antinuclear antibody (RENUKA) levelTherapeutic drug monitoringExpected: 03/14/2020 (Approximate), Expires: 08/10/2020COMPREHENSIVE METABOLIC PANELLabRoutineHLA-B27 spondyloarthropathyInflammatory arthritisElevated antinuclear antibody (RENUKA) levelTherapeutic drug monitoringExpected: 03/14/2020 (Approximate), Expires: 08/10/2020URINALYSIS DIPSTICKLabRoutineHLA-B27 spondyloarthropathyInflammatory arthritisElevated antinuclear antibody (RENUKA) levelTherapeutic drug monitoringExpected: 03/14/2020 (Approximate), Expires: 08/10/2020URINALYSIS, MICROSCOPICLabRoutineHLA-B27 spondyloarthropathyInflammatory arthritisElevated antinuclear antibody (RENUKA) levelTherapeutic drug monitoringExpected: 03/14/2020 (Approximate), Expires: 08/10/2020PROTEIN/CR RATIO,UR RANLabRoutineHLA-B27 spondyloarthropathyInflammatory arthritisElevated antinuclear antibody (RENUKA) levelTherapeutic drug monitoringExpected: 03/14/2020 (Approximate), Expires: 08/10/2020C3 COMPLEMENT 3LabRoutineHLA-B27 spondyloarthropathyInflammatory arthritisElevated antinuclear antibody (RENUKA) levelTherapeutic drug monitoringExpected: 03/14/2020 (Approximate), Expires: 08/10/2020C4 COMPLEMENT 4LabRoutineHLA-B27 spondyloarthropathyInflammatory arthritisElevated antinuclear antibody (RENUKA) levelTherapeutic drug monitoringExpected: 03/14/2020 (A pproximate), Expires: 08/10/2020ANTI-DNA DOUBLE STRANDLabRoutineHLA-B27 spondyloarthropathyInflammatory arthritisElevated antinuclear antibody (RENUKA) levelTherapeutic drug monitoringExpected: 03/14/2020 (Approximate), Expires: 08/10/202025-[place] VITAMIN D (D2 + D3)LabRoutineVitamin D deficiencyTherapeutic drug monitoringExpected: 03/14/2020 (Approximate), Expires: 08/10/2020documented as of this encounter 03/29/2020 [facility] , Scheduled OrdersNameTypePriorityAssociat ed DiagnosesOrder ScheduleCBC AND DIFFLabRoutineHLA B27 (HLA B27 positive)Inflammatory arthritisElevated antinuclear antibody (RENUKA) levelExpected: 11/11/2019 (Approximate), Expires: 08/10/2020C REACTIVE PROTEIN (CRP)LabRoutineHLA B27 (HLA B27 positive)Inflammatory arthritisElevated antinuclear antibody (RENUKA) levelExpected: 11/11/2019 (Approximate), Expires: 08/10/2020COMPREHENSIVE METABOLIC PANELLabRoutineHLA B27 (HLA B27 positive)Inflammatory arthritisElevated antinuclear antibody (RENUKA) levelExpected: 11/11/2019 (Approximate), Expires: 08/10/2020SED RATELabRoutineHLA B27 (HLA B27 positive)Inflammatory arthritisElevated antinuclear antibody (RENUKA) levelExpected: 11/11/2019 (Approximate), Expires: 08/10/2020URINALYSIS DIPSTICKLabRoutineHLA B27 (HLA B27 positive)Inflammatory arthritisElevated antinuclear antibody (RENUKA) levelExpected: 11/11/2019 (Approximate), Expires: 08/10/2020URINALYSIS, MICROSCOPICLabRoutineHLA B27 (HLA B27 positive)Inflammatory arthritisElevated antinuclear antibody (RENUKA) levelExpected: 11/11/2019 (Approximate), Expires: 08/10/2020PROTEIN/CR RATIO,UR RANLabRoutineHLA B27 (HLA B27 positive)Inflammatory arthritisElevated antinuclear antibody (RENUKA) levelExpected: 11/11/2019 (Approximate), Expires: 08/10/202025-[place] VITAMIN D (D2 + D3)LabRoutineVitamin D deficiencyExpected: 11/11/2019 (Approximate), Expires: 08/10/2020C3 COMPLEMENT 3LabRoutineHLA B27 (HLA B27 positive)Inflammatory arthritisElevated antinuclear antibody (RENUKA) levelExpected: 11/11/2019 (Approximate), Expires: 08/10/2020C4 COMPLEMENT 4LabRoutineHLA B27 (HLA B27 positive)Inflammatory arthritisElevated antinuclear antibody (RENUKA) levelExpected: 11/11/2019 (Approximate), Expires: 08/10/2020ANTI- DNA DOUBLE STRANDLabRoutineHLA B27 (HLA B27 positive)Inflammatory arthritisElevated antinuclear antibody (RENUKA) levelExpected: 11/11/2019 (Approximate), Expires: 08/10/2020MAGNESIUMLabRoutinePVC (premature ventricular contraction)Expected: 11/11/2019 (Approximate), Expires: 08/10/2020CBC AND DIFFLabRoutineHLA B27 (HLA B27 positive)Inflammatory arthritisTherapeutic drug monitoringEvery 4 Weeks Auto for 12 Occurrences starting 11/09/2019 until 1ALT (SGPT)LabRoutineHLA B27 (HLA B27 positive)Inflammatory arthritisTherapeutic drug monitoringEvery 4 Weeks Auto for 12 Occurrences starting 11/09/2019 until 1CREATININELabRoutineHLA B27 (HLA B27 positive)Inflammatory arthritisTherapeutic drug monitoringEvery 4 Weeks Auto for 12 Occurrences starting 11/09/2019 until 08/10/2021IMMUNOGLOBULINS- IGA,IGG,IGMLabRoutineInflammatory arthritisExpected: 11/11/2019 (Approximate), E xpires: 08/10/2020ANTI-DNA DOUBLE STRANDLabRoutineHLA B27 (HLA B27 positive)Inflammatory arthritisElevated antinuclear antibody (RENUKA) levelTherapeutic drug monitoringExpected: 11/11/2019 (Approximate), Expires: 08/10/2020C3 COMPLEMENT 3LabRoutineHLA B27 (HLA B27 positive)Inflammatory arthritisElevated antinuclear antibody (RENUKA) levelTherapeutic drug monitoringExpected: 11/11/2019 (Approximate), Expires: 08/10/2020C4 COMPLEMENT 4LabRoutineHLA B27 (HLA B27 positive)Inflammatory arthritisElevated antinuclear antibody (RENUKA) levelTherapeutic drug monitoringExpected: 11/11/2019 (Approximate), Expires: 08/10/202025-[place] VITAMIN D (D2 + D3)LabRoutineVitamin D deficiencyExpected: 11/11/2019 (Approximate), Expires: 08/10/2020C REACTIVE PROTEIN (CRP)LabRoutineHLA B27 (HLA B27 positive)Inflammatory arthritisElevated antinuclear antibody (RENUKA) levelTherapeutic drug monitoringExpected: 11/11/2019 (Approximate), Expires: 08/10/2020SED RATELabRoutineHLA B27 (HLA B27 positive)Inflammatory arthritisElevated antinuclear antibody (RENUKA) levelTherapeutic drug monitoringExpected: 11/11/2019 (Approximate), Expires: 08/10/2020COMPREHENSIVE METABOLIC PANELLabRoutineHLA B27 (HLA B27 positive)Inflammatory arthritisElevated antinuclear antibody (RENUKA) levelTherapeutic drug monitoringExpected: 11/11/2019 (Approximate), Expires: 08/10/2020URINALYSIS DIPSTICKLabRoutineHLA B27 (HLA B27 positive)Inflammatory arthritisElevated antinuclear antibody (RENUKA) levelTherapeutic drug monitoringExpected: 11/11/2019 (Approximate), Expires: 08/10/2020URINALYSIS, MICROSCOPICLabRoutineHLA B27 (HLA B27 positive)Inflammatory arthritisElevated a ntinuclear antibody (RENUKA) levelTherapeutic drug monitoringExpected: 11/11/2019 (Approximate), Expires: 08/10/2020PROTEIN/CR RATIO,UR RANLabRoutineHLA B27 (HLA B27 positive)Inflammatory arthritisElevated antinuclear antibody (RENUKA) levelTherapeutic drug monitoringExpected: 11/11/2019 (Approximate), Expires: 08/10/2020CBC AND DIFFLabRoutineHLA B27 (HLA B27 positive)Inflammatory arthritisElevated antinuclear antibody (RENUKA) levelTherapeutic drug monitoringExpected: 11/11/2019 (Approximate), Expires: 08/10/2020MAGNESIUMLabRoutinePVC (premature ventricular contraction)Expected: 11/11/2019 (Approximate), Expires: 08/10/2020CBC AND DIFFLabRoutineInflammatory arthritisTherapeutic drug monitoringEvery 4 Weeks Auto for 12 Occurrences starting 11/09/2019 until 1ALT (SGPT)LabRoutineInflammatory arthrit isTherapeutic drug monitoringEvery 4 Weeks Auto for 12 Occurrences starting 11/09/2019 until 1CREATININELabRoutineInflammatory arthritisTherapeutic drug monitoringEvery 4 Weeks Auto for 12 Occurrences starting 11/09/2019 until 1CBC AND DIFFLabRoutineHLA-B27 spondyloarthropathyInflammatory arthritisElevated antinuclear antibody (RENUKA) levelTherapeutic drug monitoringExpected: 03/14/2020 (Approximate), Expires: 08/10/2020C REACTIVE PROTEIN (CRP)LabRoutineHLA-B27 spondyloarthropathyInflammatory arthritisElevated antinuclear antibody (RENUKA) levelTherapeutic drug monitoringExpected: 03/14/2020 (Approximate), Expires: 08/10/2020SED RATELabRoutineHLA-B27 spondyloarthropathyInflammatory arthritisElevated antinuclear antibody (RENUKA) levelTherapeutic drug monitoringExpected: 03/14/2020 (Approximate), Expires: 08/10/2020COMPREHENSIVE METABOLIC PANELLabRoutineHLA-B27 spondyloarthropathyInflammatory arthritisElevated antinuclear antibody (RENUKA) levelTherapeutic drug monitoringExpected: 03/14/2020 (Approximate), Expires: 08/10/2020URINALYSIS DIPSTICKLabRoutineHLA-B27 spondyloarthropathyInflammatory arthritisElevated antinuclear antibody (RENUKA) levelTherapeutic drug monitoringExpected: 03/14/2020 (Approximate), Expires: 08/10/2020URINALYSIS, MICROSCOPICLabRoutineHLA-B27 spondyloarthropathyInflammatory arthritisElevated antinuclear antibody (RENUKA) levelTherapeutic drug monitoringExpected: 03/14/2020 (Approximate), Expires: 08/10/2020PROTEIN/CR RATIO,UR RANLabRoutineHLA-B27 spondyloarthropathyInflammatory arthritisElevated antinuclear antibody (RENUKA) levelTherapeutic drug monitoringExpected: 03/14/2020 (Approximate), Expires: 08/10/2020C3 COMPLEMENT 3LabRoutineHLA-B27 spondyloarthropathyInflammatory arthritisElevated antinuclear antibody (RENUKA) levelTherapeutic drug monitoringExpected: 03/14/2020 (Approximate), Expires: 08/10/2020C4 COMPLEMENT 4LabRoutineHLA-B27 spondyloarthropathyInflammatory arthritisElevated antinuclear antibody (RENUKA) levelTherapeutic drug monitoringExpected: 03/14/2020 (A pproximate), Expires: 08/10/2020ANTI-DNA DOUBLE STRANDLabRoutineHLA-B27 spondyloarthropathyInflammatory arthritisElevated antinuclear antibody (RENUKA) levelTherapeutic drug monitoringExpected: 03/14/2020 (Approximate), Expires: 08/10/202025-[place] VITAMIN D (D2 + D3)LabRoutineVitamin D deficiencyTherapeutic drug monitoringExpected: 03/14/2020 (Approximate), Expires: 08/10/2020documented as of this encounter 03/29/2020 [facility] , Scheduled OrdersNameTypePriorityAssociat ed DiagnosesOrder ScheduleCBC AND DIFFLabRoutineHLA B27 (HLA B27 positive)Inflammatory arthritisElevated antinuclear antibody (RENUKA) levelExpected: 11/11/2019 (Approximate), Expires: 08/10/2020C REACTIVE PROTEIN (CRP)LabRoutineHLA B27 (HLA B27 positive)Inflammatory arthritisElevated antinuclear antibody (RENUKA) levelExpected: 11/11/2019 (Approximate), Expires: 08/10/2020COMPREHENSIVE METABOLIC PANELLabRoutineHLA B27 (HLA B27 positive)Inflammatory arthritisElevated antinuclear antibody (RENUKA) levelExpected: 11/11/2019 (Approximate), Expires: 08/10/2020SED RATELabRoutineHLA B27 (HLA B27 positive)Inflammatory arthritisElevated antinuclear antibody (RENUKA) levelExpected: 11/11/2019 (Approximate), Expires: 08/10/2020URINALYSIS DIPSTICKLabRoutineHLA B27 (HLA B27 positive)Inflammatory arthritisElevated antinuclear antibody (RENUKA) levelExpected: 11/11/2019 (Approximate), Expires: 08/10/2020URINALYSIS, MICROSCOPICLabRoutineHLA B27 (HLA B27 positive)Inflammatory arthritisElevated antinuclear antibody (RENUKA) levelExpected: 11/11/2019 (Approximate), Expires: 08/10/2020PROTEIN/CR RATIO,UR RANLabRoutineHLA B27 (HLA B27 positive)Inflammatory arthritisElevated antinuclear antibody (RENUKA) levelExpected: 11/11/2019 (Approximate), Expires: 08/10/202025-[place] VITAMIN D (D2 + D3)LabRoutineVitamin D deficiencyExpected: 11/11/2019 (Approximate), Expires: 08/10/2020C3 COMPLEMENT 3LabRoutineHLA B27 (HLA B27 positive)Inflammatory arthritisElevated antinuclear antibody (RENUKA) levelExpected: 11/11/2019 (Approximate), Expires: 08/10/2020C4 COMPLEMENT 4LabRoutineHLA B27 (HLA B27 positive)Inflammatory arthritisElevated antinuclear antibody (RENUKA) levelExpected: 11/11/2019 (Approximate), Expires: 08/10/2020ANTI- DNA DOUBLE STRANDLabRoutineHLA B27 (HLA B27 positive)Inflammatory arthritisElevated antinuclear antibody (RENUKA) levelExpected: 11/11/2019 (Approximate), Expires: 08/10/2020MAGNESIUMLabRoutinePVC (premature ventricular contraction)Expected: 11/11/2019 (Approximate), Expires: 08/10/2020CBC AND DIFFLabRoutineHLA B27 (HLA B27 positive)Inflammatory arthritisTherapeutic drug monitoringEvery 4 Weeks Auto for 12 Occurrences starting 11/09/2019 until 1ALT (SGPT)LabRoutineHLA B27 (HLA B27 positive)Inflammatory arthritisTherapeutic drug monitoringEvery 4 Weeks Auto for 12 Occurrences starting 11/09/2019 until 1CREATININELabRoutineHLA B27 (HLA B27 positive)Inflammatory arthritisTherapeutic drug monitoringEvery 4 Weeks Auto for 12 Occurrences starting 11/09/2019 until 08/10/2021IMMUNOGLOBULINS- IGA,IGG,IGMLabRoutineInflammatory arthritisExpected: 11/11/2019 (Approximate), E xpires: 08/10/2020ANTI-DNA DOUBLE STRANDLabRoutineHLA B27 (HLA B27 positive)Inflammatory arthritisElevated antinuclear antibody (RENUKA) levelTherapeutic drug monitoringExpected: 11/11/2019 (Approximate), Expires: 08/10/2020C3 COMPLEMENT 3LabRoutineHLA B27 (HLA B27 positive)Inflammatory arthritisElevated antinuclear antibody (RENUKA) levelTherapeutic drug monitoringExpected: 11/11/2019 (Approximate), Expires: 08/10/2020C4 COMPLEMENT 4LabRoutineHLA B27 (HLA B27 positive)Inflammatory arthritisElevated antinuclear antibody (RENUKA) levelTherapeutic drug monitoringExpected: 11/11/2019 (Approximate), Expires: 08/10/202025-[place] VITAMIN D (D2 + D3)LabRoutineVitamin D deficiencyExpected: 11/11/2019 (Approximate), Expires: 08/10/2020C REACTIVE PROTEIN (CRP)LabRoutineHLA B27 (HLA B27 positive)Inflammatory arthritisElevated antinuclear antibody (RENUKA) levelTherapeutic drug monitoringExpected: 11/11/2019 (Approximate), Expires: 08/10/2020SED RATELabRoutineHLA B27 (HLA B27 positive)Inflammatory arthritisElevated antinuclear antibody (RENUKA) levelTherapeutic drug monitoringExpected: 11/11/2019 (Approximate), Expires: 08/10/2020COMPREHENSIVE METABOLIC PANELLabRoutineHLA B27 (HLA B27 positive)Inflammatory arthritisElevated antinuclear antibody (RENUKA) levelTherapeutic drug monitoringExpected: 11/11/2019 (Approximate), Expires: 08/10/2020URINALYSIS DIPSTICKLabRoutineHLA B27 (HLA B27 positive)Inflammatory arthritisElevated antinuclear antibody (RENUKA) levelTherapeutic drug monitoringExpected: 11/11/2019 (Approximate), Expires: 08/10/2020URINALYSIS, MICROSCOPICLabRoutineHLA B27 (HLA B27 positive)Inflammatory arthritisElevated a ntinuclear antibody (RENUKA) levelTherapeutic drug monitoringExpected: 11/11/2019 (Approximate), Expires: 08/10/2020PROTEIN/CR RATIO,UR RANLabRoutineHLA B27 (HLA B27 positive)Inflammatory arthritisElevated antinuclear antibody (RENUKA) levelTherapeutic drug monitoringExpected: 11/11/2019 (Approximate), Expires: 08/10/2020CBC AND DIFFLabRoutineHLA B27 (HLA B27 positive)Inflammatory arthritisElevated antinuclear antibody (RENUKA) levelTherapeutic drug monitoringExpected: 11/11/2019 (Approximate), Expires: 08/10/2020MAGNESIUMLabRoutinePVC (premature ventricular contraction)Expected: 11/11/2019 (Approximate), Expires: 08/10/2020CBC AND DIFFLabRoutineInflammatory arthritisTherapeutic drug monitoringEvery 4 Weeks Auto for 12 Occurrences starting 11/09/2019 until 1ALT (SGPT)LabRoutineInflammatory arthrit isTherapeutic drug monitoringEvery 4 Weeks Auto for 12 Occurrences starting 11/09/2019 until 1CREATININELabRoutineInflammatory arthritisTherapeutic drug monitoringEvery 4 Weeks Auto for 12 Occurrences starting 11/09/2019 until 1CBC AND DIFFLabRoutineHLA-B27 spondyloarthropathyInflammatory arthritisElevated antinuclear antibody (RENUKA) levelTherapeutic drug monitoringExpected: 03/14/2020 (Approximate), Expires: 08/10/2020C REACTIVE PROTEIN (CRP)LabRoutineHLA-B27 spondyloarthropathyInflammatory arthritisElevated antinuclear antibody (RENUKA) levelTherapeutic drug monitoringExpected: 03/14/2020 (Approximate), Expires: 08/10/2020SED RATELabRoutineHLA-B27 spondyloarthropathyInflammatory arthritisElevated antinuclear antibody (RENUKA) levelTherapeutic drug monitoringExpected: 03/14/2020 (Approximate), Expires: 08/10/2020COMPREHENSIVE METABOLIC PANELLabRoutineHLA-B27 spondyloarthropathyInflammatory arthritisElevated antinuclear antibody (RENUKA) levelTherapeutic drug monitoringExpected: 03/14/2020 (Approximate), Expires: 08/10/2020URINALYSIS DIPSTICKLabRoutineHLA-B27 spondyloarthropathyInflammatory arthritisElevated antinuclear antibody (RENUKA) levelTherapeutic drug monitoringExpected: 03/14/2020 (Approximate), Expires: 08/10/2020URINALYSIS, MICROSCOPICLabRoutineHLA-B27 spondyloarthropathyInflammatory arthritisElevated antinuclear antibody (RENUKA) levelTherapeutic drug monitoringExpected: 03/14/2020 (Approximate), Expires: 08/10/2020PROTEIN/CR RATIO,UR RANLabRoutineHLA-B27 spondyloarthropathyInflammatory arthritisElevated antinuclear antibody (RENUKA) levelTherapeutic drug monitoringExpected: 03/14/2020 (Approximate), Expires: 08/10/2020C3 COMPLEMENT 3LabRoutineHLA-B27 spondyloarthropathyInflammatory arthritisElevated antinuclear antibody (RENUKA) levelTherapeutic drug monitoringExpected: 03/14/2020 (Approximate), Expires: 08/10/2020C4 COMPLEMENT 4LabRoutineHLA-B27 spondyloarthropathyInflammatory arthritisElevated antinuclear antibody (RENUKA) levelTherapeutic drug monitoringExpected: 03/14/2020 (A pproximate), Expires: 08/10/2020ANTI-DNA DOUBLE STRANDLabRoutineHLA-B27 spondyloarthropathyInflammatory arthritisElevated antinuclear antibody (RENUKA) levelTherapeutic drug monitoringExpected: 03/14/2020 (Approximate), Expires: 08/10/202025-[place] VITAMIN D (D2 + D3)LabRoutineVitamin D deficiencyTherapeutic drug monitoringExpected: 03/14/2020 (Approximate), Expires: 08/10/2020documented as of this encounter 03/29/2020 [facility] , Scheduled OrdersNameTypePriorityAssociat ed DiagnosesOrder ScheduleCBC AND DIFFLabRoutineHLA B27 (HLA B27 positive)Inflammatory arthritisElevated antinuclear antibody (RENUKA) levelExpected: 11/11/2019 (Approximate), Expires: 08/10/2020C REACTIVE PROTEIN (CRP)LabRoutineHLA B27 (HLA B27 positive)Inflammatory arthritisElevated antinuclear antibody (RENUKA) levelExpected: 11/11/2019 (Approximate), Expires: 08/10/2020COMPREHENSIVE METABOLIC PANELLabRoutineHLA B27 (HLA B27 positive)Inflammatory arthritisElevated antinuclear antibody (RENUKA) levelExpected: 11/11/2019 (Approximate), Expires: 08/10/2020SED RATELabRoutineHLA B27 (HLA B27 positive)Inflammatory arthritisElevated antinuclear antibody (RENUKA) levelExpected: 11/11/2019 (Approximate), Expires: 08/10/2020URINALYSIS DIPSTICKLabRoutineHLA B27 (HLA B27 positive)Inflammatory arthritisElevated antinuclear antibody (RENUKA) levelExpected: 11/11/2019 (Approximate), Expires: 08/10/2020URINALYSIS, MICROSCOPICLabRoutineHLA B27 (HLA B27 positive)Inflammatory arthritisElevated antinuclear antibody (RENUKA) levelExpected: 11/11/2019 (Approximate), Expires: 08/10/2020PROTEIN/CR RATIO,UR RANLabRoutineHLA B27 (HLA B27 positive)Inflammatory arthritisElevated antinuclear antibody (RENUKA) levelExpected: 11/11/2019 (Approximate), Expires: 08/10/202025-[place] VITAMIN D (D2 + D3)LabRoutineVitamin D deficiencyExpected: 11/11/2019 (Approximate), Expires: 08/10/2020C3 COMPLEMENT 3LabRoutineHLA B27 (HLA B27 positive)Inflammatory arthritisElevated antinuclear antibody (RENUKA) levelExpected: 11/11/2019 (Approximate), Expires: 08/10/2020C4 COMPLEMENT 4LabRoutineHLA B27 (HLA B27 positive)Inflammatory arthritisElevated antinuclear antibody (RENUKA) levelExpected: 11/11/2019 (Approximate), Expires: 08/10/2020ANTI- DNA DOUBLE STRANDLabRoutineHLA B27 (HLA B27 positive)Inflammatory arthritisElevated antinuclear antibody (RENUKA) levelExpected: 11/11/2019 (Approximate), Expires: 08/10/2020MAGNESIUMLabRoutinePVC (premature ventricular contraction)Expected: 11/11/2019 (Approximate), Expires: 08/10/2020CBC AND DIFFLabRoutineHLA B27 (HLA B27 positive)Inflammatory arthritisTherapeutic drug monitoringEvery 4 Weeks Auto for 12 Occurrences starting 11/09/2019 until 1ALT (SGPT)LabRoutineHLA B27 (HLA B27 positive)Inflammatory arthritisTherapeutic drug monitoringEvery 4 Weeks Auto for 12 Occurrences starting 11/09/2019 until 1CREATININELabRoutineHLA B27 (HLA B27 positive)Inflammatory arthritisTherapeutic drug monitoringEvery 4 Weeks Auto for 12 Occurrences starting 11/09/2019 until 08/10/2021IMMUNOGLOBULINS- IGA,IGG,IGMLabRoutineInflammatory arthritisExpected: 11/11/2019 (Approximate), E xpires: 08/10/2020ANTI-DNA DOUBLE STRANDLabRoutineHLA B27 (HLA B27 positive)Inflammatory arthritisElevated antinuclear antibody (RENUKA) levelTherapeutic drug monitoringExpected: 11/11/2019 (Approximate), Expires: 08/10/2020C3 COMPLEMENT 3LabRoutineHLA B27 (HLA B27 positive)Inflammatory arthritisElevated antinuclear antibody (RENUKA) levelTherapeutic drug monitoringExpected: 11/11/2019 (Approximate), Expires: 08/10/2020C4 COMPLEMENT 4LabRoutineHLA B27 (HLA B27 positive)Inflammatory arthritisElevated antinuclear antibody (RENUKA) levelTherapeutic drug monitoringExpected: 11/11/2019 (Approximate), Expires: 08/10/202025-[place] VITAMIN D (D2 + D3)LabRoutineVitamin D deficiencyExpected: 11/11/2019 (Approximate), Expires: 08/10/2020C REACTIVE PROTEIN (CRP)LabRoutineHLA B27 (HLA B27 positive)Inflammatory arthritisElevated antinuclear antibody (RENUKA) levelTherapeutic drug monitoringExpected: 11/11/2019 (Approximate), Expires: 08/10/2020SED RATELabRoutineHLA B27 (HLA B27 positive)Inflammatory arthritisElevated antinuclear antibody (RENUKA) levelTherapeutic drug monitoringExpected: 11/11/2019 (Approximate), Expires: 08/10/2020COMPREHENSIVE METABOLIC PANELLabRoutineHLA B27 (HLA B27 positive)Inflammatory arthritisElevated antinuclear antibody (RENUKA) levelTherapeutic drug monitoringExpected: 11/11/2019 (Approximate), Expires: 08/10/2020URINALYSIS DIPSTICKLabRoutineHLA B27 (HLA B27 positive)Inflammatory arthritisElevated antinuclear antibody (RENUKA) levelTherapeutic drug monitoringExpected: 11/11/2019 (Approximate), Expires: 08/10/2020URINALYSIS, MICROSCOPICLabRoutineHLA B27 (HLA B27 positive)Inflammatory arthritisElevated a ntinuclear antibody (RENUKA) levelTherapeutic drug monitoringExpected: 11/11/2019 (Approximate), Expires: 08/10/2020PROTEIN/CR RATIO,UR RANLabRoutineHLA B27 (HLA B27 positive)Inflammatory arthritisElevated antinuclear antibody (RENUKA) levelTherapeutic drug monitoringExpected: 11/11/2019 (Approximate), Expires: 08/10/2020CBC AND DIFFLabRoutineHLA B27 (HLA B27 positive)Inflammatory arthritisElevated antinuclear antibody (RENUKA) levelTherapeutic drug monitoringExpected: 11/11/2019 (Approximate), Expires: 08/10/2020MAGNESIUMLabRoutinePVC (premature ventricular contraction)Expected: 11/11/2019 (Approximate), Expires: 08/10/2020CBC AND DIFFLabRoutineInflammatory arthritisTherapeutic drug monitoringEvery 4 Weeks Auto for 12 Occurrences starting 11/09/2019 until 1ALT (SGPT)LabRoutineInflammatory arthrit isTherapeutic drug monitoringEvery 4 Weeks Auto for 12 Occurrences starting 11/09/2019 until 1CREATININELabRoutineInflammatory arthritisTherapeutic drug monitoringEvery 4 Weeks Auto for 12 Occurrences starting 11/09/2019 until 1CBC AND DIFFLabRoutineHLA-B27 spondyloarthropathyInflammatory arthritisElevated antinuclear antibody (RENUKA) levelTherapeutic drug monitoringExpected: 03/14/2020 (Approximate), Expires: 08/10/2020C REACTIVE PROTEIN (CRP)LabRoutineHLA-B27 spondyloarthropathyInflammatory arthritisElevated antinuclear antibody (RENUKA) levelTherapeutic drug monitoringExpected: 03/14/2020 (Approximate), Expires: 08/10/2020SED RATELabRoutineHLA-B27 spondyloarthropathyInflammatory arthritisElevated antinuclear antibody (RENUKA) levelTherapeutic drug monitoringExpected: 03/14/2020 (Approximate), Expires: 08/10/2020COMPREHENSIVE METABOLIC PANELLabRoutineHLA-B27 spondyloarthropathyInflammatory arthritisElevated antinuclear antibody (RENUKA) levelTherapeutic drug monitoringExpected: 03/14/2020 (Approximate), Expires: 08/10/2020URINALYSIS DIPSTICKLabRoutineHLA-B27 spondyloarthropathyInflammatory arthritisElevated antinuclear antibody (RENUKA) levelTherapeutic drug monitoringExpected: 03/14/2020 (Approximate), Expires: 08/10/2020URINALYSIS, MICROSCOPICLabRoutineHLA-B27 spondyloarthropathyInflammatory arthritisElevated antinuclear antibody (RENUKA) levelTherapeutic drug monitoringExpected: 03/14/2020 (Approximate), Expires: 08/10/2020PROTEIN/CR RATIO,UR RANLabRoutineHLA-B27 spondyloarthropathyInflammatory arthritisElevated antinuclear antibody (RENUKA) levelTherapeutic drug monitoringExpected: 03/14/2020 (Approximate), Expires: 08/10/2020C3 COMPLEMENT 3LabRoutineHLA-B27 spondyloarthropathyInflammatory arthritisElevated antinuclear antibody (RENUKA) levelTherapeutic drug monitoringExpected: 03/14/2020 (Approximate), Expires: 08/10/2020C4 COMPLEMENT 4LabRoutineHLA-B27 spondyloarthropathyInflammatory arthritisElevated antinuclear antibody (RENUKA) levelTherapeutic drug monitoringExpected: 03/14/2020 (A pproximate), Expires: 08/10/2020ANTI-DNA DOUBLE STRANDLabRoutineHLA-B27 spondyloarthropathyInflammatory arthritisElevated antinuclear antibody (RENUKA) levelTherapeutic drug monitoringExpected: 03/14/2020 (Approximate), Expires: 08/10/202025-[place] VITAMIN D (D2 + D3)LabRoutineVitamin D deficiencyTherapeutic drug monitoringExpected: 03/14/2020 (Approximate), Expires: 08/10/2020documented as of this encounter 03/29/2020 [facility] , Scheduled OrdersNameTypePriorityAssociat ed DiagnosesOrder ScheduleCBC AND DIFFLabRoutineHLA B27 (HLA B27 positive)Inflammatory arthritisElevated antinuclear antibody (RENUKA) levelExpected: 11/11/2019 (Approximate), Expires: 08/10/2020C REACTIVE PROTEIN (CRP)LabRoutineHLA B27 (HLA B27 positive)Inflammatory arthritisElevated antinuclear antibody (RENUKA) levelExpected: 11/11/2019 (Approximate), Expires: 08/10/2020COMPREHENSIVE METABOLIC PANELLabRoutineHLA B27 (HLA B27 positive)Inflammatory arthritisElevated antinuclear antibody (RENUKA) levelExpected: 11/11/2019 (Approximate), Expires: 08/10/2020SED RATELabRoutineHLA B27 (HLA B27 positive)Inflammatory arthritisElevated antinuclear antibody (RENUKA) levelExpected: 11/11/2019 (Approximate), Expires: 08/10/2020URINALYSIS DIPSTICKLabRoutineHLA B27 (HLA B27 positive)Inflammatory arthritisElevated antinuclear antibody (RENUKA) levelExpected: 11/11/2019 (Approximate), Expires: 08/10/2020URINALYSIS, MICROSCOPICLabRoutineHLA B27 (HLA B27 positive)Inflammatory arthritisElevated antinuclear antibody (RENUKA) levelExpected: 11/11/2019 (Approximate), Expires: 08/10/2020PROTEIN/CR RATIO,UR RANLabRoutineHLA B27 (HLA B27 positive)Inflammatory arthritisElevated antinuclear antibody (RENUKA) levelExpected: 11/11/2019 (Approximate), Expires: 08/10/202025-[place] VITAMIN D (D2 + D3)LabRoutineVitamin D deficiencyExpected: 11/11/2019 (Approximate), Expires: 08/10/2020C3 COMPLEMENT 3LabRoutineHLA B27 (HLA B27 positive)Inflammatory arthritisElevated antinuclear antibody (RENUKA) levelExpected: 11/11/2019 (Approximate), Expires: 08/10/2020C4 COMPLEMENT 4LabRoutineHLA B27 (HLA B27 positive)Inflammatory arthritisElevated antinuclear antibody (RENUKA) levelExpected: 11/11/2019 (Approximate), Expires: 08/10/2020ANTI- DNA DOUBLE STRANDLabRoutineHLA B27 (HLA B27 positive)Inflammatory arthritisElevated antinuclear antibody (RENUKA) levelExpected: 11/11/2019 (Approximate), Expires: 08/10/2020MAGNESIUMLabRoutinePVC (premature ventricular contraction)Expected: 11/11/2019 (Approximate), Expires: 08/10/2020CBC AND DIFFLabRoutineHLA B27 (HLA B27 positive)Inflammatory arthritisTherapeutic drug monitoringEvery 4 Weeks Auto for 12 Occurrences starting 11/09/2019 until 1ALT (SGPT)LabRoutineHLA B27 (HLA B27 positive)Inflammatory arthritisTherapeutic drug monitoringEvery 4 Weeks Auto for 12 Occurrences starting 11/09/2019 until 1CREATININELabRoutineHLA B27 (HLA B27 positive)Inflammatory arthritisTherapeutic drug monitoringEvery 4 Weeks Auto for 12 Occurrences starting 11/09/2019 until 08/10/2021IMMUNOGLOBULINS- IGA,IGG,IGMLabRoutineInflammatory arthritisExpected: 11/11/2019 (Approximate), E xpires: 08/10/2020ANTI-DNA DOUBLE STRANDLabRoutineHLA B27 (HLA B27 positive)Inflammatory arthritisElevated antinuclear antibody (RENUKA) levelTherapeutic drug monitoringExpected: 11/11/2019 (Approximate), Expires: 08/10/2020C3 COMPLEMENT 3LabRoutineHLA B27 (HLA B27 positive)Inflammatory arthritisElevated antinuclear antibody (RENUKA) levelTherapeutic drug monitoringExpected: 11/11/2019 (Approximate), Expires: 08/10/2020C4 COMPLEMENT 4LabRoutineHLA B27 (HLA B27 positive)Inflammatory arthritisElevated antinuclear antibody (RENUKA) levelTherapeutic drug monitoringExpected: 11/11/2019 (Approximate), Expires: 08/10/202025-[place] VITAMIN D (D2 + D3)LabRoutineVitamin D deficiencyExpected: 11/11/2019 (Approximate), Expires: 08/10/2020C REACTIVE PROTEIN (CRP)LabRoutineHLA B27 (HLA B27 positive)Inflammatory arthritisElevated antinuclear antibody (RENUKA) levelTherapeutic drug monitoringExpected: 11/11/2019 (Approximate), Expires: 08/10/2020SED RATELabRoutineHLA B27 (HLA B27 positive)Inflammatory arthritisElevated antinuclear antibody (RENUKA) levelTherapeutic drug monitoringExpected: 11/11/2019 (Approximate), Expires: 08/10/2020COMPREHENSIVE METABOLIC PANELLabRoutineHLA B27 (HLA B27 positive)Inflammatory arthritisElevated antinuclear antibody (RENUKA) levelTherapeutic drug monitoringExpected: 11/11/2019 (Approximate), Expires: 08/10/2020URINALYSIS DIPSTICKLabRoutineHLA B27 (HLA B27 positive)Inflammatory arthritisElevated antinuclear antibody (RENUKA) levelTherapeutic drug monitoringExpected: 11/11/2019 (Approximate), Expires: 08/10/2020URINALYSIS, MICROSCOPICLabRoutineHLA B27 (HLA B27 positive)Inflammatory arthritisElevated a ntinuclear antibody (RENUKA) levelTherapeutic drug monitoringExpected: 11/11/2019 (Approximate), Expires: 08/10/2020PROTEIN/CR RATIO,UR RANLabRoutineHLA B27 (HLA B27 positive)Inflammatory arthritisElevated antinuclear antibody (RENUKA) levelTherapeutic drug monitoringExpected: 11/11/2019 (Approximate), Expires: 08/10/2020CBC AND DIFFLabRoutineHLA B27 (HLA B27 positive)Inflammatory arthritisElevated antinuclear antibody (RENUKA) levelTherapeutic drug monitoringExpected: 11/11/2019 (Approximate), Expires: 08/10/2020MAGNESIUMLabRoutinePVC (premature ventricular contraction)Expected: 11/11/2019 (Approximate), Expires: 08/10/2020CBC AND DIFFLabRoutineInflammatory arthritisTherapeutic drug monitoringEvery 4 Weeks Auto for 12 Occurrences starting 11/09/2019 until 1ALT (SGPT)LabRoutineInflammatory arthrit isTherapeutic drug monitoringEvery 4 Weeks Auto for 12 Occurrences starting 11/09/2019 until 1CREATININELabRoutineInflammatory arthritisTherapeutic drug monitoringEvery 4 Weeks Auto for 12 Occurrences starting 11/09/2019 until 1CBC AND DIFFLabRoutineHLA-B27 spondyloarthropathyInflammatory arthritisElevated antinuclear antibody (RENUKA) levelTherapeutic drug monitoringExpected: 03/14/2020 (Approximate), Expires: 08/10/2020C REACTIVE PROTEIN (CRP)LabRoutineHLA-B27 spondyloarthropathyInflammatory arthritisElevated antinuclear antibody (RENUKA) levelTherapeutic drug monitoringExpected: 03/14/2020 (Approximate), Expires: 08/10/2020SED RATELabRoutineHLA-B27 spondyloarthropathyInflammatory arthritisElevated antinuclear antibody (RENUKA) levelTherapeutic drug monitoringExpected: 03/14/2020 (Approximate), Expires: 08/10/2020COMPREHENSIVE METABOLIC PANELLabRoutineHLA-B27 spondyloarthropathyInflammatory arthritisElevated antinuclear antibody (RENUKA) levelTherapeutic drug monitoringExpected: 03/14/2020 (Approximate), Expires: 08/10/2020URINALYSIS DIPSTICKLabRoutineHLA-B27 spondyloarthropathyInflammatory arthritisElevated antinuclear antibody (RENUKA) levelTherapeutic drug monitoringExpected: 03/14/2020 (Approximate), Expires: 08/10/2020URINALYSIS, MICROSCOPICLabRoutineHLA-B27 spondyloarthropathyInflammatory arthritisElevated antinuclear antibody (RENUKA) levelTherapeutic drug monitoringExpected: 03/14/2020 (Approximate), Expires: 08/10/2020PROTEIN/CR RATIO,UR RANLabRoutineHLA-B27 spondyloarthropathyInflammatory arthritisElevated antinuclear antibody (RENUKA) levelTherapeutic drug monitoringExpected: 03/14/2020 (Approximate), Expires: 08/10/2020C3 COMPLEMENT 3LabRoutineHLA-B27 spondyloarthropathyInflammatory arthritisElevated antinuclear antibody (RENUKA) levelTherapeutic drug monitoringExpected: 03/14/2020 (Approximate), Expires: 08/10/2020C4 COMPLEMENT 4LabRoutineHLA-B27 spondyloarthropathyInflammatory arthritisElevated antinuclear antibody (RENUKA) levelTherapeutic drug monitoringExpected: 03/14/2020 (A pproximate), Expires: 08/10/2020ANTI-DNA DOUBLE STRANDLabRoutineHLA-B27 spondyloarthropathyInflammatory arthritisElevated antinuclear antibody (RENUKA) levelTherapeutic drug monitoringExpected: 03/14/2020 (Approximate), Expires: 08/10/202025-[place] VITAMIN D (D2 + D3)LabRoutineVitamin D deficiencyTherapeutic drug monitoringExpected: 03/14/2020 (Approximate), Expires: 08/10/2020documented as of this encounter 03/29/2020 [facility] , Scheduled OrdersNameTypePriorityAssociat ed DiagnosesOrder ScheduleECG 12- LEADECGRoutinePersistent atrial fibrillation (HCC)PVC (premature ventricular contraction)Expected: 03/13/2020 (Approximate), Expires: 1documented as of this encounter 03/29/2020 [facility], Scheduled OrdersNameTypePriorityAssociat ed DiagnosesOrder ScheduleECG 12- LEADECGRoutineOther persistent atrial fibrillation (HCC)Ordered: 03/15/2020documented as of this encounter 03/29/2020 [facility] , Health MaintenanceDue DateLast DoneComme ntsDTAP/TDAP VACCINES (1 - Tdap)1969PHYSICAL (COMPREHENSIVE) EXAM1969SHINGLES RECOMBINANT VACCINE (1 of 2)2001PNEUMONIA (PPSV23) VACCINE (1 of 1 - PPSV23)2016INFLUENZA NMAOKNB1605/30/2020COLORECTAL CANCER WKBPRRGZP06/06/04409710/05/2019HEPATITIS C SHHIJOLJHEwtoagxdl75/23/2019 03/29/2020 [facility], Social History No Data Provided for This Section Assessment and Plan No Data Provided for This Section Family History Value Date S ource Medical HistoryRelationNameCommentsArthr itis-rheumatoidBrotherCoronary Artery DiseaseBrotherHeart FailureBrotherArthritis-rheumatoidBrotherHeart AttackBrotherPulmonary EmbolismFatherCancerMaternal AuntleukemiaHeart AttackMaternal GrandfatherpossibleStrokeMaternal GrandfatherpossibleSudden Cardiac DeathMaternal GrandfatherDementiaMaternal GrandmotherHeart AttackMaternal UncleHeart AttackMaternal UncleHeart AttackMaternal UncleUnknown to PatientMaternal UncleAtrial FibrillationMotherHeart FailureMotherUnknown to PatientPaternal GrandmotherHeart AttackPaternal UncleSclerodermaSisterMultiple sclerosisNeg HxSLENeg HxRelationNameStatusCommentsBrotherDeceased (Age 80)BrotherDeceased (Age 80)FatherDeceased (Age 62)Maternal AuntDeceased (Age 45)Maternal GrandfatherDeceased (Age 79)Maternal GrandmotherDeceased (Age 92)Maternal UncleDeceased (Age 62)Maternal UncleDeceased (Age 42)Maternal UncleDeceased (Age 68)Maternal UncleDeceased (Age 88)MotherDeceased (Age 88)Paternal AuntDeceased (Age mid 80)Paternal GrandfatherDeceased (Age 80s) from unknown causesPaternal GrandmotherDeceasedPaternal UncleDeceased (Age 50s)Paternal UncleDeceased (Age early 80s)SisterAlivefluoroderma 03/28/2020 [facility], Advance Directives Order Name Results Value Date Source Advance Directives Advance Dir ectives Documents on FileTypeDate RecordedPatien t RepresentativeExplanationAdvance Directive/DPOALatest Code Status on FileCode StatusDate ActivatedDate InactivatedCommentsFull Code08/16/2017 6:26 AM08/17/2017 11:59 AMProvider has discussed Code Status w/Patient or Family?Yes Full Code06/23/2017 12:56 06/25/2017 1:03 PMProvider has discussed Code Status w/Patient or Family?No, more discussion needed 03/28/2020 [facility] , Functional Status No Data Provided for This Section
--- OUTSIDE RECORDS SUMMARY | 2020-03-28 20:37 | XMS REPORT | Continuity of Care Document ---
Author Organization Unknown Address Unknown Phone Unavailable Allergies Active Description Code Type Severity Reaction Onset Reported/Identified Relationship to Patient Clinical Status Yes No Known Drug Allergies [id number] Drug Allergy Unknown N/A 11/15/2014 Medications There is no data. Problems Date Dx Coded Attending Type Code Diagnosis Diagnosed By 11/20/2014 PHAM STEWARD MD Ot 493.9 0 11/20/2014 PHAM STEWARD MD Ot 721.1 11/20/2014 PHAM STEWARD MD Ot 722.8 1 11/20/2014 PHAM STEWARD MD Ot 737.1 2 11/20/2014 PHAM STEWARD MD Ot V15.0 9 11/20/2014 PHAM STEWARD MD Ot 493.9 0 11/20/2014 PHAM STEWARD MD Ot 721.1 11/20/2014 PHAM STEWARD MD Ot 722.8 1 11/20/2014 PHAM STEWARD MD Ot 737.1 2 11/20/2014 PHAM STEWARD MD Ot V15.0 9 11/20/2014 PHAM STEWARD MD Ot 493.9 0 11/20/2014 PHAM STEWARD MD Ot 721.1 11/20/2014 PHAM STEWARD MD Ot 722.8 1 11/20/2014 PHAM STEWARD MD Ot 737.1 2 11/20/2014 PHAM STEWARD MD Ot V15.0 9 11/21/2014 PHAM STEWARD MD Ot 493.9 0 11/21/2014 PHAM STEWARD MD Ot 721.1 11/21/2014 PHAM STEWARD MD Ot 722.8 1 11/21/2014 PHAM STEWARD MD Ot 737.1 2 11/21/2014 PHAM STEWARD MD Ot V15.0 9 11/21/2014 PHAM STEWARD MD Ot 473.9 CHRONIC SINUSITIS NOS 11/21/2014 PHAM STEWARD MD Ot 493.9 0 ASTHMA, UNSPECIFIED 11/21/2014 PHAM STEWARD MD Ot 564.0 0 UNSPEC CONSTIPATION 11/21/2014 PHAM STEWARD MD Ot 721.1 CERV SPONDYL W MYELOPATH 11/21/2014 PHAM STEWARD MD Ot 722.8 1 POSTLAMINECT SYND-CERV 11/21/2014 PHAM STEWARD MD Ot 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 11/21/2014 PHAM STEWARD MD Ot 790.2 9 OTHER ABNORMAL GLUCOSE 11/21/2014 PHAM STEWARD MD Ot V15.0 9 ALLERGY, OTH THAN TO MEDICINAL AGENTS NE 11/23/2014 US DO, CORAZON Ot 473.9 11/23/2014 US DO, CORAZON Ot 486 11/23/2014 US DO, CORAZON Ot 493.00 11/23/2014 US DO, CORAZON Ot 600.00 11/23/2014 US DO, CORAZON Ot 782.3 11/23/2014 US DO, CORAZON Ot V45.89 11/25/2014 US DO, CORAZON Ot 473.9 11/25/2014 US DO, CORAZON Ot 486 11/25/2014 US DO, CORAZON Ot 493.00 11/25/2014 US DO, CORAZON Ot 600.00 11/25/2014 US DO, CORAZON Ot 782.3 11/25/2014 US DO, CORAZON Ot V45.89 11/25/2014 US DO, CORAZON Ot 473.9 11/25/2014 US DO, CORAZON Ot 486 11/25/2014 US DO, CORAZON Ot 493.00 11/25/2014 US DO, CORAZON Ot 600.00 11/25/2014 US DO, CORAZON Ot 782.3 11/25/2014 US DO, CORAZON Ot V45.89 11/26/2014 US DO, CORAZON Ot 473.9 11/26/2014 US DO, CORAZON Ot 486 11/26/2014 US DO, CORAZON Ot 493.00 11/26/2014 US DO, CORAZON Ot 600.00 11/26/2014 US DO, CORAZON Ot 782.3 11/26/2014 US DO, CORAZON Ot V45.89 11/26/2014 US DO, CORAZON Ot 473.9 11/26/2014 US DO, CORAZON Ot 486 11/26/2014 US DO, CORAZON Ot 493.00 11/26/2014 US DO, CORAZON Ot 600.00 11/26/2014 US DO, CORAZON Ot 782.3 11/26/2014 US DO, CORAZON Ot V45.89 11/27/2014 US DO, CORAZON Ot 473.9 11/27/2014 US DO, CORAZON Ot 486 11/27/2014 US DO, CORAZON Ot 493.00 11/27/2014 SU DO, CORAZON Ot 600.00 11/27/2014 US DO, CORAZON Ot 782.3 11/27/2014 SU DO, CORAZON Ot V45.89 11/28/2014 US DO, CORAZON Ot 473.9 11/28/2014 US DO, CORAZON Ot 486 11/28/2014 US DO, CORAZON Ot 493.00 11/28/2014 US DO, CORAZON Ot 600.00 11/28/2014 US DO, CORAZON Ot 782.3 11/28/2014 US DO, CORAZON Ot V45.89 11/28/2014 US DO, CORAZON Ot 276.8 HYPOPOTASSEMIA 11/28/2014 US DO, CORAZON Ot 473.9 CHRONIC SINUSITIS NOS 11/28/2014 US DO, CORAZON Ot 486 PNEUMONIA, ORGANISM NOS 11/28/2014 US DO, CORAZON Ot 493.00 EXTRINSIC ASTHMA, NOS 11/28/2014 US DO, CORAZON Ot 527.7 SALIVARY SECRETION DIS 11/28/2014 US DO, CORAZON Ot 600.00 HYPERTROPHY (BENIGN) OF PROSTATE W/O URI 11/28/2014 US DO, CORAZON Ot 721.1 CERV SPONDYL W MYELOPATH 11/28/2014 US DO, CORAZON Ot 728.85 SPASM OF MUSCLE 11/28/2014 US DO, CORAZON Ot 737.10 KYPHOSIS NOS 11/28/2014 US DO, CORAZON Ot 782.3 EDEMA 11/28/2014 US DO, CORAZON Ot V45.89 POSTSURGICAL STATES NEC 11/28/2014 Ot 723.0 11/28/2014 Ot V72.83 11/28/2014 Ot V74.8 11/28/2014 US DO, CORAZON Ot 473.9 11/28/2014 US DO, CORAZON Ot 486 11/28/2014 US DO, CORAZON Ot 493.00 11/28/2014 US DO, CORAZON Ot 600.00 11/28/2014 US DO, CORAZON Ot 782.3 11/28/2014 US DO, CORAZON Ot V45.89 11/29/2014 Ot 723.0 11/29/2014 Ot V72.83 11/29/2014 Ot V74.8 12/06/2014 US DO, CORAZON Ot 482.9 12/24/2014 MAGEN OH, COARZON Ot 482.9 02/13/2015 AMBIKA MANNING DO Ot 493. 90 02/13/2015 AMBIKA MANNING DO Ot 518. 0 02/13/2015 AMBIKA MANNING DO Ot 786. 09 02/13/2015 AMBIKA MANNING DO Ot 787. 20 08/17/2017 Ot 723.0 CERV ICAL SPINAL STENOSIS 08/17/2017 Ot V72.83 EXA M PRE- OPERATIVE NEC 08/17/2017 Ot V74.8 SCRE EN-BACTERIAL DIS NEC 08/17/2017 CORAZON US DO Ot 482.9 BACTERIAL PNEUMONIA NOS 08/17/2017 AMBIKA MANNING DO Ot 493. 90 ASTHMA, UNSPECIFIED 08/17/2017 AMBIKA MANNING DO Ot 518. 0 PULMONARY COLLAPSE 08/17/2017 AMBIKA MANNING DO Ot 786. 09 RESPIRATORY ABNORM NEC 08/17/2017 AMBIKA MANNING DO Ot 787. 20 DYSPHAGIA, UNSPECIFIED 09/08/2017 Ot 723.0 CERV ICAL SPINAL STENOSIS 09/08/2017 Ot V72.83 EXA M PRE- OPERATIVE NEC 09/08/2017 Ot V74.8 SCRE EN-BACTERIAL DIS NEC 09/08/2017 CORAZON US DO Ot 482.9 BACTERIAL PNEUMONIA NOS 09/08/2017 AMBIKA MANNING DO Ot 493. 90 ASTHMA, UNSPECIFIED 09/08/2017 AMBIKA MANNING DO Ot 518. 0 PULMONARY COLLAPSE 09/08/2017 AMBIKA MANNING DO Ot 786. 09 RESPIRATORY ABNORM NEC 09/08/2017 AMBIKA MANNING DO Ot 787. 20 DYSPHAGIA, UNSPECIFIED 10/18/2017 Ot 723.0 CERV ICAL SPINAL STENOSIS 10/18/2017 Ot V72.83 EXA M PRE- OPERATIVE NEC 10/18/2017 Ot V74.8 SCRE EN-BACTERIAL DIS NEC 10/18/2017 CORAZON US DO Ot 482.9 BACTERIAL PNEUMONIA NOS 10/18/2017 AMBIKA MANNING DO Ot 493. 90 ASTHMA, UNSPECIFIED 10/18/2017 AMBIKA MANNING DO Ot 518. 0 PULMONARY COLLAPSE 10/18/2017 AMBIKA MANNING DO Ot 786. 09 RESPIRATORY ABNORM NEC 10/18/2017 AMBIKA MANNING DO Ot 787. 20 DYSPHAGIA, UNSPECIFIED 12/08/2017 Ot 723.0 CERV ICAL SPINAL STENOSIS 12/08/2017 Ot V72.83 EXA M PRE- OPERATIVE NEC 12/08/2017 Ot V74.8 SCRE EN-BACTERIAL DIS NEC 12/08/2017 CORAZON US DO Ot 482.9 BACTERIAL PNEUMONIA NOS 12/08/2017 AMBIKA MANNING DO Ot 493. 90 ASTHMA, UNSPECIFIED 12/08/2017 AMBIKA MANNING DO Ot 518. 0 PULMONARY COLLAPSE 12/08/2017 AMBIKA MANNING DO Ot 786. 09 RESPIRATORY ABNORM NEC 12/08/2017 AMBIKA MANNING DO Ot 787. 20 DYSPHAGIA, UNSPECIFIED 01/25/2019 Ot 723.0 CERV ICAL SPINAL STENOSIS 01/25/2019 Ot V72.83 EXA M PRE- OPERATIVE NEC 01/25/2019 Ot V74.8 SCRE EN-BACTERIAL DIS NEC 01/25/2019 WEST US DOI Ot 482.9 BACTERIAL PNEUMONIA NOS 01/25/2019 AMBIKA MANNING DO Ot 493. 90 ASTHMA, UNSPECIFIED 01/25/2019 AMBIKA MANNING DO Ot 518. 0 PULMONARY COLLAPSE 01/25/2019 AMBIKA MANNING DO Ot 786. 09 RESPIRATORY ABNORM NEC 01/25/2019 AMBIKA MANNING DO Ot 787. 20 DYSPHAGIA, UNSPECIFIED 08/28/2019 Ot 723.0 CERV ICAL SPINAL STENOSIS 08/28/2019 Ot V72.83 EXA M PRE- OPERATIVE NEC 08/28/2019 Ot V74.8 SCRE EN-BACTERIAL DIS NEC 08/28/2019 CORAZON US DO Ot 482.9 BACTERIAL PNEUMONIA NOS 08/28/2019 AMBIKA MANNING DO Ot 493. 90 ASTHMA, UNSPECIFIED 08/28/2019 AMBIKA MANNING DO Ot 518. 0 PULMONARY COLLAPSE 08/28/2019 AMBIKA MANNING DO Ot 786. 09 RESPIRATORY ABNORM NEC 08/28/2019 AMBIKA MANNING DO Ot 787. 20 DYSPHAGIA, UNSPECIFIED 08/31/2019 PATRICK WILIAM N [employer] Ot R05 COUGH 08/31/2019 PATRICK, WILIAM N [employer] ADVISER Ot R07. 9 CHEST PAIN, UNSPECIFIED 08/31/2019 PATRICK, WILIAM N [employer] ADVISER Ot R50. 9 FEVER, UNSPECIFIED 08/31/2019 PATRICK WILIAM N [employer] ADVISER Ot Z98.890 OTHER SPECIFIED POSTPROCEDURAL STATES 09/21/2019 PATRICK WILIAM N [employer] ADVISER Ot R05 COUGH 09/21/2019 PATRICK WILIAM N [employer] ADVISER Ot R07. 9 CHEST PAIN, UNSPECIFIED 09/21/2019 PATRICK, WILIAM N [employer] ADVISER Ot R50. 9 FEVER, UNSPECIFIED 09/21/2019 PATRICK, WILIAM N [employer] ADVISER Ot Z98.890 OTHER SPECIFIED POSTPROCEDURAL STATES Procedures Code Description Performed By Per formed On 77.79 EXCI SE BONE FOR GFT NEC 11/19/2014 80.51 EXCI MELISSA INTERVERT DISC 11/19/2014 80.99 EXCI MELISSA OF JOINT NEC 11/19/2014 81.02 OTH CERVICAL FUSION OF ANTERIOR COLUMN, 11/19/2014 81.62 FUSI ON/REFUS OF 2-3 VERTEBRAE 11/19/2014 84.51 INSE RTION OF INTERBODY SPINAL FUSION DEV 11/19/2014 03.09 SPIN AL CANAL EXPLOR NEC 11/26/2014 77.79 EXCI SE BONE FOR GFT NEC 11/26/2014 81.03 OTH CERVICAL FUSION OF POSTERIOR COLUMN, 11/26/2014 81.63 FUSI ON/REFUS OF 4-8 VERTEBRAE 11/26/2014 Results There is no data. Encounters ACCT No. Visit Date/Time Discharge Status Pt. Type Provider Facility Loc./Unit Complaint [id number] 08/28/2019 13:26:00 019 23:59:59 CLS Outpatient WILIAM NGUYEN [employer] [facility] RAD FS R07.9 R50.9 R05 [id number] 01/03/2015 10:16:00 015 23:59:59 CLS Outpatient AMBIKA MANNING DO [facility] RAD DSYPHAGIA, [id number] 11/29/2014 09:40:00 015 23:59:59 CLS Outpatient CORAZON US DO [facility] RAD BACTERIAL PNEUMONIA [id number] 11/22/2014 10:48:00 015 15:45:00 DIS Inpatient CORAZON US DO, [facility] SURGICAL RT LOWER LOBE PNUEMONI A [id number] 11/19/2014 06:00:00 015 15:00:00 DIS Inpatient BIN GARCIA, PHAM Darden [facility] SURGICAL STENOSIS [id number] 11/22/2014 10:24:00 Document Registration [id number] 11/15/2014 12:26:00 Document Registration
[2020-03-28 21:01] VITALS: BP 114/70
== END 2020-03-28 21:06 | disposition home or self-care (01) ==
LOC: EDUNIT# 18:59 → ER FS 19:00
DX: R40.0 Somnolence (principal); R53.83 Other fatigue; G89.29 Other chronic pain; M54.2 Cervicalgia; M54.9 Dorsalgia, unspecified; J45.909 Unspecified asthma, uncomplicated; N40.0 Benign prostatic hyperplasia without lower urinary tract symptoms; G62.9 Polyneuropathy, unspecified; Z86.73 Personal history of transient ischemic attack (TIA), and cerebral infarction without residual deficits; Z82.49 Family history of ischemic heart disease and other diseases of the circulatory system; Z95.1 Presence of aortocoronary bypass graft; Z79.1 Long term (current) use of non-steroidal anti-inflammatories (NSAID)
CPT/HCPCS: 36415; 70450; 72125; 80053; 81000; 83735; 83880; 84484; 85025; 85610; 85730; 93041

== ENCOUNTER → 2020-04-18 | Outpatient (CLI) | payer BC ==
--- NOTE | 2020-04-18 12:49 | Diagnostic Imaging Report ---
Indication: Cough. Compared: 08/28/2019 Findings: 5 lobe patchy infiltrates have increased in severity from the prior with no effusion or pneumothorax or midline sternal wires. The heart size upper limits. There is some prominence of the central vascularity. Impression: Increased infiltrates, mild cardiomegaly and vascular congestion. No apparent pleural fluid. Dictated by: Dictated on workstation # [id number]
== END ==
LOC: RAD FS 12:05
PROVIDERS: ATTEND Nurse Practitioner Family
DX: I51.7 Cardiomegaly (principal); R91.8 Other nonspecific abnormal finding of lung field; R09.89 Other specified symptoms and signs involving the circulatory and respiratory systems
CPT/HCPCS: 71046

== ENCOUNTER → 2020-04-19 | Outpatient (CLI) | payer BC ==
[2020-04-19 15:55] LABS: HEMATOCRIT 34 % (40-54); HEMOGLOBIN 11.1 G/DL (13.3-17.7); MEAN CORPUSCULAR HEMOGLOBIN 30 PG (25-34); MEAN CORPUSCULAR HGB CONC 33 G/DL (32-36); MEAN CORPUSCULAR VOLUME 93 FL (80-99); MEAN PLATELET VOLUME 9.9 FL (7.4-10.4); PLATELET COUNT 164 10^3/uL (130-400); RED CELL DISTRIBUTION WIDTH 14.8 % (10.0-14.5)
[2020-04-19 15:56] LABS: BASOPHILS % (AUTO) 0 % (0-10); EOSINOPHILS # (AUTO) 0.1 10^3/uL (0.0-0.3); EOSINOPHILS % (AUTO) 2 % (0-10); LYMPHOCYTES # (AUTO) 0.4 X 10^3 (1.0-4.0); LYMPHOCYTES % (AUTO) 10 % (12-44); MONOCYTES # (AUTO) 0.4 X 10^3 (0.0-1.0); MONOCYTES % (AUTO) 10 % (0-12); NEUTROPHILS # (AUTO) 3.1 X 10^3 (1.8-7.8); NEUTROPHILS % (AUTO) 77 % (42-75)
[2020-04-19 16:06] LABS: BUN/CREATININE RATIO 23; CARBON DIOXIDE 24 MMOL/L (21-32); CHLORIDE 103 MMOL/L (98-107); CREATININE SERUM 1.13 MG/DL (0.60-1.30); GFR ESTIMATED > 60; GLUCOSE 99 MG/DL (70-105); POTASSIUM 4.4 MMOL/L (3.6-5.0); SODIUM 138 MMOL/L (135-145)
[2020-04-19 16:07] LABS: ALANINE AMINOTRANSFERASE 31 U/L (0-55); ALBUMIN 3.8 GM/DL (3.2-4.5); ALKALINE PHOSPHATASE 50 U/L (40-136); BILIRUBIN,TOTAL 0.5 MG/DL (0.1-1.0); CALCIUM 8.9 MG/DL (8.5-10.1); TOTAL PROTEIN 6.3 GM/DL (6.4-8.2)
== END ==
LOC: LAB FS 15:20
DX: U07.1 COVID-19 (principal); E86.0 Dehydration
CPT/HCPCS: 36415; 80053; 85025

== ENCOUNTER → 2020-04-22 | Outpatient (CLI) | payer BC ==
--- NOTE | 2020-04-22 15:16 | Diagnostic Imaging Report ---
INDICATION: Cough, COVID positive. TECHNIQUE: Two-view chest at 02:19 p.m. CORRELATION STUDY: 04/18/2020. FINDINGS: Post sternotomy change. Cardiac enlargement stable with the vasculature appearing increased from prior study. Scattered patchy areas of infiltrate-like density particularly in the mid and lower lung degroot do persist and overall appear increased. Indeterminate between edema versus infiltrate. No appreciable effusion. Visualized osseous structures are unremarkable. IMPRESSION: 1. Vasculature overall appears increased from prior. 2. Bilateral pulmonary opacities indeterminate between worsening edema versus superimposed infiltrate. Dictated by: Dictated on workstation # [id number]
== END ==
LOC: RAD FS 13:53
PROVIDERS: ATTEND Nurse Practitioner Family
DX: R05 Cough (principal); J98.01 Acute bronchospasm; R91.8 Other nonspecific abnormal finding of lung field
CPT/HCPCS: 71046

== ENCOUNTER 2020-04-23 15:30 | Inpatient (IN) | payer BC ==
[2020-04-23] VITALS (7 sets, daily range): BP systolic 127–150; BP diastolic 71–95
[~2020-04-23] VITALS: Ht 160 cm; Wt 81.8 kg
[2020-04-23] MEDS ORDERED: REMDESIVIR INJ (FREE STOCK) 200 MG in NS (IVPB) 210 ML IV ONE (17:00)
[2020-04-23] MEDS ORDERED: CATHETER FLUSH 10 ML SYR IV PRN (17:30)
[2020-04-23] MEDS ORDERED: ENOXAPARIN 40 MG/0.4 ML (LOVENOX) SYR SC SCH (17:30)
[2020-04-23] MEDS: LACTATED RINGERS 1,000 ML IV SCH (17:51)
[2020-04-23] MEDS ORDERED: dexAMETHasone 6 MG TAB (DECADRON) ONE (17:55)
[2020-04-23 17:58] LABS: BASOPHILS % (AUTO) 0 % (0-10); EOSINOPHILS # (AUTO) 0.1 10^3/uL (0.0-0.3); EOSINOPHILS % (AUTO) 2 % (0-10); HEMATOCRIT 34 % (40-54); LYMPHOCYTES # (AUTO) 0.5 X 10^3 (1.0-4.0); LYMPHOCYTES % (AUTO) 10 % (12-44); MEAN CORPUSCULAR HEMOGLOBIN 30 PG (25-34); MEAN CORPUSCULAR HGB CONC 32 G/DL (32-36); MEAN CORPUSCULAR VOLUME 93 FL (80-99); MEAN PLATELET VOLUME 10.3 FL (7.4-10.4); MONOCYTES # (AUTO) 0.8 X 10^3 (0.0-1.0); MONOCYTES % (AUTO) 14 % (0-12); NEUTROPHILS % (AUTO) 74 % (42-75); PLATELET COUNT 287 10^3/uL (130-400); RED CELL DISTRIBUTION WIDTH 14.7 % (10.0-14.5); WHITE BLOOD COUNT 5.4 10^3/uL (4.3-11.0)
[2020-04-23 18:41] LABS: ALANINE AMINOTRANSFERASE 35 U/L (0-55); ALBUMIN 3.8 GM/DL (3.2-4.5); ALKALINE PHOSPHATASE 50 U/L (40-136); BILIRUBIN,TOTAL 0.5 MG/DL (0.1-1.0); BUN/CREATININE RATIO 24; CALCIUM 9.2 MG/DL (8.5-10.1); CARBON DIOXIDE 24 MMOL/L (21-32); CHLORIDE 106 MMOL/L (98-107); CREATININE SERUM 1.03 MG/DL (0.60-1.30); GFR ESTIMATED > 60; GLUCOSE 92 MG/DL (70-105); PHOSPHORUS 3.2 MG/DL (2.3-4.7); POTASSIUM 4.2 MMOL/L (3.6-5.0); SODIUM 138 MMOL/L (135-145); TOTAL PROTEIN 6.6 GM/DL (6.4-8.2)
--- NOTE | 2020-04-23 18:43 | Diagnostic Imaging Report ---
INDICATION: COVID positive with shortness of breath. TIME OF EXAM: 6:01 PM CORRELATION is made with prior study from one day earlier. Changes of median sternotomy are noted. Patchy airspace infiltrates throughout both lungs persist. No effusion or pneumothorax is seen. Battery pack overlies the left hemithorax. IMPRESSION: No significant change in patchy bilateral airspace pulmonary infiltrates when compared with the examination of one day earlier. Dictated by: Dictated on workstation # [id number]
[2020-04-23] MEDS: FENOFIBRATE 134 MG (LOFIBRA) CAPSULE PO SCH (23:03)
[2020-04-23] MEDS: HYDROXYCHLOROQUINE 200 MG (PLAQUENIL) TAB PO SCH (23:03)
[2020-04-23] MEDS: LORATADINE (CLARITIN) 10 MG TAB PO SCH (23:04)
[2020-04-23] MEDS: MONTELUKAST 10 MG (SINGULAIR) TAB PO SCH (23:04)
[2020-04-24] VITALS (9 sets, daily range): BP systolic 102–151; BP diastolic 57–95
[2020-04-24] MEDS: LACTATED RINGERS 1,000 ML IV SCH ×3 (01:17→20:35)
[2020-04-24 04:03] LABS: BASOPHILS % (AUTO) 0 % (0-10); EOSINOPHILS % (AUTO) 0 % (0-10); HEMATOCRIT 34 % (40-54); HEMOGLOBIN 11.1 G/DL (13.3-17.7); LYMPHOCYTES # (AUTO) 0.3 X 10^3 (1.0-4.0); LYMPHOCYTES % (AUTO) 8 % (12-44); MEAN CORPUSCULAR HEMOGLOBIN 30 PG (25-34); MEAN CORPUSCULAR HGB CONC 33 G/DL (32-36); MEAN CORPUSCULAR VOLUME 93 FL (80-99); MEAN PLATELET VOLUME 10.3 FL (7.4-10.4); MONOCYTES # (AUTO) 0.4 X 10^3 (0.0-1.0); MONOCYTES % (AUTO) 9 % (0-12); NEUTROPHILS # (AUTO) 3.2 X 10^3 (1.8-7.8); NEUTROPHILS % (AUTO) 82 % (42-75); PLATELET COUNT 265 10^3/uL (130-400); RED CELL DISTRIBUTION WIDTH 14.4 % (10.0-14.5); WHITE BLOOD COUNT 3.9 10^3/uL (4.3-11.0)
[2020-04-24 04:30] LABS: ALANINE AMINOTRANSFERASE 32 U/L (0-55); ALBUMIN 3.7 GM/DL (3.2-4.5); ALKALINE PHOSPHATASE 50 U/L (40-136); BILIRUBIN,TOTAL 0.4 MG/DL (0.1-1.0); BUN/CREATININE RATIO 21; CALCIUM 8.8 MG/DL (8.5-10.1); CARBON DIOXIDE 21 MMOL/L (21-32); CHLORIDE 105 MMOL/L (98-107); CREATININE SERUM 0.99 MG/DL (0.60-1.30); GFR ESTIMATED > 60; GLUCOSE 141 MG/DL (70-105); POTASSIUM 4.1 MMOL/L (3.6-5.0); SODIUM 136 MMOL/L (135-145); TOTAL PROTEIN 6.5 GM/DL (6.4-8.2)
--- NOTE | 2020-04-24 04:44 | Pulmonary Consultation ---
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 He has been self isolating at home. Pt called me yesterday complaining of SOB, cough, and dizziness. Dr. Ojeda offered him hospitalization about 1wk ago but he did not want to be hospitalized at that time. Yesterday he agreed to hospitalization secondary to SOB, dizziness, and cough. Pt is on Plaquanil chronically secondary to his arthritis. CXR and labs reviewed. Pt's has also tested positive for COVID19. Allergies and Home Medications Allergies Coded Allergies: No Known Drug Allergies (Unverified , 11/15/14) Home Medications Acetaminophen 500 Mg Tablet, 1,000 MG PO TID, (Reported) TAKES 2 (500MG) TABLETS Albuterol Sulfate 8.5 Gm Aer.w.adap, 2 PUFF INH Q4H PRN for SHORTNESS OF BREATH, (Reported) Albuterol Sulfate 0.83 Mg/Ml Solution, 0.083 % IN Q4H PRN for SHORTNESS OF BREATH, (Reported) Amoxicillin/Clavulanate K 1 Each Tablet, 1 EACH PO BID Prescribed by: CORAZON OJEDA on 11/28/14 1333 Baclofen 10 Mg Tablet, 10 MG PO Q6H PRN for SPASMS, (Reported) Budesonide/Formoterol Fumarate 1 Inhaler Aero, 2 PUFF IH BID, (Reported) Dexlansoprazole 60 Mg Xavier., 60 MG PO BID PRN for HEARTBURN, (Reported) Diazepam 10 Mg Tablet, 10 MG PO Q8H PRN for SPASMS, (Reported) Fluticasone Propionate 16 Gm Naspr, 1 SPRAYS NS BID, (Reported) Furosemide 20 Mg Tablet, 1 EACH PO DAILY Prescribed by: CORAZON OJEDA on 11/28/14 1331 Ibuprofen 200 Mg Tablet, 600 MG PO Q8H PRN for PAIN, (Reported) Melatonin/Pyridoxine Hcl (B6) 1 Each Tab.mphase, 10 MG PO HS, (Reported) Potassium Chloride 10 Meq Capsule.sa, 10 MEQ PO DAILY Prescribed by: CORAZON OJEDA on 11/28/14 1331 Pregabalin 75 Mg Capsule, 75 MG PO TID, (Reported) Rosuvastatin Calcium 10 Mg Tablet, 10 MG PO DAILY, (Reported) Senna 1 Ea Tablet, 2 EA PO BID Prescribed by: CORAZON OJEDA on 11/28/14 1331 Sulfamethoxazole/Trimethoprim 1 Each Tablet, 1 TAB PO BID, (Reported) Tamsulosin HCl 0.4 Mg Cap.er.24h, 0.4 MG PO HS, (Reported) [Fentanyl] 75 MCG PATCH, 75 MCG TD Q72H Prescribed by: CORAZON OJEDA on 11/28/14 1331 Past Ulpuohy-Shxzsd-Dtrisr Hx Patient Social History Alcohol Use: Denies Use Recreational Drug Use: No Smoking Status: Never a Smoker 2nd Hand Smoke Exposure: No Recent Foreign Travel: Yes Contact w/Someone Who Travel: No Recent Infectious Disease Expo: No Recent Hopitalizations: No Immunizations Up To Date Tetanus Booster (TDap): Less than 5yrs Date of Pneumonia Vaccine: Nov 08, 2014 Date of Influenza Vaccine: Jun 12, 2014 Seasonal Allergies Seasonal Allergies: No Past Medical History Surgeries: Yes (SINUS SURGERY X6, CERVICAL NECK X3, SEPTAL DEFECT REPAIR, decortication LLL) Respiratory: Yes Asthma, Pneumonia Cardiac: Yes (ATRIAL SEPTAL DEFECT- REPAIRED IN 1998, ABLATION) Atrial Fibrillation Neurological: Yes (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) Neuropathy Reproductive Disorders: No Genitourinary: Yes Benign Prostatic Hyperpl Gastrointestinal: Yes Hemorrhoids Musculoskeletal: Yes (STENOSIS) Chronic Back Pain Endocrine: No HEENT: No Cancer: No Psychosocial: No Integumentary: No Blood Disorders: No Adverse Reaction/Blood Tranf: No Family Medical History Arthritis G8 BROTHER G8 SISTER Asthma 19 FATHER Cardiovascular disease 19 FATHER G8 BROTHER Osteoporosis 19 MOTHER Scleroderma Scleroderma Review of Systems Time Seen by Provider: 04:30 Constitutional: Fever, Chills, Sweats, Weakness, Malaise, Other Eyes: No: Pain, Vision change, Conjunctivae inflammation, Eyelid inflammation, Other, Redness ENT: Nose congestion; No: Ear pain, Ear discharge, Nose pain, Nose discharge, Mouth pain, Mouth swelling, Throat pain, Throat swelling, Other Respiratory: Cough, Dry, Shortness of breath, SOB with excertion; No: Wheezing Cardiovascular: Palpitations, Lt Headedness Gastrointestinal: No: Nausea, Vomiting, Abdominal Pain, Diarrhea, Constipation, Melena, Hematochezia, Other Genitourinary: No Dysuria, No Frequency, No Incontinence, No Hematuria, No Retention, No Other Sepsis Event Evaluation Height, Weight, BMI Height: 5'2.00" Weight: 191lbs. oz. 86.921720qc; 31.44 BMI Method: Exam Exam Vital Signs Date Time Temp Pulse Resp B/P (MAP) Pulse Ox O2 Delivery O2 Flow Rate FiO2 04/24/20 04:00 68 17 151/95 (113) 97 Room Air 04/24/20 03:30 96 Room Air 04/24/20 03:29 36.1 04/24/20 03:00 64 22 136/89 (105) 94 Room Air 04/24/20 02:00 65 15 134/77 (96) 95 Room Air 04/24/20 01:00 65 04/24/20 01:00 65 18 130/78 (95) 94 Room Air 04/24/20 00:00 36.4 04/24/20 00:00 97 Room Air 04/24/20 00:00 75 25 140/84 (102) 96 Room Air 04/23/20 23:00 75 96 04/23/20 23:00 75 25 131/90 (104) 96 Room Air 04/23/20 22:00 72 12 150/95 (113) 97 Room Air 04/23/20 21:00 70 18 132/79 (96) 93 Room Air 04/23/20 20:00 97 Room Air 04/23/20 20:00 78 26 134/83 (100) 96 Room Air 04/23/20 20:00 36.0 04/23/20 19:00 80 04/23/20 19:00 80 19 127/71 (89) 93 Room Air 04/23/20 18:00 78 17 130/75 (93) 96 Room Air 04/23/20 17:40 80 04/23/20 17:15 Room Air 04/23/20 17:10 36.7 81 20 141/77 (98) 95 Room Air I & O 04/24/20 07:00 Intake Total 660 ml Output Total 2250 ml Balance -1590 ml Height & Weight Height: 5'2.00" Weight: 191lbs. oz. 86.943281gf; 31.44 BMI Method: General Appearance: WD/WN, Anxious, Mild Distress HEENT: PERRL/EOMI, Normal ENT Inspection, Pharynx Normal Neck: Full Range of Motion, Normal Inspection, Non Tender, Supple Respiratory: Chest Non Tender, No Accessory Muscle Use, No Respiratory Distress, Decreased Breath Sounds Cardiovascular: Regular Rate, Rhythm, No Edema Capillary Refill: Less Than 3 Seconds Gastrointestinal: normal bowel sounds, non tender, soft Extremity: Normal Capillary Refill, Normal Inspection, No Pedal Edema Neurologic/Psychiatric: Alert, Oriented x3 Skin: Normal Color, Warm/Dry Lymphatic: No Adenopathy Results Lab Laboratory Tests 04/23/20 17:45 04/24/20 03:27 Assessment/Plan Assessment/Plan COVID-19 Pneumonia with extensive bilateral infiltrates on CXR - No bacterial pneumonia noted -Albuterol -Decadron -Pt is on Plaquanil for arthritis -monitor -PCT is normal -Currently not requiring oxygen Dizziness probably secondary to dehydration -IVF and monitor Leukopenia probably seocndary to COVID vs Plaquanil -Monitor Hx of asthma -Start Advair Hx of MRSA pneumonia requiring decortication - AMBIKA MANNING DO Apr 24, 2020 04:44
[2020-04-24] MEDS: RT-ALBUTEROL INHALER HFA (VENTOLIN HFA) 18 GM IH SCH ×4 (07:43→18:40)
[2020-04-24] MEDS: ADVAIR HFA 115/21 MCG INHALER 8 GM IH SCH ×2 (07:44→18:40)
[2020-04-24] MEDS: PANTOPRAZOLE 40 MG (PROTONIX) TAB PO SCH (08:47)
[2020-04-24] MEDS: APIXABAN 5 MG (ELIQUIS) TABLET PO SCH ×2 (08:47→20:36)
[2020-04-24] MEDS: dexAMETHasone 6 MG TAB (DECADRON) PO SCH (08:47)
[2020-04-24] MEDS: HYDROXYCHLOROQUINE 200 MG (PLAQUENIL) TAB PO SCH ×2 (08:47→17:17)
[2020-04-24] MEDS ORDERED: PANTOPRAZOLE 40 MG (PROTONIX) VIAL IV SCH (09:00)
[2020-04-24] MEDS ORDERED: ZINC50TA51 PO (14:56)
[2020-04-24] MEDS ORDERED: METH2.5T PO (14:56)
[2020-04-24] MEDS ORDERED: BENZ200C51 PO (14:56)
[2020-04-24] MEDS ORDERED: ALBU18HF2 INH (14:56)
[2020-04-24] MEDS ORDERED: PANT40TA3 PO (14:56)
[2020-04-24] MEDS ORDERED: FENO160T12 PO (14:56)
[2020-04-24] MEDS ORDERED: TRAM50TA3 PO (14:56)
[2020-04-24] MEDS ORDERED: HYDR200T46 PO (14:56)
[2020-04-24] MEDS ORDERED: ZOLP10TA PO (14:56)
[2020-04-24] MEDS ORDERED: CALC-250 PO (14:56)
[2020-04-24] MEDS ORDERED: MTP25TSR PO (14:56)
[2020-04-24] MEDS ORDERED: FOLI1TAB24 PO (14:56)
[2020-04-24] MEDS ORDERED: APIX5TAB PO (14:56)
[2020-04-24] MEDS ORDERED: BUDE1AMP2 NEB (14:56)
[2020-04-24] MEDS ORDERED: MONT10TA26 PO (14:56)
[2020-04-24] MEDS ORDERED: FAMO20TA3 PO (14:56)
[2020-04-24] MEDS ORDERED: PROM5SYR PO (14:56)
[2020-04-24] MEDS ORDERED: PRD1T PO (14:56)
[2020-04-24] MEDS ORDERED: LORA10TA7 PO (14:56)
--- NOTE | 2020-04-24 15:19 | NUR ---
SPOKE WITH THE PT (I CALLED HIS ROOM PHONE) AND WENT THRU THE EXT MED HISTORY TO COMPLETE THE MED REC PREDNISONE: 5MG SHOWS FOR THE MOST RECENT FILL HOWEVER PT SAYS THAT [facility] SHOULDNT HAVE FILLED THAT STRENGTH AND HE NOW TAKES 3 (1MG) TABS ALL OTHER MEDICATIONS ARE LISTED ON THE EXT MED HISTORY AND PT WAS ABLE TO VERIFY HOW HE TAKES EACH ONE OTC MEDS: ZINC VIT D3 LORATADINE FAMOTIDINE
[2020-04-24] MEDS ORDERED: REMDESIVIR INJ (FREE STOCK) 100 MG in NS (IVPB) 230 ML IV SCH (17:00)
[2020-04-24] MEDS: LORATADINE (CLARITIN) 10 MG TAB PO SCH (20:36)
[2020-04-24] MEDS: MONTELUKAST 10 MG (SINGULAIR) TAB PO SCH (20:36)
[2020-04-24] MEDS: FENOFIBRATE 134 MG (LOFIBRA) CAPSULE PO SCH (20:41)
[2020-04-24] MEDS ORDERED: MELATONIN 3 MG TABLET ONE (21:23)
[2020-04-24] MEDS ORDERED: MELATONIN 3 MG TABLET PO PRN (21:30)
--- NOTE | 2020-04-24 22:49 | NUR ---
This nurse called Dr. 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 Dr. Schuster verified via a telephone order to put in an order for Melatonin 3 MG PRN HS. PT recieved melatonin, will continue to monitor during rounding.
--- NOTE | 2020-04-24 22:54 | NUR ---
This nurse attempted to call pharmacy at 2038 to clarify/fix the scheduled medication Fenofibrate (160 mg PO) at 2099. 160mg is ordered, and 134 mg capsules are provided. This nurse called [facility] at 2039 to ask for clarification, and only ONE 134 mg capsule was given to not administer an overdose drug. This RN will try to notify [facility] later this shift to see if we can get this fixed.
[2020-04-25] VITALS: BP 114/56
[2020-04-25] MEDS: RT-ALBUTEROL INHALER HFA (VENTOLIN HFA) 18 GM IH SCH ×4 (00:33→11:12)
[2020-04-25 04:00] VITALS: BP 134/72
[2020-04-25 05:22] LABS: HEMOGLOBIN 10.4 G/DL (13.3-17.7); MEAN PLATELET VOLUME 9.9 FL (7.4-10.4); RED CELL DISTRIBUTION WIDTH 14.6 % (10.0-14.5); WHITE BLOOD COUNT 7.1 10^3/uL (4.3-11.0)
[2020-04-25 05:34] LABS: CHLORIDE 105 MMOL/L (98-107); POTASSIUM 3.7 MMOL/L (3.6-5.0); SODIUM 138 MMOL/L (135-145)
[2020-04-25 05:36] LABS: CALCIUM 9.1 MG/DL (8.5-10.1); GLUCOSE 109 MG/DL (70-105)
[2020-04-25 05:38] LABS: CARBON DIOXIDE 24 MMOL/L (21-32)
[2020-04-25 05:40] LABS: CREATININE SERUM 1.01 MG/DL (0.60-1.30); GFR ESTIMATED > 60
[2020-04-25 05:41] LABS: BUN/CREATININE RATIO 19
[2020-04-25] MEDS: PANTOPRAZOLE 40 MG (PROTONIX) TAB PO SCH (06:11)
[2020-04-25] MEDS: LACTATED RINGERS 1,000 ML IV SCH (06:17)
[2020-04-25] MEDS: ADVAIR HFA 115/21 MCG INHALER 8 GM IH SCH (07:05)
[2020-04-25 08:00] VITALS: BP 109/59
[2020-04-25] MEDS ORDERED: ZINC SULFATE 220 MG CAPSULE PO SCH (08:00)
[2020-04-25] MEDS: APIXABAN 5 MG (ELIQUIS) TABLET PO SCH (08:16)
[2020-04-25] MEDS: dexAMETHasone 6 MG TAB (DECADRON) PO SCH (08:16)
[2020-04-25] MEDS: HYDROXYCHLOROQUINE 200 MG (PLAQUENIL) TAB PO SCH (08:16)
[2020-04-25] MEDS ORDERED: ZINC AMINO ACID CHELATE PO SCH (09:00)
--- NOTE | 2020-04-25 12:38 | Discharge Inst-Simple/Standard ---
Discharge Inst-Standard Discharge Medications New, Converted or Re-Newed RX: Transmitted to Pharmacy Patient Instructions/Follow Up Plan of Care/Instructions/FU: Please continue to take your medications. Please follow up with your primary care doctor to follow up this hospital stay. Activity as Tolerated: Yes Discharge Diet: No Restrictions Return to The Hospital For: Chest pain, shortness of breath, abdominal pain, fever, lethargy, if you feel you are getting worse. JOSE CORDON MD Apr 25, 2020 12:38
--- NOTE | 2020-04-25 12:49 | Discharge Summary ---
Diagnosis/Chief Complaint Date of Admission Apr 23, 2020 at 17:10 Date of Discharge Discharge Date: Apr 25, 2020 Primary Care Faviola Resendiz DO Discharge Summary Discharge Physical Exam Allergies: Coded Allergies: No Known Drug Allergies (Unverified , 11/15/14) Vitals & I&Os Vital Signs Date Time Temp Pulse Resp B/P (MAP) Pulse Ox O2 Delivery O2 Flow Rate FiO2 04/25/20 11:12 97 Room Air 04/25/20 08:00 36.0 71 18 109/59 (76) General Appearance: No Apparent Distress, Chronically ill Respiratory: Lungs Clear, No Accessory Muscle Use, No Respiratory Distress Cardiovascular: Regular Rate, Rhythm, No Murmur Neurologic/Psychiatric: Alert, Oriented x3 Hospital Course Pt is a 70yoCM who was admitted for COVID19 complications. He was diagnosed with COVID roughly 2 weeks ago and had a severe cough and got dehydrated prompting admission. He was treated with IVF and decadron and improved. He was able to maintain his hydration status orally and was on room air the entire time. He was discharged home ins table condition to follow up with his pulm Dr Brewer for follow up regarding his pulmonary status and with his PCP in the next 1-2 weeks. Labs (last 24 hrs) Laboratory Tests 04/25/20 05:09: White Blood Count 7.1, Red Blood Count 3.56L, Hemoglobin 10.4L, Hematocrit 33L, Mean Corpuscular Volume 93, Mean Corpuscular Hemoglobin 29, Mean Corpuscular Hemoglobin Concent 31L, Red Cell Distribution Width 14.6H, Platelet Count 321, Mean Platelet Volume 9.9, Sodium Level 138, Potassium Level 3.7, Chloride Level 105, Carbon Dioxide Level 24, Anion Gap 9, Blood Urea Nitrogen 19H, Creatinine 1.01, Estimat Glomerular Filtration Rate > 60, BUN/Creatinine Ratio 19, Glucose Level 109H, Calcium Level 9.1 Patient resulted labs reviewed. Pending Labs Laboratory Tests 04/25/20 05:09: White Blood Count 7.1, Red Blood Count 3.56, Hemoglobin 10.4, Hematocrit 33, Mean Corpuscular Volume 93, Mean Corpuscular Hemoglobin 29, Mean Corpuscular Hemoglobin Concent 31, Red Cell Distribution Width 14.6, Platelet Count 321, Mean Platelet Volume 9.9, Sodium Level 138, Potassium Level 3.7, Chloride Level 105, Carbon Dioxide Level 24, Anion Gap 9, Blood Urea Nitrogen 19, Creatinine 1.01, Estimat Glomerular Filtration Rate > 60, BUN/Creatinine Ratio 19, Glucose Level 109, Calcium Level 9.1 Discussion & Recommendations Discharge Planning: >30 minutes discharge planning Discharge Home Medications: Active Scripts Active Reported Acid Special Tax Auditor (FAMOTIDINE) (Famotidine) 20 Mg Tablet 20 Mg PO BID Loratadine 10 Mg Tablet 10 Mg PO HS Vitamin D3 (Cholecalciferol (Vitamin D3)) 125 Mcg Tablet 125 Mcg PO DAILY Zinc (Zinc Amino Acid Chelate) 50 Mg Tablet 100 Mg PO DAILY Ambien (Zolpidem Tartrate) 10 Mg Tablet 10 Mg PO HS PRN Tramadol HCl 50 Mg Tablet 50-100 Mg PO Q6H PRN Ventolin Hfa (Albuterol Sulfate) 18 Gm Hfa.aer.ad 2 Puff INH Q6H PRN Folic Acid 1 Mg Tablet 1 Mg PO DAILY Pantoprazole Sodium 40 Mg Tablet.dr 40 Mg PO BID Methotrexate (Methotrexate Sodium) 2.5 Mg Tablet 15 Mg PO WEDNESDAY TAKES 6 (2.5MG) TABS WEEKLY Fenofibrate 160 Mg Tablet 160 Mg PO HS Montelukast Sodium 10 Mg Tablet 10 Mg PO HS Hydroxychloroquine Sulfate 200 Mg Tablet 200 Mg PO BID Prednisone 1 Mg Tab 3 Mg PO DAILY TAKES 3 (1MG) TABS Eliquis (Apixaban) 5 Mg Tablet 5 Mg PO BID Metoprolol Succinate 25 Mg Tab.er.24h 12.5 Mg PO HS TAKES OF A 25MG TAB Prometh-Codein 6.25-10 mg/5 ml (Promethazine HCl/Codeine) 5 Ml Syrup 5 Ml PO Q4H PRN Benzonatate 200 Mg Capsule 200 Mg PO Q6H PRN Budesonide 1 Mg/2 Ml Ampul.neb 2 Ml NEB BID Instructions to patient/family Please see electronic discharge instructions given to patient. Clinical Quality Measures DVT/VTE Risk/Contraindication: Risk Factor Score Per Nursin RFS Level Per Nursing on Admit: 4+=Very High JOSE CORDON MD Apr 25, 2020 12:49
[2020-04-25] MEDS ORDERED: FENOFIBRATE 134 MG (LOFIBRA) CAPSULE PO SCH (21:00)
== END 2020-04-25 14:45 | disposition home or self-care (01) | DRG 177 ==
LOC: ICU 17:10 → 4TH 04-24 08:53
PROVIDERS: ADMIT Family Medicine; ATTEND Family Medicine
DX: U07.1 COVID-19 (principal); J12.89 Other viral pneumonia; E86.0 Dehydration; J45.909 Unspecified asthma, uncomplicated; I48.91 Unspecified atrial fibrillation; M19.91 Primary osteoarthritis, unspecified site; M48.00 Spinal stenosis, site unspecified; N40.0 Benign prostatic hyperplasia without lower urinary tract symptoms; G62.9 Polyneuropathy, unspecified; D70.2 Other drug-induced agranulocytosis; Z79.899 Other long term (current) drug therapy; Z86.14 Personal history of Methicillin resistant Staphylococcus aureus infection; Z87.74 Personal history of (corrected) congenital malformations of heart and circulatory system; Z86.73 Personal history of transient ischemic attack (TIA), and cerebral infarction without residual deficits
CPT/HCPCS: 36415; 71045; 80048; 80053; 82728; 83605; 83735; 84100; 84145; 85025; 85027; 85379; 86850; 86900; 86901; 94640; 94760

== ENCOUNTER → 2020-06-03 | Outpatient (CLI) | payer BC ==
[~2020-06-03] MED LIST changes: +ALBU18HF2 INH; +APIX5TAB PO; +BENZ200C51 PO; +BUDE1AMP2 NEB; +CALC-250 PO; +FAMO20TA3 PO; +FENO160T12 PO; +FOLI1TAB24 PO; +HYDR200T46 PO; +LORA10TA7 PO; +METH2.5T PO; +MONT10TA26 PO; +MTP25TSR PO; +PANT40TA52 PO; +PRD1T PO; +PROM5SYR PO; +TRAM50TA3 PO; +ZINC50TA51 PO; +ZOLP10TA PO
--- NOTE | 2020-06-03 15:10 | Diagnostic Imaging Report ---
INDICATION: Positive Covid and pneumonia. TIME OF EXAM: 1:41 PM. COMPARISON: 04/23/2020. FINDINGS: Changes of median sternotomy are noted. The bilateral patchy airspace infiltrates have improved. Both lungs appear to be fairly clear on today's study. There is no effusion or pneumothorax. There are postop changes in the lower cervical and upper thoracic spine. IMPRESSION: Clearing of bilateral pulmonary infiltrates when compared to the examination from 04/23/2020. The report was faxed to Infection Control by [email or web address]@3:10 PM. Dictated by: Dictated on workstation # [id number]
== END ==
LOC: RAD FS 13:32
PROVIDERS: ATTEND Nurse Practitioner Family
DX: U07.1 COVID-19 (principal); J12.81 Pneumonia due to SARS-associated coronavirus; R91.8 Other nonspecific abnormal finding of lung field
CPT/HCPCS: 71046

== ENCOUNTER 2021-01-27 11:43 | Emergency (ER) | payer MEDICARE, OTHER ==
[~2021-01-27] VITALS: Ht 162.5 cm; Wt 78.1 kg
[~2021-01-27 11:43] MED LIST changes: -FOLI1TAB24 PO; +FOLI1TAB33 PO; -MONT10TA26 PO; +MONT10TA32 PO
--- NOTE | 2021-01-27 12:05 | ED Neurological Problem ---
General Chief Complaint: Neuro-Stroke Like Symptoms Stated Complaint: RT SIDED WEAKNESS; SLURRED SPEECH Source: patient History of Present Illness Date Seen by Provider: January 27, 2021 Time Seen by Provider: 11:44 Initial Comments 70-year-old male presenting with slurred speech and right-sided weakness. He states that this started about 20 minutes prior to arrival. He has been up doing things and was doing fine earlier this morning. He denies any headache or pain. He has difficulty trying to move his right leg. He denies any numbness or tingling other than his chronic nerve issues from spinal injuries and surgeries in the past. He denies any head injury or fall. Timing/Duration: 1/2 hour Associated Symptoms: confusion (Trouble concentrating); No fever/chills, No loss of consciousness, No nausea/vomiting, No seizures; slurred speech, trouble walking (Due to the weakness in the right leg especially); No vision changes; weakness (Right leg) Allergies and Home Medications Allergies Coded Allergies: No Known Drug Allergies (Unverified , 11/15/14) Home Medications Albuterol Sulfate 18 Gm Hfa.aer.ad, 2 PUFF INH Q6H PRN for SHORTNESS OF BREATH, (Reported) Apixaban 5 Mg Tablet, 5 MG PO BID, (Reported) Benzonatate 200 Mg Capsule, 200 MG PO Q6H PRN for COUGH, (Reported) Budesonide 1 Mg/2 Ml Ampul.neb, 2 ML NEB BID, (Reported) Cholecalciferol (Vitamin D3) 125 Mcg Tablet, 125 MCG PO DAILY, (Reported) Famotidine 20 Mg Tablet, 20 MG PO BID, (Reported) Fenofibrate 160 Mg Tablet, 160 MG PO HS, (Reported) Folic Acid 1 Mg Tablet, 1 MG PO DAILY, (Reported) Hydroxychloroquine Sulfate 200 Mg Tablet, 200 MG PO BID, (Reported) Loratadine 10 Mg Tablet, 10 MG PO HS, (Reported) Methotrexate Sodium 2.5 Mg Tablet, 15 MG PO WEDNESDAY, (Reported) TAKES 6 (2.5MG) TABS WEEKLY Metoprolol Succinate 25 Mg Tab.er.24h, 12.5 MG PO HS, (Reported) TAKES OF A 25MG TAB Montelukast Sodium 10 Mg Tablet, 10 MG PO HS, (Reported) Pantoprazole Sodium 40 Mg Tablet.dr, 40 MG PO BID, (Reported) Prednisone 1 Mg Tab, 3 MG PO DAILY, (Reported) TAKES 3 (1MG) TABS Promethazine HCl/Codeine 5 Ml Syrup, 5 ML PO Q4H PRN for COUGH, (Reported) Tramadol HCl 50 Mg Tablet, 50-100 MG PO Q6H PRN for PAIN-MODERATE (5-7), (Reported) Zinc Amino Acid Chelate 50 Mg Tablet, 100 MG PO DAILY, (Reported) Zolpidem Tartrate 10 Mg Tablet, 10 MG PO HS PRN for SLEEP, (Reported) Patient Home Medication List Home Medication List Reviewed: Yes Review of Systems Review of Systems Constitutional: no symptoms reported Eyes: No Symptoms Reported Ears, Nose, Mouth, Throat: no symptoms reported Respiratory: no symptoms reported Cardiovascular: no symptoms reported Gastrointestinal: no symptoms reported Genitourinary: no symptoms reported Musculoskeletal: no symptoms reported Skin: no symptoms reported Psychiatric/Neurological: See HPI Endocrine: No Symptoms Reported Hematologic/Lymphatic: No Symptoms Reported Past Cckerqk-Uthgjl-Wtivnq Hx Past Med/Social Hx: Reviewed Nursing Past Med/Soc Hx Patient Social History 2nd Hand Smoke Exposure: No Recent Hopitalizations: No Immunizations Up To Date Tetanus Booster (TDap): Less than 5yrs Date of Pneumonia Vaccine: Nov 08, 2014 Date of Influenza Vaccine: Jun 12, 2014 Seasonal Allergies Seasonal Allergies: No Past Medical History Surgeries: Yes (SINUS SURGERY X6, CERVICAL NECK X3, SEPTAL DEFECT REPAIR, decortication LLL) Respiratory: Yes Asthma, Pneumonia Cardiac: Yes (ATRIAL SEPTAL DEFECT- REPAIRED IN 1998, ABLATION) Atrial Fibrillation Neurological: Yes (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) Neuropathy Reproductive Disorders: No Genitourinary: Yes Benign Prostatic Hyperpl Gastrointestinal: Yes Hemorrhoids Musculoskeletal: Yes (STENOSIS) Chronic Back Pain Endocrine: No HEENT: No Cancer: No Psychosocial: No Integumentary: No Blood Disorders: No Adverse Reaction/Blood Tranf: No Family Medical History Arthritis G8 BROTHER G8 SISTER Asthma 19 FATHER Cardiovascular disease 19 FATHER G8 BROTHER Osteoporosis 19 MOTHER Scleroderma Scleroderma Physical Exam Vital Signs Vital Signs - First Documented 01/27/21 11:45 Temp 36.2 Pulse 76 Resp 16 B/P (MAP) 114/69 (84) Pulse Ox 95 O2 Delivery Room Air Capillary Refill : Height, Weight, BMI Height: 5'2.00" Weight: 191lbs. oz. 86.470856wh; 31.44 BMI Method: General Appearance: WD/WN, no apparent distress HEENT: PERRL/EOMI, normal ENT inspection, pharynx normal Neck: non-tender Respiratory: chest non-tender, lungs clear, normal breath sounds, no respiratory distress, no accessory muscle use Cardiovascular: normal peripheral pulses Gastrointestinal: normal bowel sounds, non tender, soft, no pulsatile mass Extremities: non-tender, no pedal edema, no calf tenderness, normal capillary refill Neurologic/Psychiatric: trauma doctor II-XII nml as tested, alert; No oriented x 3 (Stated it was February when asked the month); motor weakness (Right lower extremity greater than the left) Crainal Nerves: normal hearing, PERRL, abnormal speech (Slight slurring of the speech) Motor/Sensory: no sensory deficit Skin: normal color, warm/dry, rash (diffuse urticarial type rash) Stroke Onset of Symptoms Date of Onset of Symptoms: January 27, 2021 Time of Symptom Onset: 11:10 Symptoms onset unknown: Yes (Around 11 am but not definite) NIH Stroke Scale Assessment Select: Initial Level of Consciousness: 0=Alert (0), Level of Consciousness- Questions: 1=Answers one question (1), LOC Commands: 0=Performs both tasks (0), Gaze: Normal (0), Visual Acnales: 0=No visual loss (0), Facial Movement (Facial Paresis): 0=Normal symmetrical mnt (0), Motor Function-Arms Right: 0=No drift (0), Motor Function-Arms Left: 0=No drift (0), Motor Function-Legs Right: 2=Some effort/gravity (2), Motor Function-Legs Left: 1=Drift (1), Limb Ataxia: 0=Absent (0), Sensory: 0=Normal:no loss (0), Best Language: 1=Mild to moderat aphasia (1), Dysarthria: 1=Mild to moderate loss (1), Extinction & Inattention: 0=No abnormality (0), Total: 6 Stroke Thrombolytic Exclusion Age 18 or Over: Yes Acute intenal hemorrhage: No History of CVA: No Uncontrolled Coagulation Defec: No Intracranial Hemorrhage: No Severe Hypertension: No GI or Bleed: No Subarachnoid Hemorrhage: No Intracranial Neoplasm/Aneurysm: No Oral Anticoagulants: Yes (Eliquis) Surgery or Trauma: No Puncture of Non-Compressible V: No Recent CPR: No Diabetic Hemorrhagic Retinopat: No Organ Biopsy: No Recent Obstetric Delivery: No Glucose: No Significant Hepatic Dysfunctio: No NIH Stoke Scale >22: No Bacterial Endocarditis: No Pericarditis: No Improving Symptoms: No Platelets: No TPA Contraindication: Yes (Taking Eliquis) Progress/Results/Core Measures Results/Orders Lab Results Laboratory Tests Test 01/27/21 11:52 01/27/21 12:27 Range/Units White Blood Count 7.0 4.3-11.0 10^3/uL Red Blood Count 4.84 4.35-5.85 10^6/uL Hemoglobin 14.0 13.3-17.7 G/DL Hematocrit 43 40-54 % Mean Corpuscular Volume 89 80-99 FL Mean Corpuscular Hemoglobin 29 25-34 PG Mean Corpuscular Hemoglobin Concent 33 32-36 G/DL Red Cell Distribution Width 13.5 10.0-14.5 % Platelet Count 206 130-400 10^3/uL Mean Platelet Volume 10.0 7.4-10.4 FL Immature Granulocyte % (Auto) 0 % Neutrophils (%) (Auto) 62 42-75 % Lymphocytes (%) (Auto) 21 12-44 % Monocytes (%) (Auto) 11 0-12 % Eosinophils (%) (Auto) 6 0-10 % Basophils (%) (Auto) 0 0-10 % Neutrophils # (Auto) 4.3 1.8-7.8 X 10^3 Lymphocytes # (Auto) 1.5 1.0-4.0 X 10^3 Monocytes # (Auto) 0.8 0.0-1.0 X 10^3 Eosinophils # (Auto) 0.4 H 0.0-0.3 10^3/uL Basophils # (Auto) 0.0 0.0-0.1 10^3/uL Immature Granulocyte # (Auto) 0.0 0.0-0.1 10^3/uL Prothrombin Time 15.3 H 12.2-14.7 SEC INR Comment 1.2 0.8-1.4 Activated Partial Thromboplast Time 31 24-35 SEC Sodium Level 140 135-145 MMOL/L Potassium Level 4.0 3.6-5.0 MMOL/L Chloride Level 102 98-107 MMOL/L Carbon Dioxide Level 27 21-32 MMOL/L Anion Gap 11 5-14 MMOL/L Blood Urea Nitrogen 14 7-18 MG/DL Creatinine 1.14 0.60-1.30 MG/DL Estimat Glomerular Filtration Rate > 60 BUN/Creatinine Ratio 12 Glucose Level 105 70-105 MG/DL Calcium Level 9.3 8.5-10.1 MG/DL Corrected Calcium 9.2 8.5-10.1 MG/DL Total Bilirubin 0.6 0.1-1.0 MG/DL Aspartate Amino Transf (AST/SGOT) 27 5-34 U/L Alanine Aminotransferase (ALT/SGPT) 24 0-55 U/L Alkaline Phosphatase 92 40-136 U/L Troponin I < 0.30 <0.30 NG/ML Total Protein 6.3 L 6.4-8.2 GM/DL Albumin 4.1 3.2-4.5 GM/DL Glucometer 85 70-110 MG/DL My Orders Orders - HEBER HAYES MD Cbc With Automated Diff (01/27/21 11:48) Protime With Inr (01/27/21 11:48) Partial Thromboplastin Time (01/27/21 11:48) Comprehensive Metabolic Panel (01/27/21 11:48) Troponin I Fs (01/27/21 11:48) Chest 1 View Ap/Pa Only (01/27/21 11:48) Ekg Tracing (01/27/21 11:48) Accucheck Stat ONCE (01/27/21 11:48) Ed Iv/Invasive Line Start (01/27/21 11:48) Vital Signs Stroke Patient Q15M (01/27/21 11:48) Ct Head Wo-R/O Stroke (01/27/21 11:48) O2 (01/27/21 11:48) Intake & Output 06,14,22 (01/27/21 11:48) Monitor-Rhythm Ecg Trace Only (01/27/21 11:48) Dysphagia Screening Tool (01/27/21 11:48) Ct Angio Head/Neck (01/27/21 12:27) Iohexol Injection (Omnipaque 350 Mg/Ml 1 (01/27/21 12:45) Received Contrast (Hold Metformin- Contr (01/27/21 12:45) Sodium Chloride Flush (Catheter Flush Sy (01/27/21 12:45) Ns (Ivpb) (Sodium Chloride 0.9% Ivpb Bag (01/27/21 12:45) Medications Given in ED Current Medications Medications Dose Ordered Sig/Kayleigh Route Start Time Stop Time Status Last Admin Dose Admin Iohexol 80 ml ONCE ONCE IV 01/27/21 12:45 01/27/21 12:46 DC 01/27/21 13:00 75 ML Sodium Chloride 10 ml NEEDED PRN IV 01/27/21 12:45 01/27/21 14:56 DC 01/27/21 13:00 10 ML Sodium Chloride 100 ml ONCE ONCE IV 01/27/21 12:45 01/27/21 12:46 DC 01/27/21 13:00 100 ML Vital Signs/I&O 01/27/21 01/27/21 11:45 14:35 Temp 36.2 36.2 Pulse 76 76 Resp 16 16 B/P (MAP) 114/69 (84) 108/92 Pulse Ox 95 96 O2 Delivery Room Air Room Air Progress Progress Note #1: Progress Note order labs, ECG, CT head without contrast to check for stroke, CXR, Differential diagnosis includes acute stroke, medication reaction, TIA, spinal stenosis Progress Note #2: Progress Note NIH stroke scale is a 6 with taking a point of her not knowing the correct month, not being able to keep his right leg up against gravity, slight dysarthria and aphasia. The CT head without contrast came back without signs of acute hemorrhage or stroke. At 1217 call was placed to the neurology stroke line and I spoke with NATANAEL Rubio, about a consult. He got Dr. Ramirez the web production designer stroke neurologist on the line. I reviewed the case with the neurologist and since the patient has been on Eliquis he would not be a candidate for TPA. Will order a CT angiogram of the head neck to evaluate for large vessel occlusion that might be amenable to clot retrieval. If the patient would like to still come to they could certainly be transferred there otherwise if there was no large clot to be retrieved then the stroke work-up could be done locally. Progress Note #3: Time: 13:27 Progress Note Labs are stable without acute significant abnormality. His CT angiogram did not demonstrate any large vessel occlusion. Discussed again with the on-call neurologist and he accepted the patient in transfer for further work-up. Patient requested to come to since he already has other specialist at . He was having some mild improvement in his symptoms prior to discharge. It was a lso noted that he had been taking a lot of antihistamines for a diffuse urticarial type rash for the last week or 2. This may be contributing to some of his symptoms as well. He denies any tick bites or infectious components that might be contributing to his rash. Initial ECG Impression Date: January 27, 2021 Initial ECG Impression Time: 12:08 Initial ECG Rate: 75 Initial ECG Rhythm: A Fib/Flutter Initial ECG Comparisson: Unchanged Comment Atrial fibrillation with a heart rate of 75 bpm. Right bundle branch and left anterior fascicular block present. Signs for left ventricular hypertrophy. QT interval 490 ms with a QTc interval of [address] elevation. Appears similar to prior tracings in the system. Diagnostic Imaging Diagonstic Imaging: CT Plain Films/CT/US/NM/MRI: head Comments [facility]. [place], [place] NAME: IVELISSE VEGA [facility] REC#: [id number] PT STATUS: REG ER : 1950 PHYSICIAN: HEBER HAYES MD ADMIT DATE: 01/27/21/ER FS Signed Date of Exam:01/27/21 CT HEAD WO-R/O STROKE PROCEDURE: CT head wo r/o stroke. TECHNIQUE: Multiple contiguous axial images were obtained through the brain without the use of intravenous contrast. Auto Exposure Controls were utilized during the CT exam to meet ALARA standards for radiation dose reduction. INDICATION: Right-sided weakness and slurred speech one and half hours ago. COMPARISON STUDY: CT scan of the head from 03 28-. FINDINGS: Noncontrast CT scan of the head demonstrates a mass effect midline shift hemorrhage or extra-axial fluid collection. Stewart-white matter differentiation is normal. There is no significant atrophy. Bone windows demonstrate normal ossification. No fluid is seen in the mastoid air cells or the visualized portions of the paranasal sinuses. Postoperative changes present in the sinuses. IMPRESSION: There are no acute findings to the head. Dictated by: Dictated on workstation # [id number] Dict: 01/27/21 1207 Trans: 01/27/21 1209 [id number] Interpreted by: JOSE E NUR MD Electronically signed by: JOSE E NUR MD 01/27/21 1209 Diagonstic Imaging: Xray Plain Films/CT/US/NM/MRI: chest Comments [facility] [place] [place] NAME: IVELISSE VEGA [facility] REC#: [id number] PT STATUS: REG ER : 1950 PHYSICIAN: HEBER HAYES MD ADMIT DATE: 01/27/21/ER FS Signed Date of Exam:01/27/21 CHEST 1 VIEW AP/PA ONLY INDICATION: Slurred speech, weakness COMPARISON STUDY: Chest from 06/03-. FINDINGS: Frontal view of the chest demonstrates previous sternotomy changes and spinal surgery. Heart size is upper normal with normal vascularity. Calcified granulomas are present. IMPRESSION: There are no acute findings. Dictated by: Dictated on workstation # [id number] Dict: 01/27/21 1223 Trans: 01/27/21 1257 [facility] [id number] Interpreted by: JOSE E NUR MD Electronically signed by: JOSE E NUR MD 01/27/21 1257 Reviewed: Reviewed by Me Diagonstic Imaging: CT Plain Films/CT/US/NM/MRI: head (and neck angiogram) Comments [facility], [place] NAME: IVELISSE VEGA [place] [facility] REC#: [id number] PT STATUS: REG ER : 1950 PHYSICIAN: HEBER HAYES MD ADMIT DATE: 01/27/21/ER FS Signed Date of Exam:01/27/21 CT ANGIO HEAD/NECK PROCEDURE: CT angiography of the head and CT angiography of the neck with and without contrast. TECHNIQUE: Contiguous noncontrast images were obtained from the skull base through the vertex. After intravenous contrast administration, helical CT angiography of the neck was performed. Source data was reformatted into 3D MIP projections. Delayed post contrast acquisition was also obtained. Auto Exposure Controls were utilized during the CT exam to meet ALARA standards for radiation dose reduction. INDICATION: Right-sided weakness, slurred speech. CT angiogram neck: Branching pattern of the great vessels appeared normal. The left cervical vertebral artery dominant, the right is small but not pathologic. Common carotids patent. The carotid bulbs and bifurcations patent. The cervical internal carotids assuming the tortuous course but showed no significant stenosis or occlusion. CT angiogram head: The intrathecal vertebral arteries and the basilar unremarkable. The bilateral QUALITY ASSURANCE SPECIALIST segments are opacified. The intracranial ICAs widely patent. Delayed acquisitions believed to account for the contrast media within the major dural venous sinuses, the cavernous sinuses as well as the ophthalmic veins. The right A1 segment atretic or absent, the left is dominant and patent. The A-com patent and the paired anterior cerebral arteries patent. Bilateral middle cerebral arterial segments and primary branches are patent. No large vessel occlusion or intraluminal thrombus identified. No aneurysm or vascular malformation. IMPRESSION: No large vessel occlusion, thrombus, significant stenosis, aneurysm or other acute appearing abnormalities identified. Dictated by: Dictated on workstation # [id number] Dict: 01/27/21 1315 Trans: 01/27/21 1429 [id number] Interpreted by: ISABEL MAE Electronically signed by: ISABEL MAE 01/27/[address] Read Date: January 27, 2021 CT Read Time: 12:07 CT Results/Progress Notes No acute hemorrhage or intracranial process. CT angiogram of head and neck read at 1315 and did not show any large vessel occlusion. CVA/SNYCOPE: ECG, Tpa Considered (not candidate due to Eliquis) Critical Care Note Critical Care Total Time (minutes) 60 minutes Progress 60 minutes of critical care time was spent in direct care of the patient. This time excludes separately billable procedures. Time was spent in obtaining history from the patient and family, ordering test and reviewing results, ordering interventions and reviewing response, discussion with consultants, documentation in the chart. Patient was at risk for neurologic compromise and decompensation and required immediate and direct care and supervision. Departure Impression Primary Impression: Acute ischemic stroke Additional Impressions: Acute right-sided weakness Slurred speech Disposition: XFER SHT-TRM HOSP Condition: Stable Transfer Transfer Reason: Patient preference Time Spoke to Accepting Phy: 13:33 Transfer Progress Notes 1333 Dr. Ramirez with Neurology accepted pt to for transfer and evaluation for his right sided weakness, slurred speech and stroke symptoms. NATANAEL Rubio, with transfer center will call back with bed assignment shortly. Transfer Facility: [facility] Method of Transfer: EMS Departure-Patient Inst. Referrals: CARMELINA STONER DO (PCP/Family) Primary Care Physician HEBER HAYES MD January 27, 2021 12:05
--- NOTE | 2021-01-27 12:10 | Diagnostic Imaging Report ---
PROCEDURE: CT head wo r/o stroke. TECHNIQUE: Multiple contiguous axial images were obtained through the brain without the use of intravenous contrast. Auto Exposure Controls were utilized during the CT exam to meet ALARA standards for radiation dose reduction. INDICATION: Right-sided weakness and slurred speech one and half hours ago. COMPARISON STUDY: CT scan of the head from 03 28-. FINDINGS: Noncontrast CT scan of the head demonstrates a mass effect midline shift hemorrhage or extra-axial fluid collection. Stewart-white matter differentiation is normal. There is no significant atrophy. Bone windows demonstrate normal ossification. No fluid is seen in the mastoid air cells or the visualized portions of the paranasal sinuses. Postoperative changes present in the sinuses. IMPRESSION: There are no acute findings to the head. Dictated by: Dictated on workstation # [id number]
--- NOTE | 2021-01-27 12:33 | Diagnostic Imaging Report ---
INDICATION: Slurred speech, weakness COMPARISON STUDY: Chest from 06/03-. FINDINGS: Frontal view of the chest demonstrates previous sternotomy changes and spinal surgery. Heart size is upper normal with normal vascularity. Calcified granulomas are present. IMPRESSION: There are no acute findings. Dictated by: Dictated on workstation # [id number]
[2021-01-27 12:34] LABS: ALANINE AMINOTRANSFERASE 24 U/L (0-55); ALBUMIN 4.1 GM/DL (3.2-4.5); ALKALINE PHOSPHATASE 92 U/L (40-136); BILIRUBIN,TOTAL 0.6 MG/DL (0.1-1.0); BUN/CREATININE RATIO 12; CALCIUM 9.3 MG/DL (8.5-10.1); CARBON DIOXIDE 27 MMOL/L (21-32); CHLORIDE 102 MMOL/L (98-107); CREATININE SERUM 1.14 MG/DL (0.60-1.30); GFR ESTIMATED > 60; GLUCOSE 105 MG/DL (70-105); SODIUM 140 MMOL/L (135-145); TOTAL PROTEIN 6.3 GM/DL (6.4-8.2)
[2021-01-27 12:35] LABS: BASOPHILS % (AUTO) 0 % (0-10); EOSINOPHILS # (AUTO) 0.4 10^3/uL (0.0-0.3); EOSINOPHILS % (AUTO) 6 % (0-10); HEMATOCRIT 43 % (40-54); LYMPHOCYTES # (AUTO) 1.5 X 10^3 (1.0-4.0); LYMPHOCYTES % (AUTO) 21 % (12-44); MEAN CORPUSCULAR HEMOGLOBIN 29 PG (25-34); MEAN CORPUSCULAR HGB CONC 33 G/DL (32-36); MEAN CORPUSCULAR VOLUME 89 FL (80-99); MONOCYTES # (AUTO) 0.8 X 10^3 (0.0-1.0); MONOCYTES % (AUTO) 11 % (0-12); NEUTROPHILS # (AUTO) 4.3 X 10^3 (1.8-7.8); NEUTROPHILS % (AUTO) 62 % (42-75); PLATELET COUNT 206 10^3/uL (130-400)
[2021-01-27 12:36] LABS: INR 1.2 (0.8-1.4); PROTHROMBIN TIME PATIENT 15.3 SEC (12.2-14.7)
[2021-01-27] MEDS ORDERED: NS 100 ML (IVPB) BAG IV ONE (12:45)
[2021-01-27] MEDS ORDERED: CATHETER FLUSH 10 ML SYR IV PRN (12:45)
[2021-01-27] MEDS ORDERED: HOLD METFORMIN - RECEIVED CONTRAST 20 ML VIAL IV SCH (12:45)
[2021-01-27] MEDS ORDERED: IOHEXOL 350 MG/ML 100 ML (OMNIPAQUE 350) VIAL IV ONE (12:45)
--- NOTE | 2021-01-27 13:24 | Diagnostic Imaging Report ---
PROCEDURE: CT angiography of the head and CT angiography of the neck with and without contrast. TECHNIQUE: Contiguous noncontrast images were obtained from the skull base through the vertex. After intravenous contrast administration, helical CT angiography of the neck was performed. Source data was reformatted into 3D MIP projections. Delayed post contrast acquisition was also obtained. Auto Exposure Controls were utilized during the CT exam to meet ALARA standards for radiation dose reduction. INDICATION: Right-sided weakness, slurred speech. CT angiogram neck: Branching pattern of the great vessels appeared normal. The left cervical vertebral artery dominant, the right is small but not pathologic. Common carotids patent. The carotid bulbs and bifurcations patent. The cervical internal carotids assuming the tortuous course but showed no significant stenosis or occlusion. CT angiogram head: The intrathecal vertebral arteries and the basilar unremarkable. The bilateral MARKETING DEVELOPER segments are opacified. The intracranial ICAs widely patent. Delayed acquisitions believed to account for the contrast media within the major dural venous sinuses, the cavernous sinuses as well as the ophthalmic veins. The right A1 segment atretic or absent, the left is dominant and patent. The A-com patent and the paired anterior cerebral arteries patent. Bilateral middle cerebral arterial segments and primary branches are patent. No large vessel occlusion or intraluminal thrombus identified. No aneurysm or vascular malformation. IMPRESSION: No large vessel occlusion, thrombus, significant stenosis, aneurysm or other acute appearing abnormalities identified. Dictated by: Dictated on workstation # [id number]
[2021-01-27 14:35] VITALS: BP 108/92
== END 2021-01-27 14:35 | disposition short-term general hospital (02) ==
LOC: EDUNIT# 11:43 → ER FS 11:44
DX: I69.351 Hemiplegia and hemiparesis following cerebral infarction affecting right dominant side (principal); I69.328 Other speech and language deficits following cerebral infarction; L50.9 Urticaria, unspecified; J45.909 Unspecified asthma, uncomplicated; I48.91 Unspecified atrial fibrillation; G89.29 Other chronic pain; M54.9 Dorsalgia, unspecified; Z79.01 Long term (current) use of anticoagulants; Z79.51 Long term (current) use of inhaled steroids; Z79.52 Long term (current) use of systemic steroids; Z79.891 Long term (current) use of opiate analgesic
CPT/HCPCS: 36415; 70450; 70496; 70498; 71045; 80053; 82947; 84484; 85025; 85610; 85730; 93005; 93041

== ENCOUNTER → 2021-05-31 | Outpatient (CLI) | payer MEDICARE, OTHER ==
--- NOTE | 2021-05-31 14:00 | Diagnostic Imaging Report ---
Indication: Dyspnea. Comparison: 01/27/2021. Discussion: Two views of the chest were obtained. Normal heart size. Median sternotomy is stable. New left-sided pacemaker. No pneumothorax. No consolidation or pleural fluid. No osseous abnormality. Impression: 1. No acute cardiopulmonary process. Dictated by: Dictated on workstation # [id number]
== END ==
LOC: LAB FS 13:05
PROVIDERS: ATTEND Nurse Practitioner Family
DX: I50.30 Unspecified diastolic (congestive) heart failure (principal)
CPT/HCPCS: 71046

== ENCOUNTER → 2021-11-10 | Outpatient (CLI) | payer MEDICARE, OTHER ==
[~2021-11-10] MED LIST changes: +MONT-40 PO; -MONT10TA32 PO
--- NOTE | 2021-11-10 08:48 | Diagnostic Imaging Report ---
PROCEDURE: CT sinuses without contrast TECHNIQUE: Multiple contiguous axial images were obtained through the sinuses without the use of intravenous contrast. Coronal and sagittal reformations were then performed. Auto Exposure Controls were utilized during the CT exam to meet ALARA standards for radiation dose reduction. INDICATION: Recurrent sinusitis. COMPARISON: 01/27/2021. FINDINGS: Extensive post surgical changes are noted throughout the cervicothoracic spine on the commercial real estate broker image. The frontal sinuses are clear. Mild mucosal thickening within the bilateral frontoethmoidal recesses. Post surgical changes of bilateral antrectomy and ethmoidectomy are noted. Persistent mild mucosal thickening is identified within the ethmoid cavity with a few residual ethmoid septations remaining. The sphenoid sinuses are clear. Small mucosal retention cyst versus mucosal thickening within the left maxillary sinus. The visualized portions of the mastoid air cells and middle ear cavities appear patent. No significant nasal septal deviation. Bilateral ostiomeatal complexes are widely patent. Significant thinning of the lateral wall of the right maxillary sinus. No temporomandibular joint dislocation. No acute facial fracture. The bilateral ocular lenses are absent. The orbits are otherwise unremarkable. The parapharyngeal fat is symmetric and well-maintained. No significant intracranial midline shift. IMPRESSION: Post surgical changes associated with the paranasal sinuses with mild mucosal thickening within the post surgical ethmoid cavities bilaterally and small mucous retention cyst versus mucosal thickening within the left maxillary sinus. Bilateral post surgical ostiomeatal complexes are widely patent. Dictated by: Dictated on workstation # [id number]
== END ==
LOC: RAD FS 08:17
PROVIDERS: ATTEND Otolaryngology Otolaryngology/Facial Plastic Surgery
DX: J32.8 Other chronic sinusitis (principal); J34.89 Other specified disorders of nose and nasal sinuses; Z98.890 Other specified postprocedural states
CPT/HCPCS: 70486

== ENCOUNTER → 2022-04-06 | Outpatient (CLI) | payer MEDICARE, OTHER ==
--- NOTE | 2022-04-06 15:33 | Diagnostic Imaging Report ---
INDICATION: Cough. TIME OF EXAM: 2:52 PM. COMPARISON: Correlation is made with the prior chest from 05/31/2021. FINDINGS: Changes of median sternotomy are noted. A cardiac defibrillator is in place. The lungs are clear. No infiltrates are detected. There is no effusion or pneumothorax. IMPRESSION: No acute cardiopulmonary process is detected. Dictated by: Dictated on workstation # [id number]
== END ==
LOC: RAD FS 14:30
PROVIDERS: ATTEND Nurse Practitioner Family
DX: J42 Unspecified chronic bronchitis (principal)
CPT/HCPCS: 71046

== ENCOUNTER 2022-06-01 23:05 | Emergency (ER) | payer MEDICARE, OTHER ==
[~2022-06-01] VITALS: Ht 161 cm; Wt 81.6 kg
--- NOTE | 2022-06-01 23:26 | ED General ---
General Chief Complaint: Neurological Problems Stated Complaint: NUMBNESS/TINGLING IN CHEST Source of Information: Patient History of Present Illness Date Seen by Provider: Jun 01, 2022 Time Seen by Provider: 23:09 Initial Comments 71 yo male presenting with concern for intermittent numbness and burning sensation in the skin. This started almost a week ago and has moved from lower abdomen up to his chest and now at times involving bilateral lower extremities. States it feels similar to when he had needed cervical spine fusion. He has had last 2 surgeries of his cervical spine with Dr. Chu from [place] [address] [place]. He denies any new injury or fall or accident. He has no loss of bowel or bladder control. Timing/Duration: 6-7 Days Severity: Moderate Associated Systoms: No Chest Pain, No Cough, No Diaphoresis, No Fever/Chills, No Headaches, No Loss of Appetite, No Malaise, No Nausea/Vomiting, No Rash, No Seizure, No Shortness of Air, No Syncope, No Weakness Allergies and Home Medications Allergies Coded Allergies: No Known Drug Allergies (Unverified , 11/15/14) Patient Home Medication List Home Medication List Reviewed: Yes Albuterol Sulfate (Ventolin Hfa) 18 Gm Hfa.aer.ad, 2 PUFF INH Q6H PRN for SH ORTNESS OF BREATH, (Reported) Entered as Reported by: GABY HYLTON on 04/24/201455 Apixaban (Eliquis) 5 Mg Tablet, 5 MG PO BID, (Reported) Entered as Reported by: GABY HYLTON on 04/24/201455 Benzonatate (Benzonatate) 200 Mg Capsule, 200 MG PO Q6H PRN for COUGH, (Reported) Entered as Reported by: GABY HYLTON on 04/24/20 145 Budesonide (Budesonide) 1 Mg/2 Ml Ampul.neb, 2 ML NEB BID, (Reported) Entered as Reported by: GABY HYLTON on 04/24/201455 Cholecalciferol (Vitamin D3) (Vitamin D3) 125 Mcg Tablet, 125 MCG PO DAILY, (Reported) Entered as Reported by: GABY HYLTON on 04/24/20 145 Famotidine (Acid Windlasser (FAMOTIDINE)) 20 Mg Tablet, 20 MG PO BID, (Reported) Entered as Reported by: GABY HYLTON on 04/24/201455 Fenofibrate (Fenofibrate) 160 Mg Tablet, 160 MG PO HS, (Reported) Entered as Reported by: GABY HYLTON on 04/24/201455 Folic Acid (Folic Acid) 1 Mg Tablet, 1 MG PO DAILY, (Reported) Entered as Reported by: GABY HYLTON on 04/24/201455 Hydroxychloroquine Sulfate (Hydroxychloroquine Sulfate) 200 Mg Tablet, 200 MG PO BID, (Reported) Entered as Reported by: GABY HYLTON on 04/24/201455 Loratadine (Loratadine) 10 Mg Tablet, 10 MG PO HS, (Reported) Entered as Reported by: GABY HYLTON on 04/24/201455 Methotrexate Sodium (Methotrexate) 2.5 Mg Tablet, 15 MG PO WEDNESDAY, (Reported) Entered as Reported by: GABY HYLTON on 04/24/201455 Metoprolol Succinate (Metoprolol Succinate) 25 Mg Tab.er.24h, 12.5 MG PO HS, (Reported) Entered as Reported by: GABY HYLTON on 04/24/201455 Montelukast Sodium (Montelukast Sodium) 10 Mg Tablet, 10 MG PO HS, (Reported) Entered as Reported by: GABY HYLTON on 04/24/201455 Pantoprazole Sodium (Pantoprazole Sodium) 40 Mg Tablet.dr, 40 MG PO BID, (Reported) Entered as Reported by: GABY HYLTON on 04/24/201455 Prednisone (Prednisone) 1 Mg Tab, 3 MG PO DAILY, (Reported) Entered as Reported by: GABY HYLTON on 04/24/201455 Promethazine HCl/Codeine (Prometh-Codein 6.25-10 mg/5 ml) 5 Ml Syrup, 5 ML PO Q4H PRN for COUGH, (Reported) Entered as Reported by: GABY HYLTON on 04/24/201455 Tramadol HCl (Tramadol HCl) 50 Mg Tablet, 50-100 MG PO Q6H PRN for PAIN-MODERATE (5-7), (Reported) Entered as Reported by: GABY HYLTON on 04/24/201455 Zinc Amino Acid Chelate (Zinc) 50 Mg Tablet, 100 MG PO DAILY, (Reported) Entered as Reported by: GABY HYLTON on 04/24/201455 Zolpidem Tartrate (Ambien) 10 Mg Tablet, 10 MG PO HS PRN for SLEEP, (Reported) Entered as Reported by: GABY HYLTON on 04/24/201455 Review of Systems Review of Systems Constitutional: No chills, No fever EENTM: no symptoms reported Respiratory: no symptoms reported Cardiovascular: no symptoms reported Gastrointestinal: no symptoms reported Genitourinary: no symptoms reported Musculoskeletal: No neck pain Skin: No rash Psychiatric/Neurological: See HPI Hematologic/Lymphatic: Easy Bleeding (taking eliquis), Easy Bruising (taking eliquis) Past Oddxpnp-Uenxuk-Bpbntk Hx Patient Social History Tobacco Use?: No Use of E-Cig and/or Vaping dev: No Substance use?: No Alcohol Use?: No Immunizations Up To Date Tetanus Booster (TDap): Less than 5yrs Seasonal Allergies Seasonal Allergies: No Past Medical History Surgery/Hospitalization HX: Cervical Spine Fusion, Asthma, Pneumonia, Atrial Fibrillation, BPH, Neuropathy, Chronic Back pain Surgeries: Yes (SINUS SURGERY X6, CERVICAL NECK X3, SEPTAL DEFECT REPAIR, d ecortication LLL) Respiratory: Yes (HAS HAD COVID) Asthma, Pneumonia Cardiac: Yes (ATRIAL SEPTAL DEFECT- REPAIRED IN 1998, ABLATION) Atrial Fibrillation Neurological: Yes (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) Neuropathy Reproductive Disorders: No Genitourinary: Yes Benign Prostatic Hyperpl Gastrointestinal: Yes Hemorrhoids Musculoskeletal: Yes (SPINAL STENOSIS) Chronic Back Pain Endocrine: No HEENT: No Cancer: No Psychosocial: No Integumentary: No Blood Disorders: No Adverse Reaction/Blood Tranf: No Family Medical History Arthritis G8 BROTHER G8 SISTER Asthma 19 FATHER Cardiovascular disease 19 FATHER G8 BROTHER Osteoporosis 19 MOTHER Scleroderma Scleroderma Physical Exam Vital Signs Vital Signs - First Documented 06/01/22 23:21 Temp 37.0 Pulse 70 Resp 20 B/P (MAP) 104/72 (83) Pulse Ox 97 O2 Delivery Room Air Capillary Refill : Height, Weight, BMI Height: 5'2.00" Weight: 191lbs. oz. [id number]; 29.00 BMI Method: General Appearance: No Apparent Distress, WD/WN HEENT: PERRL/EOMI, Pharynx Normal Neck: Non Tender, Other (well healed scarring to posterior neck from prior cervical spine surgeries) Respiratory: Chest Non Tender, Lungs Clear, Normal Breath Sounds, No Accessory Muscle Use, No Respiratory Distress Cardiovascular: Regular Rate, Rhythm, Normal Peripheral Pulses Gastrointestinal: Normal Bowel Sounds, No Pulsatile Mass, Non Tender, Soft Rectal: Deferred Back: No CVA Tenderness, No Vertebral Tenderness Extremity: Normal Capillary Refill, Normal Inspection, No Calf Tenderness, No Pedal Edema Neurologic/Psychiatric: Alert, Oriented x3, No Motor/Sensory Deficits, Normal 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, 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 Norm as Tested, Other (2/4 DTR Biceps, Patellar bilaterally) Skin: Normal Color, Warm/Dry Progress/Results/Core Measures Suspected Sepsis SIRS Temperature: Pulse: Respiratory Rate: Blood Pressure / Mean: Results/Orders My Orders Orders - HEBER HAYES MD Ct Cervical Spine Wo (06/01/22 23:17) Vital Signs/I&O 06/01/22 06/02/22 23:21 00:42 Temp 37.0 37.0 Pulse 70 70 Resp 20 20 B/P (MAP) 104/72 (83) 104/72 Pulse Ox 97 97 O2 Delivery Room Air Room Air Capillary Refill : Progress Note #1: Progress Note CT scan of Cervical spine to look for acute bony abnormality, hematoma, spinal injury, hardware failure Progress Note #2: Progress Note No signs of hematoma or spine fracture on CT of the cervical spine without con trast. We will have patient follow-up with his spine surgeon Dr. CHU. Diagnostic Imaging Diagonstic Imaging: CT Plain Films/CT/US/NM/MRI: c-spine Comments CT cervical spine without IV contrast shows extensive postoperative changes in the cervical spine with no acute osseous abnormality but mild lateral deviation of the C7 and T2 pedicle screws on the right as described above. Potentially at risk for nerve impingement. No fluid collection. Read by radiologist Dr. Mauricio Davis MD at 1036 and faxed at [phone] Reviewed: Reviewed Night Hawk Study, Reviewed by Me Departure Impression Primary Impression: Paresthesia of skin Disposition: HOME, SELF-CARE Condition: Stable Departure-Patient Inst. Decision time for Depature: 00:35 Referrals: PHAM CHU MD, JILL K DO (PCP) Primary Care Physician Patient Instructions: Paresthesia (DC) Add. Discharge Instructions: Call Dr. Ipsen in the morning to arrange follow up CT scan tonight showed mild lateral deviation of Pedicle Screws of C7 and T2. This could put you at risk for nerve impingement. All discharge instructions reviewed with patient and/or family. Voiced understanding. HEBER HAYES MD Jun 01, 2022 23:26
[2022-06-02 00:42] VITALS: BP 104/72
--- NOTE | 2022-06-02 08:11 | Diagnostic Imaging Report ---
PROCEDURE: CT cervical spine without contrast. TECHNIQUE: Multiple contiguous axial images were obtained through the cervical spine without the use of intravenous contrast. Sagittal and coronal reformations were then performed. Auto Exposure Controls were utilized during the CT exam to meet ALARA standards for radiation dose reduction. INDICATION: Paresthesias. History of previous surgical fusion. COMPARISON: 01/27/2021 FINDINGS: Patient is status post previous laminectomy of C3-C6. Patient is also status post previous corpectomy of C4. Posterior fusion hardware is identified extending from C2 through T2. Evaluation interpedicular screws demonstrates the right-sided C7 and T2 screws to be slightly laterally deviated with the right T2 tip terminating in the right paraspinal soft tissues below the 2nd rib near the costotransverse junction. Right C7 screw tip projects across the superior aspect of the right C7 foramen. Interpedicular screws and posterior fusion rods are intact. No unexpected radiopaque foreign bodies are seen. Static alignment of the cervical spine is maintained. There is no significant anterolisthesis or retrolisthesis. There is no evidence of jumped facets. Vertebral body heights are maintained. No acute fracture is seen. Pre and paravertebral soft tissue structures are unremarkable. Included portions lung apices are clear. IMPRESSION:. 1. Extensive postsurgical changes to the cervical spine are identified. Again, there is mild lateral deviation of the C7 and T2 pedicle screws on the right. Patient may be at risk for nerve impingement. Clinical correlation is advised. 2. No new acute osseous abnormality of the cervical spine. Dictated by: Dictated on workstation # [id number]
== END 2022-06-02 00:44 | disposition home or self-care (01) ==
LOC: EDUNIT# 23:05 → ER FS 23:09
DX: R20.2 Paresthesia of skin (principal); Z86.16 Personal history of COVID-19
CPT/HCPCS: 72125

== ENCOUNTER 2022-12-05 16:19 | Emergency (ER) | payer MEDICARE, OTHER ==
[~2022-12-05] VITALS: Ht 154 cm; Wt 77.0 kg
[2022-12-05 16:35] LABS: BASOPHILS % (AUTO) 0 % (0-10); EOSINOPHILS # (AUTO) 0.1 10^3/uL (0.0-0.3); EOSINOPHILS % (AUTO) 2 % (0-10); HEMATOCRIT 35 % (40-54); HEMOGLOBIN 11.4 g/dL (13.3-17.7); LYMPHOCYTES # (AUTO) 1.4 10^3/uL (1.0-4.0); LYMPHOCYTES % (AUTO) 19 % (12-44); MEAN CORPUSCULAR HEMOGLOBIN 30 pg (25-34); MEAN CORPUSCULAR HGB CONC 33 g/dL (32-36); MEAN CORPUSCULAR VOLUME 90 fL (80-99); MEAN PLATELET VOLUME 9.7 fL (9.0-12.2); MONOCYTES # (AUTO) 1.2 10^3/uL (0.0-1.0); MONOCYTES % (AUTO) 16 % (0-12); NEUTROPHILS # (AUTO) 4.6 10^3/uL (1.8-7.8); NEUTROPHILS % (AUTO) 63 % (42-75); PLATELET COUNT 194 10^3/uL (130-400); WHITE BLOOD COUNT 7.3 10^3/uL (4.3-11.0)
--- NOTE | 2022-12-05 16:41 | ED General ---
General Chief Complaint: General Problems/Pain Stated Complaint: POSSIBLE DVT Source of Information: Patient, Family Exam Limitations: No Limitations History of Present Illness Date Seen by Provider: Dec 05, 2022 Time Seen by Provider: 16:14 Initial Comments 72-year-old male with past medical history of HFrEF (EF 40-45%), pAfib (normally on Eliquis but being held), HTN, asthma coming in via private vehicle from home due to feeling lightheaded, and feeling like he could pass out. He was mildly short of breath at that time. Took his blood pressure and it was 70s over 40s. He states he had back surgery at 2 days ago and was discharged yesterday. He had not had a bowel movement, took a lot of laxatives, and had a large bowel movement today. He believes he could have had a vasovagal event as the cause of this today. Denies any chest pain, current shortness of breath, abdominal pain, current nausea or vomiting, diarrhea, focal weakness or numbness, or any other concerns. He does feel generally weak, and did have some nausea earlier which got better after he took Zofran. He does endorse some lower extremity swelling that is equal bilaterally, no redness or pain associated with it. Denies any prior history of DVT or PE. 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 They clipped these malformations and did laminectomies to get to it. Allergies and Home Medications Allergies Coded Allergies: No Known Drug Allergies (Unverified , 11/15/14) Patient Home Medication List Home Medication List Reviewed: Yes Albuterol Sulfate (Ventolin Hfa) 18 Gm Hfa.aer.ad, 2 PUFF INH Q6H PRN for SHORTNESS OF BREATH, (Reported) Entered as Reported by: GABY HYLTON on 04/24/20 145 Apixaban (Eliquis) 5 Mg Tablet, 5 MG PO BID, (Reported) Entered as Reported by: GABY HYLTON on 04/24/20 145 Benzonatate (Benzonatate) 200 Mg Capsule, 200 MG PO Q6H PRN for COUGH, (Reported) Entered as Reported by: GABY HYLTON on 04/24/20 145 Budesonide (Budesonide) 1 Mg/2 Ml Ampul.neb, 2 ML NEB BID, (Reported) Entered as Reported by: GABY HYLTON on 04/24/201455 Cholecalciferol (Vitamin D3) (Vitamin D3) 125 Mcg Tablet, 125 MCG PO DAILY, (Reported) Entered as Reported by: GABY HYLTON on 04/24/201455 Famotidine (Acid Dry Goods Clerk (FAMOTIDINE)) 20 Mg Tablet, 20 MG PO BID, (Reported) Entered as Reported by: GABY HYLTON on 04/24/201455 Fenofibrate (Fenofibrate) 160 Mg Tablet, 160 MG PO HS, (Reported) Entered as Reported by: GABY HYLTON on 04/24/201455 Folic Acid (Folic Acid) 1 Mg Tablet, 1 MG PO DAILY, (Reported) Entered as Reported by: GABY HYLTON on 04/24/201455 Hydroxychloroquine Sulfate (Hydroxychloroquine Sulfate) 200 Mg Tablet, 200 MG PO BID, (Reported) Entered as Reported by: GABY HYLTON on 04/24/201455 Loratadine (Loratadine) 10 Mg Tablet, 10 MG PO HS, (Reported) Entered as Reported by: GABY HYLTON on 04/24/201455 Methotrexate Sodium (Methotrexate) 2.5 Mg Tablet, 15 MG PO WEDNESDAY, (Reported) Entered as Reported by: GABY HYLTON on 04/24/201455 Metoprolol Succinate (Metoprolol Succinate) 25 Mg Tab.er.24h, 12.5 MG PO HS, (Reported) Entered as Reported by: GABY HYLTON on 04/24/201455 Montelukast Sodium (Montelukast Sodium) 10 Mg Tablet, 10 MG PO HS, (Reported) Entered as Reported by: GABY HYLTON on 04/24/201455 Pantoprazole Sodium (Pantoprazole Sodium) 40 Mg Tablet.dr, 40 MG PO BID, (Reported) Entered as Reported by: GABY HYLTON on 04/24/201455 Prednisone (Prednisone) 1 Mg Tab, 3 MG PO DAILY, (Reported) Entered as Reported by: GABY HYLTON on 04/24/201455 Promethazine HCl/Codeine (Prometh-Codein 6.25-10 mg/5 ml) 5 Ml Syrup, 5 ML PO Q4H PRN for COUGH, (Reported) Entered as Reported by: GABY HYLTON on 04/24/201455 Tramadol HCl (Tramadol HCl) 50 Mg Tablet, 50-100 MG PO Q6H PRN for PAIN-MODERATE (5-7), (Reported) Entered as Reported by: GABY HYLTON on 04/24/201455 Zinc Amino Acid Chelate (Zinc) 50 Mg Tablet, 100 MG PO DAILY, (Reported) Entered as Reported by: GABY HYLTON on 04/24/201455 Zolpidem Tartrate (Ambien) 10 Mg Tablet, 10 MG PO HS PRN for SLEEP, (Reported) Entered as Reported by: GABY HYLTON on 04/24/201455 Review of Systems Review of Systems Constitutional: No fever EENTM: no symptoms reported Respiratory: see HPI Cardiovascular: see HPI Gastrointestinal: see HPI Genitourinary: no symptoms reported Musculoskeletal: no symptoms reported Skin: no symptoms reported Psychiatric/Neurological: No Symptoms Reported Hematologic/Lymphatic: No Symptoms Reported Past Dnxjgnp-Ybgvtq-Wnkdtq Hx Patient Social History Tobacco Use?: No Immunizations Up To Date Tetanus Booster (TDap): Less than 5yrs First/Initial COVID19 Vaccinat: 2020 Second COVID19 Vaccination Chandler: 2020 Seasonal Allergies Seasonal Allergies: No Past Medical History Surgery/Hospitalization HX: Cervical Spine Fusion, Asthma, Pneumonia, Atrial Fibrillation, BPH, Neuropathy, Chronic Back pain Surgeries: Yes (SINUS SURGERY X6, CERVICAL NECK X3, SEPTAL DEFECT REPAIR, decortication LLL) Respiratory: Yes (HAS HAD COVID) Asthma, Pneumonia Cardiac: Yes (ATRIAL SEPTAL DEFECT- REPAIRED IN 1998, ABLATION) Atrial Fibrillation Neurological: Yes (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) Neuropathy Reproductive Disorders: No Genitourinary: Yes Benign Prostatic Hyperpl Gastrointestinal: Yes Hemorrhoids Musculoskeletal: Yes (SPINAL STENOSIS) Chronic Back Pain Endocrine: No HEENT: No Cancer: No Psychosocial: No Integumentary: No Blood Disorders: No Adverse Reaction/Blood Tranf: No Family Medical History Arthritis G8 BROTHER G8 SISTER Asthma 19 FATHER Cardiovascular disease 19 FATHER G8 BROTHER Osteoporosis 19 MOTHER Scleroderma Scleroderma Physical Exam Vital Signs Vital Signs - First Documented 12/05/22 16:41 Temp 35.8 Pulse 68 Resp 18 B/P (MAP) 107/90 (96) Capillary Refill : Height, Weight, BMI Height: 5'2.00" Weight: 191lbs. oz. 86.167510iu; 31.00 BMI Method: General Appearance: No Apparent Distress, WD/WN Eyes: Bilateral Eye Normal Inspection HEENT: PERRL/EOMI, Normal ENT Inspection, Pharynx Normal Neck: Full Range of Motion, Normal Inspection, Non Tender, Supple Respiratory: Chest Non Tender, Lungs Clear, Normal Breath Sounds, No Accessory Muscle Use, No Respiratory Distress Cardiovascular: Regular Rate, Rhythm, Normal Peripheral Pulses Gastrointestinal: Normal Bowel Sounds, Non Tender, Soft; No Distended, No Guarding Back: Normal Inspection, No CVA Tenderness, No Vertebral Tenderness, Other (His lower lumbar spine scar is clean, dry, intact with no signs of infection) Extremity: Normal Capillary Refill, Normal Inspection, Normal Range of Motion, Non Tender, No Calf Tenderness, Pedal Edema Neurologic/Psychiatric: Alert, Oriented x3, No Motor/Sensory Deficits, Normal Mood/Affect Skin: Normal Color, Warm/Dry Focused Exam Lactate Level 12/05/22 16:54: Lactic Acid Level 1.58 Lactic Acid Level Laboratory Tests Test 12/05/22 16:54 Lactic Acid Level 1.58 MMOL/L (0.50-2.00) Progress/Results/Core Measures Suspected Sepsis SIRS Temperature: Pulse: Respiratory Rate: Laboratory Tests 12/05/22 16:27: White Blood Count 7.3 Blood Pressure / Mean: 12/05/22 16:54: Lactic Acid Level 1.58 Laboratory Tests 12/05/22 16:27: Creatinine 1.32H, INR Comment 1.0, Platelet Count 194, Total Bilirubin 0.5 Results/Orders Lab Results Laboratory Tests Test 12/05/22 16:27 12/05/22 16:54 Range/Units White Blood Count 7.3 4.3-11.0 10^3/uL Red Blood Count 3.85 L 4.30-5.52 10^6/uL Hemoglobin 11.4 L 13.3-17.7 g/dL Hematocrit 35 L 40-54 % Mean Corpuscular Volume 90 80-99 fL Mean Corpuscular Hemoglobin 30 25-34 pg Mean Corpuscular Hemoglobin Concent 33 32-36 g/dL Red Cell Distribution Width 13.9 10.0-14.5 % Platelet Count 194 130-400 10^3/uL Mean Platelet Volume 9.7 9.0-12.2 fL Immature Granulocyte % (Auto) 0 % Neutrophils (%) (Auto) 63 42-75 % Lymphocytes (%) (Auto) 19 12-44 % Monocytes (%) (Auto) 16 H 0-12 % Eosinophils (%) (Auto) 2 0-10 % Basophils (%) (Auto) 0 0-10 % Neutrophils # (Auto) 4.6 1.8-7.8 10^3/uL Lymphocytes # (Auto) 1.4 1.0-4.0 10^3/uL Monocytes # (Auto) 1.2 H 0.0-1.0 10^3/uL Eosinophils # (Auto) 0.1 0.0-0.3 10^3/uL Basophils # (Auto) 0.0 0.0-0.1 10^3/uL Immature Granulocyte # (Auto) 0.0 0.0-0.1 10^3/uL Prothrombin Time 14.0 12.2-14.7 SEC INR Comment 1.0 0.8-1.4 Activated Partial Thromboplast Time 29 24-35 SEC D-Dimer 0.54 H 0.00-0.49 UG/ML Sodium Level 134 L 135-145 MMOL/L Potassium Level 4.8 3.6-5.0 MMOL/L Chloride Level 98 98-107 MMOL/L Carbon Dioxide Level 27 21-32 MMOL/L Anion Gap 9 5-14 MMOL/L Blood Urea Nitrogen 24 H 7-18 MG/DL Creatinine 1.32 H 0.60-1.30 MG/DL Estimat Glomerular Filtration Rate 58 BUN/Creatinine Ratio 18 Glucose Level 95 70-105 MG/DL Calcium Level 9.0 8.5-10.1 MG/DL Corrected Calcium 9.2 8.5-10.1 MG/DL Magnesium Level 2.4 1.6-2.4 MG/DL Total Bilirubin 0.5 0.1-1.0 MG/DL Aspartate Amino Transf (AST/SGOT) 29 5-34 U/L Alanine Aminotransferase (ALT/SGPT) 18 0-55 U/L Alkaline Phosphatase 43 40-136 U/L Troponin I < 0.30 <0.30 NG/ML Pro-B-Type Natriuretic Peptide 1695.0 H <125.0 PG/ML Total Protein 6.2 L 6.4-8.2 GM/DL Albumin 3.8 3.2-4.5 GM/DL Lipase 27 8-78 U/L Lactic Acid Level 1.58 0.50-2.00 MMOL/L My Orders Orders - CHECO CEE MD Cbc With Automated Diff (12/05/22 16:30) Comprehensive Metabolic Panel (12/05/22 16:30) Fibrin Degradation Products (12/05/22 16:30) Lipase (12/05/22 16:30) Magnesium (12/05/22 16:30) Protime With Inr (12/05/22 16:30) Partial Thromboplastin Time (12/05/22 16:30) Probnp Fs (12/05/22 16:30) Troponin I Fs (12/05/22 16:30) Ed Iv/Invasive Line Start (12/05/22 16:30) Ekg Tracing (12/05/22 16:30) Monitor-Rhythm Ecg Trace Only (12/05/22 16:30) Ed Iv/Invasive Line Start (12/05/22 16:30) Ns Iv 500 Ml (Sodium Chloride 0.9%) (12/05/22 16:48) Lactic Acid Analyzer (12/05/22 16:48) Chest 1 View Ap/Pa Only (12/05/22 17:11) Ns Iv 1000 Ml (Sodium Chloride 0.9%) (12/05/22 17:25) Ceftriaxone 1 Gm Pre-Mix (Rocephin 1 Gm (12/05/22 17:30) Ua Culture If Indicated (12/05/22 17:26) Ct Head Wo (12/05/22 17:52) Medications Given in ED Current Medications Medications Dose Ordered Sig/Kayleigh Route Start Time Stop Time Status Last Admin Dose Admin Ceftriaxone Sodium/Dextrose 50 ml @ 100 mls/hr ONCE ONCE IV 12/05/22 17:30 12/05/22 17:59 DC 12/05/22 18:08 100 MLS/HR Vital Signs/I&O 12/05/22 12/05/22 12/05/22 12/05/22 16:41 16:45 16:46 16:46 Temp 35.8 Pulse 68 63 63 61 61 61 Resp 18 B/P (MAP) 107/90 (96) 84/38 (53) 84/38 (53) 84/38 (53) Sitting 84/45 (58) 77/49 (58) Sitting Capillary Refill : Progress Note : Progress Note 72-year-old male with above history coming in due to low blood pressure, near syncope, lightheaded. Initially blood pressure was appropriate on arrival, he stated it was 70s at home. Shortly after arrival, his blood pressure was consistently in the 70s over 40s. An IV was placed and basic labs were obtained. The patient does have heart failure with decreased ejection fraction. He does have increasing lower extremity edema compared to his regular. His mucous membranes are slightly dry. I did a passive straight leg raise which increases systolic by a couple of points, but not significantly. Give him 500 cc of IV fluids as a challenge. His blood pressure stayed the same. He then got another liter of IV fluids to be 20 cc/kg. We will cover him with ceftriaxone in case there is infection, although I think it is unlikely. His white blood cell count is normal, his lactic acid is normal, he is afebrile, is not showing any other signs of infection. His wound on his back looks good as well. His D-dimer is 0.54, and if this is age-adjusted is technically negative. It was 0.5 a couple of years ago. His troponin is negative. His legs look equally swollen and I am not seeing any clinical concerns for DVT. His creatinine is elevated with a mild CINDY at 1.3. Contacted [facility] since that is where he was recently discharge from and his specialist is there at 17:28. They requested a CT head to be done which was completed with no acute abnormality. I contacted them again at 18:37, they stated they will get back with us, and that they do have beds available. DANNY called back at 1852, and Dr. Chino has accepted him for admission. We are awaiting transport at this time since our EMS system is out of County with another transport. ECG Initial ECG Impression Date: Dec 05, 2022 Initial ECG Impression Time: 16:26 Initial ECG Rate: 63 Initial ECG Rhythm: Normal Sinus Comment Ventricularly paced rhythm, no STEMI Diagnostic Imaging Diagonstic Imaging: Xray (chest), CT (head) Comments [facility], [place] NAME: [facility] REC#: [id number] PT STATUS: REG ER : 1950 PHYSICIAN: CHECO CEE MD ADMIT DATE: 12/05/22/ER FS Draft Date of Exam:12/05/22 CT HEAD WO PROCEDURE: CT head without contrast. TECHNIQUE: Multiple contiguous axial images were obtained through the brain without the use of intravenous contrast. Auto Exposure Controls were utilized during the CT exam to meet ALARA standards for radiation dose reduction. INDICATION: Lightheadedness. CT HEAD: CT images of the head were obtained. FINDINGS: Ventricles and sulci are within normal limits for size. There is no intracranial hemorrhage identified. There is no abnormal mass effect or shift of midline structures. IMPRESSION: Unremarkable CT of the head. Dictated on workstation # [id number] Dict: 12/05/221821 Trans: 12/05/221825 [facility] [phone] Interpreted by: ISABEL HA MD Electronically signed by: NAME: [facility] REC#: [id number] PT STATUS: REG ER : 1950 PHYSICIAN: CHECO CEE MD ADMIT DATE: 12/05/22/ER FS Draft Date of Exam:12/05/22 CHEST 1 VIEW AP/PA ONLY INDICATION: Hypotension. EXAMINATION: AP view of the chest was obtained. COMPARISON: Study of 01/27/2021. FINDINGS: Heart size is within normal limits. Pulmonary vascularity is at the upper limits of normal. Prominent interstitial markings in both lungs are stable. There is no evidence of pneumothorax, consolidation or pleural fluid. Extensive surgical findings are seen in the cervical spine and thorax. Pacemaker has been placed without pneumothorax or midline shift. IMPRESSION: Mild pulmonary venous congestion and background probable chronic interstitial lung disease. Otherwise, no acute abnormality or adverse change is detected. Dictated on workstation # [id number] Dict: 12/05/221851 Trans: 12/05/221854 [facility] [id number] Interpreted by: ISABEL HA MD Electronically signed by: Departure Impression Primary Impression: Hypotension Qualified Codes: I95.89 - Other hypotension; E86.1 - Hypovolemia Additional Impressions: S/P spinal surgery CINDY (acute kidney injury) Disposition: SHT-TRM HOSP Condition: Stable Admissions Decision to Admit/Date: Dec 05, 2022 Time/Decision to Admit Time: 17:28 Transfer Transfer Reason: Exceeds level of care (needs to have his surgeon available as well as his heart failure specialist) Time Spoke to Accepting Phy: 18:52 Transfer Progress Notes Accepted by Dr. Chino to [facility] Transfer Facility: [facility] Method of Transfer: EMS Departure-Patient Inst. Referrals: CARMELINA STONER DO (PCP/Family) Primary Care Physician CHECO CEE MD Dec 05, 2022 16:41
[2022-12-05 16:45] VITALS: BP 84/38
[2022-12-05 16:46] VITALS: BP_SYST 77; BP_SYST 84; BP_DIAS 38; BP_DIAS 45; BP_DIAS 49
[2022-12-05 16:46] LABS: ALANINE AMINOTRANSFERASE 18 U/L (0-55); ALBUMIN 3.8 GM/DL (3.2-4.5); ALKALINE PHOSPHATASE 43 U/L (40-136); BILIRUBIN,TOTAL 0.5 MG/DL (0.1-1.0); BUN/CREATININE RATIO 18; CARBON DIOXIDE 27 MMOL/L (21-32); CHLORIDE 98 MMOL/L (98-107); CREATININE SERUM 1.32 MG/DL (0.60-1.30); GFR ESTIMATED 58; GLUCOSE 95 MG/DL (70-105); LIPASE 27 U/L (8-78); MAGNESIUM 2.4 MG/DL (1.6-2.4); POTASSIUM 4.8 MMOL/L (3.6-5.0); SODIUM 134 MMOL/L (135-145); TOTAL PROTEIN 6.2 GM/DL (6.4-8.2)
[2022-12-05] MEDS ORDERED: NS IV 500 ML 500 ML IV STA (16:48)
[2022-12-05 17:03] LABS: FIBRIN DEGRADATION PRODUCTS 0.54 UG/ML (0.00-0.49)
[2022-12-05] MEDS ORDERED: NS IV 1000 ML 1,000 ML IV STA (17:25)
[2022-12-05] MEDS ORDERED: cefTRIAXone 1 GM PRE-MIX 50 ML IV ONE (17:30)
--- NOTE | 2022-12-05 18:26 | Diagnostic Imaging Report ---
PROCEDURE: CT head without contrast. TECHNIQUE: Multiple contiguous axial images were obtained through the brain without the use of intravenous contrast. Auto Exposure Controls were utilized during the CT exam to meet ALARA standards for radiation dose reduction. INDICATION: Lightheadedness. CT HEAD: CT images of the head were obtained. FINDINGS: Ventricles and sulci are within normal limits for size. There is no intracranial hemorrhage identified. There is no abnormal mass effect or shift of midline structures. IMPRESSION: Unremarkable CT of the head. Dictated by: Dictated on workstation # [id number]
--- NOTE | 2022-12-05 18:56 | Diagnostic Imaging Report ---
INDICATION: Hypotension. EXAMINATION: AP view of the chest was obtained. COMPARISON: Study of 01/27/2021. FINDINGS: Heart size is within normal limits. Pulmonary vascularity is at the upper limits of normal. Prominent interstitial markings in both lungs are stable. There is no evidence of pneumothorax, consolidation or pleural fluid. Extensive surgical findings are seen in the cervical spine and thorax. Pacemaker has been placed without pneumothorax or midline shift. IMPRESSION: Mild pulmonary venous congestion and background probable chronic interstitial lung disease. Otherwise, no acute abnormality or adverse change is detected. Dictated by: Dictated on workstation # [id number]
[2022-12-05 20:45] VITALS: BP 106/59
== END 2022-12-05 21:00 | disposition short-term general hospital (02) ==
LOC: EDUNIT# 16:19 → ER FS 16:20
DX: I95.9 Hypotension, unspecified (principal); N17.9 Acute kidney failure, unspecified; I11.0 Hypertensive heart disease with heart failure; I50.20 Unspecified systolic (congestive) heart failure; I48.0 Paroxysmal atrial fibrillation; Z79.01 Long term (current) use of anticoagulants; Z98.890 Other specified postprocedural states; Z86.16 Personal history of COVID-19
CPT/HCPCS: 36415; 70450; 71045; 80053; 83605; 83690; 83735; 83880; 84484; 85025; 85379; 85610; 85730; 93005; 93041